=== PATIENT | male | born 1945 | race Caucasian/White ===

== ENCOUNTER 2017-10-30 08:55 | Inpatient (IN) | payer MEDICARE ==
[2017-11-20 10:54] VITALS: BMI 25.8
[2017-11-27] MEDS ORDERED: CLINDAMYCIN 900 MG in DEXTROSE 5% IN WATER 50 ML IVPB ONE ×2 (05:00)
[2017-11-27] MEDS ORDERED: HEPARIN SODIUM,PORCINE 5,000 UNIT/ML 1 ML VIAL SQ ONE (05:00)
[2017-11-27] MEDS ORDERED: GENTAMICIN 360 MG in SODIUM CHLORIDE 0.9% 100 ML IVPB ONE (05:00)
[2017-11-27] MEDS ORDERED: DEXAMETHASONE SOD PHOSPHATE 10 MG/ML 1 ML VIAL IV ONE (06:01)
[2017-11-27] MEDS ORDERED: fentaNYL (PF) 50 MCG/ML 2 ML AMP IV PRN (06:01)
[2017-11-27] MEDS ORDERED: MIDAZOLAM 2 MG/2 ML VIAL IV PRN (06:01)
[2017-11-27] MEDS ORDERED: ONDANSETRON 4 MG/2 ML VIAL IVP ONE (06:01)
[2017-11-27] MEDS ORDERED: LIDOCAINE 1% 20 ML VIAL (10MG/ML) FOR IV START INTRADERMA PRN (06:01)
[2017-11-27] MEDS ORDERED: ALVIMOPAN 12 MG CAPSULE PO ONE (07:41)
[2017-11-27] MEDS ORDERED: Antibiotics per Pharmacy 1 EACH MISC MISCELLANE PRN (07:41)
--- NOTE | 2017-11-27 07:41 | P.GSHP ---
History of Present Illness H&P Date: 11/27/17 CHIEF COMPLAINT: History of colon cancer. HISTORY OF PRESENT ILLNESS: Harman Young is a 72 years-old male who this week had blood in his stools upon a routine work up. He did have a colonoscopy by Dr. Guillaume with adenocarcinoma confirmed along the hepatic flexure. He also had a CT scan, which also confirmed diffuse adenopathy. Now he presents for sigmoid colon resection. PAST MEDICAL HISTORY: Please see list. PAST SURGICAL HISTORY: Please see list. MEDICATIONS: Please see list. ALLERGIES: Please see list. SOCIAL HISTORY: No illicit drug use FAMILY HISTORY: No reports of Crohn disease or ulcerative colitis. REVIEW OF ORGAN SYSTEMS: Additionally reports: CONSTITUTIONAL: No fevers or chills. HEENT: Denies any trouble with vision, hearing or nosebleeds. No difficulty swallowing. LYMPHATIC: The patient denies any lumps and bumps around the neck. ENDOCRINE: Denies any thyroid disorders. Denies any blood sugar glucose intolerance. RESPIRATORY: Denies pneumonia. Has asthma. CARDIOVASCULAR: Denies any chest pain, palpitations, or recent heart attacks. Has hyperlipidemia. GASTROINTESTINAL: Denies fatty food intolerance. Has blood in stools. GENITOURINARY: Denies any blood in urine or increased urinary frequency. MUSCULOSKELETAL: Denies any back pain, stiffness or joint arthritis. NEUROLOGIC: Denies any numbness or tingling along the distal extremities. No seizure disorders or headaches. PSYCHIATRIC: Denies any depression or suicidal ideation. HEMATOLOGIC: Denies any abnormal bleeding or bruising. BREASTS: Denies any breast lumps, pain or nipple discharge. SKIN: No current skin cancer. No rash. PHYSICAL EXAM: Patient is a 72-year-old male. GENERAL: Well developed and in no acute distress. Pleasant. HEENT: No sclera icterus. Extraocular movements grossly intact. Moist buccal mucosa. Head is atraumatic, normocephalic. Hears conversational speech. No nasal drainage. NECK: Supple without lymphadenopathy. No JV distention. CHEST: Non-labored respirations and equal bilateral excursions. CARDIOVASCULAR: Regular rate and rhythm. Palpable 2+ radial pulses. ABDOMEN: Soft. Non-tender. Nondistended. MUSCULOSKELETAL: No clubbing, cyanosis or edema. NEUROLOGIC: No focal or lateralizing signs. PSYCH: Appropriate affect. Alert and oriented to person, place and time. SKIN: Well perfused. Good skin turgor. STUDIES: CT of the abdomen/pelvis imaging was reviewed in detail and confirming a 3 cm lesion right at the hepatic flexure. There was no diffuse adenopathy was identified otherwise. ASSESSMENT: 1. History of adenocarcinoma 3 cm hepatic flexure. 2. Hypertensive heart disease. PLAN: 1. Benefits and risks of surgical intervention colon resection reviewed in detail. Robotic-assisted approach was also described. 2. Robotic assisted right hemicolectomy was described in detail. 3. He will need DVT prophylaxis. 4. Antibiotics prophylaxis. 5. Inpatient hospitalization of more then 2 nights was described. 6. He has completed an enhanced colon recovery program. Past Medical History Past Medical History: COPD, Hyperlipidemia, Pneumonia, Prostate Disorder Additional Past Medical History / Comment(s): emphysema, mild hiatal hernia, hx ulcers, prostate cancer, colon cancer, rt inguinal hernia History of Any Multi-Drug Resistant Organisms: None Reported Past Surgical History: Back Surgery, Orthopedic Surgery Additional Past Surgical History / Comment(s): back surgery for herniated disk, left shoulder rotator cuff, nilsa cataracts, Past Anesthesia/Blood Transfusion Reactions: No Reported Reaction Smoking Status: Former smoker - Past Family History Father Family Medical History: Cancer Mother Family Medical History: Cancer Medications and Allergies Home Medications Medication Instructions Recorded Confirmed Type Alendronate Sodium [Fosamax] 70 mg PO MO 11/20/17 11/20/17 History Aspirin [Adult Low Dose Aspirin EC] 81 mg PO DAILY 11/20/17 11/20/17 History Budesonide-Formot 160-4.5 Mcg 2 puff INHALATION BID 11/20/17 11/20/17 History [Symbicort 160-4.5 Mcg Inhaler] Calcium Carbonate [Calcium] 1,200 mg PO HS 11/20/17 11/20/17 History Lovastatin [Mevacor] 40 mg PO HS 11/20/17 11/20/17 History Multivitamins, Thera [Multivitamin 1 tab PO DAILY 11/20/17 11/20/17 History (formulary)] Tiotropium Grover [Spiriva] 1 cap INHALATION DAILY 11/20/17 11/20/17 History diphenhydrAMINE HCL [Benadryl] 25 mg PO HS 11/20/17 11/20/17 History Allergies Allergy/AdvReac Type Severity Reaction Status Date / Time cephalexin Allergy Unknown Verified 11/20/17 10:38 morphine Allergy itching Verified 11/20/17 10:38 and burning at IJ site Penicillins Allergy Unknown Verified 11/20/17 10:38
[2017-11-27] MEDS ORDERED: ACETAMINOPHEN IV (For NPO) 1,000 MG in EMPTY BAG 1 BAG IVPB ONE (07:42)
[2017-11-27] MEDS ORDERED: MIDAZOLAM 2 MG/2 ML VIAL IVP ONE (13:44)
[2017-11-27] MEDS: LACTATED RINGERS 1,000 ML IV SCH (13:49)
[2017-11-27 14:00] LABS: Glucose,Whole Blood 102 mg/dL (75-99)
[2017-11-27 14:02] LABS: Basophils % (A) 0 %; Eosinophils # (A) 0.1 k/uL (0-0.7); Eosinophils % (A) 1 %; HCT 47.2 % (39.0-53.0); HGB 15.5 gm/dL (13.0-17.5); Lymphocytes # (A) 1.2 k/uL (1.0-4.8); Lymphocytes % (A) 16 %; MCH 28.5 pg (25.0-35.0); MCHC 32.9 g/dL (31.0-37.0); MCV 86.7 fL (80.0-100.0); Mean Platelet Volume 6.4; Monocytes # (A) 0.8 k/uL (0-1.0); Monocytes % (A) 10 %; Neutrophils # (A) 5.4 k/uL (1.3-7.7); Neutrophils % (A) 70 %; Platelet Count 253 k/uL (150-450); RBC 5.45 m/uL (4.30-5.90); RDW 13.3 % (11.5-15.5); WBC 7.8 k/uL (3.8-10.6)
[2017-11-27 14:07] LABS: Albumin 4.3 g/dL (3.5-5.0); Calcium 9.4 mg/dL (8.4-10.2); Potassium 3.9 mmol/L (3.5-5.1); Total Bilirubin 0.6 mg/dL (0.2-1.3); Total Protein 7.3 g/dL (6.3-8.2)
[2017-11-27] MEDS ORDERED: ROPIVACAINE 250 MG, fentaNYL (PF) 625 MCG in SODIUM CHLORIDE 0.9% 188 ML EPIDURAL PRN (14:48)
[2017-11-27] MEDS ORDERED: NALOXONE 0.4 MG/ML 1 ML VIAL IV PRN (14:48)
[2017-11-27] MEDS ORDERED: ALBUMIN HUMAN 5% 250 ML BOTTLE IVPB ONE (15:37)
[2017-11-27] MEDS ORDERED: PROPOFOL 10 MG/ML 20 ML VIAL IV ONE (15:37)
[2017-11-27] MEDS ORDERED: GLYCOPYRROLATE 0.2 MG/ML 2 ML VIAL ONE (15:37)
[2017-11-27] MEDS ORDERED: MIDAZOLAM 2 MG/2 ML VIAL ONE (15:37)
[2017-11-27] MEDS ORDERED: LIDOCAINE 1% INJ 10MG/ML (20 ML MDV) ONE (15:37)
[2017-11-27] MEDS ORDERED: NEOSTIGMINE 1 MG/ML 10 ML VIAL ONE (15:37)
[2017-11-27] MEDS ORDERED: ROCURONIUM BROMIDE 10 MG/ML 10 ML VIAL IV ONE (15:37)
[2017-11-27] MEDS ORDERED: ePHEDrine SULFATE/0.9% NACL/PF 50 MG/5 ML SYRINGE IV ONE (15:37)
[2017-11-27] MEDS ORDERED: SUCCINYLCHOLINE CHLORIDE 100 MG/5 ML SYR IV ONE (15:37)
[2017-11-27] MEDS ORDERED: LACTATED RINGERS 1,000 ML IV ONE ×3 (16:02→18:38)
[2017-11-27] MEDS ORDERED: BUPIVACAIN-EPI 0.25%-1:200,000 30 ML VIAL SQ ONE (16:33)
[2017-11-27] MEDS ORDERED: BENZOCAINE/MENTHOL LOZENG 1 EACH LOZENGE MUCOUS MEM PRN (20:44)
[2017-11-27] MEDS ORDERED: ONDANSETRON 4 MG/2 ML VIAL IVP PRN (20:44)
[2017-11-27] MEDS ORDERED: METOCLOPRAMIDE 5 MG/ML 2 ML VIAL IVP PRN (20:44)
--- NOTE | 2017-11-27 20:44 | P.OP ---
Date of Procedure: 11/27/17 Description of Procedure: SURGEON: UZAIR DOWELL MD Preoperative Diagnosis: 1. Hepatic flexure colon cancer 2. Chronic iron deficiency anemia due to blood loss 3. Chronic obstructive pulmonary disease, emphysema 4. Hyperlipidemia 5. Osteoporosis 6. History of prostate cancer 7. Gastroesophageal reflux disease Postoperative Diagnosis: 1. Hepatic flexure colon cancer 2. Chronic iron deficiency anemia due to blood loss 3. Chronic obstructive pulmonary disease, emphysema 4. Hyperlipidemia 5. Osteoporosis 6. History of prostate cancer 7. Gastroesophageal reflux disease 8. Large right inguinal hernia, indirect, 2 cm without obstruction Procedure(s) Performed: Robot-assisted daVinci Xi laparoscopic extended right hemicolectomy Anesthesia: GETA, local, epidural Surgeon: Uzair Dowell Estimated Blood Loss (ml): 75 Pathology: other (Right colon) Condition: stable SPECIMENS REMOVED: terminal ileum, appendix, and right colon en bloc. COMPLICATIONS: None. Disposition: [facility] Operative Findings: 1. Tumor involving the hepatic flexure, 3 cm 2. Anastomosis proximal to the mid transverse colon 3. No evidence of peritoneal metastatic deposits or liver involvement 4. Incision is made along the upper abdomen with specimen extraction had right upper quadrant 5. Console time 192 minutes INDICATIONS: The patient is a 72-year-old male with personal history of malignant colorectal polyp of the hepatic flexure. Surgical intervention with colon resection was described in detail. Benefits and risks, including infection, open surgery possibility for additional surgery was discussed at length. Informed consent was obtained. All questions of the patient and family were answered. DESCRIPTION: Earlier the patient had undergone a bowel prep using the enhanced colon recovery program. An epidural was placed by anesthesia. The patient was transferred to the operating room and placed in supine position. After general anesthetic, a cardona catheter was placed. The abdomen was then prepped and draped in standard sterile fashion as Ioban was placed along the abdomen to minimize any contamination of skin floor. After a timeout protocol was performed, attention was then brought to the left upper quadrant whereby a 0 degree 5 mm laparoscopic trocar entry was performed. The abdominal cavity was entered and insufflated to 15 mmHg pressure, which he tolerated well. Diagnostic laparoscopy demonstrated no injury to bowel, viscera or mesentery. No metastatic or peritoneal deposits were identified. The liver was unremarkable. Along the right groin a large 2 cm indirect inguinal hernia without obstruction was identified. Next trochars were placed obliquely from the midline to the left upper quadrant. An robotic 8-mm trocar to the left of the midline of the lower abdomen just above the pubis. A 12 mm port was placed along the left of the umbilicus and another 8-mm port along the epigastrium. Ports were placed 8 cm apart from each other including 15-20 cm away from the target anatomy of the right pelvis. The 5-mm port was exchanged for a 12 mm robotic port. The patient was then placed in Trendelenburg position, at least 10, with the right side up 8. The robotic da Libby XI system was primed and docked from the left side of the patient. Using atraumatic graspers and vessel sealer, the robotic system was docked and primed as described. Instruments were interchanged by the machine operator assistant including scissors, needle residential driver, robotic stapler and vessel sealer. Next, attention was brought to identify the cecum. A stay suture using 0 silk was placed along the anterior serosa of the along the terminal ileum. The appendix was identified and used as a handle during the case. The terminal ileum and ascending colon mesentery was mobilized using a vessel sealer whereby the colon was marked and tagged. Using robot stapler 45 mm white load, the distal ileum was divided at the ileocecal valve. The mesentery of the ascending colon was mobilized towards the midline using a vessel sealer. Next, the dye was found along the posterior surface of the hepatic flexure and further mobilized at the mid transverse colon and prepared for resection. The colon was divided using 2 - 45 mm green load The rest of the colon mesentery was mobilized using vessel sealer including using blunt dissection. The ascending colon was mobilized from proximal to distal with the meeting point of the hepatic flexure The vascular pedicle of the ileocolic artery was controlled using vessel sealer. The mid transverse colon and distal ileum was brought in a side to side isoperistaltic anastomotic fashion after placing interrupted sutures along the proposed danny-lumen using 3-0 silk. A colotomy and enterotomy was prepared along both limbs along the antimesenteric border. The 8 mm trocar along the right upper quadrant was exchanged for a 12 mm port for stapler. Next, 45 mm blue stapler loads were fired to create the danny-lumen. The danny-lumen was reapproximated using 3-0 silk followed by 45 mm blue load for closure of the enterostomy. The mesenteric defect was oversewn using 2-0 V LOC 9 inch to prevent internal hernia. All needles were removed from the abdominal cavity. The robot was undocked. I re-scrubbed into the case. Via the 12 mm port of the left upper quadrant, the right colon was removed after widening the skin incision to 3-cm. All sponges were removed from the abdominal cavity. No contamination had occurred throughout this portion of the case. The fascial defect was oversewn using 0 Vicryl and Marty Moon. Next all pneumoperitoneum was evacuated from the abdominal cavity. The 8-mm trocar sites were reapproximated using 4-0 Monocryl in an interrupted subcuticular fashion. Local anesthetic was infiltrated to all wounds for postop analgesia. All incisions were also cleansed with diluted hydrogen peroxide. An Optifoam surgical dressing was placed over the left upper quadrant incision of the colon extraction site. Dermabond was applied to the rest of the skin incisions. The patient had tolerated the procedure well. The patient was extubated successfully. Intraoperative photos were reviewed with the patient's family who were overall pleased with the level of care. The patient was transferred to the postanesthesia care unit in stable condition.
[2017-11-27] MEDS: SYMBICORT 160-4.5 MCG INHALER INHALATION SCH (22:16)
[2017-11-27] MEDS: HEPARIN SODIUM,PORCINE 5,000 UNIT/ML 1 ML VIAL SQ SCH (22:59)
[2017-11-27] MEDS: SODIUM CHLORIDE 0.9% 1,000 ML IV SCH (23:00)
[2017-11-28] MEDS: LACTATED RINGERS 1,000 ML IV SCH (04:55)
--- NOTE | 2017-11-28 06:50 | P.PN ---
Progress Note - Text 11/28 654am 72-year-old male status post right hemicolectomy by Dr. Dowell. Patient has an epidural catheter for postop pain control and was seen this morning, epidural solution running at 8 mL an hour with a VAS of 0 at rest. Patient didn 't complain of pain on coughing and movement. I asked the nurse to increase the rate if he continues to have pain. No motor or sensory deficits.
[2017-11-28] MEDS: SYMBICORT 160-4.5 MCG INHALER INHALATION SCH ×3 (07:06→19:39)
[2017-11-28] MEDS: SODIUM CHLORIDE 0.9% 1,000 ML IV SCH ×2 (07:26→15:41)
[2017-11-28] MEDS ORDERED: IPRATROPIUM 0.5 MG/2.5 ML NEBU INHALATION SCH (08:00)
[2017-11-28 08:01] LABS: Basophils % (A) 0 %; Eosinophils % (A) 0 %; HCT 37.2 % (39.0-53.0); Lymphocytes # (A) 0.9 k/uL (1.0-4.8); Lymphocytes % (A) 9 %; MCHC 32.7 g/dL (31.0-37.0); MCV 88.7 fL (80.0-100.0); Mean Platelet Volume 6.3; Monocytes # (A) 0.9 k/uL (0-1.0); Monocytes % (A) 9 %; Neutrophils # (A) 7.5 k/uL (1.3-7.7); Neutrophils % (A) 80 %; Platelet Count 197 k/uL (150-450); RBC 4.19 m/uL (4.30-5.90); RDW 13.5 % (11.5-15.5); WBC 9.4 k/uL (3.8-10.6)
[2017-11-28 08:03] LABS: Calcium 8.5 mg/dL (8.4-10.2); Potassium 4.3 mmol/L (3.5-5.1)
[2017-11-28 08:05] LABS: HGB 12.2 gm/dL (13.0-17.5)
[2017-11-28] MEDS: HEPARIN SODIUM,PORCINE 5,000 UNIT/ML 1 ML VIAL SQ SCH ×2 (08:36→22:03)
[2017-11-28] MEDS: TAMSULOSIN 0.4 MG CAP.ER.24H PO SCH (08:36)
[2017-11-28] MEDS: PANTOPRAZOLE 40 MG/10 ML VIAL IVP SCH (08:36)
[2017-11-28] MEDS: ALVIMOPAN 12 MG CAPSULE PO SCH ×2 (08:36→22:03)
--- NOTE | 2017-11-28 08:53 | P.PN ---
<Rimma Morris M - Last Filed: 11/28/17 08:46> Subjective Progress Note Date: 11/28/17 72-year-old sitting up in bed taking a clear liquid diet. Epidural in place patient states effective for pain control denying dizziness lightheadedness nausea vomiting or chest pain shortness of breath surgical dressing site dry Robot-assisted daVinci Xi laparoscopic extended right hemicolectomy done on November 27 for a hepatic flexure colon cancer Objective - Vital Signs Vital signs: Vital Signs Temp 98.7 F 11/28/17 07:25 Pulse 79 11/28/17 07:25 Resp 16 11/28/17 07:30 BP 150/65 11/28/17 07:25 Pulse Ox 98 11/28/17 07:25 Intake & Output 11/27/17 11/28/17 11/28/17 18:59 06:59 18:59 Intake Total 3965 1000 Output Total 2225 Balance 3965 -1225 Weight 72.575 kg Intake: IV 3965 Intake, IV Titration 800 Amount Sodium Chloride 0.9% 1, 800 000 ml @ 100 mls/hr IV . Q10H [facility] Rx#:[id number] Oral 200 Output: Urine 2150 Uretheral (Cardona) 1800 Estimated Blood Loss 75 Other: Voiding Method Indwelling Catheter Indwelling Catheter - Exam Physical exam Pleasant 72-year-old male sitting up in bed taking a clear liquid diet states pain medication effective for pain control epidural in place Lungs adequate air movement bilaterally sats are 98% on 3 L Heart S1-S2 audible regular denying chest pain Abdomen indwelling Cardona catheter in place taking a clear liquid diet with no nausea no vomiting tolerating few hypoactive bowel tones surgical dressing site dry nondistended surgical tenderness appropriate states is not passing gas no stool Extremities Venodyne's on to bilateral lower extremities - Labs CBC & Chem 7: 11/28/17 06:27 11/28/17 06:21 Labs: Abnormal Lab Results - Last 24 Hours (Table) 11/27/17 11/27/17 11/28/17 Range/Units 13:40 13:58 06:21 RBC (4.30-5.90) m/uL Hgb (13.0-17.5) gm/dL Hct (39.0-53.0) % Lymphocytes # (1.0-4.8) k/uL Chloride 109 H (98-107) mmol/L Glucose 117 H (74-99) mg/dL POC Glucose (mg/dL) 102 H (75-99) mg/dL 11/28/17 Range/Units 06:27 RBC 4.19 L (4.30-5.90) m/uL Hgb 12.2 L D (13.0-17.5) gm/dL Hct 37.2 L (39.0-53.0) % Lymphocytes # 0.9 L (1.0-4.8) k/uL Chloride (98-107) mmol/L Glucose (74-99) mg/dL POC Glucose (mg/dL) (75-99) mg/dL Assessment and Plan Assessment: Impression Status post done on November 27 Robot-assisted daVinci Xi laparoscopic extended right hemicolectomy for hepatic flexure colon cancer Chronic iron deficiency anemia due to blood loss COPD with no evidence of an exacerbation History of prostate cancer A large right inguinal hernia indirect 2 cm without obstruction Plan Continue postop surgical care Epidural for pain control per anesthesia Indwelling Cardona catheter will epidural and place Pain control DVT and GI prophylaxis Continue clear liquid diet and advance as tolerated Further recommendations pending <Reyna Dowell N - Last Filed: 11/28/17 12:00> Objective - Vital Signs Vital signs: Vital Signs Temp 98.7 F 11/28/17 07:25 Pulse 72 11/28/17 11:24 Resp 16 11/28/17 07:30 BP 150/65 11/28/17 07:25 Pulse Ox 98 11/28/17 07:25 Intake & Output 11/27/17 11/28/17 11/28/17 18:59 06:59 18:59 Intake Total 3965 1000 400 Output Total 2225 Balance 3965 -1225 400 Weight 72.575 kg Intake: IV 3965 400 Sodium Chloride 0.9% 1, 400 000 ml @ 100 mls/hr IV . Q10H [facility] Rx#:[id number] Intake, IV Titration 800 Amount Sodium Chloride 0.9% 1, 800 000 ml @ 100 mls/hr IV . Q10H [facility] Rx#:[id number] Oral 200 Output: Urine 2150 Uretheral (Cardona) 1800 Estimated Blood Loss 75 Other: Voiding Method Indwelling Catheter Indwelling Catheter - Labs CBC & Chem 7: 11/28/17 06:27 09/21/18 06:21 Labs: Abnormal Lab Results - Last 24 Hours (Table) 11/27/17 11/27/17 11/28/17 Range/Units 13:40 13:58 06:21 RBC (4.30-5.90) m/uL Hgb (13.0-17.5) gm/dL Hct (39.0-53.0) % Lymphocytes # (1.0-4.8) k/uL Chloride 109 H (98-107) mmol/L Glucose 117 H (74-99) mg/dL POC Glucose (mg/dL) 102 H (75-99) mg/dL 11/28/17 Range/Units 06:27 RBC 4.19 L (4.30-5.90) m/uL Hgb 12.2 L D (13.0-17.5) gm/dL Hct 37.2 L (39.0-53.0) % Lymphocytes # 0.9 L (1.0-4.8) k/uL Chloride (98-107) mmol/L Glucose (74-99) mg/dL POC Glucose (mg/dL) (75-99) mg/dL Assessment and Plan Plan: 1. Patient reports doing much better this afternoon. 2. He is passing flatus and had a large bowel movement. 3. Can discontinue epidural and cardona 4. Start pain meds 5. Discharge home this afternoon 6. Patient reports just getting a rash at his penicillin site as an 9 year old. No systemic anaphylaxis. 7. Follow up in office in 5 days
[2017-11-28] MEDS ORDERED: IPRATROPIUM-ALBUTEROL 3 ML NEB INHALATION PRN (09:08)
[2017-11-28] MEDS ORDERED: ceFAZolin IN SWFI 2 GM/20 ML SYRINGE IVP SCH (09:30)
[2017-11-28] MEDS: IPRATROPIUM-ALBUTEROL 3 ML NEB INHALATION SCH ×4 (11:11→23:06)
[2017-11-28] MEDS: metroNIDAZOLE-NS PMX 500 MG in SALINE 1 100ML.BAG IVPB SCH ×2 (12:29→17:20)
[2017-11-28] MEDS: ceFAZolin IN SWFI 2 GM/20 ML SYRINGE IVP SCH ×2 (12:29→22:03)
[2017-11-28] MEDS: HYDROcodone/APAP 5-325MG 1 EACH TAB PO PRN ×3 (12:36→22:44)
[2017-11-28] MEDS ORDERED: TAMSULOSIN 0.4 MG CAP.ER.24H PO STA (14:32)
--- NOTE | 2017-11-28 15:52 | P.CNPUL ---
History of Present Illness Consult date: 11/28/17 Reason for consult: other Chief complaint: Hepatic flexure colon cancer, status post robotic-assisted lap hemicolectem History of present illness: This is a 72-year-old patient with history of severe advanced COPD, with an underlying FEV1 of 40% of predicted, and DLCO 39%, maintained on a combination of Spiriva and Symbicort, not oxygen dependent, who presented on 11/27/2017 for elective robotic-assisted laparoscopic right hemicolectomy for hepatic flexure colon cancer by Dr. Dowell. Patient initially had GI workup done for blood in his stools. He had a colonoscopy by Dr. Guillaume that showed adenocarcinoma lung the hepatic flexure. CAT scan of the abdomen showed diffuse adenopathy. Other medical history includes hypertension, hyperlipidemia, prostate cancer, PAD, nicotine dependence, currently in remission. Patient is not on oxygen at his baseline, he follows with Dr. Bailey in the pulmonary office for his COPD. He was seeing this patient on the surgical floor, postop day 1 post robotic assisted right hemicolectomy. Doing well, denies any shortness of breath, or chest pain. He is on room air, and his pulse ox is 92%, he is afebrile, hemodynamically stable. His abdominal surgical incisions are clean dry and intact, approximated with Dermabond. Active bowel sounds, tolerating clear liquid diet. Today's labs show WBC of 9.4, hemoglobin is 12.2, electrolytes and renal profile unremarkable. His pain is reasonably controlled. Were seen this patient in consultation for pulmonary management. Review of Systems All systems: negative Constitutional: Denies chills, Denies fever Eyes: denies blurred vision, denies pain Ears, nose, mouth and throat: Denies headache, Denies sore throat Cardiovascular: Denies chest pain, Denies shortness of breath Respiratory: Denies cough Gastrointestinal: Denies abdominal pain, Denies diarrhea, Denies nausea, Denies vomiting Musculoskeletal: Denies myalgias Integumentary: Denies pruritus, Denies rash Neurological: Denies numbness, Denies weakness Psychiatric: Denies anxiety, Denies depression Endocrine: Denies fatigue, Denies weight change Past Medical History Past Medical History: COPD, Hyperlipidemia, Pneumonia, Prostate Disorder Additional Past Medical History / Comment(s): emphysema, mild hiatal hernia, hx ulcers, prostate cancer, colon cancer, rt inguinal hernia History of Any Multi-Drug Resistant Organisms: None Reported Past Surgical History: Back Surgery, Orthopedic Surgery Additional Past Surgical History / Comment(s): back surgery for herniated disk, left shoulder rotator cuff, nilsa cataracts, Past Anesthesia/Blood Transfusion Reactions: No Reported Reaction Past Psychological History: No Psychological Hx Reported Smoking Status: Former smoker Past Alcohol Use History: Rare Additional Past Alcohol Use History / Comment(s): quit smoking 22 yrs ago, smoked for 30-35 yrs, smoked 2 PPD Past Drug Use History: None Reported - Past Family History Father Family Medical History: Cancer Mother Family Medical History: Cancer Additional Family Medical History / Comment(s): lung Cancer, Brain Cancer Sister(s) Family Medical History: Congestive Heart Failure (CHF) Medications and Allergies Home Medications Medication Instructions Recorded Confirmed Type Alendronate Sodium [Fosamax] 70 mg PO MO 11/20/17 11/27/17 History Aspirin [Adult Low Dose Aspirin EC] 81 mg PO DAILY 11/20/17 11/27/17 History Budesonide-Formot 160-4.5 Mcg 2 puff INHALATION RT-BID 11/20/17 11/27/17 History [Symbicort 160-4.5 Mcg Inhaler] Calcium Carbonate [Calcium] 1,200 mg PO HS 11/20/17 11/27/17 History Lovastatin [Mevacor] 40 mg PO HS 11/20/17 11/27/17 History Multivitamins, Thera [Multivitamin 1 tab PO DAILY 11/20/17 11/27/17 History (formulary)] Tiotropium Mather [Spiriva] 1 puff INHALATION RT-DAILY 11/20/17 11/27/17 History diphenhydrAMINE HCL [Benadryl] 25 mg PO HS 11/20/17 11/27/17 History Allergies Allergy/AdvReac Type Severity Reaction Status Date / Time cephalexin Allergy Unknown Verified 11/27/17 22:19 morphine Allergy itching Verified 11/27/17 22:19 and burning at IJ site Penicillins Allergy Unknown Verified 11/27/17 22:19 Physical Exam Vitals: Vital Signs Temp Pulse Pulse Resp BP Pulse Ox 11/28/17 15:29 83 11/28/17 14:59 92 L 11/28/17 11:24 72 11/28/17 11:13 80 11/28/17 07:30 16 11/28/17 07:25 98.7 F 79 16 150/65 98 11/28/17 07:20 74 11/28/17 07:05 78 11/27/17 23:44 79 129/80 98 11/27/17 23:29 79 136/64 98 11/27/17 23:14 77 116/64 99 11/27/17 22:59 79 125/66 98 11/27/17 22:44 79 126/70 96 11/27/17 22:29 78 133/68 96 11/27/17 22:21 98 11/27/17 21:59 81 136/69 95 11/27/17 21:55 98.0 F 95 16 125/62 95 11/27/17 21:44 81 125/62 95 Intake and Output 11/28/17 11/28/17 11/28/17 06:59 14:59 22:59 Intake Total 1000 916 Output Total 1800 1100 Balance -800 -184 Intake: IV 400 Sodium Chloride 0.9% 1, 400 000 ml @ 100 mls/hr IV . Q10H [facility] Rx#:[id number] Intake, IV Titration 800 Amount Sodium Chloride 0.9% 1, 800 000 ml @ 100 mls/hr IV . Q10H [facility] Rx#:[id number] Oral 200 516 Output: Urine 1800 1100 Uretheral (Esquivel) 1800 1100 Other: Voiding Method Indwelling Catheter GENERAL EXAM: Alert, pleasant 72-year-old white male, comfortable in no apparent distress. HEAD: Normocephalic/atraumatic. EYES: Normal reaction of pupils, equal size. Conjunctiva pink, sclera white. NOSE: Clear with pink turbinates. THROAT: No erythema or exudates. NECK: No masses, no JVD, no thyroid enlargement, no adenopathy. CHEST: No chest wall deformity. Symmetrical expansion. LUNGS: Rales in bilateral bases CVS: Regular rate and rhythm, normal S1 and S2, no gallops, no murmurs, no rubs ABDOMEN: Soft, nontender. No hepatosplenomegaly, normal bowel sounds, no guarding or rigidity. Abdominal incisions dry and intact approximated with Dermabond EXTREMITIES: No clubbing, no edema, no cyanosis, 2+ pulses and upper and lower extremities. MUSCULOSKELETAL: Muscle strength and tone normal. SPINE: No scoliosis or deformity SKIN: No rashes CENTRAL NERVOUS SYSTEM: Alert and oriented -3. No focal deficits, tone is normal in all 4 extremities. PSYCHIATRIC: Alert and oriented -3. Appropriate affect. Intact judgment and insight. Results - Laboratory Findings CBC and BMP: 11/28/17 06:27 11/28/17 06:21 Abnormal lab findings: Abnormal Labs 11/27/17 11/27/17 11/28/17 13:40 13:58 06:21 RBC Hgb Hct Lymphocytes # Chloride 109 H Glucose 117 H POC Glucose (mg/dL) 102 H 11/28/17 06:27 RBC 4.19 L Hgb 12.2 L D Hct 37.2 L Lymphocytes # 0.9 L Chloride Glucose POC Glucose (mg/dL) - Diagnostic Findings Chest x-ray: report reviewed, image reviewed Assessment and Plan Plan: #1. Adenocarcinoma along the hepatic flexure, status post robotic-assisted right hemicolectomy, postop day 1 #2. Chronic iron deficiency anemia #3. Severe COPD, with underlying FEV1 of 40%, not oxygen dependent at baseline #4. Nicotine dependence, in remission #5. Hypertension, hyperlipidemia #6. Prostate cancer #7. GERD/reflux Plan: Continue encouraging deep breathing and coughing, incentive spirometry use, continue nebulized bronchodilators, early ambulation. Pain control. Patient's COPD seems to be stable. No evidence of exacerbation. From pulmonary perspective patient could be considered for discharge home today. Follow-up with Dr. Bailey in one week I performed a history & physical examination of the patient and discussed their management with my nurse practitioner, Carly Linton. I reviewed the nurse practitioner's note and agree with the documented findings and plan of care. Lung sounds are positive for bibasilar crackles. The findings and the impression was discussed with the patient. I attest to the documentation by the nurse practitioner. Time with Patient: Greater than 30
[2017-11-28] MEDS ORDERED: CLINDAMYCIN 900 MG in DEXTROSE 5% IN WATER 50 ML IVPB SCH ×2 (16:00)
[2017-11-29] MEDS: metroNIDAZOLE-NS PMX 500 MG in SALINE 1 100ML.BAG IVPB SCH ×2 (00:22→05:30)
[2017-11-29] MEDS: SODIUM CHLORIDE 0.9% 1,000 ML IV SCH (00:22)
[2017-11-29] MEDS: IPRATROPIUM-ALBUTEROL 3 ML NEB INHALATION SCH ×3 (03:50→11:52)
[2017-11-29] MEDS: HYDROcodone/APAP 5-325MG 1 EACH TAB PO PRN ×2 (04:00→09:13)
[2017-11-29] MEDS: LACTATED RINGERS 1,000 ML IV SCH (05:21)
[2017-11-29] MEDS: ceFAZolin IN SWFI 2 GM/20 ML SYRINGE IVP SCH (05:23)
[2017-11-29 06:59] VITALS: BP 123/69; RESP 17; TEMP 98.1
[2017-11-29 07:42] LABS: Basophils % (A) 0 %; Eosinophils # (A) 0.1 k/uL (0-0.7); Eosinophils % (A) 1 %; HCT 35.2 % (39.0-53.0); HGB 11.4 gm/dL (13.0-17.5); Lymphocytes # (A) 0.9 k/uL (1.0-4.8); Lymphocytes % (A) 10 %; MCH 29.1 pg (25.0-35.0); MCHC 32.3 g/dL (31.0-37.0); MCV 90.2 fL (80.0-100.0); Mean Platelet Volume 6.4; Monocytes # (A) 0.8 k/uL (0-1.0); Monocytes % (A) 8 %; Neutrophils # (A) 6.9 k/uL (1.3-7.7); Neutrophils % (A) 78 %; Platelet Count 181 k/uL (150-450); RDW 13.6 % (11.5-15.5); WBC 8.9 k/uL (3.8-10.6)
[2017-11-29] MEDS: SYMBICORT 160-4.5 MCG INHALER INHALATION SCH (07:48)
[2017-11-29 07:51] VITALS: PULSE 80
[2017-11-29 08:10] LABS: Calcium 7.7 mg/dL (8.4-10.2); Potassium 3.8 mmol/L (3.5-5.1)
--- NOTE | 2017-11-29 08:32 | P.DS ---
Providers Date of admission: 11/27/17 12:43 Expected date of discharge: 11/29/17 Attending physician: Reyna Dowell Primary care physician: Giuseppe Bailey - Discharge Diagnosis(es) (1) Hepatic flexure mass Current Visit: Yes Status: Acute (2) S/P laparoscopic colectomy Current Visit: Yes Status: Acute (3) COPD (chronic obstructive pulmonary disease) Current Visit: Yes Status: Acute (4) History of prostate disorder Current Visit: Yes Status: Acute (5) Prostate cancer Current Visit: Yes Status: Acute (6) Colon cancer Current Visit: Yes Status: Acute (7) Iron deficiency anemia due to chronic blood loss Current Visit: Yes Status: Acute (8) Osteoporosis Current Visit: Yes Status: Acute Hospital Course: Postoperative Diagnosis: 1. Hepatic flexure colon cancer 2. Chronic iron deficiency anemia due to blood loss 3. Chronic obstructive pulmonary disease, emphysema 4. Hyperlipidemia 5. Osteoporosis 6. History of prostate cancer 7. Gastroesophageal reflux disease 8. Large right inguinal hernia, indirect, 2 cm without obstruction COURSE: The patient is a 72-year-old male with personal history of malignant colorectal polyp of the hepatic flexure. Surgical intervention with colon resection was described in detail. Benefits and risks, including infection, open surgery possibility for additional surgery was discussed at length. Informed consent was obtained. All questions of the patient and family were answered. Postprocedure, patient was passing flatus. He was tolerating diet. He had a bowel movement. Epidural was discontinued. Pain was controlled with oral pain meds. Patient was pending spontaneous voiding after epidural removal. Discharge instructions reviewed including dressing to be discontinued in the office. Follow-up in 5 days. Procedures: Procedure(s) Performed: Robot-assisted daVinci Xi laparoscopic extended right hemicolectomy Anesthesia: GETA, local, epidural Surgeon: Reyna Dowell Estimated Blood Loss (ml): 75 Pathology: other (Right colon) Condition: stable SPECIMENS REMOVED: terminal ileum, appendix, and right colon en bloc. COMPLICATIONS: None. Disposition: floor Operative Findings: 1. Tumor involving the hepatic flexure, 3 cm 2. Anastomosis proximal to the mid transverse colon 3. No evidence of peritoneal metastatic deposits or liver involvement 4. Incision is made along the upper abdomen with specimen extraction had right upper quadrant 5. Console time 192 minutes Patient Condition at Discharge: Good Plan - Discharge Summary Discharge Rx Participant: Yes New Discharge Prescriptions: New HYDROcodone/APAP 5-325MG [[place] 5-325] 2 each PO Q6HR PRN #24 tab PRN Reason: Moderate Pain Tamsulosin [Flomax] 0.4 mg PO DAILY #7 cap Continue Calcium Carbonate [Calcium] 1,200 mg PO HS Lovastatin [Mevacor] 40 mg PO HS Alendronate Sodium [Fosamax] 70 mg PO MO Tiotropium [place] [Spiriva] 1 puff INHALATION RT-DAILY Budesonide-Formot 160-4.5 Mcg [Symbicort 160-4.5 Mcg Inhaler] 2 puff INHALATION RT-BID Aspirin [Adult Low Dose Aspirin EC] 81 mg PO DAILY diphenhydrAMINE HCL [Benadryl] 25 mg PO HS Discontinued Multivitamins, Thera [Multivitamin (formulary)] 1 tab PO DAILY Discharge Medication List Alendronate Sodium [Fosamax] 70 mg PO MO 11/20/17 [History] Aspirin [Adult Low Dose Aspirin EC] 81 mg PO DAILY 11/20/17 [History] Budesonide-Formot 160-4.5 Mcg [Symbicort 160-4.5 Mcg Inhaler] 2 puff INHALATION RT-BID 11/20/17 [History] Calcium Carbonate [Calcium] 1,200 mg PO HS 11/20/17 [History] Lovastatin [Mevacor] 40 mg PO HS 11/20/17 [History] Tiotropium [place] [Spiriva] 1 puff INHALATION RT-DAILY 11/20/17 [History] diphenhydrAMINE HCL [Benadryl] 25 mg PO HS 11/20/17 [History] HYDROcodone/APAP 5-325MG [[place] 5-325] 2 each PO Q6HR PRN #24 tab 11/29/17 [Rx] Tamsulosin [Flomax] 0.4 mg PO DAILY #7 cap 11/29/17 [Rx] Follow up Appointment(s)/Referral(s): Reyna Dowell MD [STAFF PHYSICIAN] - 12/01/17 1:15 pm Patient Instructions/Handouts: Colectomy Diet (DC) Activity/Diet/Wound Care/Special Instructions: NO lifting over 4 pounds in 4 weeks. No shower. No bathtub soaks. Dressings to be removed by your doctor in the office. Please continue with protein shakes 3 times daily Discharge Disposition: HOME SELF-CARE
[2017-11-29] MEDS: TAMSULOSIN 0.4 MG CAP.ER.24H PO SCH (09:05)
[2017-11-29] MEDS: PANTOPRAZOLE 40 MG/10 ML VIAL IVP SCH (09:05)
[2017-11-29] MEDS: HEPARIN SODIUM,PORCINE 5,000 UNIT/ML 1 ML VIAL SQ SCH (09:05)
[2017-11-29] MEDS: ALVIMOPAN 12 MG CAPSULE PO SCH (09:05)
== END 2017-11-29 12:23 | disposition home or self-care (01) | DRG 331 ==
LOC: 2ORMAIN 11-27 12:43 → 3SUR 11-27 21:14
PROVIDERS: ADMIT Surgery Plastic and Reconstructive Surgery; ATTEND Surgery Plastic and Reconstructive Surgery
PROC: 8E0W8CZ Robotic Assisted Procedure of Trunk Region, Via Natural or Artificial Opening Endoscopic (ICD-10-PCS; 2017-11-27)
PROC: 0DTF4ZZ Resection of Right Large Intestine, Percutaneous Endoscopic Approach (ICD-10-PCS; principal; 2017-11-27 15:25)
DX: C18.3 Malignant neoplasm of hepatic flexure (principal); D50.0 Iron deficiency anemia secondary to blood loss (chronic); J43.9 Emphysema, unspecified; I11.9 Hypertensive heart disease without heart failure; E78.5 Hyperlipidemia, unspecified; J45.909 Unspecified asthma, uncomplicated; M81.0 Age-related osteoporosis without current pathological fracture; K44.9 Diaphragmatic hernia without obstruction or gangrene; K21.9 Gastro-esophageal reflux disease without esophagitis; R59.9 Enlarged lymph nodes, unspecified; K40.90 Unilateral inguinal hernia, without obstruction or gangrene, not specified as recurrent; Z79.82 Long term (current) use of aspirin; Z79.83 Long term (current) use of bisphosphonates; Z79.51 Long term (current) use of inhaled steroids; Z79.899 Other long term (current) drug therapy; Z85.46 Personal history of malignant neoplasm of prostate; Z87.01 Personal history of pneumonia (recurrent); Z87.11 Personal history of peptic ulcer disease; Z87.891 Personal history of nicotine dependence; Z87.19 Personal history of other diseases of the digestive system; Z98.42 Cataract extraction status, left eye; Z98.41 Cataract extraction status, right eye; Z88.1 Allergy status to other antibiotic agents; Z88.5 Allergy status to narcotic agent; Z88.0 Allergy status to penicillin; Z80.1 Family history of malignant neoplasm of trachea, bronchus and lung; Z80.8 Family history of malignant neoplasm of other organs or systems; Z82.49 Family history of ischemic heart disease and other diseases of the circulatory system
CPT/HCPCS: 80048; 80053; 85025; 86850; 86900; 86901; 88309; 94640

== ENCOUNTER → 2018-02-13 | Outpatient (CLI) | payer MEDICARE ==
--- NOTE | 2018-02-13 16:03 | US ---
EXAMINATION TYPE: US carotid duplex BILAT DATE OF EXAM: 02/13/2018 COMPARISON: NONE CLINICAL HISTORY: G45.9 Transient cerebral ischemic attack. Difficulty speaking, TIA EXAM MEASUREMENTS: RIGHT: Peak Systolic Velocity (PSV) cm/sec ----- Right CCA: 106.9 ----- Right ICA: 83.1 ----- Right ECA: 128.9 ICA/CCA ratio: 0.8 RIGHT: End Diastole cm/sec ----- Right CCA: 12.4 ----- Right ICA: 21.5 ----- Right ECA: 7.2 LEFT: Peak Systolic Velocity (PSV) cm/sec ----- Left CCA: 82.0 ----- Left ICA: 88.8 ----- Left ECA: 110.8 ICA/CCA ratio: 1.1 LEFT: End Diastole cm/sec ----- Left CCA: 0.0 ----- Left ICA: 24.1 ----- Left ECA: 0.0 VERTEBRALS (direction of flow): Right Vertebral: Antegrade Left Vertebral: Antegrade Rhythm: Normal Mild plaque bilateral bifurcations. No evidence of significant stenosis IMPRESSION: Mild degree of grayscale atheromatous plaquing with no sonographically evident hemodynam ically significant stenosis within either visualized internal or common arterial system. Criteria for Assigning % of Stenosis / Diameter reduction (Estimation based on the indirect measurements of the internal carotid artery velocities (ICA PSV). 1. Normal (no stenosis)=ICA PSV < 125 cm/s: ratio < 2.0: ICA EDV<40 cm/s. 2. Less than 50% stenosis=ICA PSV < 125 cm/s: ratio < 2.0: ICA EDV<40 cm/s. 3. 50 to 69% stenosis=ICA PSV of 125 to 230 cm/s: ration 2.0 ? 4.0: ICA EDV 40-100 cm/s. 4. Greater than 70% stenosis to near occlusion= ICA PSV > 230 cm/s: ratio > 4.0: ICA EDV > 100 cm/s. 5. Near occlusion= ICA PSV velocities may be low or undetectable: variable ratio and ICA EDV. 6. Total occlusion=unable to detect flow.
== END | disposition home or self-care (01) ==
LOC: RADUSWWP 15:22
PROVIDERS: ATTEND Internal Medicine
DX: I65.23 Occlusion and stenosis of bilateral carotid arteries (principal)
CPT/HCPCS: 93880

== ENCOUNTER → 2018-02-17 | Outpatient (CLI) | payer MEDICARE ==
--- NOTE | 2018-02-17 14:21 | CT ---
EXAMINATION TYPE: CT brain wo/w con DATE OF EXAM: 02/17/2018 COMPARISON: None INDICATION: Memory loss and confusion DLP: 2229 mGycm, Automated exposure control for dose reduction was used. CONTRAST: 100 mL Isovue-300 CT of the brain is performed utilizing 3 mm thick sections through the posterior fossa and 3 mm thick sections through the remaining calvarium. Study is performed within 24 hours of arrival to the hosp [facility]. No abnormal hyperdensity is present to suggest an acute intracranial hemorrhage. No mass lesion is evident. No acute infarcts are evident. There is mild periventricular white matter hypodensity, likely on the basis of chronic white matter ischemic changes. Ventricles and sulci are appropriate for the patient age. Paranasal sinuses and mastoid air cells within the [id number] are clear. No abnormal enhancement is evident. IMPRESSIONS: 1. Normal pre and postcontrast CT brain.
== END ==
LOC: RADCTMAIN 12:18
PROVIDERS: ATTEND Internal Medicine
DX: G45.9 Transient cerebral ischemic attack, unspecified (principal); I63.9 Cerebral infarction, unspecified; R47.9 Unspecified speech disturbances
CPT/HCPCS: 82565; 84520; 70470; 36415; Q9967

== ENCOUNTER 2018-05-14 07:53 | Day surgery (SDC) | payer MEDICARE ==
[2018-05-08 13:02] VITALS: BMI 25.0
--- NOTE | 2018-05-14 06:58 | P.GSHP ---
History of Present Illness H&P Date: 05/14/18 CHIEF COMPLAINT: Inguinal hernia, right. HISTORY OF PRESENT ILLNESS: The patient is a 72-year-old male who presents with a history of swelling and pain along the right groin. He's noted increased swelling including pain of the area. Now he presents for repair of his inguinal hernia. PAST MEDICAL HISTORY: Please see list. PAST SURGICAL HISTORY: Please see list. MEDICATIONS: Please see list. ALLERGIES: Please see list. SOCIAL HISTORY: No illicit drug use FAMILY HISTORY: No reports of Crohn disease or ulcerative colitis. REVIEW OF ORGAN SYSTEMS: CONSTITUTIONAL: No reports of fevers or chills. No reports of weight loss despite prior attempts. GI: Denies any blood in stools or constipation. PHYSICAL EXAM: VITAL SIGNS: Stable GENERAL: Well-developed pleasant male in no acute distress. HEENT: No scleral icterus. Extraocular movements grossly intact. Moist buccal mucosa. NECK: Supple without lymphadenopathy. CHEST: Unlabored respirations. Equal bilateral excursions. CARDIOVASCULAR: Regular rate and rhythm. Distal 2+ pulses. ABDOMEN: Soft, nondistended. No peritoneal signs. Palpable defect of the right groin. MUSCULOSKELETAL: No clubbing, cyanosis, or edema. ASSESSMENT: 1. Inguinal hernia, right PLAN: 1. Recommend proceeding with a robotic inguinal repair with mesh with possible bilateral approach. 2. Benefits and risks of surgical intervention was discussed including possibility of open technique. 3. DVT prophylaxis. 4. Antibiotic prophylaxis. Past Medical History Past Medical History: Cancer, COPD, Hyperlipidemia, Pneumonia, Prostate Disorder Additional Past Medical History / Comment(s): emphysema, mild hiatal hernia, hx ulcers, prostate cancer, colon cancer, rt inguinal hernia. HEPATITIS A- 1960 History of Any Multi-Drug Resistant Organisms: None Reported Past Surgical History: Back Surgery, Bowel Resection, Orthopedic Surgery Additional Past Surgical History / Comment(s): back surgery for herniated disk, left shoulder rotator cuff, nilsa cataracts, Past Anesthesia/Blood Transfusion Reactions: No Reported Reaction Smoking Status: Former smoker - Past Family History Father Family Medical History: Cancer Mother Family Medical History: Cancer Additional Family Medical History / Comment(s): lung Cancer, Brain Cancer Sister(s) Family Medical History: Congestive Heart Failure (CHF) Medications and Allergies Home Medications Medication Instructions Recorded Confirmed Type Aspirin [Adult Low Dose Aspirin EC] 81 mg PO DAILY 11/20/17 05/08/18 History Budesonide-Formot 160-4.5 Mcg 2 puff INHALATION RT-BID 11/20/17 05/08/18 History [Symbicort 160-4.5 Mcg Inhaler] Calcium Carbonate [Calcium] 1,200 mg PO HS 11/20/17 05/08/18 History Lovastatin [Mevacor] 40 mg PO HS 11/20/17 05/08/18 History Tiotropium [place] [Spiriva] 1 puff INHALATION RT-DAILY 11/20/17 05/08/18 History diphenhydrAMINE HCL [Benadryl] 25 mg PO HS 11/20/17 05/08/18 History Alendronate Sodium [Fosamax] 70 mg PO MO 05/08/18 05/08/18 History Multivitamins, Thera [Multivitamin 1 tab PO DAILY 05/08/18 05/08/18 History (formulary)] Allergies Allergy/AdvReac Type Severity Reaction Status Date / Time Penicillins Allergy Mild Unknown Verified 05/08/18 12:48 cephalexin Allergy Unknown Verified 05/08/18 12:48
[~2018-05-14 07:53] MED LIST: DEXAMETHASONE SOD PHOSPHATE 10 MG/ML 1 ML VIAL IV ONE; HEPARIN SODIUM,PORCINE 5,000 UNIT/ML 1 ML VIAL SQ ONE; LIDOCAINE 1% 20 ML VIAL (10MG/ML) FOR IV START INTRADERMA PRN; MIDAZOLAM (PF) 2 MG/2 ML VIAL IV PRN; ceFAZolin IN SWFI 2 GM/20 ML SYRINGE IVP ONE; fentaNYL (PF) 50 MCG/ML 2 ML AMP IV PRN
[2018-05-14] MEDS: LACTATED RINGERS 1,000 ML IV SCH (08:33)
[2018-05-14] MEDS ORDERED: fentaNYL (PF) 50 MCG/ML 2 ML AMP IVP ONE (08:39)
[2018-05-14] MEDS ORDERED: MIDAZOLAM 2 MG/2 ML VIAL IV ONE (08:39)
--- NOTE | 2018-05-14 09:14 | P.ONQ ---
Anesthesiology Proc Note - PNB - Peripheral Nerve Block Performed Right Transversus Abdominis Single Time Out Performed: Yes Procedure Start Time: 08:39 Indication: Acute Post-Operative Pain Specifically requested for management of pain by DrTwan: Reyna Dowell Sedation Type: Sedate with meaningful contact maintained Preparation: Sterile Prep Position: Supine Catheter: None Needle Types: Other (see comment) (Pajunk) Needle Size: 100mm (4") Needle Gauge: 21 Technique: Ultrasound Injectate: Other (see comment) (1% lidocaine/0.25% ropivacaine 30 mL) Adjunct: Epinephrine (see comment for dilution ratio) (1:200,000) Blood Aspirated: No Pain Paresthesia on Injection Noted: No Resistance on Injection: Normal Events: Uneventful and Well Tolerated
[2018-05-14] MEDS ORDERED: BUPIVACAIN-EPI 0.5%-1:200,000 30 ML VIAL SQ ONE (09:22)
[2018-05-14] MEDS ORDERED: PROPOFOL 10 MG/ML 20 ML VIAL IV ONE (09:35)
[2018-05-14] MEDS ORDERED: NEOSTIGMINE 1 MG/ML 10 ML VIAL ONE (09:35)
[2018-05-14] MEDS ORDERED: DEXAMETHASONE SOD PHOS (MDV) 100 MG/10 ML VIAL ONE (09:35)
[2018-05-14] MEDS ORDERED: ROPIVACAINE 5 MG/ML 30 ML VIAL ONE (09:35)
[2018-05-14] MEDS ORDERED: ROCURONIUM BROMIDE 10 MG/ML 10 ML VIAL IV ONE (09:35)
[2018-05-14] MEDS ORDERED: GLYCOPYRROLATE 0.2 MG/ML 2 ML VIAL ONE (09:35)
[2018-05-14] MEDS ORDERED: fentaNYL (PF) 50 MCG/ML 2 ML AMP ONE (09:35)
[2018-05-14] MEDS ORDERED: MIDAZOLAM 2 MG/2 ML VIAL ONE (09:35)
[2018-05-14] MEDS ORDERED: LIDOCAINE 1% INJ 10MG/ML (20 ML MDV) ONE (09:35)
[2018-05-14] MEDS ORDERED: ONDANSETRON 4 MG/2 ML VIAL ONE (09:35)
[2018-05-14] MEDS ORDERED: LIDOCAINE 1% INJ 10MG/ML (10 ML MDV) ONE (09:35)
[2018-05-14] MEDS ORDERED: SUCCINYLCHOLINE CHLORIDE 100 MG/5 ML SYR IV ONE (09:35)
[2018-05-14] MEDS ORDERED: ePHEDrine SULFATE/0.9% NACL/PF 50 MG/5 ML SYRINGE IV ONE (09:35)
[2018-05-14] MEDS ORDERED: SODIUM CHLORIDE 0.9% 50 ML with CLINDAMYCIN 600 MG IV ONE ×2 (09:52)
[2018-05-14] MEDS ORDERED: LACTATED RINGERS 1,000 ML IV ONE (10:22)
[2018-05-14] MEDS: HYDROmorphone 0.5 MG/0.5 ML SYRINGE IVP ONE ×4 (12:00→13:09)
[2018-05-14 12:08] VITALS: TEMP 97.9
[2018-05-14 12:24] VITALS: RESP 18
[2018-05-14] MEDS: TAMSULOSIN 0.4 MG CAP.ER.24H PO SCH ×2 (13:31→15:25)
[2018-05-14 14:44] VITALS: BP 168/70; PULSE 75
--- NOTE | 2018-05-14 15:58 | P.OP ---
Date of Procedure: 05/14/18 Description of Procedure: SURGEON: REYNA DOWELL MD PREOPERATIVE DIAGNOSES: 1. Initial right inguinal hernia. 2. Chronic iron deficiency anemia due to blood loss 3. Chronic obstructive pulmonary disease, emphysema 4. Hyperlipidemia 5. Osteoporosis 6. History of prostate cancer 7. Gastroesophageal reflux disease 8. History of hepatic flexure colon cancer, status post resection 9. History of obstructive uropathy post procedure POSTOPERATIVE DIAGNOSES: 1. Initial right inguinal hernia with incarceration, pantaloon type, 4 cm 2. Initial left inguinal hernia, direct, 3 cm 3. Chronic obstructive pulmonary disease, emphysema 4. Hyperlipidemia 5. Osteoporosis 6. History of prostate cancer 7. Gastroesophageal reflux disease 8. History of hepatic flexure colon cancer, status post resection 9. Chronic iron deficiency anemia due to blood loss 10. History of obstructive uropathy post procedure 11. Incarcerated right inguinal lipoma, 4 cm 12. Severe sigmoid diverticulosis OPERATION: 1. Robotic-assisted da Libby Xi laparoscopic repair of initial incarcerated right direct inguinal hernia with mesh, 11.[address] 2. Robotic-assisted da Libby Xi laparoscopic repair of initial incarcerated left direct inguinal hernia with mesh, 11.[address] 3. Resection of incarcerated right inguinal lipoma, 4 cm ANESTHESIA: General with local anesthetic ESTIMATED BLOOD LOSS: 5 mL. SPECIMENS: 1. Incarcerated right inguinal hernia, pantaloon 2. Left inguinal hernia sac COMPLICATIONS: None. INDICATIONS: The patient is a 72-year-old gentleman who presents with history of right inguinal hernia. Now presents for definitive surgical intervention. Laparoscopic versus open and robotic approaches were discussed. Benefits and risks including bleeding, infection, injury to the vas deferens as well as sterility and chronic groin pain were reviewed. Placement of mesh was also described. Informed consent was obtained. DESCRIPTION: In the preoperative area, the patient was marked with indelible marker along the inguinal hernia. The patient was brought to the operating room and initially laid in supine position. The abdomen had been prepped and draped in standard sterile fashion. Ioban draping was also placed. Prior to incision, a timeout protocol was confirmed with surgical team regarding patient's name including procedures to be performed and location along the right groin. Initial positioning for the robotic assisted ports were selected whereby 20 cm superior to the target anatomy, 0 degree 5 mm laparoscopic trocar entry was performed at the left upper quadrant. The abdomen was insufflated to 15 mmHg which he had tolerated well. Diagnostic laparoscopy demonstrated no injury to bowel, viscera or mesentery. No peritoneal studding was identified for history of colon cancer. A defect along the left groin without an apparent defect along the right side was found. Along the sigmoid colon, moderate large size diverticula were identified. Next, along the epigastrium, 8 mm robot trocar was placed. An 8-mm robotic tro car was placed under direct visualization at the right upper quadrant. An 8 mm port was placed at the left upper quadrant. All trocars were positioned between 10-cm apart from each other. The Impact Engine XI robot was primed, draped, prepared for docking along upper abdomen of the patient. The patient was positioned 16 steep Trendelenburg position I then went to the [employer] Engine Xi console. The cement tester assistant was at bedside for exchange of the robot arms and equipment. The left indirect inguinal hernia sac was evaginated whereby the peritoneum was scored using Endo scissors with cautery. Once completely reduced into the abdominal cavity, the peritoneal sac of the hernia was stripped. The sac was resected and then passed off for further pathological analysis. The size of the hernia defect was 3 cm with intraoperative films obtained. Using a 2-0 VLOC, the peritoneal defect of the left inguinal hernia sites was closed using a running suture separately. The defect was found to be completely closed with complete reduction of the left direct inguinal hernia were confirmed. As an onlay, an 11.[address] mesh by [employer] was initially cut in half and entered into the abdominal cavity via the 8 mm trocar. The mesh was tacked to the pelvis using 2-0 VLOC 12-inch length sutures. Next, careful attention along the right groin demonstrated a very small tract with after further inspection confirmed an actively incarcerated right inguinal hernia. Both an indirect and direct hernia was confirmed with a pantaloon type hernia. The right inguinal hernia sac was evaginated whereby the peritoneum was scored using Endo scissors with cautery. Once completely reduced into the abdominal cavity, the peritoneal sac of the hernia was stripped along a tightly incarcerated inguinal hernia involving a large 4-cm right inguinal lipoma. The lipoma and sac was resected and then passed off for further pathological analysis. The size of the hernia defect was 4 cm with intraoperative films obtained. Using a 2-0 VLOC, the peritoneal defect of the right inguinal hernia site was closed using a running suture. The defect was found to be completely closed with complete reduction of the right direct inguinal hernia was confirmed. As an onlay, an 11.[address] mesh by [employer] was initially cut in half and entered into the abdominal cavity via the 8 mm trocar. The mesh was tacked to the pelvis using 2-0 VLOC 9-inch length sutures. The robot was undocked from the patient's bedside. I then rescrubbed into the case. Insufflation was released from the abdominal cavity and all instruments were removed from the abdominal cavity. The rest of incisions were reapproximated using 4-0 Monocryl in a running subcuticular fashion. Local anesthetic was placed along the incision including for a bilateral groin block. Incisions were cleansed using dilute hydrogen peroxide. Liquid glue was applied to the skin. At the end of the procedure, the needle, sponge and instrument counts had been verified correct by the wind turbine technician. The patient had tolerated the procedure well and was taken to the postanesthesia care unit in stable condition. FINDINGS: 1. Incarcerated initial right inguinal hernia, 4 cm, direct and indirect, pantaloon type with incarcerated right inguinal lipoma 2. Left inguinal hernia, 3 cm, direct 3. Severe sigmoid diverticulosis Plan - Discharge Summary Discharge Rx Participant: Yes New Discharge Prescriptions: New Tamsulosin [Flomax] 0.4 mg PO DAILY #5 cap.er.24h Docusate [Colace] 100 mg PO DAILY #20 capsule Ibuprofen [Motrin] 600 mg PO Q8HR PRN #30 tab PRN Reason: Pain metroNIDAZOLE [Flagyl] 500 mg PO BID #10 tab HYDROcodone/APAP 5-325MG [[place] 5-325] 1 tab PO Q6HR PRN 3 Days #10 tab PRN Reason: Pain No Action Calcium Carbonate [Calcium] 1,200 mg PO HS Lovastatin [Mevacor] 40 mg PO HS Tiotropium [place] [Spiriva] 1 puff INHALATION RT-DAILY Budesonide-Formot 160-4.5 Mcg [Symbicort 160-4.5 Mcg Inhaler] 2 puff INHALATION RT-BID Aspirin [Adult Low Dose Aspirin EC] 81 mg PO DAILY diphenhydrAMINE HCL [Benadryl] 25 mg PO HS Alendronate Sodium [Fosamax] 70 mg PO MO Multivitamins, Thera [Multivitamin (formulary)] 1 tab PO DAILY Discharge Medication List Aspirin [Adult Low Dose Aspirin EC] 81 mg PO DAILY 11/20/17 [History] Budesonide-Formot 160-4.5 Mcg [Symbicort 160-4.5 Mcg Inhaler] 2 puff INHALATION RT-BID 11/20/17 [History] Calcium Carbonate [Calcium] 1,200 mg PO HS 11/20/17 [History] Lovastatin [Mevacor] 40 mg PO HS 11/20/17 [History] Tiotropium [place] [Spiriva] 1 puff INHALATION RT-DAILY 11/20/17 [History] diphenhydrAMINE HCL [Benadryl] 25 mg PO HS 11/20/17 [History] Alendronate Sodium [Fosamax] 70 mg PO MO 05/08/18 [History] Multivitamins, Thera [Multivitamin (formulary)] 1 tab PO DAILY 05/08/18 [History] Docusate [Colace] 100 mg PO DAILY #20 capsule 05/14/18 [Rx] HYDROcodone/APAP 5-325MG [[place] 5-325] 1 tab PO Q6HR PRN 3 Days #10 tab 05/14/18 [Rx] Ibuprofen [Motrin] 600 mg PO Q8HR PRN #30 tab 05/14/18 [Rx] Tamsulosin [Flomax] 0.4 mg PO DAILY #5 cap.er.24h 05/14/18 [Rx] metroNIDAZOLE [Flagyl] 500 mg PO BID #10 tab 05/14/18 [Rx] Follow up Appointment(s)/Referral(s): Reyna Dowell MD [STAFF PHYSICIAN] - 05/26/18 Patient Instructions/Handouts: *Surgery [facility] - (Anesthesia) Discharge Instructions Outpatient Surgery, Laparoscopic Herniorrhaphy (IP), Inguinal Hernia Repair (DC) Activity/Diet/Wound Care/Special Instructions: No lifting over 4 pounds in 2 weeks. May shower. No bath tub soaks. Avoid constipation. Drinks at least 6-8 glasses of water daily. Discharge Disposition: HOME SELF-CARE
== END 2018-05-14 15:44 | disposition home or self-care (01) ==
LOC: OR 07:53
PROVIDERS: ATTEND Surgery Plastic and Reconstructive Surgery
DX: K40.00 Bilateral inguinal hernia, with obstruction, without gangrene, not specified as recurrent (principal); D17.5 Benign lipomatous neoplasm of intra-abdominal organs; D50.0 Iron deficiency anemia secondary to blood loss (chronic); K57.30 Diverticulosis of large intestine without perforation or abscess without bleeding; M81.0 Age-related osteoporosis without current pathological fracture; J43.9 Emphysema, unspecified; E78.5 Hyperlipidemia, unspecified; K21.9 Gastro-esophageal reflux disease without esophagitis; Z85.038 Personal history of other malignant neoplasm of large intestine; Z85.46 Personal history of malignant neoplasm of prostate; Z79.82 Long term (current) use of aspirin; Z87.891 Personal history of nicotine dependence; Z79.899 Other long term (current) drug therapy; Z79.83 Long term (current) use of bisphosphonates; Z88.0 Allergy status to penicillin; Z88.1 Allergy status to other antibiotic agents; Z90.49 Acquired absence of other specified parts of digestive tract; Z79.51 Long term (current) use of inhaled steroids; Z88.5 Allergy status to narcotic agent
CPT/HCPCS: 49650; 64486; 88304; 88302; C1781; J2250; J1644; J2710; J2405; J2001 ×2; J3010; J1100; J2795; J0330; J2704; J1170

== ENCOUNTER → 2018-07-31 | Outpatient (CLI) | payer MEDICARE ==
--- NOTE | 2018-07-31 13:12 | MR ---
EXAMINATION TYPE: MR brain wo/w con DATE OF EXAM: 07/31/2018 COMPARISON: EXAMINATION TYPE: MR brain wo/w con DATE OF EXAM: 07/31/2018 COMPARISON: 02/17/2018 CT brain HISTORY: Aphasia CONTRAST: Performed utilizing 7 mL intravenous Gadavist gadolinium contrast. TECHNIQUE: Multiplanar, multiecho imaging on a 3.0 Emily magnet is performed through the brain. Stud y is performed within 24 hours of arrival to the hospital. The craniovertebral junction is normal. The pituitary is normal. Diffusion-weighted imaging is performed. No abnormal hyperintensity is present to suggest an acute i ntracranial infarct or acute ischemic change. There are scattered deep white matter changes present greater in the frontal lobes, present in the white bcortical and periventricular white matter of the parietal and occipital lobes. These are numerous. F ollowing contrast administration no enhancement is evident left A1 segment may be slightly hypoplasti c. Ventricles and sulci are slightly prominent for the patient age. No abnormal enhancement is evident. IMPRESSIONS: 1. Extensive periventricular and deep white matter changes, more likely related to microvascular isch emic change. Other etiologies should be considered including multiple sclerosis, vasculitis, Lyme dis ease. 2. Age-related atrophy. 3. No acute intracranial process HISTORY: Aphasia CONTRAST: Performed utilizing 7 mL intravenous Gadavist gadolinium contrast. TECHNIQUE: Multiplanar, multiecho imaging on a 3.0 Emily magnet is performed through the brain. Stud y is performed within 24 hours of arrival to the hospital. The craniovertebral junction is normal. The pituitary is normal. Diffusion-weighted imaging is performed. No abnormal hyperintensity is present to suggest an acute i ntracranial infarct or acute ischemic change. There are scattered punctate areas of hyperintensity on T2 and Inversion Recovery weighted sequences which are non-specific but can be related to microvascular ischemic changes. Ventricles and sulci are appropriate for the patient age. IMPRESSIONS: 1.
== END | disposition home or self-care (01) ==
LOC: RADMRIMAIN 11:33
PROVIDERS: ATTEND Psychiatry & Neurology Neurology
DX: I69.920 Aphasia following unspecified cerebrovascular disease (principal); G31.1 Senile degeneration of brain, not elsewhere classified
CPT/HCPCS: 70553; A9585

== ENCOUNTER → 2018-10-20 | Outpatient (CLI) | payer MEDICARE ==
--- NOTE | 2018-10-20 14:39 | CT ---
EXAMINATION TYPE: CT abdomen pelvis wo con DATE OF EXAM: 10/20/2018 COMPARISON: None HISTORY: Bulge Right groin per patient. Prior hernia repair. CT DLP: 345.7 mGycm Automated exposure control for dose reduction was used. TECHNIQUE: Helical acquisition of images was performed from the lung bases through the pelvis. FINDINGS: LUNG BASES: Pleural-based soft tissue lesion is seen measuring 0.8 cm in the medial right lower lobe. Soft tissue nodule is seen measuring 0.7 cm in the medial left lower lobe on image 21. Otherwise, vi sualized lung bases are clear. LIVER/GB: Multiple hypoattenuating ill-defined liver lesions are seen scattered throughout the liver. Largest area seen in the anterior medial right hepatic lobe measuring up to 1.0 cm. Gallbladder appe ars normal. PANCREAS: No significant abnormality is seen. SPLEEN: No significant abnormality is seen. ADRENALS: No significant abnormality is seen. KIDNEYS: No significant abnormality is seen. FREE AIR: No free air is visualized RETROPERITONEAL ADENOPATHY: None visualized REPRODUCTIVE ORGANS: No significant abnormality is seen URINARY BLADDER: Patulous bilateral inguinal canals. There is herniation of the right anterolateral bladder through the right inguinal canal. Hernia measures 4.4 x 5.3 x 5.4 cm in AP by transverse by c raniocaudad dimension. No evidence of surrounding inflammatory changes to suggest acute process. Left -sided inguinal hernia contains intraperitoneal fat and measures 2 x 3 x 3 cm. PELVIC ADENOPATHY: None visualized. OSSEOUS STRUCTURES: No significant abnormality is seen. BOWEL: Sigmoid diverticulosis. No bowel obstruction. Postsurgical changes in the region of the hepat ic flexure. IMPRESSION: BILATERAL INGUINAL HERNIAS WITH HERNIATION OF THE BLADDER THROUGH THE RIGHT SIDED HERNIA. NO EVIDENCE OF SURROUNDING INFLAMMATORY CHANGES TO CTA CHEST ACUTE PROCESS. STABLE APPEARANCE OF 7 MM SMOOTHLY MARGINATED NODULE AT THE MEDIAL ASPECT THE LEFT LOWER LOBE WHICH W DEMONSTRATED ON CT OF THE CHEST DATED 2013. ILL-DEFINED HYPOATTENUATING LIVER LESIONS MEASURING UP TO 1.0 CM. FINDINGS ARE LIKELY BASED ON HEPATI C CYSTS, BUT OTHER ETIOLOGIES ARE NOT EXCLUDED. FURTHER EVALUATION WITH ULTRASOUND OF THE ABDOMEN MAY BE OBTAINED.
== END | disposition home or self-care (01) ==
LOC: RADCTMAIN 12:23
PROVIDERS: ATTEND Surgery Plastic and Reconstructive Surgery
DX: K40.20 Bilateral inguinal hernia, without obstruction or gangrene, not specified as recurrent (principal); N32.89 Other specified disorders of bladder; Z88.0 Allergy status to penicillin; Z88.5 Allergy status to narcotic agent
CPT/HCPCS: 74176

== ENCOUNTER → 2018-11-17 | Outpatient (CLI) | payer MEDICARE ==
[2018-11-17 15:00] LABS: HCT 43.9 % (39.0-53.0); HGB 14.8 gm/dL (13.0-17.5); MCH 28.9 pg (25.0-35.0); MCHC 33.6 g/dL (31.0-37.0); MCV 86.1 fL (80.0-100.0); Mean Platelet Volume 6.3; Platelet Count 262 k/uL (150-450); RDW 13.8 % (11.5-15.5); WBC 7.8 k/uL (3.8-10.6)
== END | disposition home or self-care (01) ==
LOC: LABPAT 13:41
PROVIDERS: ATTEND Anesthesiology
DX: Z01.818 Encounter for other preprocedural examination (principal); Z01.812 Encounter for preprocedural laboratory examination; K46.9 Unspecified abdominal hernia without obstruction or gangrene
CPT/HCPCS: 36415; 85027; 93005

== ENCOUNTER 2018-11-20 12:06 | Day surgery (SDC) | payer MEDICARE ==
[2018-11-17 11:10] VITALS: BMI 23.0
--- NOTE | 2018-11-20 08:21 | P.GSHP ---
History of Present Illness H&P Date: 11/20/18 CHIEF COMPLAINT: Inguinal hernia, right, recurrent HISTORY OF PRESENT ILLNESS: The patient is a 73-year-old male who presents with a history of swelling and pain along the right groin. He had prior inguinal hernia repair. He has noted increased swelling including pain of the area. Now he presents for repair of his inguinal hernia. PAST MEDICAL HISTORY: Please see list. PAST SURGICAL HISTORY: Please see list. MEDICATIONS: Please see list. ALLERGIES: Please see list. SOCIAL HISTORY: Please see list. FAMILY HISTORY: Please see list. REVIEW OF ORGAN SYSTEMS: CONSTITUTIONAL: No reports of fevers or chills. No reports of weight loss despite prior attempts. PHYSICAL EXAM: VITAL SIGNS: Stable GENERAL: Well-developed pleasant in no acute distress. HEENT: No scleral icterus. Extraocular movements grossly intact. Moist buccal mucosa. NECK: Supple without lymphadenopathy. CHEST: Unlabored respirations. Equal bilateral excursions. CARDIOVASCULAR: Regular rate and rhythm. Distal 2+ pulses. ABDOMEN: Soft, nondistended. No peritoneal signs. Moderate tenderness right lower quadrant MUSCULOSKELETAL: No clubbing, cyanosis, or edema. ASSESSMENT: 1. Inguinal hernia, right, recurrent. PLAN: 1. Recommend proceeding robotic right inguinal repair with mesh 2. Benefits and risks of surgical intervention was discussed including possibility of open technique. 3. DVT prophylaxis. 4. Antibiotic prophylaxis. Past Medical History Past Medical History: Cancer, COPD, Hyperlipidemia, Pneumonia, Prostate Disorder Additional Past Medical History / Comment(s): emphysema, mild hiatal hernia, hx ulcers, prostate cancer, colon cancer, rt inguinal hernia. HEPATITIS A- 1960 History of Any Multi-Drug Resistant Organisms: None Reported Past Surgical History: Back Surgery, Bowel Resection, Hernia Repair, Orthopedic Surgery Additional Past Surgical History / Comment(s): back surgery for herniated disk, left shoulder rotator cuff, nilsa cataracts, colonoscopy Past Anesthesia/Blood Transfusion Reactions: No Reported Reaction Smoking Status: Former smoker - Past Family History Father Family Medical History: Cancer Mother Family Medical History: Cancer Additional Family Medical History / Comment(s): lung Cancer, Brain Cancer Sister(s) Family Medical History: Congestive Heart Failure (CHF) Medications and Allergies Home Medications Medication Instructions Recorded Confirmed Type Aspirin [Adult Low Dose Aspirin EC] 81 mg PO DAILY 11/20/17 11/17/18 History Budesonide-Formot 160-4.5 Mcg 2 puff INHALATION RT-BID 11/20/17 11/17/18 History [Symbicort 160-4.5 Mcg Inhaler] Calcium Carbonate [Calcium] 1,200 mg PO HS 11/20/17 11/17/18 History Lovastatin [Mevacor] 40 mg PO HS 11/20/17 11/17/18 History Tiotropium [place] [Spiriva] 1 puff INHALATION RT-DAILY 11/20/17 11/17/18 History diphenhydrAMINE HCL [Benadryl] 25 mg PO HS 11/20/17 11/17/18 History Alendronate Sodium [Fosamax] 70 mg PO MO 05/08/18 11/17/18 History Multivitamins, Thera [Multivitamin 1 tab PO DAILY 05/08/18 11/17/18 History (formulary)] Tamsulosin [Flomax] 0.4 mg PO DAILY #5 cap.er.24h 05/14/18 11/17/18 Rx Albuterol Nebulized [Ventolin 1 dose IN DAILY PRN 11/17/18 11/17/18 History Nebulized] Allergies Allergy/AdvReac Type Severity Reaction Status Date / Time Penicillins Allergy Mild Rash/Hives Verified 11/17/18 10:56 cephalexin Allergy Rash/Hives Verified 11/17/18 10:56 morphine Allergy Rash/Hives Verified 11/17/18 10:56
[~2018-11-20 12:06] MED LIST changes: +ACETAMINOPHEN IV (For NPO) 1,000 MG in EMPTY BAG 1 BAG IVPB ONE; +CLINDAMYCIN 900 MG in DEXTROSE 5% IN WATER 50 ML IVPB ONE; +LEVOFLOXACIN 500MG-D5W PMX 500 MG in DEXTROSE/WATER 1 100ML.BAG IVPB ONE; -LIDOCAINE 1% 20 ML VIAL (10MG/ML) FOR IV START INTRADERMA PRN; -MIDAZOLAM (PF) 2 MG/2 ML VIAL IV PRN; +ONDANSETRON 4 MG/2 ML VIAL IVP ONE; -ceFAZolin IN SWFI 2 GM/20 ML SYRINGE IVP ONE; -fentaNYL (PF) 50 MCG/ML 2 ML AMP IV PRN
[2018-11-20] MEDS: LACTATED RINGERS 1,000 ML IV SCH ×2 (13:45→13:46)
[2018-11-20] MEDS ORDERED: MIDAZOLAM (PF) 2 MG/2 ML VIAL IV ONE (14:40)
--- NOTE | 2018-11-20 15:16 | P.ANPRN ---
Procedure Note - Anesthesia - Nerve Block Performed Right Transversus Abdominis Single Time Out Performed: Yes Date of Procedure: 11/20/18 Procedure Start Time: 14:39 Procedure Stop Time: 14:49 Location of Patient Procedure: PreOp Indication: Acute Post-Operative Pain, Dx/Pain Location, Requested by Surgeon Sedation Type: Sedate with meaningful contact maintained Preparation: Sterile Prep Position: Supine Needle Types: Pajunk Needle Gauge: 21 Ultrasound used to visualize needle placement: Yes Ultrasound used to observe medication spread: Yes Injectate: Other (see comment) (30 ml 0.25% Ropivacaine) Blood Aspirated: No Pain Paresthesia on Injection Noted: No Resistance on Injection: Normal Image Stored and Saved: Yes Events: Uneventful and Well Tolerated
[2018-11-20] MEDS ORDERED: NEOSTIGMINE 1 MG/ML 10 ML VIAL ONE (16:49)
[2018-11-20] MEDS ORDERED: SUCCINYLCHOLINE CHLORIDE 100 MG/5 ML SYR IV ONE (16:49)
[2018-11-20] MEDS ORDERED: GLYCOPYRROLATE 0.2 MG/ML 2 ML VIAL ONE (16:49)
[2018-11-20] MEDS ORDERED: ROCURONIUM BROMIDE 10 MG/ML 10 ML VIAL IV ONE (16:49)
[2018-11-20] MEDS ORDERED: fentaNYL (PF) 50 MCG/ML 2 ML AMP ONE (16:49)
[2018-11-20] MEDS ORDERED: DEXAMETHASONE SOD PHOSPHATE 4 MG/ML 1 ML VIAL ONE (16:49)
[2018-11-20] MEDS ORDERED: LIDOCAINE 1% INJ 10MG/ML (20 ML MDV) ONE (16:49)
[2018-11-20] MEDS ORDERED: PROPOFOL 10 MG/ML 20 ML VIAL IV ONE (16:49)
[2018-11-20] MEDS ORDERED: ROPIVACAINE 5 MG/ML 30 ML VIAL ONE (16:49)
[2018-11-20] MEDS ORDERED: PHENYLEPHRINE-0.9% NACL SYG 1 MG/10 ML SYRINGE ONE (16:49)
[2018-11-20] MEDS ORDERED: LACTATED RINGERS 1,000 ML IV ONE (17:23)
[2018-11-20] MEDS ORDERED: BUPIVACAIN-EPI 0.25%-1:200,000 30 ML VIAL SQ ONE (17:26)
[2018-11-20] MEDS: HYDROmorphone 0.5 MG/0.5 ML SYRINGE IVP PRN ×2 (19:43→19:53)
[2018-11-20] MEDS ORDERED: ONDANSETRON 4 MG/2 ML VIAL IVP PRN (20:04)
[2018-11-20] MEDS ORDERED: NALOXONE 0.4 MG/ML 1 ML VIAL IV PRN (20:04)
[2018-11-20] MEDS ORDERED: HYDROmorphone 1 MG/ML 1 ML SYRINGE IVP PRN (20:07)
[2018-11-20] MEDS: KETOROLAC 30 MG/ML 1 ML VIAL IVP SCH (20:24)
--- NOTE | 2018-11-20 20:29 | P.OP ---
Date of Procedure: 11/20/18 Description of Procedure: SURGEON: UZAIR JEAN BAPTISTE MD PREOPERATIVE DIAGNOSES: 1. Abnormal computed tomography scan for right inguinal hernia 2. Asthma 3. Pre-existing prostatic disorder with obstructive uropathy 4. Hypertensive heart disease 5. Chronic obstructive pulmonary disease 6. Prostate cancer 7. History of postoperative urinary retention POSTOPERATIVE DIAGNOSES: 1. Bladder diverticulum, right side 2. Asthma 3. Pre-existing prostatic disorder with obstructive uropathy 4. Hypertensive heart disease 5. Chronic obstructive pulmonary disease 6. Prostate cancer 7. Right inguinal canal lipoma 8. Patulous right inguinal floor 9. History of postoperative urinary retention OPERATION: 1. Robotic-assisted da Libby Xi laparoscopic right groin exploration 2. Excision of right subfascial inguinal lipoma, 3 cm ANESTHESIA: General with local anesthetic ESTIMATED BLOOD LOSS: 5 mL. SPECIMENS REMOVED: Right inguinal lipoma COMPLICATIONS: None. FINDINGS: 1. No recurrent intra-abdominal left inguinal hernia 2. No recurrent intra-abdominal right inguinal hernia 3. Very weak and patulous right inguinal floor 4. Bladder diverticulum involving the right lateral sidewall of the bladder reduced from the right groin INDICATIONS: The patient is a 73-year-old gentleman with previous right inguinal hernia repair. He reports right groin bulge and swelling. CT of the abdomen and pelvis demonstrated recurrent right inguinal hernia involving the bladder. As a result of these findings, surgical intervention was offered. Now he presents for definitive surgical intervention. Laparoscopic versus open and robotic approaches were discussed. Benefits and risks including bleeding, infection, injury to the vas deferens as well as sterility and chronic groin pain were reviewed. Placement of mesh was also described. Informed consent was obtained. DESCRIPTION: In the preoperative area, the patient was marked with indelible marker along the inguinal hernia. The patient was brought to the operating room and initially laid in supine position. The abdomen had been prepped and draped in standard sterile fashion. [place] draping was also placed. A Esquivel catheter was placed for pre-existing postoperative obstructive uropathy. Prior to incision, a timeout protocol was confirmed with surgical team regarding patient's name including procedures to be performed and location along the right groin. Initial positioning for the robotic assisted ports were selected whereby 20 cm superior to the target anatomy, 0 degree 5 mm laparoscopic trocar entry was performed at the left upper quadrant. The abdomen was insufflated to 15 mmHg which he had tolerated well. Diagnostic laparoscopy demonstrated a indirect inguinal hernia along the right groin. Next, along the epigastrium, 8 mm robot trocar was placed. An 8-mm robotic trocar was placed under direct visualization at the right upper quadrant. An 8 mm port was placed at the left upper quadrant. All trocars were positioned between 8 to 10-cm apart from each other. The [employer] robot was primed, draped, prepared for docking along the right side of the patient. I then went to the [employer] Xi console. The environmental engineering assistant was at bedside for exchange of the robot arms and equipment. No recurrent hernia was identified along the left groin. No recurrent right inguinal hernia was identified as the mesh was present. Mild peritoneal adhesions along the lower left pelvis was sharply excised using scissors with cautery. The previous mesh repair along the right groin was developed as a flap where the mesh was taken down from the 12:00 to 6 o'clock position. The right inguinal canal was explored demonstrating large lipoma along the right groin canal and was resected. The patient was placed initially from steep Trendelenburg to reverse Trendelenburg to propagate the herniation of the bladder sidewall on the right side. Additionally, the bladder was instilled with 500 mL normal saline to also elucidate the bladder herniation. Along the medial aspect of the epigastric vessels, a bladder diverticulum was found coursing along the right lateral anterior wall. A very weak floor and inguinal canal was confirmed. The bladder diverticulum was reduced. Secondary to finding of a bladder diverticulum, this was left in situ for future evaluation and assessment by the urologist. The peritoneum including previous mesh was oversewn using 2-0 VLOC 9-inch length sutures over the right groin. No recurrent intra-abdominal hernia along the right groin was identified. The robot was undocked from the patient's bedside. I rescrubbed into the case. The bladder was drained. Insufflation was released from the abdominal cavity and all instruments were removed from the abdominal cavity. The rest of incisions were reapproximated using 4-0 Monocryl in a running subcuticular fashion. Local anesthetic was placed along the incision including for a right groin block. Incisions were cleansed using dilute hydrogen peroxide. Liquid glue was applied to the skin. At the end of the procedure, the needle, sponge and instrument counts had been verified correct by the residential appliance repair technician. The patient had tolerated the procedure well and was taken to the postanesthesia care unit in stable condition. Plan - Discharge Summary Discharge Rx Participant: Yes New Discharge Prescriptions: No Action Calcium Carbonate [Calcium] 1,200 mg PO HS Lovastatin [Mevacor] 40 mg PO HS Tiotropium [place] [Spiriva] 1 puff INHALATION RT-DAILY Budesonide-Formot 160-4.5 Mcg [Symbicort 160-4.5 Mcg Inhaler] 2 puff INHALATION RT-BID Aspirin [Adult Low Dose Aspirin EC] 81 mg PO DAILY diphenhydrAMINE HCL [Benadryl] 25 mg PO HS Alendronate Sodium [Fosamax] 70 mg PO MO Multivitamins, Thera [Multivitamin (formulary)] 1 tab PO DAILY Albuterol Nebulized [Ventolin Nebulized] 1 dose IN DAILY PRN PRN Reason: Shortness Of Breath Discharge Medication List Aspirin [Adult Low Dose Aspirin EC] 81 mg PO DAILY 11/20/17 [History] Budesonide-Formot 160-4.5 Mcg [Symbicort 160-4.5 Mcg Inhaler] 2 puff INHALATION RT-BID 11/20/17 [History] Calcium Carbonate [Calcium] 1,200 mg PO HS 11/20/17 [History] Lovastatin [Mevacor] 40 mg PO HS 11/20/17 [History] Tiotropium [place] [Spiriva] 1 puff INHALATION RT-DAILY 11/20/17 [History] diphenhydrAMINE HCL [Benadryl] 25 mg PO HS 11/20/17 [History] Alendronate Sodium [Fosamax] 70 mg PO MO 05/08/18 [History] Multivitamins, Thera [Multivitamin (formulary)] 1 tab PO DAILY 05/08/18 [History] Albuterol Nebulized [Ventolin Nebulized] 1 dose IN DAILY PRN 11/17/18 [History]
[2018-11-20] MEDS ORDERED: ATORVASTATIN 10 MG TAB PO SCH (21:00)
[2018-11-20] MEDS ORDERED: diphenhydrAMINE 25 MG CAP PO SCH (21:00)
[2018-11-20] MEDS: SODIUM CHLORIDE 0.9% 1,000 ML IV SCH (22:23)
[2018-11-20] MEDS: DOCUSATE 100 MG CAP PO SCH (22:23)
[2018-11-20] MEDS: HEPARIN SODIUM,PORCINE 5,000 UNIT/ML 1 ML VIAL SQ SCH (22:24)
[2018-11-20] MEDS: CLINDAMYCIN 600 MG in DEXTROSE 5% IN WATER 50 ML IVPB SCH ×2 (22:58)
[2018-11-21] MEDS: KETOROLAC 30 MG/ML 1 ML VIAL IVP SCH ×4 (06:21→17:33)
[2018-11-21] MEDS ORDERED: SYMBICORT 160-4.5 MCG INHALER INHALATION SCH (08:00)
[2018-11-21] MEDS: IPRATROPIUM 0.5 MG/2.5 ML NEBU INHALATION SCH ×3 (08:16→15:58)
[2018-11-21] MEDS ORDERED: TAMSULOSIN 0.4 MG CAP.ER.24H PO SCH (08:30)
[2018-11-21 08:33] LABS: Basophils % (A) 0 %; Eosinophils # (A) 0.1 k/uL (0-0.7); Eosinophils % (A) 1 %; HCT 40.4 % (39.0-53.0); HGB 13.5 gm/dL (13.0-17.5); Lymphocytes # (A) 0.8 k/uL (1.0-4.8); Lymphocytes % (A) 9 %; MCH 28.7 pg (25.0-35.0); MCHC 33.5 g/dL (31.0-37.0); MCV 85.8 fL (80.0-100.0); Mean Platelet Volume 6.5; Monocytes # (A) 0.4 k/uL (0-1.0); Monocytes % (A) 5 %; Neutrophils # (A) 7.7 k/uL (1.3-7.7); Neutrophils % (A) 85 %; Platelet Count 230 k/uL (150-450); RBC 4.71 m/uL (4.30-5.90); RDW 13.6 % (11.5-15.5)
[2018-11-21 08:37] LABS: Calcium 8.6 mg/dL (8.4-10.2); Potassium 4.3 mmol/L (3.5-5.1)
[2018-11-21] MEDS ORDERED: ASPIRIN 81 MG PO SCH (09:00)
[2018-11-21] MEDS: CLINDAMYCIN 600 MG in DEXTROSE 5% IN WATER 50 ML IVPB SCH ×2 (09:26)
[2018-11-21] MEDS: HEPARIN SODIUM,PORCINE 5,000 UNIT/ML 1 ML VIAL SQ SCH (09:27)
[2018-11-21] MEDS: DOCUSATE 100 MG CAP PO SCH (09:28)
[2018-11-21] MEDS: SODIUM CHLORIDE 0.9% 1,000 ML IV SCH (09:28)
--- NOTE | 2018-11-21 12:46 | P.PN ---
Subjective Progress Note Date: 11/21/18 CHIEF COMPLAINT: Right inguinal hernia HISTORY OF PRESENT ILLNESS: The patient is a 73-year-old male postop day 1 status post right groin exploration, 11/20/2018. Findings include bladder diverticulum of the right bladder wall. Esquivel catheter has been discontinued this morning. He confirms history of prostate and obstructive uropathy by his urologist. He reports intolerance to long-term use of Flomax beyond 1 week. He reports some shortness of breath with his COPD. His is at bedside. ROS: No reports of nausea and vomiting. No bowel movements. No fevers or chills. No new chest pain. No productive sputum PHYSICAL EXAM: VITAL SIGNS: Reviewed CONSTITUTIONAL: Well developed and in no acute distress. EYES: Conjuctivae without sclera icterus. Extraocular movements grossly intact. HEAD, EARS, NOSE, THROAT: Moist buccal mucosa. Head is atraumatic, normocephalic. Hears conversational speech. No nasal drainage. NECK: Supple. No thyroidomegaly. RESPIRATORY: Non-labored respirations and equal bilateral excursions. Pursed- lip breathing. CARDIOVASCULAR: Palpable 2+ radial pulses. Regular rate. Regular rhythm. ABDOMEN: Incisions clean dry and intact. Soft. No peritonitis. Minimal tenderness left upper quadrant. MUSCULOSKELETAL: No gross deformity of the lower extremities noted. No clubbing. No cyanosis. SKIN: Good skin turgor. Well perfused. NEUROLOGIC: Cranial nerves I through XII grossly intact. No focal or lateralizing signs. PSYCH: Appropriate affect. Alert and oriented to person, place and time. CLINCAL LABS: White blood cell count normal ASSESSMENT: 1. Urinary retention with history of prostate disorder 2. Right bladder diverticulum PLAN: 1. Continue Flomax 2. Await voiding 3. Add breathing treatments for COPD Objective - Vital Signs Vital signs: Vital Signs Temp 98.2 F 11/21/18 07:00 Pulse 74 11/21/18 11:00 Resp 14 11/21/18 08:00 BP 136/74 11/21/18 07:00 Pulse Ox 97 11/21/18 07:00 Intake & Output 11/20/18 11/21/18 11/21/18 18:59 06:59 18:59 Intake Total 2450 1050 240 Output Total 405 900 Balance 2045 1050 -660 Weight 70.307 kg Intake: IV 2450 450 Intake, IV Titration 600 Amount Sodium Chloride 0.9% 1, 600 000 ml @ 75 mls/hr IV . [id number] [facility] Rx#:[id number] Oral 240 Output: Urine 400 900 Estimated Blood Loss 5 Other: Voiding Method Indwelling Catheter Indwelling Catheter - Labs CBC & Chem 7: 11/21/18 08:05 11/21/18 08:05 Labs: Abnormal Lab Results - Last 24 Hours (Table) 11/21/18 11/21/18 Range/Units 08:05 08:05 Lymphocytes # 0.8 L (1.0-4.8) k/uL Chloride 108 H (98-107) mmol/L Glucose 136 H (74-99) mg/dL
[2018-11-21] MEDS ORDERED: TAMSULOSIN 0.4 MG CAP.ER.24H PO STA (14:58)
--- NOTE | 2018-11-21 15:01 | P.PN ---
Progress Note - Text Progress Note Date: 11/21/18 He has moderate post void residual. Discharge held. Additional flomax.
[2018-11-21] MEDS: ALBUTEROL NEBULIZED 2.5 MG/3 ML INHALATION SCH (15:58)
[2018-11-21 16:02] VITALS: BP 135/65; RESP 12; TEMP 98.5
[2018-11-21 18:02] VITALS: PULSE 90
--- NOTE | 2018-11-21 21:23 | P.PN ---
Progress Note - Text Progress Note Date: 11/21/18 Esquivel leg bag placed with Flomax prescribed. Discharge home order placed.
== END 2018-11-21 19:29 | disposition home or self-care (01) ==
LOC: OR 12:06 → 4SSUR 20:29 → OR 11-21 19:29
PROVIDERS: ATTEND Surgery Plastic and Reconstructive Surgery
DX: K40.90 Unilateral inguinal hernia, without obstruction or gangrene, not specified as recurrent (principal); K66.0 Peritoneal adhesions (postprocedural) (postinfection); D17.79 Benign lipomatous neoplasm of other sites; N32.3 Diverticulum of bladder; E78.5 Hyperlipidemia, unspecified; I11.0 Hypertensive heart disease with heart failure; I50.9 Heart failure, unspecified; J44.9 Chronic obstructive pulmonary disease, unspecified; C61 Malignant neoplasm of prostate; N13.9 Obstructive and reflux uropathy, unspecified; J45.909 Unspecified asthma, uncomplicated; Z85.038 Personal history of other malignant neoplasm of large intestine; Z87.01 Personal history of pneumonia (recurrent); Z87.891 Personal history of nicotine dependence; Z80.1 Family history of malignant neoplasm of trachea, bronchus and lung; Z80.8 Family history of malignant neoplasm of other organs or systems; Z79.82 Long term (current) use of aspirin; Z79.51 Long term (current) use of inhaled steroids; Z79.899 Other long term (current) drug therapy; Z88.1 Allergy status to other antibiotic agents; Z88.5 Allergy status to narcotic agent; Z88.0 Allergy status to penicillin
CPT/HCPCS: 94640 ×2; 88304; 80048; 85025; 49505; J1644 ×2; J1100 ×2; J2710; J2405; J2001; J3010; J1885 ×2; J2795; J2370; J0330; J2704; J1170; J2250

== ENCOUNTER 2018-11-22 17:41 | Emergency (ER) | payer MEDICARE ==
--- NOTE | 2018-11-22 18:10 | ED ---
General Adult HPI - General Chief complaint: Urogenital Stated complaint: Hematuria Time Seen by Provider: 11/22/18 17:57 Source: patient Mode of arrival: wheelchair Limitations: no limitations - History of Present Illness Initial comments: Patient is 73-year-old male with history of prostate cancer in obstructive uropathy is presenting to emergency Department with a chief complaint of blood in Esquivel catheter bag. Patient reports 2 days ago he underwent a right groin exploration by Dr. Dowell. Patient reports he was placed on Flomax and given a Esquivel catheter. Patient reports he was discharged yesterday at 1800. Patient reports the urine was yellow in color until 1 hour ago when he noticed blood in a year. The bag was emptied at 0600 today. Patient denies any fever or chills. Patient also reports shortness of breath but states that is his baseline due to his COPD. Patient denies changes in sputum production. patient denies cough. - Related Data Home Medications Medication Instructions Recorded Confirmed Aspirin [Adult Low Dose Aspirin EC] 81 mg PO DAILY 11/20/17 11/17/18 Budesonide-Formot 160-4.5 Mcg 2 puff INHALATION RT-BID 11/20/17 11/17/18 [Symbicort 160-4.5 Mcg Inhaler] Calcium Carbonate [Calcium] 1,200 mg PO HS 11/20/17 11/20/18 Lovastatin [Mevacor] 40 mg PO HS 11/20/17 11/20/18 Tiotropium [place] [Spiriva] 1 puff INHALATION RT-DAILY 11/20/17 11/17/18 diphenhydrAMINE HCL [Benadryl] 25 mg PO HS 11/20/17 11/20/18 Alendronate Sodium [Fosamax] 70 mg PO MO 05/08/18 11/20/18 Multivitamins, Thera [Multivitamin 1 tab PO DAILY 05/08/18 11/17/18 (formulary)] Albuterol Nebulized [Ventolin 1 dose IN DAILY PRN 11/17/18 11/20/18 Nebulized] Previous Rx's Medication Instructions Recorded Ibuprofen [Motrin] 600 mg PO Q8HR PRN #30 tab 11/21/18 Tamsulosin [Flomax] 0.4 mg PO DAILY #5 cap 11/21/18 Allergies Allergy/AdvReac Type Severity Reaction Status Date / Time Penicillins Allergy Mild Rash/Hives Verified 11/22/18 17:48 cephalexin Allergy Rash/Hives Verified 11/22/18 17:48 morphine Allergy Rash/Hives Verified 11/22/18 17:48 Review of Systems ROS Statement: Those systems with pertinent positive or pertinent negative responses have been documented in the HPI. ROS Other: All systems not noted in ROS Statement are negative. Past Medical History Past Medical History: Cancer, COPD, Hyperlipidemia, Pneumonia, Prostate Disorder Additional Past Medical History / Comment(s): emphysema, mild hiatal hernia, hx ulcers, prostate cancer, colon cancer, rt inguinal hernia. HEPATITIS A- 1961, aphasia History of Any Multi-Drug Resistant Organisms: None Reported Past Surgical History: Back Surgery, Bowel Resection, Hernia Repair, Orthopedic Surgery Additional Past Surgical History / Comment(s): back surgery for herniated disk, left shoulder rotator cuff, nilsa cataracts, colonoscopy Past Anesthesia/Blood Transfusion Reactions: No Reported Reaction Past Psychological History: No Psychological Hx Reported Smoking Status: Former smoker Past Alcohol Use History: Rare Past Drug Use History: None Reported - Past Family History Father Family Medical History: Cancer Mother Family Medical History: Cancer Additional Family Medical History / Comment(s): lung Cancer, Brain Cancer Sister(s) Family Medical History: Congestive Heart Failure (CHF) General Exam Limitations: no limitations General appearance: alert, in no apparent distress Head exam: Present: atraumatic, normocephalic, normal inspection Eye exam: Present: normal appearance, PERRL, EOMI Pupils: Present: normal accommodation ENT exam: Present: normal exam, normal oropharynx, mucous membranes moist, TM's normal bilaterally, normal external ear exam Neck exam: Present: normal inspection, full ROM Respiratory exam: Present: normal lung sounds bilaterally. Absent: respiratory distress, wheezes, accessory muscle use Cardiovascular Exam: Present: regular rate, normal rhythm, normal heart sounds GI/Abdominal exam: Present: soft, normal bowel sounds, other (3 incision sites for laparoscopic procedure.). Absent: tenderness, guarding exam: Present: normal inspection, other (Esquivel catheter in place. Blood and urine bag.). Absent: testicular tenderness, urethral discharge, scrotal swelling, vertical testicular lie Extremities exam: Present: normal inspection, full ROM Back exam: Present: normal inspection, full ROM Neurological exam: Present: alert, oriented X3 Psychiatric exam: Present: normal affect, normal mood Skin exam: Present: warm, intact, normal color Course Vital Signs 11/22/18 11/22/18 11/22/18 17:48 18:25 18:34 Temperature 98.1 F Pulse Rate 97 84 Respiratory 18 24 Rate Blood Pressure 170/73 O2 Sat by Pulse 95 Oximetry 11/22/18 11/22/18 11/22/18 18:43 19:06 19:39 Temperature 97.8 F Pulse Rate 87 88 Respiratory 22 Rate Blood Pressure 132/53 O2 Sat by Pulse 94 L Oximetry 11/22/18 20:37 Temperature 98 F Pulse Rate 78 Respiratory 18 Rate Blood Pressure 146/72 O2 Sat by Pulse 95 Oximetry Medical Decision Making - Medical Decision Making Patient is a 73-year-old male day 2 status post right groin exploration is presenting to emergency Department with a chief complaint of blood in the full catheter bag. Patient reports he was discharged last night with a Esquivel catheter Flomax. Patient reports yellow urine until 1 hour ago prior to ED arrival. Patient and his have noticed blood in the urine. On initial evaluation patient reports mild shortness of breath but states that is his baseline due to his COPD. On reevaluation patient reports increased work of breathing and shortness of breath. Patient was given a DuoNeb treatment. Patient is afebrile. CBC and CMP are unremarkable. UA was obtained from the catheter bag and is only indicative of gross hematuria.. I have low suspicion for a postsurgical infection. I suspect the hematuria to be atherogenic in nature from Esquivel catheter placement. Patient is going to have the catheter removed in 2 days. Strict return parameters were thoroughly discussed with patient was understanding and agreeable. Case discussed with physician. - Lab Data Result diagrams: 11/22/18 19:45 11/22/18 19:45 Lab Results 11/22/18 11/22/18 11/22/18 Range/Units 18:35 19:45 19:45 WBC 8.2 (3.8-10.6) k/uL RBC 4.45 (4.30-5.90) m/uL Hgb 13.0 (13.0-17.5) gm/dL Hct 37.9 L (39.0-53.0) % MCV 85.1 (80.0-100.0) fL MCH 29.3 (25.0-35.0) pg MCHC 34.4 (31.0-37.0) g/dL RDW 13.7 (11.5-15.5) % Plt Count 208 (150-450) k/uL Neutrophils % 72 % Lymphocytes % 16 % Monocytes % 7 % Eosinophils % 3 % Basophils % 1 % Neutrophils # 5.9 (1.3-7.7) k/uL Lymphocytes # 1.3 (1.0-4.8) k/uL Monocytes # 0.6 (0-1.0) k/uL Eosinophils # 0.2 (0-0.7) k/uL Basophils # 0.1 (0-0.2) k/uL Sodium 142 (137-145) mmol/L Potassium 3.6 (3.5-5.1) mmol/L Chloride 110 H (98-107) mmol/L Carbon Dioxide 24 (22-30) mmol/L Anion Gap 8 mmol/L BUN 13 (9-20) mg/dL Creatinine 0.98 (0.66-1.25) mg/dL Est GFR (CKD-EPI)AfAm 88 (>60 ml/min/1.73 sqM) Est GFR (CKD-EPI)NonAf 76 (>60 ml/min/1.73 sqM) Glucose 133 H (74-99) mg/dL Calcium 8.7 (8.4-10.2) mg/dL Total Bilirubin 0.3 (0.2-1.3) mg/dL AST 30 (17-59) U/L ALT 24 (21-72) U/L Alkaline Phosphatase 71 (38-126) U/L Total Protein 6.0 L (6.3-8.2) g/dL Albumin 3.6 (3.5-5.0) g/dL Urine Color Light Red Urine Appearance Clear (Clear) Urine pH 5.5 (5.0-8.0) Ur Specific [place] 1.022 (1.001-1.035) Urine Protein 1+ H (Negative) Urine Glucose (UA) Negative (Negative) Urine Ketones Negative (Negative) Urine Blood Large H (Negative) Urine Nitrite Negative (Negative) Urine Bilirubin Negative (Negative) Urine Urobilinogen <2.0 (<2.0) mg/dL Ur Leukocyte Esterase Small H (Negative) Urine RBC >182 H (0-5) /hpf Urine WBC 10 H (0-5) /hpf Urine Mucus Rare H (None) /hpf Urine Yeast (Budding) Many H (None) /hpf Disposition Clinical Impression: Hematuria Disposition: HOME SELF-CARE Condition: Stable Instructions (If sedation given, give patient instructions): Esquivel Catheter Placement and Care (ED) Additional Instructions: Please continue to reschedule appointment on Friday for full removal. Patient to emergency department if symptoms worsen. Is patient prescribed a controlled substance at d/c from ED?: No Referrals: Chantelle Tian MD [Primary Care Provider] - 1-2 days Time of Disposition: 20:28
[2018-11-22] MEDS ORDERED: IPRATROPIUM-ALBUTEROL 3 ML NEB INHALATION STA (18:24)
[2018-11-22 18:51] LABS: Appearance,Urine Clear (Clear); Bilirubin,Urine Negative (Negative); Blood,Urine Large (Negative); Budding Yeast,Urine Many /hpf; Color,Urine Light Red; Glucose,Urine (UA) Negative (Negative); Ketones,Urine Negative (Negative); Leukocyte Esterase,Urine Small (Negative); Mucus,Urine Rare /hpf; Nitrite,Urine Negative (Negative); PH, Urine 5.5 (5.0-8.0); Protein,Urine 1+ (Negative); RBC,Urine >182 /hpf (0-5); Specific Gravity,Urine 1.022 (1.001-1.035); Urobilinogen,Urine <2.0 mg/dL (<2.0)
[2018-11-22 20:03] LABS: Basophils # (A) 0.1 k/uL (0-0.2); Basophils % (A) 1 %; Eosinophils # (A) 0.2 k/uL (0-0.7); Eosinophils % (A) 3 %; HCT 37.9 % (39.0-53.0); Lymphocytes # (A) 1.3 k/uL (1.0-4.8); Lymphocytes % (A) 16 %; MCH 29.3 pg (25.0-35.0); MCHC 34.4 g/dL (31.0-37.0); MCV 85.1 fL (80.0-100.0); Mean Platelet Volume 6.5; Monocytes # (A) 0.6 k/uL (0-1.0); Monocytes % (A) 7 %; Neutrophils # (A) 5.9 k/uL (1.3-7.7); Neutrophils % (A) 72 %; Platelet Count 208 k/uL (150-450); RBC 4.45 m/uL (4.30-5.90); RDW 13.7 % (11.5-15.5); WBC 8.2 k/uL (3.8-10.6)
[2018-11-22 20:11] LABS: Albumin 3.6 g/dL (3.5-5.0); Calcium 8.7 mg/dL (8.4-10.2); Potassium 3.6 mmol/L (3.5-5.1); Total Bilirubin 0.3 mg/dL (0.2-1.3)
[2018-11-22 20:37] VITALS: BP 146/72; PULSE 78; RESP 18; TEMP 98
== END 2018-11-22 20:40 | disposition home or self-care (01) ==
LOC: EC 17:41
DX: R31.9 Hematuria, unspecified (principal); E78.5 Hyperlipidemia, unspecified; J43.9 Emphysema, unspecified; Z79.82 Long term (current) use of aspirin; Z79.51 Long term (current) use of inhaled steroids; Z79.899 Other long term (current) drug therapy; Z88.0 Allergy status to penicillin; Z88.1 Allergy status to other antibiotic agents; Z88.5 Allergy status to narcotic agent; Z87.891 Personal history of nicotine dependence
CPT/HCPCS: 36415; 51798; 80053; 81001; 85025; 94640; 99284

== ENCOUNTER → 2019-03-26 | Outpatient (CLI) | payer MEDICARE ==
[2019-03-26 12:01] LABS: Basophils % (A) 1 %; Eosinophils # (A) 0.1 k/uL (0-0.7); Eosinophils % (A) 2 %; HCT 42.7 % (39.0-53.0); HGB 14.2 gm/dL (13.0-17.5); Lymphocytes # (A) 1.4 k/uL (1.0-4.8); Lymphocytes % (A) 20 %; MCH 29.7 pg (25.0-35.0); MCHC 33.3 g/dL (31.0-37.0); MCV 89.1 fL (80.0-100.0); Mean Platelet Volume 6.9; Monocytes # (A) 0.5 k/uL (0-1.0); Monocytes % (A) 7 %; Neutrophils # (A) 4.9 k/uL (1.3-7.7); Neutrophils % (A) 69 %; Platelet Count 217 k/uL (150-450); RDW 12.8 % (11.5-15.5); WBC 7.1 k/uL (3.8-10.6)
[2019-03-26 12:17] LABS: Potassium 3.7 mmol/L (3.5-5.1)
== END | disposition home or self-care (01) ==
LOC: LABPAT 11:19
PROVIDERS: ATTEND Internal Medicine Rheumatology
DX: Z01.818 Encounter for other preprocedural examination (principal); I10 Essential (primary) hypertension
CPT/HCPCS: 36415; 80048; 85025

== ENCOUNTER 2019-04-02 09:53 | Day surgery (SDC) | payer MEDICARE ==
[2019-03-25 15:20] VITALS: BMI 25.0
[~2019-04-02 09:53] MED LIST changes: -ACETAMINOPHEN IV (For NPO) 1,000 MG in EMPTY BAG 1 BAG IVPB ONE; -CLINDAMYCIN 900 MG in DEXTROSE 5% IN WATER 50 ML IVPB ONE; -HEPARIN SODIUM,PORCINE 5,000 UNIT/ML 1 ML VIAL SQ ONE; -LEVOFLOXACIN 500MG-D5W PMX 500 MG in DEXTROSE/WATER 1 100ML.BAG IVPB ONE; +LIDOCAINE 1% 20 ML VIAL (10MG/ML) FOR IV START INTRADERMA PRN
[2019-04-02] MEDS: LACTATED RINGERS 1,000 ML IV SCH ×2 (10:50→11:02)
[2019-04-02] MEDS ORDERED: LEVOFLOXACIN 500MG-D5W PMX 500 MG in DEXTROSE/WATER 1 100ML.BAG IVPB STA (12:37)
[2019-04-02] MEDS ORDERED: SUCCINYLCHOLINE CHLORIDE 100 MG/5 ML SYR IV ONE (12:38)
[2019-04-02] MEDS ORDERED: MIDAZOLAM 2 MG/2 ML VIAL ONE (12:38)
[2019-04-02] MEDS ORDERED: GLYCOPYRROLATE 0.2 MG/ML 2 ML VIAL ONE (12:38)
[2019-04-02] MEDS ORDERED: ROCURONIUM BROMIDE 10 MG/ML 10 ML VIAL IV ONE (12:38)
[2019-04-02] MEDS ORDERED: PHENYLEPHRINE-0.9% NACL SYG 1 MG/10 ML SYRINGE ONE (12:38)
[2019-04-02] MEDS ORDERED: ePHEDrine SULFATE/0.9% NACL/PF 50 MG/5 ML SYRINGE IV ONE (12:38)
[2019-04-02] MEDS ORDERED: LIDOCAINE 1% INJ 10MG/ML (20 ML MDV) ONE (12:38)
[2019-04-02] MEDS ORDERED: PROPOFOL 10 MG/ML 20 ML VIAL IV ONE (12:38)
[2019-04-02] MEDS ORDERED: fentaNYL (PF) 50 MCG/ML 2 ML AMP ONE (12:38)
[2019-04-02] MEDS ORDERED: NEOSTIGMINE 1 MG/ML 10 ML VIAL ONE (12:38)
[2019-04-02] MEDS ORDERED: HEPARIN SODIUM,PORCINE 5,000 UNIT/ML 1 ML VIAL SQ ONE (12:44)
[2019-04-02] MEDS ORDERED: BUPIVACAINE (PF) 0.25% 30 ML VIAL SQ ONE (13:34)
--- NOTE | 2019-04-02 15:18 | P.OP ---
Date of Procedure: 04/02/19 Preoperative Diagnosis: Prostate cancer Bladder diverticulum Postoperative Diagnosis: #1 prostate cancer #2 bladder diverticulum #3 right inguinal hernia Procedure(s) Performed: Robotic radical prostatectomy Excision of bladder diverticulum Implants: None Anesthesia: GONZALEZ Surgeon: Fransisco Foreman Estimated Blood Loss (ml): 20 IV fluids (ml): 1,100 Urine output (ml): 100 Pathology: other (The prostate and seminal vesicles) Condition: stable Disposition: PACU Indications for Procedure: The patient had low risk prostate cancer and a bladder diverticulum extending into the right inguinal canal Operative Findings: There was significant inflammation on the right inguinal region. Bladder was herniating through the right inguinal hernia defect into the right inguinal c anal. Description of Procedure: Adhesions were noted along the pelvis involving the lateral aspect of the sigmoid colon and taken down sharply.A dorsal vein stitch was placed after apical dissection.The seminal vesicles were excised with a scissors.Bilateral Nerve sparing was performed. Dissection was carried out with bipolar and scissors for the posterolateral dissection.Clips were used bilaterally. The bladder neck did not require reconstruction.Anastamosis was watertight when irrigated at completion.OLU drain was not placed. This is a patient with a history of prostate cancer. The procedure of robot assisted laparoscopic radical prostatectomy was discussed with the patient including the potential risks and complications of the procedure. He elected to proceed with the operation. A nodule was not detected on digital exam under anesthesia.The patient was placed in a supine, Trendelenberg position with adequate padding of the pressure points, shoulders, back, legs and arms. He was then prepped and draped in the standard fashion. A 18F cardona catheter was placed to gravity drainage. A Veress needle was placed through a tomi-umbilical puncture and a pneumo-peritoneum created to 20mmHg during port placement which is thereafter lowered to 15mmHg. A 12mm port on the left side of the umbilicus was placed for the scope. Next,under vision a 8mm robotic ports was placed lateral to each rectus slightly below the camera port. The right assistant professor of religion right iliac fossa 12mm port and right paramedian 5mm port were placed followed by the left iliac fossa 5mm port. The robot was then docked to the 8mm robotic ports and then each robotic arm and tower was checked in relation to the patient's legs and hands to avoid inadvertent compression. The peritoneal cavity was inspected and then an inverted U-shaped incision began laterally to the left medial umbilical ligament and extended high across the midline to the right umbilical ligament. The mesh was seen bilaterally across the lower abdominal wall. Bladder was seen extending into the hernia defect on the right side. Using careful sharp and blunt dissection the bladder hernia was carefully freed from the hernial sac and delivered into the abdomen. The limbs of the "U" extended to the level of the vasa on both sides. We next developed the preperitoneal space and the space of Retzius. Cautery was used to dissected the bladder away from the prostate. After the anterior bladder neck was incised and the bladder entered the the posterior bladder neck was exposed and the ureteral orifices identified. The posterior bladder neck was then incised and dissected away from the prostate. The bladder neck was noted to be normal and did not require reconstruction. The vas and the seminal vesicles were now exposed and dissected to their insertions into the prostate and were not spared. The posterior layer of the Denonvillier'sfascia was incised to enter into the plane between prostate and perirectal fat.Each lateral pedicle was controlled withclips and cautery for hemostasis. Nerve preservation was performed as listed above. The puboprostatic ligament was incised where it inserted into the apex of the prostate and a plane between urethra and dorsal venous complex developed to expose the anterior urethral surface. The anterior wall of the urethra was transected with the scissors a few millimeters distal to the apex of the prostate. DV suture was placed. The freed specimen was then inspected and placed in an endo-catch specimen retrieval bag. The prostate was removed following the completion of the anastomosis.Internal and External Iliac lymph node packets were dissected after careful visualization of the hypogastric artery and obturator nerve. There was attention paid to hemostasis with judicious use of cautery.Two 3-0 V-Lock stitches (MVAC) tied together to form a pledget were used to complete the running continuous circumferential urethrovesical anastamosis with dual layer reconstruction. The outer layer V-Lock suture was placed initially to reapproximate Denonvillier's fascia posteriorly before placing the inner layer MVAC suture as the urethrovesical anastamosis proper. After the inner layer was tied, the anastamosis was checked for leaks before closing the outer layer anteriorly. A new 20 Upper Sor[place] Cardona catheter was introduced and inflated to 20cc. The bladder was filled with 250 cc saline, with the balloon to test the integrity of the anastomosis.No leak was identified. The specimen was removed after enlarging the umbilical port incision as required. The umbilical fascia was closed with PDS suture and closed in layers. All ports were closed with a subcuticular stitch. Sponge, instrument, and needle counts were correct at the end of the case. The patient tolerated the procedure well and was accompanied to the recovery room in stable condition
[2019-04-02] MEDS ORDERED: HYDROmorphone 1 MG/ML 1 ML SYRINGE IVP ONE (15:30)
[2019-04-02] MEDS ORDERED: LACTATED RINGERS 1,000 ML IV ONE (15:57)
[2019-04-02] MEDS: HYDROmorphone 0.5 MG/0.5 ML SYRINGE IVP PRN ×2 (16:01→16:28)
[2019-04-02] MEDS ORDERED: KETOROLAC 30 MG/ML 1 ML VIAL IVP ONE (16:10)
[2019-04-02 16:33] VITALS: RESP 16
[2019-04-02] MEDS ORDERED: HYDROmorphone 1 MG/ML 1 ML SYRINGE IVP PRN (17:14)
[2019-04-02] MEDS ORDERED: ONDANSETRON 4 MG/2 ML VIAL IVP PRN (17:14)
[2019-04-02] MEDS ORDERED: MAG HYDROX/AL HYDROX/SIMETH 30 ML CUP PO PRN (17:14)
[2019-04-02] MEDS: SYMBICORT 160-4.5 MCG INHALER INHALATION SCH (19:43)
[2019-04-02] MEDS: HEPARIN SODIUM,PORCINE 5,000 UNIT/ML 1 ML VIAL SQ SCH (19:49)
[2019-04-02] MEDS: DEXTROSE 5%-0.45% NACL 1,000 ML IV SCH (20:43)
[2019-04-02] MEDS: CLINDAMYCIN 900 MG in DEXTROSE 5% IN WATER 50 ML IVPB SCH ×2 (20:43)
[2019-04-02] MEDS: KETOROLAC 30 MG/ML 1 ML VIAL IVP PRN (20:44)
[2019-04-03] MEDS: CLINDAMYCIN 900 MG in DEXTROSE 5% IN WATER 50 ML IVPB SCH ×2 (00:27)
[2019-04-03] MEDS: HEPARIN SODIUM,PORCINE 5,000 UNIT/ML 1 ML VIAL SQ SCH ×2 (00:27→08:01)
[2019-04-03] MEDS: DEXTROSE 5%-0.45% NACL 1,000 ML IV SCH ×2 (00:28→11:02)
[2019-04-03] MEDS: KETOROLAC 30 MG/ML 1 ML VIAL IVP PRN (05:44)
[2019-04-03 09:09] VITALS: BP 144/71; TEMP 98.1
[2019-04-03] MEDS: IPRATROPIUM 0.5 MG/2.5 ML NEBU INHALATION SCH ×2 (09:09→12:36)
[2019-04-03] MEDS: SYMBICORT 160-4.5 MCG INHALER INHALATION SCH (09:09)
[2019-04-03 09:23] VITALS: PULSE 64
--- NOTE | 2019-04-03 10:35 | P.DS ---
Providers Date of admission: 04/02/2019 Expected date of discharge: 04/03/19 Attending physician: Fransisco Foreman [facility] Course: The patient is a 73-year-old male who was diagnosed with prostate cancer in 2019. He was also discovered to have a bladder diverticulum. He has reviewed treatment options with and elected to be treated with robotically- assisted laparoscopic prostatectomy and bladder diverticulectomy. He underwent procedure on 04/02/2019. He has been relatively comfortable overnight. He initially had some blood pressure elevation but this may have been in part related to pain as he is currently normotensive. He is tolerating a diet. He denies any shortness of breath and has resumed his preop inhalers. His abdominal incision is uninflamed and urine draining from his catheter is clear. Patient will be discharged today. He'll be seen back in follow-up in approximately 10 days at which time his Esquivel catheter may be able to be removed. He will resume his preop diet and medications. Procedures: Robotically-assisted laparoscopic prostatectomy and bladder diverticulectomy 04/02/2019 Patient Condition at Discharge: Good Plan - Discharge Summary Discharge Rx Participant: Yes New Discharge Prescriptions: No Action Calcium Carbonate [Calcium] 1,200 mg PO HS Lovastatin [Mevacor] 40 mg PO HS Tiotropium [place] [Spiriva] 1 puff INHALATION DAILY Budesonide-Formot 160-4.5 Mcg [Symbicort 160-4.5 Mcg Inhaler] 2 puff INHALATION BID Aspirin [Adult Low Dose Aspirin EC] 81 mg PO HS diphenhydrAMINE HCL [Benadryl] 25 mg PO HS Alendronate Sodium [Fosamax] 70 mg PO MO Multivitamins, Thera [Multivitamin (formulary)] 1 tab PO HS Albuterol Nebulized [Ventolin Nebulized] 1 dose IN DAILY PRN PRN Reason: Shortness Of Breath Discharge Medication List Aspirin [Adult Low Dose Aspirin EC] 81 mg PO HS 11/20/17 [History] Budesonide-Formot 160-4.5 Mcg [Symbicort 160-4.5 Mcg Inhaler] 2 puff INHALATION BID 11/20/17 [History] Calcium Carbonate [Calcium] 1,200 mg PO HS 11/20/17 [History] Lovastatin [Mevacor] 40 mg PO HS 11/20/17 [History] Tiotropium [place] [Spiriva] 1 puff INHALATION DAILY 11/20/17 [History] diphenhydrAMINE HCL [Benadryl] 25 mg PO HS 11/20/17 [History] Alendronate Sodium [Fosamax] 70 mg PO MO 05/08/18 [History] Multivitamins, Thera [Multivitamin (formulary)] 1 tab PO HS 05/08/18 [History] Albuterol Nebulized [Ventolin Nebulized] 1 dose IN DAILY PRN 11/17/18 [History] Patient Instructions/Handouts: Robot Assisted Laparoscopic Prostatectomy (DC)
== END 2019-04-03 12:35 | disposition home or self-care (01) ==
LOC: OR 09:53 → 4SSUR 16:35 → OR 04-03 12:35
PROVIDERS: ATTEND Urology
DX: C61 Malignant neoplasm of prostate (principal); N41.0 Acute prostatitis; N42.31 Prostatic intraepithelial neoplasia; N32.3 Diverticulum of bladder; K40.90 Unilateral inguinal hernia, without obstruction or gangrene, not specified as recurrent; I10 Essential (primary) hypertension; E78.5 Hyperlipidemia, unspecified; J44.9 Chronic obstructive pulmonary disease, unspecified; Z88.0 Allergy status to penicillin; Z88.5 Allergy status to narcotic agent; Z88.1 Allergy status to other antibiotic agents; Z79.82 Long term (current) use of aspirin; Z79.51 Long term (current) use of inhaled steroids; Z79.899 Other long term (current) drug therapy; Z98.890 Other specified postprocedural states; Z90.49 Acquired absence of other specified parts of digestive tract; Z79.83 Long term (current) use of bisphosphonates
CPT/HCPCS: 55866; 94640 ×3; 86900; 86901; 86850; 88309; J2250; J1644 ×2; J1100; J2710; J2405; J1956; J2001; J3010; J1885 ×2; J1170 ×2; J2370; J0330; J2704

== ENCOUNTER → 2019-05-18 | Outpatient (CLI) | payer MEDICARE | LOC: LABWHC1 14:03 | PROVIDERS: ATTEND Urology | DX: C61 Malignant neoplasm of prostate (principal) | CPT/HCPCS: 36415; 84153 ==

== ENCOUNTER → 2019-09-29 | Outpatient (CLI) | payer MEDICARE ==
--- NOTE | 2019-09-29 10:40 | BD ---
EXAMINATION TYPE: Axial Bone Density DATE OF EXAM: 09/29/2019 COMPARISON: 06.11.2013 DEXA bone scan. CLINICAL HISTORY: 74 YR OLD MALE.....ICD-10 CODE: M81.0 AGE RELATED OSTEOPOROSIS Height: 65.2 Weight: 156 FRAX RISK QUESTIONS: Current Tobacco Use: QUIT 25 YRS AGO RISK FACTORS HISTORY OF: Surgery to Spine HERNIATED DISC ONLY Lost more than 2 inches in height since high school: YES Frequent falls: UNSTEADY Hyperparathyroidism: NO Adrenal Insufficiency: NO MEDICATIONS: Prednisone or other steroids: YES, BOTH , SYMBICORT AND SPIRIVA, AND PREDNISONE How Lon+ YRS Osteoporosis Medications: FOSAMAX FOR 5 YRS Additional Medications: REFLUX MEDS, CHOLESTEROL MEDS, CALCIUM AND VIT D Additional History: EMPHYSEMA, CHOLESTEROL, OSTEOPOROSIS EXAM MEASUREMENTS: Bone mineral densitometry was performed using the Imagga System. Bone mineral density as measured about the Lumbar spine is: ----- L1-L4(G/cm2): 1.098 T Score Values are as follows: ----- L1: -0.3 ----- L2: -0.9 ----- L3: -0.8 ----- L4: -0.9 ----- L1-L4: -0.7 Bone mineral density has: Increased 4.6% since study of: 06.11.2013 Bone mineral density about the R hip (g/cm2): 0.736 Bone mineral density about the L hip (g/cm2): 0.811 T Score values are as follows: -----R Neck: -1.8 -----L Neck: -1.4 -----R Total: -2.2 -----L Total: -1.6 Bone mineral density has: Increased 2.0% since study of: 06.11.2013 FRAX%s: THERE IS A 13.4% CHANCE FOR A MAJOR OSTEOPOROTIC FX AND A 5.5% FOR HIP.....PROBABILITY FOR FX IN 10 YRS TIME IMPRESSION: Osteopenia remains present in the bilateral hips (T Score between -2.5 and -1). Bone density improved from prior. There remains slightly increased risk of fracture and the patient may be considered for treatment. Re-Screen 2-5 years. NOTE: T-SCORE=SD OF THE YOUNG ADULT MEAN.
== END | disposition home or self-care (01) ==
LOC: RADBDWWP 09:47
PROVIDERS: ATTEND Family Medicine
DX: M85.89 Other specified disorders of bone density and structure, multiple sites (principal)
CPT/HCPCS: 77080

== ENCOUNTER 2019-11-03 08:13 | Day surgery (SDC) | payer MEDICARE ==
--- NOTE | 2019-11-03 07:47 | P.GSHP ---
History of Present Illness H&P Date: 11/03/19 CHIEF COMPLAINT: Colon screen HISTORY OF PRESENT ILLNESS: The patient is a 74-year-old male who presents for colon screen. Lower endoscopy was offered for further evaluation and management. PAST MEDICAL HISTORY: Please see list. PAST SURGICAL HISTORY: Please see list. MEDICATIONS: Please see list. ALLERGIES: Please see list. SOCIAL HISTORY: No illicit drug use FAMILY HISTORY: No reports of Crohn disease or ulcerative colitis. REVIEW OF ORGAN SYSTEMS: CONSTITUTIONAL: No reports of fevers or chills. PHYSICAL EXAM: VITAL SIGNS: Stable GENERAL: Well-developed pleasant in no acute distress. HEENT: No scleral icterus. Extraocular movements grossly intact. Moist buccal mucosa. NECK: Supple without lymphadenopathy. CHEST: Unlabored respirations. Equal bilateral excursions. CARDIOVASCULAR: Regular rate and rhythm. Distal 2+ pulses. ABDOMEN: Soft, nontender, nondistended. MUSCULOSKELETAL: No clubbing, cyanosis, or edema. ASSESSMENT: 1. Colon screen. PLAN: 1. Recommend proceeding with a lower endoscopy Past Medical History Past Medical History: Cancer, COPD, Hyperlipidemia, Pneumonia, Prostate Disorder Additional Past Medical History / Comment(s): emphysema, small hiatal hernia, prostate cancer, colon cancer, rt inguinal hernia. HEPATITIS A- 1960, aphasia, heart murmer, hx anemia, bladder diverticulum History of Any Multi-Drug Resistant Organisms: None Reported Past Surgical History: Appendectomy, Back Surgery, Bowel Resection, Hernia Repair, Orthopedic Surgery Additional Past Surgical History / Comment(s): 04/02/19 right inquinal surgery. back surgery for herniated disk, rt shoulder rotator cuff, nilsa cataracts with lens implants, nilsa inguinal hernia, diverticulitis Past Anesthesia/Blood Transfusion Reactions: No Reported Reaction Past Psychological History: No Psychological Hx Reported Smoking Status: Former smoker Past Alcohol Use History: Rare Additional Past Alcohol Use History / Comment(s): STARTED SMOKING AT AGE 14, quit 1995, smoked 2 PPD Past Drug Use History: None Reported - Past Family History Father Family Medical History: Cancer Mother Family Medical History: Cancer Additional Family Medical History / Comment(s): lung Cancer, Brain Cancer Sister(s) Family Medical History: Congestive Heart Failure (CHF) Medications and Allergies Home Medications Medication Instructions Recorded Confirmed Type Aspirin [Adult Low Dose Aspirin EC] 81 mg PO HS 11/20/17 10/26/19 History Budesonide-Formot 160-4.5 Mcg 2 puff INHALATION BID 11/20/17 10/26/19 History [Symbicort 160-4.5 Mcg Inhaler] Calcium Carbonate [Calcium] 1,200 mg PO HS 11/20/17 10/26/19 History Lovastatin [Mevacor] 40 mg PO HS 11/20/17 10/26/19 History Tiotropium [place] [Spiriva] 1 puff INHALATION DAILY 11/20/17 10/26/19 History diphenhydrAMINE HCL [Benadryl] 25 mg PO HS 11/20/17 10/26/19 History Multivitamins, Thera [Multivitamin 1 tab PO HS 05/08/18 10/26/19 History (formulary)] Albuterol Nebulized [Ventolin 1 dose IN DAILY PRN 11/17/18 10/26/19 History Nebulized] Allergies Allergy/AdvReac Type Severity Reaction Status Date / Time Penicillins Allergy Mild Rash/Hives Verified 10/26/19 13:32 cephalexin Allergy Rash/Hives Verified 10/26/19 13:32 morphine Allergy Rash/Hives Verified 10/26/19 13:32
[~2019-11-03 08:13] MED LIST changes: -DEXAMETHASONE SOD PHOSPHATE 10 MG/ML 1 ML VIAL IV ONE; +LACTATED RINGERS 1,000 ML IV SCH; +LIDOCAINE 1% (10MG/ML) FOR IV START INTRADERMA PRN; -LIDOCAINE 1% 20 ML VIAL (10MG/ML) FOR IV START INTRADERMA PRN; -ONDANSETRON 4 MG/2 ML VIAL IVP ONE
[2019-11-03 08:44] VITALS: RESP 16; TEMP 97.9
[2019-11-03] MEDS ORDERED: PROPOFOL 10 MG/ML 20 ML VIAL IV ONE (09:13)
--- NOTE | 2019-11-03 09:38 | P.PCN ---
Date of Procedure: 11/03/19 Description of Procedure: PREOPERATIVE DIAGNOSIS: Personal history of ascending colon cancer History of right hemicolectomy POSTOPERATIVE DIAGNOSIS: Personal history of ascending colon cancer History of right hemicolectomy Tubular adenoma transverse colon Sigmoid diverticulosis Internal hemorrhoids, grade 2 OPERATION: Colonoscopy to the ileocolic anastomosis Colonoscopy with multiple hot snare polypectomies SURGEON: Reyna Dowell MD. ANESTHESIA: MAC. INDICATIONS: The patient is an 74-year-old male who presents with personal history of colon cancer status post right hemicolectomy. Last colonoscopy 2 years ago. Benefits and risks were described and informed consent was obtained. DESCRIPTION OF PROCEDURE: The patient had undergone Suprep. He had been brought into the operating room and laid in the left lateral decubitus position. After adequate intravenous sedation, the rectum was examined with 2% lidocaine jelly. The prostate fossa was unremarkable. No external hemorrhoids were encountered. The rectal tone was within normal limits. No lesions were palpated in the rectal vault. An Olympus colonoscope was advanced to the ileocolic anastomosis as he has a right hemicolectomy. The prep was fair. Moderate sigmoid diverticulosis was encountered with redundant sigmoid colon. Multiple colonic polyps were found and snare polypectomy. Retroflexion of the scope demonstrated grade 2 internal hemorrhoids without active bleeding or inflammation. The colon was desufflated. The patient had tolerated the procedure well. Withdrawal time was over 6 minutes. FINDINGS: Aronchick preparation quality scale 2 (1-5) Internal hemorrhoids, grade 2 No external hemorrhoids No arteriovenous malformations. Moderate sigmoid diverticulosis with redundant sigmoid colon Removal of 3 polyps: - Snare polypectomy 3, mid transverse colon, 53 to mm tubulovillous adenoma polyp. No focal colitis. RECOMMENDATIONS: Given severity of tubular adenomas, recommend repeat colonoscopy 2 years, 2021. Plan - Discharge Summary Discharge Rx Participant: No New Discharge Prescriptions: Continue Calcium Carbonate [Calcium] 1,200 mg PO HS Lovastatin [Mevacor] 40 mg PO HS Tiotropium [place] [Spiriva] 1 puff INHALATION DAILY Budesonide-Formot 160-4.5 Mcg [Symbicort 160-4.5 Mcg Inhaler] 2 puff INHALATION BID Aspirin [Adult Low Dose Aspirin EC] 81 mg PO HS diphenhydrAMINE HCL [Benadryl] 25 mg PO HS Multivitamins, Thera [Multivitamin (formulary)] 1 tab PO HS Albuterol Nebulized [Ventolin Nebulized] 1 dose IN DAILY PRN PRN Reason: Shortness Of Breath Discharge Medication List Aspirin [Adult Low Dose Aspirin EC] 81 mg PO HS 11/20/17 [History] Budesonide-Formot 160-4.5 Mcg [Symbicort 160-4.5 Mcg Inhaler] 2 puff INHALATION BID 11/20/17 [History] Calcium Carbonate [Calcium] 1,200 mg PO HS 11/20/17 [History] Lovastatin [Mevacor] 40 mg PO HS 11/20/17 [History] Tiotropium [place] [Spiriva] 1 puff INHALATION DAILY 11/20/17 [History] diphenhydrAMINE HCL [Benadryl] 25 mg PO HS 11/20/17 [History] Multivitamins, Thera [Multivitamin (formulary)] 1 tab PO HS 05/08/18 [History] Albuterol Nebulized [Ventolin Nebulized] 1 dose IN DAILY PRN 11/17/18 [History] Follow up Appointment(s)/Referral(s): Reyna Dowell MD [STAFF PHYSICIAN] - As Needed Patient Instructions/Handouts: Colorectal Polyps (DC), Diverticulosis Diet (GEN), Diverticulosis (GEN) Activity/Diet/Wound Care/Special Instructions: Repeat colonoscopy 2 years, 2021 Discharge Disposition: HOME SELF-CARE
[2019-11-03 09:56] VITALS: BP 167/72; PULSE 72
== END 2019-11-03 10:15 | disposition home or self-care (01) ==
LOC: OR 08:13
PROVIDERS: ATTEND Surgery Plastic and Reconstructive Surgery
DX: Z12.11 Encounter for screening for malignant neoplasm of colon (principal); D12.3 Benign neoplasm of transverse colon; Z85.038 Personal history of other malignant neoplasm of large intestine; Z90.49 Acquired absence of other specified parts of digestive tract; K57.30 Diverticulosis of large intestine without perforation or abscess without bleeding; K64.1 Second degree hemorrhoids; K44.9 Diaphragmatic hernia without obstruction or gangrene; Q43.8 Other specified congenital malformations of intestine; J44.9 Chronic obstructive pulmonary disease, unspecified; E78.5 Hyperlipidemia, unspecified; Z87.891 Personal history of nicotine dependence; Z87.01 Personal history of pneumonia (recurrent); N42.9 Disorder of prostate, unspecified; J43.9 Emphysema, unspecified; Z85.46 Personal history of malignant neoplasm of prostate; Z86.19 Personal history of other infectious and parasitic diseases; Z86.2 Personal history of diseases of the blood and blood-forming organs and certain disorders involving the immune mechanism; Z87.448 Personal history of other diseases of urinary system; Z98.42 Cataract extraction status, left eye; Z98.41 Cataract extraction status, right eye; Z96.1 Presence of intraocular lens; Z79.82 Long term (current) use of aspirin; Z79.51 Long term (current) use of inhaled steroids; Z79.899 Other long term (current) drug therapy; Z88.1 Allergy status to other antibiotic agents; Z88.5 Allergy status to narcotic agent; Z88.0 Allergy status to penicillin; Z80.1 Family history of malignant neoplasm of trachea, bronchus and lung; Z80.8 Family history of malignant neoplasm of other organs or systems; Z82.49 Family history of ischemic heart disease and other diseases of the circulatory system
CPT/HCPCS: 88305; 45385; J2704

== ENCOUNTER → 2020-09-19 | Outpatient (CLI) | payer MEDICARE ==
--- NOTE | 2020-09-19 11:02 | XR ---
EXAMINATION TYPE: XR chest 2V DATE OF EXAM: 09/19/2020 COMPARISON: Chest x-ray 11/25/2019, chest CT 05/18/2013 HISTORY: I63.9 TECHNIQUE: Frontal and lateral views of the chest are obtained. FINDINGS: There is no focal air space opacity, pleural effusion, or pneumothorax seen. The cardiac silhouette size is within normal limits. Prominent lung volumes suggest underlying COPD. There is ev entration of the right hemidiaphragm as on prior exam. Aorta is dense. The osseous structures are int act. IMPRESSION: No acute cardiopulmonary process. There is underlying emphysema.
== END | disposition home or self-care (01) ==
LOC: RADXRMAIN 10:12
PROVIDERS: ATTEND Family Medicine
DX: J43.9 Emphysema, unspecified (principal)
CPT/HCPCS: 71046

== ENCOUNTER → 2020-10-05 | Outpatient (CLI) | payer MEDICARE ==
--- NOTE | 2020-10-06 08:57 | US ---
EXAMINATION TYPE: US carotid duplex BILAT DATE OF EXAM: 10/05/2020 COMPARISON: 02/13/2018 CLINICAL HISTORY: 75-year-old male R09.89 Carotid Bruit. TECHNIQUE: Carotid duplex ultrasound examination. Indirect Doppler criteria is utilized. FINDINGS: EXAM MEASUREMENTS: RIGHT: Peak Systolic Velocity (PSV) cm/sec ----- Right CCA: 103.1 ----- Right ICA: 77.8 ----- Right ECA: 120.8 ICA/CCA ratio: 0.8 RIGHT: End Diastole cm/sec ----- Right CCA: 12.1 ----- Right ICA: 17.1 ----- Right ECA: 0.0 LEFT: Peak Systolic Velocity (PSV) cm/sec ----- Left CCA: 67.8 ----- Left ICA: 46.0 ----- Left ECA: 106.4 ICA/CCA ratio: 0.7 LEFT: End Diastole cm/sec ----- Left CCA: 9.5 ----- Left ICA: 10.4 ----- Left ECA: 6.2 VERTEBRALS (direction of flow): Right Vertebral: Antegrade Left Vertebral: Antegrade Rhythm: Normal Social Science Manager notes: The mild scattered intimal/wall thickening. No elevated velocities. No significan t stenosis. Small amount of plaque seen in bilateral bulbs. IMPRESSION: No hemodynamically significant internal carotid artery stenosis on either side. NASCET criteria was used in interpretation of this exam? Criteria for Assigning % of Stenosis / Diameter reduction (Estimation based on the indirect measurements of the internal carotid artery velocities (ICA PSV). 1. Normal (no stenosis)=ICA PSV < 125 cm/s: ratio < 2.0: ICA EDV<40 cm/s. 2. Less than 50% stenosis=ICA PSV < 125 cm/s: ratio < 2.0: ICA EDV<40 cm/s. 3. 50 to 69% stenosis=ICA PSV of 125 to 230 cm/s: ration 2.0 ? 4.0: ICA EDV 40-100 cm/s. 4. Greater than 70% stenosis to near occlusion= ICA PSV > 230 cm/s: ratio > 4.0: ICA EDV > 100 cm/s. 5. Near occlusion= ICA PSV velocities may be low or undetectable: variable ratio and ICA EDV. 6. Total occlusion=unable to detect flow.
== END | disposition home or self-care (01) ==
LOC: LABWHC1 14:26
PROVIDERS: ATTEND Family Medicine
DX: R09.89 Other specified symptoms and signs involving the circulatory and respiratory systems (principal)
CPT/HCPCS: 93880

== ENCOUNTER 2020-10-21 02:38 | Emergency (ER) | payer MEDICARE ==
--- NOTE | 2020-10-21 02:45 | ED ---
SOB HPI - General Stated Complaint: SOB Time Seen by Provider: 10/21/20 02:39 Source: RN notes reviewed, old records reviewed Mode of arrival: ambulatory Limitations: no limitations - History of Present Illness Initial Comments: This is a 75-year-old male to the ER for evaluation with history of emphysema. Patient has long history of emphysema patient presents today for shortness of breath patient has history of emphysema. Patient has persistent shortness of breath on arrival to the emergency department. Patient denies fevers, no sick contacts, denies travel history MD Complaint: shortness of breath, cough, anxiety -: hour(s) Radiation: back Severity: mild Severity scale (1-10): 3 Quality: aching Consistency: constant Improves With: nothing Worsens With: nothing Known History Of: COPD, asthma Context: recent URI, anxiety, recent illness Associated Symptoms: denies other symptoms - Related Data Home Medications Medication Instructions Recorded Confirmed Aspirin [Adult Low Dose Aspirin EC] 81 mg PO HS 11/20/17 11/03/19 Budesonide-Formot 160-4.5 Mcg 2 puff INHALATION BID 11/20/17 11/03/19 [Symbicort 160-4.5 Mcg Inhaler] Calcium Carbonate [Calcium] 1,200 mg PO HS 11/20/17 11/03/19 Lovastatin [Mevacor] 40 mg PO HS 11/20/17 11/03/19 Tiotropium [place] [Spiriva] 1 puff INHALATION DAILY 11/20/17 11/03/19 diphenhydrAMINE HCL [Benadryl] 25 mg PO HS 11/20/17 11/03/19 Multivitamins, Thera [Multivitamin 1 tab PO HS 05/08/18 11/03/19 (formulary)] Albuterol Nebulized [Ventolin 1 dose IN DAILY PRN 11/17/18 11/03/19 Nebulized] Previous Rx's Medication Instructions Recorded Albuterol Nebulized [Ventolin 2.5 mg INHALATION Q4H PRN #25 nebu 10/21/20 Nebulized] Albuterol Sulfate [Proair Hfa] 1 - 2 puff INHALATION Q4H PRN #1 10/21/20 inhaler predniSONE 50 mg PO DAILY #5 tab 10/21/20 Allergies Allergy/AdvReac Type Severity Reaction Status Date / Time Penicillins Allergy Mild Rash/Hives Verified 10/21/20 02:48 cephalexin Allergy Rash/Hives Verified 10/21/20 02:48 morphine Allergy Rash/Hives Verified 10/21/20 02:48 Review of Systems ROS Statement: Those systems with pertinent positive or pertinent negative responses have been documented in the HPI. ROS Other: All systems not noted in ROS Statement are negative. Past Medical History Past Medical History: Cancer, COPD, Hyperlipidemia, Pneumonia, Prostate Disorder Additional Past Medical History / Comment(s): emphysema, small hiatal hernia, prostate cancer, colon cancer, rt inguinal hernia. HEPATITIS A- 196, aphasia, heart murmer, hx anemia, bladder diverticulum History of Any Multi-Drug Resistant Organisms: None Reported Past Surgical History: Appendectomy, Back Surgery, Bowel Resection, Hernia Repair, Orthopedic Surgery Additional Past Surgical History / Comment(s): back surgery for herniated disk, rt shoulder rotator cuff, nilsa cataracts with lens implants, nilsa inguinal hernia, diverticulitis Past Anesthesia/Blood Transfusion Reactions: No Reported Reaction Past Psychological History: No Psychological Hx Reported Past Alcohol Use History: Rare Additional Past Alcohol Use History / Comment(s): STARTED SMOKING AT AGE 14, quit 1995, smoked 2 PPD Past Drug Use History: None Reported - Past Family History Father Family Medical History: Cancer Mother Family Medical History: Cancer Additional Family Medical History / Comment(s): lung Cancer, Brain Cancer Sister(s) Family Medical History: Congestive Heart Failure (CHF) General Exam General appearance: alert, in no apparent distress, anxious Head exam: Present: atraumatic, normocephalic, normal inspection Eye exam: Present: normal appearance, PERRL, EOMI. Absent: scleral icterus, conjunctival injection, periorbital swelling ENT exam: Present: normal exam, mucous membranes moist Neck exam: Present: normal inspection. Absent: tenderness, meningismus, lymphadenopathy Respiratory exam: Present: normal lung sounds bilaterally. Absent: respiratory distress, wheezes, rales, rhonchi, stridor Cardiovascular Exam: Present: regular rate, normal rhythm, normal heart sounds. Absent: systolic murmur, diastolic murmur, rubs, gallop, clicks GI/Abdominal exam: Present: soft, normal bowel sounds. Absent: distended, tenderness, guarding, rebound, rigid Extremities exam: Present: normal inspection, full ROM, normal capillary refill. Absent: tenderness, pedal edema, joint swelling, calf tenderness Back exam: Present: normal inspection Neurological exam: Present: alert, oriented X3, CN II-XII intact Psychiatric exam: Present: normal affect, normal mood Skin exam: Present: warm, dry, intact, normal color. Absent: rash Course Vital Signs 10/21/20 10/21/20 10/21/20 02:44 03:00 03:30 Temperature 98.1 F Pulse Rate 81 78 77 Respiratory 24 22 22 Rate Blood Pressure 185/81 149/75 162/72 O2 Sat by Pulse 98 100 99 Oximetry 10/21/20 10/21/20 10/21/20 03:57 04:00 04:07 Temperature Pulse Rate 71 71 74 Respiratory 20 Rate Blood Pressure 176/86 O2 Sat by Pulse 100 Oximetry - Reevaluation(s) Reevaluation #1: 10/21/20 03:32 Medical record is reviewed Reevaluation #2: Patient symptoms are improved here in the emergency department Patient informed of results and questions answered Patient is in no acute distress Medical Decision Making - Medical Decision Making 75 male for COPD exacerbation, patient symptoms are improved here in the ER he does feel comfortable with discharge home - Lab Data Result diagrams: 10/21/20 03:26 10/21/20 03:26 Lab Results 10/21/20 10/21/20 10/21/20 Range/Units 03:26 03:26 03:26 WBC 7.9 (3.8-10.6) k/uL RBC 5.02 (4.30-5.90) m/uL Hgb 14.8 (13.0-17.5) gm/dL Hct 45.0 (39.0-53.0) % MCV 89.6 (80.0-100.0) fL MCH 29.5 (25.0-35.0) pg MCHC 32.9 (31.0-37.0) g/dL RDW 13.9 (11.5-15.5) % Plt Count 235 (150-450) k/uL MPV 6.8 Neutrophils % 62 % Lymphocytes % 24 % Monocytes % 7 % Eosinophils % 3 % Basophils % 1 % Neutrophils # 4.9 (1.3-7.7) k/uL Lymphocytes # 1.9 (1.0-4.8) k/uL Monocytes # 0.6 (0-1.0) k/uL Eosinophils # 0.3 (0-0.7) k/uL Basophils # 0.1 (0-0.2) k/uL PT 10.2 (9.0-12.0) sec INR 0.9 (<1.2) APTT 24.7 (22.0-30.0) sec Sodium 142 (137-145) mmol/L Potassium 3.8 (3.5-5.1) mmol/L Chloride 109 H (98-107) mmol/L Carbon Dioxide 24 (22-30) mmol/L Anion Gap 9 mmol/L BUN 15 (9-20) mg/dL Creatinine 1.01 (0.66-1.25) mg/dL Est GFR (CKD-EPI)AfAm 83 (>60 ml/min/1.73 sqM) Est GFR (CKD-EPI)NonAf 72 (>60 ml/min/1.73 sqM) Glucose 106 H (74-99) mg/dL Plasma Lactic Acid Ven[place]ata (0.7-2.0) mmol/L Calcium 9.1 (8.4-10.2) mg/dL Magnesium 1.9 (1.6-2.3) mg/dL Total Bilirubin 0.5 (0.2-1.3) mg/dL AST 37 (17-59) U/L ALT 19 (4-49) U/L Alkaline Phosphatase 73 (38-126) U/L Troponin I (0.000-0.034) ng/mL NT-Pro-B Natriuret Pep pg/mL Total Protein 6.3 (6.3-8.2) g/dL Albumin 4.0 (3.5-5.0) g/dL 10/21/20 10/21/20 10/21/20 Range/Units 03:26 03:26 03:26 WBC (3.8-10.6) k/uL RBC (4.30-5.90) m/uL Hgb (13.0-17.5) gm/dL Hct (39.0-53.0) % MCV (80.0-100.0) fL MCH (25.0-35.0) pg MCHC (31.0-37.0) g/dL RDW (11.5-15.5) % Plt Count (150-450) k/uL MPV Neutrophils % % Lymphocytes % % Monocytes % % Eosinophils % % Basophils % % Neutrophils # (1.3-7.7) k/uL Lymphocytes # (1.0-4.8) k/uL Monocytes # (0-1.0) k/uL Eosinophils # (0-0.7) k/uL Basophils # (0-0.2) k/uL PT (9.0-12.0) sec INR (<1.2) APTT (22.0-30.0) sec Sodium (137-145) mmol/L Potassium (3.5-5.1) mmol/L Chloride (98-107) mmol/L Carbon Dioxide (22-30) mmol/L Anion Gap mmol/L BUN (9-20) mg/dL Creatinine (0.66-1.25) mg/dL Est GFR (CKD-EPI)AfAm (>60 ml/min/1.73 sqM) Est GFR (CKD-EPI)NonAf (>60 ml/min/1.73 sqM) Glucose (74-99) mg/dL Plasma Lactic Acid Venkata 1.2 (0.7-2.0) mmol/L Calcium (8.4-10.2) mg/dL Magnesium (1.6-2.3) mg/dL Total Bilirubin (0.2-1.3) mg/dL AST (17-59) U/L ALT (4-49) U/L Alkaline Phosphatase (38-126) U/L Troponin I <0.012 (0.000-0.034) ng/mL NT-Pro-B Natriuret Pep 40 pg/mL Total Protein (6.3-8.2) g/dL Albumin (3.5-5.0) g/dL - EKG Data -: EKG Interpreted by Me (EKG shows sinus rhythm 78 MN 148 QRS 84 QTC 47) - Radiology Data Radiology results: report reviewed (Chest x-rays negative for acute disease), image reviewed Disposition Clinical Impression: COPD (chronic obstructive pulmonary disease), Acute exacerbation of chronic obstructive pulmonary disease Disposition: HOME SELF-CARE Condition: Good Instructions (If sedation given, give patient instructions): Acute Bronchitis (ED), Chronic Bronchitis (ED) Prescriptions: predniSONE 50 mg PO DAILY #5 tab Albuterol Sulfate [Proair Hfa] 1 - 2 puff INHALATION Q4H PRN #1 inhaler PRN Reason: Shortness Of Breath Albuterol Nebulized [Ventolin Nebulized] 2.5 mg INHALATION Q4H PRN #25 nebu PRN Reason: Shortness Of Breath Is patient prescribed a controlled substance at d/c from ED?: No Referrals: Chantelle Tian MD [Primary Care Provider] - 1-2 days
[2020-10-21 02:48] VITALS: TEMP 98.1
[2020-10-21] MEDS ORDERED: IPRATROPIUM-ALBUTEROL 3 ML NEB INHALATION STA (03:23)
[2020-10-21] MEDS ORDERED: SODIUM CHLORIDE 0.9% 1,000 ML IV STA (03:23)
[2020-10-21 03:40] LABS: Basophils # (A) 0.1 k/uL (0-0.2); Basophils % (A) 1 %; Eosinophils # (A) 0.3 k/uL (0-0.7); Eosinophils % (A) 3 %; HGB 14.8 gm/dL (13.0-17.5); Lymphocytes # (A) 1.9 k/uL (1.0-4.8); Lymphocytes % (A) 24 %; MCH 29.5 pg (25.0-35.0); MCHC 32.9 g/dL (31.0-37.0); MCV 89.6 fL (80.0-100.0); Mean Platelet Volume 6.8; Monocytes # (A) 0.6 k/uL (0-1.0); Monocytes % (A) 7 %; Neutrophils # (A) 4.9 k/uL (1.3-7.7); Neutrophils % (A) 62 %; Platelet Count 235 k/uL (150-450); RBC 5.02 m/uL (4.30-5.90); RDW 13.9 % (11.5-15.5); WBC 7.9 k/uL (3.8-10.6)
[2020-10-21 03:48] LABS: INR 0.9 (<1.2); Partial Thromboplastin Time 24.7 sec (22.0-30.0); Prothrombin Time 10.2 sec (9.0-12.0)
--- NOTE | 2020-10-21 03:50 | XR ---
EXAMINATION TYPE: XR chest 2V DATE OF EXAM: 10/21/2020 COMPARISON: 09/19/2020 HISTORY: Short of breath. Difficulty breathing. TECHNIQUE: FINDINGS: There is no heart failure nor confluent pneumonic infiltrate. Costophrenic angles are clear . There are some emphysematous changes in the upper lobes. There are chest leads. Bony thorax is inta ct. IMPRESSION: COPD. No active cardiopulmonary disease. No change.
[2020-10-21 03:53] LABS: Calcium 9.1 mg/dL (8.4-10.2); Magnesium 1.9 mg/dL (1.6-2.3); Potassium 3.8 mmol/L (3.5-5.1); Total Bilirubin 0.5 mg/dL (0.2-1.3); Total Protein 6.3 g/dL (6.3-8.2)
[2020-10-21 04:07] VITALS: PULSE 74
[2020-10-21 04:16] VITALS: BP 176/86; RESP 20
[2020-10-21] MEDS ORDERED: methylPREDNISolone SOD SUCCI 125 MG/2 ML VIAL IV STA (04:26)
== END 2020-10-21 05:00 | disposition home or self-care (01) ==
LOC: EC 02:38
DX: J44.1 Chronic obstructive pulmonary disease with (acute) exacerbation (principal); E78.5 Hyperlipidemia, unspecified; Z88.5 Allergy status to narcotic agent; Z88.0 Allergy status to penicillin; Z88.1 Allergy status to other antibiotic agents; Z79.82 Long term (current) use of aspirin; Z79.51 Long term (current) use of inhaled steroids; Z79.899 Other long term (current) drug therapy
CPT/HCPCS: 36415; 94640; 93005; 83880; 80053; 83605; 83735; 84484; 85025; 85610; 85730; 71046; 99285; 96374; 96361; J2930

== ENCOUNTER 2020-11-22 02:23 | Observation (INO) | payer MEDICARE ==
[2020-11-22] MEDS ORDERED: methylPREDNISolone SOD SUCCI 125 MG/2 ML VIAL IV STA (02:33)
[2020-11-22] MEDS ORDERED: SODIUM CHLORIDE 0.9% 1,000 ML IV STA (02:33)
[2020-11-22] MEDS ORDERED: ALBUTEROL NEBULIZED 2.5 MG/3 ML INHALATION STA (02:33)
[2020-11-22] MEDS ORDERED: IPRATROPIUM 0.5 MG/2.5 ML NEBU INHALATION STA (02:33)
--- NOTE | 2020-11-22 02:33 | ED ---
SOB HPI - General Chief Complaint: Shortness of Breath Stated Complaint: WOODY Time Seen by Provider: 11/22/20 02:32 Source: patient, RN notes reviewed, old records reviewed Mode of arrival: wheelchair Limitations: no limitations - History of Present Illness MD Complaint: shortness of breath, cough -: days(s) Severity: mild Severity scale (1-10): 1 Consistency: intermittent Improves With: nothing Worsens With: exertion, movement Known History Of: COPD Context: recent URI, anxiety, recent illness Associated Symptoms: cough, sputum production Treatments Prior to Arrival: none - Related Data Home Medications Medication Instructions Recorded Confirmed Aspirin [Adult Low Dose Aspirin EC] 81 mg PO HS 11/20/17 11/03/19 Budesonide-Formot 160-4.5 Mcg 2 puff INHALATION BID 11/20/17 11/03/19 [Symbicort 160-4.5 Mcg Inhaler] Calcium Carbonate [Calcium] 1,200 mg PO HS 11/20/17 11/03/19 Lovastatin [Mevacor] 40 mg PO HS 11/20/17 11/03/19 Tiotropium [place] [Spiriva] 1 puff INHALATION DAILY 11/20/17 11/03/19 diphenhydrAMINE HCL [Benadryl] 25 mg PO HS 11/20/17 11/03/19 Multivitamins, Thera [Multivitamin 1 tab PO HS 05/08/18 11/03/19 (formulary)] Albuterol Nebulized [Ventolin 1 dose IN DAILY PRN 11/17/18 11/03/19 Nebulized] Previous Rx's Medication Instructions Recorded Albuterol Nebulized [Ventolin 2.5 mg INHALATION Q4H PRN #25 nebu 10/21/20 Nebulized] Albuterol Sulfate [Proair Hfa] 1 - 2 puff INHALATION Q4H PRN #1 10/21/20 inhaler predniSONE 50 mg PO DAILY #5 tab 10/21/20 Allergies Allergy/AdvReac Type Severity Reaction Status Date / Time Penicillins Allergy Mild Rash/Hives Verified 11/22/20 02:26 cephalexin Allergy Rash/Hives Verified 11/22/20 02:26 morphine Allergy Rash/Hives Verified 11/22/20 02:26 Review of Systems ROS Statement: Those systems with pertinent positive or pertinent negative responses have been documented in the HPI. ROS Other: All systems not noted in ROS Statement are negative. Past Medical History Past Medical History: Cancer, COPD, Hyperlipidemia, Pneumonia, Prostate Disorder Additional Past Medical History / Comment(s): emphysema, small hiatal hernia, prostate cancer, colon cancer, rt inguinal hernia. HEPATITIS A- 1961, aphasia, heart murmer, hx anemia, bladder diverticulum History of Any Multi-Drug Resistant Organisms: None Reported Past Surgical History: Appendectomy, Back Surgery, Bowel Resection, Hernia Repair, Orthopedic Surgery Additional Past Surgical History / Comment(s): back surgery for herniated disk, rt shoulder rotator cuff, nilsa cataracts with lens implants, nilsa inguinal hernia, diverticulitis Past Anesthesia/Blood Transfusion Reactions: No Reported Reaction Past Psychological History: No Psychological Hx Reported Smoking Status: Former smoker Past Alcohol Use History: Rare Past Drug Use History: None Reported - Past Family History Father Family Medical History: Cancer Mother Family Medical History: Cancer Additional Family Medical History / Comment(s): lung Cancer, Brain Cancer Sister(s) Family Medical History: Congestive Heart Failure (CHF) General Exam Limitations: no limitations General appearance: alert, in no apparent distress, anxious Head exam: Present: atraumatic, normocephalic, normal inspection Eye exam: Present: normal appearance, PERRL, EOMI. Absent: scleral icterus, conjunctival injection, periorbital swelling ENT exam: Present: normal exam, mucous membranes moist Neck exam: Present: normal inspection. Absent: tenderness, meningismus, lymphadenopathy Respiratory exam: Present: wheezes. Absent: respiratory distress, rales, rhonchi, stridor Cardiovascular Exam: Present: regular rate, normal rhythm, normal heart sounds. Absent: systolic murmur, diastolic murmur, rubs, gallop, clicks GI/Abdominal exam: Present: soft, normal bowel sounds. Absent: distended, tenderness, guarding, rebound, rigid Extremities exam: Present: normal inspection, full ROM, normal capillary refill. Absent: tenderness, pedal edema, joint swelling, calf tenderness Back exam: Present: normal inspection Neurological exam: Present: alert, oriented X3, CN II-XII intact Psychiatric exam: Present: normal affect, normal mood Skin exam: Present: warm, dry, intact, normal color. Absent: rash Course Vital Signs 09/15/21 09/15/21 09/15/21 02:24 03:08 03:15 Temperature 97.9 F Pulse Rate 78 72 Respiratory 22 18 Rate Blood Pressure 164/75 O2 Sat by Pulse 97 Oximetry 11/22/20 03:25 Temperature Pulse Rate 73 Respiratory Rate Blood Pressure O2 Sat by Pulse Oximetry Medical Decision Making - Lab Data Result diagrams: 11/22/20 02:57 11/22/20 02:57 Lab Results 11/22/20 11/22/20 11/22/20 Range/Units 02:57 02:57 02:57 WBC 7.1 (3.8-10.6) k/uL RBC 4.74 (4.30-5.90) m/uL Hgb 14.5 (13.0-17.5) gm/dL Hct 40.8 (39.0-53.0) % MCV 86.1 (80.0-100.0) fL MCH 30.5 (25.0-35.0) pg MCHC 35.4 (31.0-37.0) g/dL RDW 13.5 (11.5-15.5) % Plt Count 280 (150-450) k/uL MPV 6.8 Neutrophils % 59 % Lymphocytes % 27 % Monocytes % 8 % Eosinophils % 3 % Basophils % 1 % Neutrophils # 4.1 (1.3-7.7) k/uL Lymphocytes # 1.9 (1.0-4.8) k/uL Monocytes # 0.5 (0-1.0) k/uL Eosinophils # 0.2 (0-0.7) k/uL Basophils # 0.0 (0-0.2) k/uL PT 10.4 (9.0-12.0) sec INR 1.0 (<1.2) APTT 25.2 (22.0-30.0) sec Sodium 141 (137-145) mmol/L Potassium 3.9 (3.5-5.1) mmol/L Chloride 108 H (98-107) mmol/L Carbon Dioxide 27 (22-30) mmol/L Anion Gap 6 mmol/L BUN 12 (9-20) mg/dL Creatinine 1.14 (0.66-1.25) mg/dL Est GFR (CKD-EPI)AfAm 72 (>60 ml/min/1.73 sqM) Est GFR (CKD-EPI)NonAf 62 (>60 ml/min/1.73 sqM) Glucose 109 H (74-99) mg/dL Calcium 9.0 (8.4-10.2) mg/dL Magnesium 2.0 (1.6-2.3) mg/dL Total Bilirubin 0.7 (0.2-1.3) mg/dL AST 25 (17-59) U/L ALT 16 (4-49) U/L Alkaline Phosphatase 69 (38-126) U/L Creatine Kinase 111 (55-170) U/L Troponin I (0.000-0.034) ng/mL NT-Pro-B Natriuret Pep pg/mL Total Protein 6.3 (6.3-8.2) g/dL Albumin 3.8 (3.5-5.0) g/dL 11/22/20 11/22/20 Range/Units 02:57 02:57 WBC (3.8-10.6) k/uL RBC (4.30-5.90) m/uL Hgb (13.0-17.5) gm/dL Hct (39.0-53.0) % MCV (80.0-100.0) fL MCH (25.0-35.0) pg MCHC (31.0-37.0) g/dL RDW (11.5-15.5) % Plt Count (150-450) k/uL MPV Neutrophils % % Lymphocytes % % Monocytes % % Eosinophils % % Basophils % % Neutrophils # (1.3-7.7) k/uL Lymphocytes # (1.0-4.8) k/uL Monocytes # (0-1.0) k/uL Eosinophils # (0-0.7) k/uL Basophils # (0-0.2) k/uL PT (9.0-12.0) sec INR (<1.2) APTT (22.0-30.0) sec Sodium (137-145) mmol/L Potassium (3.5-5.1) mmol/L Chloride (98-107) mmol/L Carbon Dioxide (22-30) mmol/L Anion Gap mmol/L BUN (9-20) mg/dL Creatinine (0.66-1.25) mg/dL Est GFR (CKD-EPI)AfAm (>60 ml/min/1.73 sqM) Est GFR (CKD-EPI)NonAf (>60 ml/min/1.73 sqM) Glucose (74-99) mg/dL Calcium (8.4-10.2) mg/dL Magnesium (1.6-2.3) mg/dL Total Bilirubin (0.2-1.3) mg/dL AST (17-59) U/L ALT (4-49) U/L Alkaline Phosphatase (38-126) U/L Creatine Kinase (55-170) U/L Troponin I <0.012 (0.000-0.034) ng/mL NT-Pro-B Natriuret Pep 33 pg/mL Total Protein (6.3-8.2) g/dL Albumin (3.5-5.0) g/dL - EKG Data -: EKG Interpreted by Me (EKG is sinus rhythm 74 AR 144 QRS 78 QTc 483) Disposition Clinical Impression: Acute exacerbation of chronic obstructive pulmonary disease, COPD (chronic obstructive pulmonary disease) Disposition: ADMITTED IP TO THIS HOSP Condition: Good Is patient prescribed a controlled substance at d/c from ED?: No Referrals: Chantelle Tian MD [Primary Care Provider] - 1-2 days
[2020-11-22] MEDS ORDERED: IPRATROPIUM-ALBUTEROL 3 ML NEB INHALATION STA (02:56)
[2020-11-22 03:11] LABS: Basophils % (A) 1 %; Eosinophils # (A) 0.2 k/uL (0-0.7); Eosinophils % (A) 3 %; HCT 40.8 % (39.0-53.0); HGB 14.5 gm/dL (13.0-17.5); Lymphocytes # (A) 1.9 k/uL (1.0-4.8); Lymphocytes % (A) 27 %; MCH 30.5 pg (25.0-35.0); MCHC 35.4 g/dL (31.0-37.0); MCV 86.1 fL (80.0-100.0); Mean Platelet Volume 6.8; Monocytes # (A) 0.5 k/uL (0-1.0); Monocytes % (A) 8 %; Neutrophils # (A) 4.1 k/uL (1.3-7.7); Neutrophils % (A) 59 %; Platelet Count 280 k/uL (150-450); RBC 4.74 m/uL (4.30-5.90); RDW 13.5 % (11.5-15.5); WBC 7.1 k/uL (3.8-10.6)
[2020-11-22 03:18] LABS: Albumin 3.8 g/dL (3.5-5.0); Potassium 3.9 mmol/L (3.5-5.1); Total Bilirubin 0.7 mg/dL (0.2-1.3); Total Protein 6.3 g/dL (6.3-8.2)
--- NOTE | 2020-11-22 03:40 | XR ---
EXAMINATION TYPE: XR chest 2V DATE OF EXAM: 11/22/2020 COMPARISON: 10/21/2020 HISTORY: Short of breath TECHNIQUE: FINDINGS: There is no heart failure nor confluent pneumonic infiltrate. Costophrenic angles are clear . There are no hilar masses. There are chest leads. Bony thorax is intact. There is probably some emp hysema in the upper lobes. IMPRESSION: COPD. No active cardiopulmonary disease. No change.
[2020-11-22 03:59] LABS: Partial Thromboplastin Time 25.2 sec (22.0-30.0); Prothrombin Time 10.4 sec (9.0-12.0)
[2020-11-22] MEDS ORDERED: IPRATROPIUM-ALBUTEROL 3 ML NEB INHALATION PRN (04:29)
[2020-11-22] MEDS: methylPREDNISolone SOD SUCCI 125 MG/2 ML VIAL IV SCH ×4 (05:31→21:44)
[2020-11-22] MEDS: SODIUM CHLORIDE 0.9% 1,000 ML IV SCH ×3 (05:40→21:46)
--- NOTE | 2020-11-22 06:27 | P.HPIM ---
History of Present Illness H&P Date: 11/22/20 Chief Complaint: SOB 75 year old male with hyperlipidemia, h/o CVA with residual speech difficulties, , COPD not on home oxygen Its difficult to obtain history from this patient , as he is very slow to respond and does not really finish sentences, he seems to lose his train of thoughts, and when asking leading questions, his answers are still not reliable as he gets yes and no mixed up. patient most likely has some component of residual expressive aphasia from history of stroke. patient comes in due to sudden onset difficulty in breathing and wheezing that started suddenly at 1 AM for which he came in for evaluation . he claims that he went to bed the night before feeling completely fine. its not clear if he travelled recently, or had any sick contacts. its not clear what triggered this episode. patient otherwise denies any chest pain , fever, chill, nausea v omtiing, or abd pain . he denies any GI bleeding. patient does report coughing, again, its not clear what the duration is, and whether its productive or if there is any hemoptysis. in the ED , patient was given breathing treatments and started on COPD pathway treatment , CXR showed no acute infilterates , COVID test negative Review of Systems Pertinent positives as noted in HPI. All other systems were reviewed and are negative Past Medical History Past Medical History: Cancer, COPD, Hyperlipidemia, Pneumonia, Prostate Disorder Additional Past Medical History / Comment(s): emphysema, small hiatal hernia, prostate cancer, colon cancer, rt inguinal hernia. HEPATITIS A- 1961, aphasia, heart murmer, hx anemia, bladder diverticulum History of Any Multi-Drug Resistant Organisms: None Reported Past Surgical History: Appendectomy, Back Surgery, Bowel Resection, Hernia Repair, Orthopedic Surgery Additional Past Surgical History / Comment(s): back surgery for herniated disk, rt shoulder rotator cuff, nilsa cataracts with lens implants, nilsa inguinal hernia, diverticulitis Past Anesthesia/Blood Transfusion Reactions: No Reported Reaction Past Psychological History: No Psychological Hx Reported Smoking Status: Former smoker Past Alcohol Use History: Rare Past Drug Use History: None Reported - Past Family History Father Family Medical History: Cancer Mother Family Medical History: Cancer Additional Family Medical History / Comment(s): lung Cancer, Brain Cancer Sister(s) Family Medical History: Congestive Heart Failure (CHF) Medications and Allergies Home Medications Medication Instructions Recorded Confirmed Type Aspirin [Adult Low Dose Aspirin EC] 81 mg PO HS 11/20/17 11/03/19 History Budesonide-Formot 160-4.5 Mcg 2 puff INHALATION BID 11/20/17 11/03/19 History [Symbicort 160-4.5 Mcg Inhaler] Calcium Carbonate [Calcium] 1,200 mg PO HS 11/20/17 11/03/19 History Lovastatin [Mevacor] 40 mg PO HS 11/20/17 11/03/19 History Tiotropium [place] [Spiriva] 1 puff INHALATION DAILY 11/20/17 11/03/19 History diphenhydrAMINE HCL [Benadryl] 25 mg PO HS 11/20/17 11/03/19 History Multivitamins, Thera [Multivitamin 1 tab PO HS 05/08/18 11/03/19 History (formulary)] Albuterol Nebulized [Ventolin 1 dose IN DAILY PRN 11/17/18 11/03/19 History Nebulized] Albuterol Nebulized [Ventolin 2.5 mg INHALATION Q4H PRN #25 nebu 10/21/20 Rx Nebulized] Albuterol Sulfate [Proair Hfa] 1 - 2 puff INHALATION Q4H PRN #1 10/21/20 Rx inhaler predniSONE 50 mg PO DAILY #5 tab 10/21/20 Rx Allergies Allergy/AdvReac Type Severity Reaction Status Date / Time Penicillins Allergy Mild Rash/Hives Verified 11/22/20 02:26 cephalexin Allergy Rash/Hives Verified 11/22/20 02:26 morphine Allergy Rash/Hives Verified 11/22/20 02:26 Physical Exam Vitals: Vital Signs Temp Pulse Resp BP Pulse Ox 11/22/20 05:29 97.7 F 149 H 149/71 98 11/22/20 04:00 82 18 98 11/22/20 03:25 73 11/22/20 03:15 72 11/22/20 03:08 18 11/22/20 02:24 97.9 F 78 22 164/75 97 Intake and Output 11/21/20 11/21/20 11/22/20 14:59 22:59 06:59 Other: Weight 68.039 kg Constitutional: No acute distress, expressive aphasia, cooperative Eyes: Anicteric sclerae, moist conjunctiva, Pupils equal round reactive to light ENMT: NC/AT Oropharynx clear, no erythema, or exudates Neck: Supple, FROM, no masses, or JVD No carotid bruits No thyromegaly Lungs: good breath sounds bilaterally , no wheezing, prolonged expiratory phase Clear to percussion Normal respiratory effort, no accessory muscle use Cardiovascular: Heart regular in rate and rhythm, systolic murmur, no gallops, or rubs No peripheral edema Abdominal: Soft Nontender, no guarding, rebound or rigidity Abdomen moving with respiration Normoactive bowel sounds No hepatomegaly, No splenomegaly No palpable mass Skin: Normal temperature, tone, texture, turgor No induration No subcutaneous nodules No rash, lesions No ulcers Extremities: No digital cyanosis No clubbing Pedal pulses intact and symmetrical Radial pulses intact and symmetrical No calf tenderness Psychiatric: Alert and oriented to person, place Appropriate affect fair judgement Neuro Muscles Strength 5/5 in all 4 extremities Sensation to light touch grossly present throughout Cranial nerves II-XII grossly intact No focal sensory deficits Lymphatics: no palpable cervical or supraclavicular , or inguinal lymph nodes Results CBC & Chem 7: 11/22/20 02:57 11/22/20 02:57 Labs: Abnormal Lab Results - Last 24 Hours (Table) 11/22/20 Range/Units 02:57 Chloride 108 H (98-107) mmol/L Glucose 109 H (74-99) mg/dL Assessment and Plan Assessment: acute COPD exacerbation COIVD test negative CXR no acute infilterates systemic steroids duonebs PRN resume home inhalers supplemental oxygen as needed supportive care monitor vital signs labs reviewed , unremarkable chronic conditions h/o of stroke with residual aphasia resume statin and ASA CODE STATUS:full code DVT prophylaxis: heparin sc tid Discussed with: Patient, ER, RN Anticipated length of stay < than [address]: home A total of 60 minutes was spent on the care of this complex patient more than 50% of the time was spent in counseling and care coordination.
[2020-11-22] MEDS: SYMBICORT 160-4.5 MCG INHALER INHALATION SCH ×2 (07:46→19:47)
[2020-11-22] MEDS: ALBUTEROL NEBULIZED 2.5 MG/3 ML INHALATION SCH ×4 (07:46→19:47)
[2020-11-22] MEDS: HEPARIN SODIUM,PORCINE/PF 5,000 UNIT/0.5 ML SYRINGE SQ SCH ×3 (08:26→21:45)
[2020-11-22] MEDS ORDERED: NON FORMULARY DRUG (Tiotropium Bromide [Spiriva] 18 MCG Cap.W.Dev) INHALATION SCH (09:00)
--- NOTE | 2020-11-22 11:03 | P.PN ---
<Rigoberto Daugherty - Last Filed: 11/22/20 18:34> Subjective Progress Note Date: 11/22/20 Hospital course: Patient is a very pleasant 75-year-old male with a past medical history of hyp erlipidemia, COPD not on home oxygen dependent, and previous CVA with residual speech deficits. Patient presented the hospital with a chief complaint of shortness of breath and wheezing. Chest x-ray was completed significant for hyperinflation with COPD/emphysema in the upper lobes with no acute c ardiopulmonary process. EKG showing normal sinus rhythm at 74 bpm. Labs unremarkable. Covid 19 PCR negative. Patient admitted under our services with consultation to pulmonology. Physical exam: Patient seen and fully evaluated at bedside this morning. He appeared to be resting comfortably on room air at this time. Patient reports he is feeling slightly better since arriving in the emergency department but continues to have shortness of breath at rest. Vital Signs stable. SpO2 maintaining 97% on room air. Patient denies headache, lightheadedness, dizziness, chest pain, palpitations, abdominal pain, nausea, vomiting, or experiencing any numb ness/tingling/weakness/swelling in his extremities. Patient likely to be discharged home tomorrow morning. Vital signs reviewed and stable. General: Nontoxic, no distress and appears stated age. Derm: Skin warm and dry, normal coloration for ethnicity. Head: Atraumatic, normocephalic and symmetric. Eyes: EOMs intact, no lid lag, and anicteric sclera Mouth: no lip lesions, mucus membranes moist Cardiovascular: regular rate and rhythm with normal S1S2, no murmur, positive posterior tibial pulses bilaterally, and cap refill < 2 seconds. Lungs: Respirations even, regular, and unlabored on room air. Lungs CTA bilaterally, no rhonchi, no rales, no wheezing, and no accessory muscle usage. Abdominal: soft, nontender to palpation, no guarding, no appreciable organomegaly Ext: ROM intact. No gross muscle atrophy, no edema, no contractures Neuro: Speech clear, face symmetrical and CN II-XII grossly intact with no noted focal neuro deficits Psych: Alert and oriented to person, place, time, and situation. Appropriate and pleasant affect. Assessment and Plan of Care: Acute COPD exacerbation -COIVD test negative -CXR no acute infilterates -systemic steroids -duonebs PRN -resume home inhalers -supplemental oxygen as needed -supportive care -monitor vital signs -labs reviewed , unremarkable Chronic medical conditions H/O CVA with residual aphasia and hyperlipidemia -Resume statin and ASA CODE STATUS: Full code DVT prophylaxis: Heparin Discussed with: Patient and CLINICAL RESEARCH ANALYST Anticipated length of stay: 1-[address]: home A total of 45 minutes was spent on the care of this complex patient more than 50% of the time was spent in counseling and care coordination. Objective - Vital Signs Vital signs: Vital Signs Temp 98.6 F 11/22/20 08:30 Pulse 97 11/22/20 09:42 Resp 18 11/22/20 09:42 BP 167/80 11/22/20 09:42 Pulse Ox 97 11/22/20 09:42 Intake & Output 11/21/20 11/22/20 11/22/20 18:59 06:59 18:59 Weight 68.039 kg - Labs CBC & Chem 7: 11/22/20 02:57 11/22/20 02:57 Labs: Abnormal Lab Results - Last 24 Hours (Table) 11/22/20 Range/Units 02:57 Chloride 108 H (98-107) mmol/L Glucose 109 H (74-99) mg/dL <Emily Oliva A - Last Filed: 11/22/20 21:06> Objective - Vital Signs Vital signs: Vital Signs Temp 98.1 F 11/22/20 14:16 Pulse 84 11/22/20 20:00 Resp 16 11/22/20 14:16 BP 149/64 11/22/20 14:16 Pulse Ox 96 11/22/20 19:48 Intake & Output 11/22/20 11/22/20 11/23/20 06:59 18:59 06:59 Intake Total 318 Balance 318 Weight 68.039 kg 68.039 kg Intake: Intake, IV Titration 200 Amount Sodium Chloride 0.9% 1, 200 000 ml @ 100 mls/hr IV . Q10H [facility] Rx#:[id number] Oral 118 - Labs CBC & Chem 7: 11/22/20 02:57 11/22/20 02:57 Labs: Abnormal Lab Results - Last 24 Hours (Table) 11/22/20 Range/Units 02:57 Chloride 108 H (98-107) mmol/L Glucose 109 H (74-99) mg/dL Assessment and Plan Assessment: seen by my partner Dr. Phoenix after midnight
[2020-11-22] MEDS ORDERED: ALBUTEROL NEBULIZED 2.5 MG/3 ML INHALATION PRN (18:22)
[2020-11-22] MEDS ORDERED: NON FORMULARY DRUG (Alendronate Sodium [Fosamax] 70 MG Tablet) PO SCH (18:30)
[2020-11-22] MEDS ORDERED: CICLOPIROX 8% TOPICAL SCH (21:00)
[2020-11-22] MEDS ORDERED: MULTIVITAMINS, THERA 1 EACH TAB PO SCH (21:00)
[2020-11-22] MEDS ORDERED: CALCIUM CARBONATE 500 MG CHEWABLE PO SCH (21:00)
[2020-11-22] MEDS ORDERED: ASPIRIN 81 MG PO SCH (21:00)
[2020-11-22] MEDS ORDERED: ATORVASTATIN 10 MG TAB PO SCH (21:00)
[2020-11-22] MEDS ORDERED: diphenhydrAMINE 25 MG CAP PO SCH (21:00)
[2020-11-23] MEDS: methylPREDNISolone SOD SUCCI 125 MG/2 ML VIAL IV SCH (05:14)
[2020-11-23 07:45] VITALS: BP 164/63; RESP 19; TEMP 98
[2020-11-23] MEDS: ALBUTEROL NEBULIZED 2.5 MG/3 ML INHALATION SCH ×2 (07:53→11:11)
[2020-11-23] MEDS: SYMBICORT 160-4.5 MCG INHALER INHALATION SCH (07:54)
[2020-11-23] MEDS: HEPARIN SODIUM,PORCINE/PF 5,000 UNIT/0.5 ML SYRINGE SQ SCH (08:32)
--- NOTE | 2020-11-23 09:42 | P.DS ---
<Rigoberto Daugherty - Last Filed: 11/23/20 14:01> Providers Expected date of discharge: 11/23/20 Hospital Course: Discharge Diagnosis: Acute COPD exacerbation H/O CVA with residual aphasia Hyperlipidemia Hospital Course: Patient is a very pleasant 75-year-old male with a past medical history of hyperlipidemia, COPD not on home oxygen dependent, and previous CVA with residual speech deficits. Patient presented the hospital with a chief complaint of shortness of breath and wheezing. Chest x-ray was completed significant for hyperinflation with COPD/emphysema in the upper lobes with no acute cardiopulmo nary process. EKG showing normal sinus rhythm at 74 bpm. Labs unremarkable. Covid 19 PCR negative. Patient admitted under our services with consultation to pulmonology. Patient received supplemental oxygen, DuoNeb's, and systemic steroids. Patient maintaining oxygenation saturations greater than 94% on room air. He reports improvement in shortness of breath. Ambulatory pulse ox completed 94% on room air at rest and with ambulation. Patient is medically stable for discharge home at this time. Patient being discharged home on prednisone 40 mg daily 5 days as well as azithromycin. Patient instructed he will need to follow up outpatient with his primary care provider Dr. Tian as well as enterprise resource planner Dr. Hopkins. Physical exam: Vital signs reviewed and stable. General: Nontoxic, no distress and appears stated age. Derm: Skin warm and dry, normal coloration for ethnicity. Head: Atraumatic, normocephalic and symmetric. Eyes: EOMs intact, no lid lag, and anicteric sclera Mouth: no lip lesions, mucus membranes moist Cardiovascular: regular rate and rhythm with normal S1S2, no murmur, positive posterior tibial pulses bilaterally, and cap refill < 2 seconds. Lungs: Respirations even, regular, and unlabored on room air. Lungs CTA bilaterally, no rhonchi, no rales, no wheezing, and no accessory muscle usage. Abdominal: soft, nontender to palpation, no guarding, no appreciable organomegaly Ext: ROM intact. No gross muscle atrophy, no edema, no contractures Neuro: Speech clear, face symmetrical and CN II-XII grossly intact with no noted focal neuro deficits Psych: Alert and oriented to person, place, time, and situation. Appropriate and pleasant affect. A total of 45 minutes of time were spent preparing this complex discharge summary. Assessment: I reviewed the documentation as provided by the PACHECO above, who is the original author of this note. I agree with the documented assessment and plan, with the following changes: None Patient Condition at Discharge: Stable Plan - Discharge Summary Discharge Rx Participant: No New Discharge Prescriptions: New predniSONE [Deltasone] 40 mg PO DAILY 5 Days #10 tab Azithromycin [Zithromax Z-pack (6 tabs)] 250 mg PO DIRECTED 5 Days #6 tab Continue Calcium Carbonate [Calcium] 1,200 mg PO HS Lovastatin [Mevacor] 40 mg PO HS Tiotropium Henry [Spiriva] 1 cap INHALATION RT-DAILY Budesonide-Formot 160-4.5 Mcg [Symbicort 160-4.5 Mcg Inhaler] 2 puff INHALATION RT-BID Aspirin [Adult Low Dose Aspirin EC] 81 mg PO HS diphenhydrAMINE HCL [Benadryl] 25 mg PO HS Multivitamins, Thera [Multivitamin (formulary)] 1 tab PO HS Ciclopirox 8% Nail Lacquer 1 applic TOPICAL HS Alendronate Sodium [Fosamax] 70 mg PO Q7D Albuterol Sulfate [Proair Hfa] 1 - 2 puff INHALATION RT-Q4H PRN PRN Reason: Shortness Of Breath Albuterol Nebulized [Ventolin Nebulized] 2.5 mg INHALATION RT-QID PRN PRN Reason: Shortness Of Breath Discharge Medication List Aspirin [Adult Low Dose Aspirin EC] 81 mg PO HS 11/20/17 [History] Budesonide-Formot 160-4.5 Mcg [Symbicort 160-4.5 Mcg Inhaler] 2 puff INHALATION RT-BID 11/20/17 [History] Calcium Carbonate [Calcium] 1,200 mg PO HS 11/20/17 [History] Lovastatin [Mevacor] 40 mg PO HS 11/20/17 [History] Tiotropium Henry [Spiriva] 1 cap INHALATION RT-DAILY 11/20/17 [History] diphenhydrAMINE HCL [Benadryl] 25 mg PO HS 11/20/17 [History] Multivitamins, Thera [Multivitamin (formulary)] 1 tab PO HS 05/08/18 [History] Albuterol Nebulized [Ventolin Nebulized] 2.5 mg INHALATION RT-QID PRN 11/22/20 [History] Albuterol Sulfate [Proair Hfa] 1 - 2 puff INHALATION RT-Q4H PRN 11/22/20 [History] Alendronate Sodium [Fosamax] 70 mg PO Q7D 11/22/20 [History] Ciclopirox 8% Nail Lacquer 1 applic TOPICAL HS 11/22/20 [History] Azithromycin [Zithromax Z-pack (6 tabs)] 250 mg PO DIRECTED 5 Days #6 tab 11/23/20 [Rx] predniSONE [Deltasone] 40 mg PO DAILY 5 Days #10 tab 11/23/20 [Rx] Follow up Appointment(s)/Referral(s): Bryanna Hopkins MD [STAFF PHYSICIAN] - 12/12/20 3:30 pm Chantelle Tian MD [Primary Care Provider] - 1-2 days Patient Instructions/Handouts: COPD (Chronic Obstructive Pulmonary Disease) (GEN), Chronic Lung Disease and Infection Prevention (GEN) Discharge Disposition: HOME SELF-CARE <Karis Montaño - Last Filed: 11/23/20 15:29> Providers Date of admission: 11/22/20 04:29 Attending physician: Reji Phoenix MD Primary care physician: Chantelle Tian
[2020-11-23 11:21] VITALS: PULSE 74
== END 2020-11-23 13:07 | disposition home or self-care (01) ==
LOC: EC 02:23 → 6NMEDSUR 04:29
PROVIDERS: ADMIT Internal Medicine; ATTEND Internal Medicine
DX: J43.9 Emphysema, unspecified (principal); I69.320 Aphasia following cerebral infarction; E78.5 Hyperlipidemia, unspecified; D64.9 Anemia, unspecified; N32.3 Diverticulum of bladder; Z20.822 Contact with and (suspected) exposure to COVID-19; Z79.82 Long term (current) use of aspirin; Z79.51 Long term (current) use of inhaled steroids; Z79.899 Other long term (current) drug therapy; Z88.0 Allergy status to penicillin; Z88.1 Allergy status to other antibiotic agents; Z88.5 Allergy status to narcotic agent; Z85.038 Personal history of other malignant neoplasm of large intestine; Z85.46 Personal history of malignant neoplasm of prostate; Z87.19 Personal history of other diseases of the digestive system; Z98.42 Cataract extraction status, left eye; Z98.41 Cataract extraction status, right eye; Z96.1 Presence of intraocular lens; Z90.49 Acquired absence of other specified parts of digestive tract; Z87.01 Personal history of pneumonia (recurrent); Z86.19 Personal history of other infectious and parasitic diseases; Z98.890 Other specified postprocedural states; Z87.891 Personal history of nicotine dependence; Z82.49 Family history of ischemic heart disease and other diseases of the circulatory system; Z80.1 Family history of malignant neoplasm of trachea, bronchus and lung; Z80.8 Family history of malignant neoplasm of other organs or systems; Z71.89 Other specified counseling
CPT/HCPCS: 96376 ×2; 96361 ×2; 96372 ×3; 96374; 99285; 36415; 94640 ×4; 94760; 93005; 83880; 80053; 82550; 83735; 84484; 85025; 85610; 85730; 87635; 71046; G0378 ×2; J2930 ×2; J1644 ×2

== ENCOUNTER 2021-02-06 16:45 | Emergency (ER) | payer MEDICARE ==
[2021-02-06 16:55] VITALS: TEMP 98.2
[2021-02-06 17:24] LABS: Basophils % (A) 0 %; Eosinophils % (A) 1 %; HCT 41.4 % (39.0-53.0); HGB 14.5 gm/dL (13.0-17.5); Lymphocytes # (A) 0.7 k/uL (1.0-4.8); Lymphocytes % (A) 7 %; MCH 30.1 pg (25.0-35.0); MCHC 35.1 g/dL (31.0-37.0); MCV 85.8 fL (80.0-100.0); Monocytes # (A) 0.2 k/uL (0-1.0); Monocytes % (A) 2 %; Neutrophils # (A) 8.3 k/uL (1.3-7.7); Neutrophils % (A) 89 %; Platelet Count 316 k/uL (150-450); RBC 4.83 m/uL (4.30-5.90); RDW 12.9 % (11.5-15.5); WBC 9.3 k/uL (3.8-10.6)
[2021-02-06 17:37] LABS: Albumin 4.2 g/dL (3.5-5.0); Calcium 9.3 mg/dL (8.4-10.2); Potassium 4.5 mmol/L (3.5-5.1); Total Bilirubin 0.6 mg/dL (0.2-1.3); Total Protein 6.8 g/dL (6.3-8.2)
[2021-02-06 17:45] LABS: Partial Thromboplastin Time 23.6 sec (22.0-30.0); Prothrombin Time 10.4 sec (9.0-12.0)
--- NOTE | 2021-02-06 18:29 | XR ---
EXAMINATION TYPE: XR chest 2V DATE OF EXAM: 02/06/2021 COMPARISON: Radiograph 11/22/2020 HISTORY: Difficulty breathing TECHNIQUE: Frontal and lateral views of the chest are obtained. FINDINGS: Flattening of the diaphragms. There is no focal air space opacity, pleural effusion, or pn eumothorax seen. The cardiac silhouette size is within normal limits. The osseous structures are i ntact. IMPRESSION: No acute cardiopulmonary process.
[2021-02-06] MEDS ORDERED: IPRATROPIUM-ALBUTEROL 3 ML NEB INHALATION STA (22:13)
[2021-02-06] MEDS ORDERED: methylPREDNISolone SOD SUCCI 125 MG/2 ML VIAL IV STA (22:14)
[2021-02-06 23:01] VITALS: BP 148/83; PULSE 83
[2021-02-06 23:32] VITALS: RESP 18
--- NOTE | 2021-02-07 00:37 | ED ---
SOB HPI - General Chief Complaint: Shortness of Breath Stated Complaint: WOODY Time Seen by Provider: 02/06/21 20:09 Source: patient Mode of arrival: wheelchair Limitations: no limitations - History of Present Illness Initial Comments: 75-year-old male past medical history of COPD presents to the emergency room with reported shortness of breath. She reports that he was recently hospitalized at a hospital in [place] for his COPD and was placed on steroids. Patient took his last dose of 40 mg a day today. Reports increased work of breathing with difficulty talking due to the shortness of breath. He sees Dr. Bailey. Has been using his inhalers without improvement. Patient does have a pulse ox and he reports that he falls into the low 90s with ambulation. He denies any chest pain. No heart failure history. Denies fevers, chills or cough. Remainder of HPI is somewhat limited as the patient has a history of aphasia - Related Data Home Medications Medication Instructions Recorded Confirmed Aspirin [Adult Low Dose Aspirin EC] 81 mg PO HS 11/20/17 02/06/21 Budesonide-Formot 160-4.5 Mcg 2 puff INHALATION RT-BID 11/20/17 02/06/21 [Symbicort 160-4.5 Mcg Inhaler] Lovastatin [Mevacor] 40 mg PO HS 11/20/17 02/06/21 Tiotropium [place] [Spiriva] 1 cap INHALATION RT-DAILY 11/20/17 02/06/21 diphenhydrAMINE HCL [Benadryl] 25 mg PO HS 11/20/17 02/06/21 Multivitamins, Thera [Multivitamin 1 tab PO HS 05/08/18 02/06/21 (formulary)] Albuterol Nebulized [Ventolin 2.5 mg INHALATION RT-QID PRN 11/22/20 02/06/21 Nebulized] Calcium Carbonate/Vitamin D3 1 cap PO BID 02/06/21 02/06/21 [Calcium 600 mg-D3 10 Mcg (400 Iu)] Allergies Allergy/AdvReac Type Severity Reaction Status Date / Time Penicillins Allergy Mild Rash/Hives Verified 02/06/21 22:25 cephalexin Allergy Rash/Hives Verified 02/06/21 22:25 morphine Allergy Rash/Hives Verified 02/06/21 22:25 Review of Systems ROS Statement: Those systems with pertinent positive or pertinent negative responses have been documented in the HPI. ROS Other: All systems not noted in ROS Statement are negative. Past Medical History Past Medical History: Cancer, COPD, Hyperlipidemia, Pneumonia, Prostate Disorder Additional Past Medical History / Comment(s): emphysema, small hiatal hernia, prostate cancer, colon cancer, rt inguinal hernia. HEPATITIS A- 1961, aphasia, heart murmer, hx anemia, bladder diverticulum History of Any Multi-Drug Resistant Organisms: None Reported Past Surgical History: Appendectomy, Back Surgery, Bowel Resection, Hernia Repair, Orthopedic Surgery Additional Past Surgical History / Comment(s): back surgery for herniated disk, rt shoulder rotator cuff, nilsa cataracts with lens implants, nilsa inguinal hernia, diverticulitis Past Anesthesia/Blood Transfusion Reactions: No Reported Reaction Past Psychological History: No Psychological Hx Reported Smoking Status: Former smoker Past Alcohol Use History: Rare Past Drug Use History: None Reported - Past Family History Father Family Medical History: Cancer Mother Family Medical History: Cancer Additional Family Medical History / Comment(s): lung Cancer, Brain Cancer Sister(s) Family Medical History: Congestive Heart Failure (CHF) General Exam Limitations: no limitations General appearance: alert, in no apparent distress Head exam: Present: atraumatic, normocephalic, normal inspection Eye exam: Present: normal appearance, PERRL, EOMI. Absent: scleral icterus, conjunctival injection, periorbital swelling ENT exam: Present: normal exam, mucous membranes moist Neck exam: Present: normal inspection. Absent: tenderness, meningismus, lymphadenopathy Respiratory exam: Present: decreased breath sounds. Absent: respiratory distress, wheezes, rales, rhonchi, stridor Cardiovascular Exam: Present: normal rhythm, tachycardia, normal heart sounds. Absent: systolic murmur, diastolic murmur, rubs, gallop, clicks GI/Abdominal exam: Present: soft, normal bowel sounds. Absent: distended, tenderness, guarding, rebound, rigid Extremities exam: Present: normal inspection, full ROM, normal capillary refill. Absent: tenderness, pedal edema, joint swelling, calf tenderness Back exam: Present: normal inspection Neurological exam: Present: alert, oriented X3, CN II-XII intact Psychiatric exam: Present: normal affect, normal mood Skin exam: Present: warm, dry, intact, normal color. Absent: rash Course Vital Signs 02/06/21 02/06/21 02/06/21 16:48 22:48 22:58 Temperature 98.2 F Pulse Rate 103 H 100 83 Respiratory 20 19 Rate Blood Pressure 197/80 148/83 O2 Sat by Pulse 97 98 Oximetry 02/06/21 23:31 Temperature Pulse Rate Respiratory 18 Rate Blood Pressure O2 Sat by Pulse Oximetry Medical Decision Making - Medical Decision Making Upon arrival patient was placed in room 17. Oxygen saturation is 98%. Lab studies conducted and patient sent for chest x-ray. Laboratory studies are within normal limits. Covid not detected. Chest x-ray demonstrates no acute process. He was given a DuoNeb breathing treatment and 125 mg of Solu-Medrol. Patient is ambulatory and oxygen saturations to fall however only to 95%. Patient does have an appointment with Dr. Bailey tomorrow and patient will be discharged home and instructed to follow-up in office tomorrow. Return for any new or worsening symptoms. Patient was discharged home in stable condition - Lab Data Result diagrams: 02/06/21 17:17 02/06/21 17:17 Lab Results 02/06/21 02/06/21 02/06/21 Range/Units 17:01 17:17 17:17 WBC 9.3 (3.8-10.6) k/uL RBC 4.83 (4.30-5.90) m/uL Hgb 14.5 (13.0-17.5) gm/dL Hct 41.4 (39.0-53.0) % MCV 85.8 (80.0-100.0) fL MCH 30.1 (25.0-35.0) pg MCHC 35.1 (31.0-37.0) g/dL RDW 12.9 (11.5-15.5) % Plt Count 316 (150-450) k/uL MPV 7.0 Neutrophils % 89 % Lymphocytes % 7 % Monocytes % 2 % Eosinophils % 1 % Basophils % 0 % Neutrophils # 8.3 H (1.3-7.7) k/uL Lymphocytes # 0.7 L (1.0-4.8) k/uL Monocytes # 0.2 (0-1.0) k/uL Eosinophils # 0.0 (0-0.7) k/uL Basophils # 0.0 (0-0.2) k/uL PT 10.4 (9.0-12.0) sec INR 1.0 (<1.2) APTT 23.6 (22.0-30.0) sec Sodium (137-145) mmol/L Potassium (3.5-5.1) mmol/L Chloride (98-107) mmol/L Carbon Dioxide (22-30) mmol/L Anion Gap mmol/L BUN (9-20) mg/dL Creatinine (0.66-1.25) mg/dL Est GFR (CKD-EPI)AfAm (>60 ml/min/1.73 sqM) Est GFR (CKD-EPI)NonAf (>60 ml/min/1.73 sqM) Glucose (74-99) mg/dL Calcium (8.4-10.2) mg/dL Total Bilirubin (0.2-1.3) mg/dL AST (17-59) U/L ALT (4-49) U/L Alkaline Phosphatase (38-126) U/L Troponin I (0.000-0.034) ng/mL Total Protein (6.3-8.2) g/dL Albumin (3.5-5.0) g/dL Coronavirus (PCR) Not Detected (Not Detectd) 02/06/21 02/06/21 Range/Units 17:17 17:17 WBC (3.8-10.6) k/uL RBC (4.30-5.90) m/uL Hgb (13.0-17.5) gm/dL Hct (39.0-53.0) % MCV (80.0-100.0) fL MCH (25.0-35.0) pg MCHC (31.0-37.0) g/dL RDW (11.5-15.5) % Plt Count (150-450) k/uL MPV Neutrophils % % Lymphocytes % % Monocytes % % Eosinophils % % Basophils % % Neutrophils # (1.3-7.7) k/uL Lymphocytes # (1.0-4.8) k/uL Monocytes # (0-1.0) k/uL Eosinophils # (0-0.7) k/uL Basophils # (0-0.2) k/uL PT (9.0-12.0) sec INR (<1.2) APTT (22.0-30.0) sec Sodium 140 (137-145) mmol/L Potassium 4.5 (3.5-5.1) mmol/L Chloride 107 (98-107) mmol/L Carbon Dioxide 23 (22-30) mmol/L Anion Gap 10 mmol/L BUN 24 H (9-20) mg/dL Creatinine 1.08 (0.66-1.25) mg/dL Est GFR (CKD-EPI)AfAm 76 (>60 ml/min/1.73 sqM) Est GFR (CKD-EPI)NonAf 66 (>60 ml/min/1.73 sqM) Glucose 121 H (74-99) mg/dL Calcium 9.3 (8.4-10.2) mg/dL Total Bilirubin 0.6 (0.2-1.3) mg/dL AST 28 (17-59) U/L ALT 26 (4-49) U/L Alkaline Phosphatase 65 (38-126) U/L Troponin I <0.012 (0.000-0.034) ng/mL Total Protein 6.8 (6.3-8.2) g/dL Albumin 4.2 (3.5-5.0) g/dL Coronavirus (PCR) (Not Detectd) - EKG Data EKG Comments: EKG demonstrates a normal sinus rhythm with a ventricular rate of 93. OH interval 126. QRS 84. QTC of 472. No acute ST segment elevations or depressions Disposition Clinical Impression: COPD (chronic obstructive pulmonary disease) Disposition: HOME SELF-CARE Condition: Stable Instructions (If sedation given, give patient instructions): Emphysema (ED) Additional Instructions: Please follow up with Dr. Mcnair tomorrow. Return to the ED for any new or worsening symptoms. Is patient prescribed a controlled substance at d/c from ED?: No Referrals: Chantelle Tian MD [Primary Care Provider] - 1-2 days Time of Disposition: 00:32
== END 2021-02-07 01:09 | disposition home or self-care (01) ==
LOC: EC 16:45
DX: J44.9 Chronic obstructive pulmonary disease, unspecified (principal); E78.5 Hyperlipidemia, unspecified; Z88.0 Allergy status to penicillin; Z20.822 Contact with and (suspected) exposure to COVID-19; Z87.891 Personal history of nicotine dependence; Z88.8 Allergy status to other drugs, medicaments and biological substances; Z88.5 Allergy status to narcotic agent; Z79.82 Long term (current) use of aspirin; Z79.899 Other long term (current) drug therapy
CPT/HCPCS: 36415; 94640; 93005; 80053; 84484; 85025; 85610; 85730; 87635; 71046; 99285; 96374; J2930

== ENCOUNTER 2021-07-19 23:03 | Emergency (ER) | payer MEDICARE ==
[2021-07-20] MEDS ORDERED: SODIUM CHLORIDE 0.9% 1,000 ML BAG ONE (00:29)
[2021-07-20] MEDS ORDERED: LORazepam 2 MG/ML INJ ONE (00:29)
[2021-07-20] MEDS ORDERED: DEXAMETHASONE SOD PHOSPHATE 10 MG/ML 1 ML VIAL ONE (00:29)
[2021-07-20 07:03] LABS: Basophils % (A) 0 %; Eosinophils # (A) 0.1 k/uL (0-0.7); Eosinophils % (A) 1 %; HCT 39.8 % (39.0-53.0); HGB 12.8 gm/dL (13.0-17.5); Lymphocytes # (A) 1.4 k/uL (1.0-4.8); Lymphocytes % (A) 16 %; MCH 28.3 pg (25.0-35.0); MCHC 32.2 g/dL (31.0-37.0); Monocytes # (A) 0.6 k/uL (0-1.0); Monocytes % (A) 7 %; Neutrophils # (A) 6.4 k/uL (1.3-7.7); Neutrophils % (A) 73 %; Platelet Count 260 k/uL (150-450); RBC 4.52 m/uL (4.30-5.90); RDW 12.9 % (11.5-15.5); WBC 8.8 k/uL (3.8-10.6)
[2021-07-20 07:08] LABS: Creatine Kinase 168 U/L (55-170); Creatine Kinase MB 1.2 ng/mL (0.0-2.4); Troponin I <0.012 ng/mL (0.000-0.034)
[2021-07-20 07:13] LABS: Calcium 8.8 mg/dL (8.4-10.2); Phosphorus 2.9 mg/dL (2.5-4.5); Potassium 3.7 mmol/L (3.5-5.1); T4, Free (Free Thyroxine) 1.34 ng/dL (0.78-2.19); Total Bilirubin 0.5 mg/dL (0.2-1.3); Total Protein 6.3 g/dL (6.3-8.2)
--- NOTE | 2021-07-20 07:14 | XR ---
EXAM: XR Chest, 1 View CLINICAL HISTORY: weakness TECHNIQUE: Frontal view of the chest. COMPARISON: CXR 02/06/21 FINDINGS: Lungs: Emphysema and chronic obstructive pulmonary disease. No consolidation. Pleural space: Unremarkable. No pleural effusion or pneumothorax. Heart: Unremarkable. No cardiomegaly or pulmonary vascular congestion. Bones/joints: No acute fracture. No dislocation. IMPRESSION: No acute findings in the chest.
== END 2021-07-20 02:30 | disposition home or self-care (01) ==
LOC: EC 23:03
DX: F41.9 Anxiety disorder, unspecified (principal); J44.9 Chronic obstructive pulmonary disease, unspecified; F17.200 Nicotine dependence, unspecified, uncomplicated
CPT/HCPCS: 36415; 84439; 83880; 80053; 82550; 82553; 83735; 84100; 84443; 84484; 85025; 71045; 99285; 96374; 96375; 96361; J2060; J1100

== ENCOUNTER 2021-08-11 03:38 | Emergency (ER) | payer MEDICARE ==
[2021-08-11 03:52] VITALS: TEMP 98.1
[2021-08-11] MEDS ORDERED: IPRATROPIUM 0.5 MG/2.5 ML NEBU INHALATION STA (03:55)
[2021-08-11] MEDS ORDERED: predniSONE 20 MG TAB PO STA (03:55)
[2021-08-11 04:07] LABS: Basophils # (A) 0.1 k/uL (0-0.2); Basophils % (A) 1 %; Eosinophils # (A) 0.3 k/uL (0-0.7); Eosinophils % (A) 3 %; HCT 42.1 % (39.0-53.0); Lymphocytes # (A) 1.7 k/uL (1.0-4.8); Lymphocytes % (A) 17 %; MCH 27.2 pg (25.0-35.0); MCHC 30.9 g/dL (31.0-37.0); MCV 88.2 fL (80.0-100.0); Mean Platelet Volume 6.9; Monocytes # (A) 0.6 k/uL (0-1.0); Monocytes % (A) 6 %; Neutrophils % (A) 71 %; Platelet Count 314 k/uL (150-450); RBC 4.78 m/uL (4.30-5.90); RDW 12.7 % (11.5-15.5); WBC 9.8 k/uL (3.8-10.6)
--- NOTE | 2021-08-11 04:14 | XR ---
EXAMINATION TYPE: XR chest 2V DATE OF EXAM: 08/11/2021 COMPARISON: 07/20/2021 HISTORY: Short of breath and cough TECHNIQUE: 2 views FINDINGS: Heart and mediastinum are normal. Lungs are clear. Diaphragm is normal. Bony thorax is inta ct. There is mild pulmonary hyperinflation. There are chest leads. IMPRESSION: No active cardiopulmonary disease. Normal heart. No adverse change. Mild COPD.
[2021-08-11 04:24] LABS: INR 0.9 (<1.2); Partial Thromboplastin Time 24.4 sec (22.0-30.0); Prothrombin Time 10.3 sec (9.0-12.0)
[2021-08-11 04:35] LABS: Albumin 4.2 g/dL (3.5-5.0); Magnesium 2.1 mg/dL (1.6-2.3); Potassium 3.9 mmol/L (3.5-5.1); Total Bilirubin 0.5 mg/dL (0.2-1.3); Total Protein 6.7 g/dL (6.3-8.2)
[2021-08-11] MEDS ORDERED: ALBUTEROL NEBULIZED 2.5 MG/3 ML INHALATION STA ×2 (05:40→06:28)
[2021-08-11 07:26] VITALS: PULSE 92
--- NOTE | 2021-08-11 07:31 | ED ---
SOB HPI - General Chief Complaint: Shortness of Breath Stated Complaint: SOB Time Seen by Provider: 08/11/21 03:55 Source: patient, EMS Mode of arrival: EMS Limitations: language barrier - History of Present Illness Initial Comments: This patient is 75-year-old man with history of COPD who presents for worsening of his condition. He complains of having cough and some bilateral chest pain when he coughs. Denies thick productive sputum. No fever or chills noted. MD Complaint: shortness of breath, cough, chest pain -: days(s) Severity: moderate Quality: aching Consistency: constant Improves With: nothing Worsens With: nothing Known History Of: COPD Associated Symptoms: denies other symptoms - Related Data Home Medications Medication Instructions Recorded Confirmed Aspirin [Adult Low Dose Aspirin EC] 81 mg PO DAILY 11/20/17 08/22/21 Budesonide-Formot 160-4.5 Mcg 2 puff INHALATION RT-BID 11/20/17 08/22/21 [Symbicort 160-4.5 Mcg Inhaler] Lovastatin [Mevacor] 40 mg PO HS 11/20/17 08/22/21 Tiotropium [place] [Spiriva] 1 cap INHALATION RT-DAILY 11/20/17 08/22/21 diphenhydrAMINE HCL [Benadryl] 25 mg PO DAILY 11/20/17 08/22/21 Multivitamins, Thera [Multivitamin 1 tab PO DAILY 05/08/18 08/22/21 (formulary)] Albuterol Nebulized [Ventolin 2.5 mg INHALATION RT-QID PRN 11/22/20 08/22/21 Nebulized] Calcium Carbonate/Vitamin D3 1 cap PO BID 02/06/21 08/22/21 [Calcium 600 mg-D3 10 Mcg (400 Iu)] Donepezil [Aricept] 10 mg PO DAILY 08/17/21 08/22/21 PARoxetine [Paxil] 20 mg PO DAILY 08/17/21 08/22/21 Previous Rx's Medication Instructions Recorded hydrOXYzine HCL [Atarax] 50 mg PO TID PRN #30 tab 08/11/21 Levofloxacin [Levaquin] 750 mg PO DAILY 5 Days #5 tab 08/21/21 amLODIPine [Norvasc] 5 mg PO DAILY #30 tab 08/21/21 Allergies Allergy/AdvReac Type Severity Reaction Status Date / Time Penicillins Allergy Mild Rash/Hives Verified 08/22/21 10:05 cephalexin Allergy Rash/Hives Verified 08/22/21 10:05 morphine Allergy Rash/Hives Verified 08/22/21 10:05 Review of Systems ROS Statement: Those systems with pertinent positive or pertinent negative responses have been documented in the HPI. ROS Other: All systems not noted in ROS Statement are negative. Constitutional: Denies: fever, chills, weakness Respiratory: Reports: cough, dyspnea, wheezes. Denies: hemoptysis, stridor Cardiovascular: Reports: chest pain. Denies: palpitations, edema, syncope Gastrointestinal: Denies: abdominal pain, vomiting, diarrhea Genitourinary: Denies: dysuria, hematuria Musculoskeletal: Denies: back pain Skin: Denies: rash Neurological: Denies: headache, weakness Past Medical History Past Medical History: Cancer, COPD, Hyperlipidemia, Pneumonia, Prostate Disorder Additional Past Medical History / Comment(s): emphysema, small hiatal hernia, prostate cancer, colon cancer, rt inguinal hernia. HEPATITIS A- 1961, aphasia, heart murmer, hx anemia, bladder diverticulum History of Any Multi-Drug Resistant Organisms: None Reported Past Surgical History: Appendectomy, Back Surgery, Bowel Resection, Hernia Repair, Orthopedic Surgery Additional Past Surgical History / Comment(s): back surgery for herniated disk, rt shoulder rotator cuff, nilsa cataracts with lens implants, nilsa inguinal hernia, diverticulitis Past Anesthesia/Blood Transfusion Reactions: No Reported Reaction Past Psychological History: No Psychological Hx Reported Smoking Status: Former smoker Past Alcohol Use History: Rare Past Drug Use History: None Reported - Past Family History Father Family Medical History: Cancer Mother Family Medical History: Cancer Additional Family Medical History / Comment(s): lung Cancer, Brain Cancer Sister(s) Family Medical History: Congestive Heart Failure (CHF) General Exam Limitations: language barrier General appearance: alert, in no apparent distress Head exam: Present: atraumatic, normocephalic Eye exam: Present: normal appearance. Absent: scleral icterus, conjunctival injection Neck exam: Present: tenderness Respiratory exam: Present: respiratory distress (Mild tachypnea), wheezes. Absent: rales, rhonchi, stridor, accessory muscle use, decreased breath sounds Cardiovascular Exam: Present: regular rate, normal rhythm, normal heart sounds. Absent: systolic murmur, diastolic murmur, rubs, gallop GI/Abdominal exam: Present: soft. Absent: distended, tenderness, guarding, rebound, rigid, mass Extremities exam: Present: normal inspection, normal capillary refill. Absent: pedal edema, calf tenderness Back exam: Present: normal inspection. Absent: CVA tenderness (R), CVA tenderness (L) Neurological exam: Present: alert Skin exam: Present: warm, dry, intact, normal color. Absent: rash Course Vital Signs 08/11/21 08/11/21 08/11/21 03:43 04:09 04:18 Temperature 98.1 F Pulse Rate 74 73 74 Respiratory 24 Rate Blood Pressure 159/63 O2 Sat by Pulse 98 Oximetry 08/11/21 08/11/21 08/11/21 04:38 05:14 06:05 Temperature Pulse Rate 77 76 Respiratory 18 18 Rate Blood Pressure 167/78 O2 Sat by Pulse 98 Oximetry 08/11/21 08/11/21 08/11/21 06:16 07:09 07:15 Temperature Pulse Rate 72 72 87 Respiratory 18 Rate Blood Pressure 171/79 O2 Sat by Pulse Oximetry 08/11/21 08/11/21 07:25 08:32 Temperature Pulse Rate 92 92 Respiratory 17 Rate Blood Pressure 173/79 O2 Sat by Pulse 98 Oximetry Medical Decision Making - Medical Decision Making Patient 75-year-old man with history of COPD. The patient is feeling better following medication here and would like to go home rather than be admitted to the hospital. Discussed appropriate further care and follow-up as well as return parameters. - Lab Data Result diagrams: 08/11/21 03:57 08/11/21 03:57 Lab Results 08/11/21 08/11/21 08/11/21 Range/Units 03:57 03:57 03:57 WBC 9.8 (3.8-10.6) k/uL RBC 4.78 (4.30-5.90) m/uL Hgb 13.0 (13.0-17.5) gm/dL Hct 42.1 (39.0-53.0) % MCV 88.2 (80.0-100.0) fL MCH 27.2 (25.0-35.0) pg MCHC 30.9 L (31.0-37.0) g/dL RDW 12.7 (11.5-15.5) % Plt Count 314 (150-450) k/uL MPV 6.9 Neutrophils % 71 % Lymphocytes % 17 % Monocytes % 6 % Eosinophils % 3 % Basophils % 1 % Neutrophils # 7.0 (1.3-7.7) k/uL Lymphocytes # 1.7 (1.0-4.8) k/uL Monocytes # 0.6 (0-1.0) k/uL Eosinophils # 0.3 (0-0.7) k/uL Basophils # 0.1 (0-0.2) k/uL PT 10.3 (9.0-12.0) sec INR 0.9 (<1.2) APTT 24.4 (22.0-30.0) sec D-Dimer 0.32 (<0.60) mg/L FEU Sodium 139 (137-145) mmol/L Potassium 3.9 (3.5-5.1) mmol/L Chloride 105 (98-107) mmol/L Carbon Dioxide 27 (22-30) mmol/L Anion Gap 7 mmol/L BUN 15 (9-20) mg/dL Creatinine 1.07 (0.66-1.25) mg/dL Est GFR (CKD-EPI)AfAm 78 (>60 ml/min/1.73 sqM) Est GFR (CKD-EPI)NonAf 67 (>60 ml/min/1.73 sqM) Glucose 111 H (74-99) mg/dL Plasma Lactic Acid Ven[place] (0.7-2.0) mmol/L Calcium 9.0 (8.4-10.2) mg/dL Magnesium 2.1 (1.6-2.3) mg/dL Total Bilirubin 0.5 (0.2-1.3) mg/dL AST 32 (17-59) U/L ALT 19 (4-49) U/L Alkaline Phosphatase 75 (38-126) U/L Troponin I (0.000-0.034) ng/mL NT-Pro-B Natriuret Pep pg/mL Total Protein 6.7 (6.3-8.2) g/dL Albumin 4.2 (3.5-5.0) g/dL Coronavirus (PCR) (Not Detectd) 08/11/21 08/11/21 08/11/21 Range/Units 03:57 03:57 03:57 WBC (3.8-10.6) k/uL RBC (4.30-5.90) m/uL Hgb (13.0-17.5) gm/dL Hct (39.0-53.0) % MCV (80.0-100.0) fL MCH (25.0-35.0) pg MCHC (31.0-37.0) g/dL RDW (11.5-15.5) % Plt Count (150-450) k/uL MPV Neutrophils % % Lymphocytes % % Monocytes % % Eosinophils % % Basophils % % Neutrophils # (1.3-7.7) k/uL Lymphocytes # (1.0-4.8) k/uL Monocytes # (0-1.0) k/uL Eosinophils # (0-0.7) k/uL Basophils # (0-0.2) k/uL PT (9.0-12.0) sec INR (<1.2) APTT (22.0-30.0) sec D-Dimer (<0.60) mg/L FEU Sodium (137-145) mmol/L Potassium (3.5-5.1) mmol/L Chloride (98-107) mmol/L Carbon Dioxide (22-30) mmol/L Anion Gap mmol/L BUN (9-20) mg/dL Creatinine (0.66-1.25) mg/dL Est GFR (CKD-EPI)AfAm (>60 ml/min/1.73 sqM) Est GFR (CKD-EPI)NonAf (>60 ml/min/1.73 sqM) Glucose (74-99) mg/dL Plasma Lactic Acid Venkata 1.4 (0.7-2.0) mmol/L Calcium (8.4-10.2) mg/dL Magnesium (1.6-2.3) mg/dL Total Bilirubin (0.2-1.3) mg/dL AST (17-59) U/L ALT (4-49) U/L Alkaline Phosphatase (38-126) U/L Troponin I <0.012 (0.000-0.034) ng/mL NT-Pro-B Natriuret Pep 28 pg/mL Total Protein (6.3-8.2) g/dL Albumin (3.5-5.0) g/dL Coronavirus (PCR) (Not Detectd) 08/11/21 Range/Units 05:04 WBC (3.8-10.6) k/uL RBC (4.30-5.90) m/uL Hgb (13.0-17.5) gm/dL Hct (39.0-53.0) % MCV (80.0-100.0) fL MCH (25.0-35.0) pg MCHC (31.0-37.0) g/dL RDW (11.5-15.5) % Plt Count (150-450) k/uL MPV Neutrophils % % Lymphocytes % % Monocytes % % Eosinophils % % Basophils % % Neutrophils # (1.3-7.7) k/uL Lymphocytes # (1.0-4.8) k/uL Monocytes # (0-1.0) k/uL Eosinophils # (0-0.7) k/uL Basophils # (0-0.2) k/uL PT (9.0-12.0) sec INR (<1.2) APTT (22.0-30.0) sec D-Dimer (<0.60) mg/L FEU Sodium (137-145) mmol/L Potassium (3.5-5.1) mmol/L Chloride (98-107) mmol/L Carbon Dioxide (22-30) mmol/L Anion Gap mmol/L BUN (9-20) mg/dL Creatinine (0.66-1.25) mg/dL Est GFR (CKD-EPI)AfAm (>60 ml/min/1.73 sqM) Est GFR (CKD-EPI)NonAf (>60 ml/min/1.73 sqM) Glucose (74-99) mg/dL Plasma Lactic Acid [place] (0.7-2.0) mmol/L Calcium (8.4-10.2) mg/dL Magnesium (1.6-2.3) mg/dL Total Bilirubin (0.2-1.3) mg/dL AST (17-59) U/L ALT (4-49) U/L Alkaline Phosphatase (38-126) U/L Troponin I (0.000-0.034) ng/mL NT-Pro-B Natriuret Pep pg/mL Total Protein (6.3-8.2) g/dL Albumin (3.5-5.0) g/dL Coronavirus (PCR) Not Detected (Not Detectd) - EKG Data -: EKG Interpreted by Me EKG shows normal: sinus rhythm, axis (Normal), intervals (Normal), QRS complexes (Normal) Rate: normal (Rate 76 bpm) Interpretation: nonspecific ST-T wave changes Disposition Clinical Impression: COPD (chronic obstructive pulmonary disease) Disposition: HOME SELF-CARE Condition: Fair Instructions (If sedation given, give patient instructions): Chronic Bronchitis (ED) Is patient prescribed a controlled substance at d/c from ED?: No Referrals: Giuseppe Bailey MD [Primary Care Provider] - 1-2 days
[2021-08-11] MEDS ORDERED: LORazepam 2 MG/ML INJ IV STA (07:33)
[2021-08-11 08:50] VITALS: BP 173/79; RESP 17
== END 2021-08-11 08:33 | disposition home or self-care (01) ==
LOC: EC 03:38 → SUPCPDRO 03:38 → EC 08:33
DX: J44.1 Chronic obstructive pulmonary disease with (acute) exacerbation (principal); Z87.891 Personal history of nicotine dependence; Z20.822 Contact with and (suspected) exposure to COVID-19; E78.5 Hyperlipidemia, unspecified; Z88.0 Allergy status to penicillin; Z88.1 Allergy status to other antibiotic agents; Z88.5 Allergy status to narcotic agent
CPT/HCPCS: 36415; 94640 ×2; 93005; 85379; 83880; 80053; 83605; 83735; 84484; 85025; 85610; 85730; 87635; 71046; 99285; 96374; J2060; J7512

== ENCOUNTER 2021-08-11 18:55 | Emergency (ER) | payer MEDICARE ==
[2021-08-11 19:04] VITALS: PULSE 82; RESP 18
--- NOTE | 2021-08-11 19:29 | ED ---
General Adult HPI - General Chief complaint: Shortness of Breath Stated complaint: SOB Time Seen by Provider: 08/11/21 19:15 Source: patient, family (son), EMS, RN notes reviewed, old records reviewed Mode of arrival: EMS Limitations: no limitations, altered mental status - History of Present Illness Initial comments: 75-year-old male presents to the emergency room with his son complaining of anxiety. 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 He was seen this morning and discharged for his shortness of breath and given Ativan for his anxiety but son states that he remains anxious and is requesting patient be given a prescription for some anxiolytics. Patient does not have a primary care doctor at this time, he was seeing a PA who recently left the practice. He is now waiting to be seen by another doctor in November. He does see Dr Bailey who is his messenger copy. He does not use oxygen at home. He does live alone. This morning when seen in the ER, his labs were unremarkable EKG and chest x-ray were negative for any acute process. Patient's vital signs remain stable with oxygen saturation 98% on room air. He is afebrile. No nausea, vomiting or diarrhea or chest pain. Severity scale (1-10): 0 Associated Symptoms: cough, shortness of breath, other (anxiety) - Related Data Home Medications Medication Instructions Recorded Confirmed Aspirin [Adult Low Dose Aspirin EC] 81 mg PO HS 11/20/17 02/06/21 Budesonide-Formot 160-4.5 Mcg 2 puff INHALATION RT-BID 11/20/17 02/06/21 [Symbicort 160-4.5 Mcg Inhaler] Lovastatin [Mevacor] 40 mg PO HS 11/20/17 02/06/21 Tiotropium [place] [Spiriva] 1 cap INHALATION RT-DAILY 11/20/17 02/06/21 diphenhydrAMINE HCL [Benadryl] 25 mg PO HS 11/20/17 02/06/21 Multivitamins, Thera [Multivitamin 1 tab PO HS 05/08/18 02/06/21 (formulary)] Albuterol Nebulized [Ventolin 2.5 mg INHALATION RT-QID PRN 11/22/20 02/06/21 Nebulized] Calcium Carbonate/Vitamin D3 1 cap PO BID 02/06/21 02/06/21 [Calcium 600 mg-D3 10 Mcg (400 Iu)] Previous Rx's Medication Instructions Recorded hydrOXYzine HCL [Atarax] 50 mg PO TID PRN #30 tab 08/11/21 Allergies Allergy/AdvReac Type Severity Reaction Status Date / Time Penicillins Allergy Mild Rash/Hives Verified 08/11/21 19:04 cephalexin Allergy Rash/Hives Verified 08/11/21 19:04 morphine Allergy Rash/Hives Verified 08/11/21 19:04 Review of Systems ROS Statement: Those systems with pertinent positive or pertinent negative responses have been documented in the HPI. ROS Other: All systems not noted in ROS Statement are negative. Past Medical History Past Medical History: Cancer, COPD, Hyperlipidemia, Pneumonia, Prostate Disorder Additional Past Medical History / Comment(s): emphysema, small hiatal hernia, prostate cancer, colon cancer, rt inguinal hernia. HEPATITIS A- 1961, aphasia, heart murmer, hx anemia, bladder diverticulum History of Any Multi-Drug Resistant Organisms: None Reported Past Surgical History: Appendectomy, Back Surgery, Bowel Resection, Hernia Rep air, Orthopedic Surgery Additional Past Surgical History / Comment(s): back surgery for herniated disk, rt shoulder rotator cuff, nilsa cataracts with lens implants, nilsa inguinal hernia, diverticulitis Past Anesthesia/Blood Transfusion Reactions: No Reported Reaction Past Psychological History: No Psychological Hx Reported Smoking Status: Former smoker Past Alcohol Use History: Rare Past Drug Use History: None Reported - Past Family History Father Family Medical History: Cancer Mother Family Medical History: Cancer Additional Family Medical History / Comment(s): lung Cancer, Brain Cancer Sister(s) Family Medical History: Congestive Heart Failure (CHF) General Exam Limitations: no limitations, altered mental status General appearance: alert, in no apparent distress Head exam: Present: atraumatic Eye exam: Present: normal appearance. Absent: scleral icterus, conjunctival injection ENT exam: Present: mucous membranes moist Neck exam: Present: full ROM. Absent: tenderness, meningismus Respiratory exam: Present: decreased breath sounds. Absent: respiratory distress, wheezes, rales, rhonchi, stridor, chest wall tenderness, accessory muscle use Cardiovascular Exam: Present: regular rate, normal rhythm GI/Abdominal exam: Present: soft. Absent: distended, tenderness Extremities exam: Present: normal capillary refill. Absent: pedal edema Neurological exam: Present: alert, oriented X3 Psychiatric exam: Present: normal affect, normal mood Skin exam: Present: warm, dry, intact, normal color. Absent: cyanosis, diaphoretic, petechiae, pallor Course Vital Signs 08/11/21 08/11/21 18:56 22:00 Temperature 98.3 F 97.7 F Pulse Rate 82 82 Respiratory 18 18 Rate Blood Pressure 149/78 158/92 O2 Sat by Pulse 98 95 Oximetry Medical Decision Making - Medical Decision Making Patient returns to the emergency room with his son after being seen and discharged this morning at 0730 after evaluation for shortness of breath and anxiety. He does continue to have anxiety. His son states that he is constantly checking his oxygen and blood pressure at home with his "gadgets ". Patient denies any fevers, no nausea vomiting or diarrhea. No chest pain. He does have a persistent cough which is consistent with his chronic emphysema. Son states that if he could just get something for his anxiety he believes that he would feel better. Patient does see Dr. Bailey but does not have a primary care doctor at this time. Case was discussed with Dr. Palma. Patient was prescribed hydroxyzine for his anxiety. Son was also advised that the patient should have an outpatient cardiac echo through his primary care doctor. [facility] They were directed to return to the emergency room with any new or concerning symptoms including worsening shortness of breath or chest pain. They were agreeable to this plan of care. Disposition Clinical Impression: Anxiety, Shortness of breath Disposition: HOME SELF-CARE Condition: Good Instructions (If sedation given, give patient instructions): Anxiety (ED) Additional Instructions: Take hydroxyzine 50 mg every 8 hours as needed for any anxiety. Follow-up with your primary care doctor next week. I recommend that you have a cardiac echo ultrasound done to evaluate for any cardiac concerns that may be causing your shortness of breath. Return to the emergency room with any new or concerning symptoms including worsening difficulty in breathing or chest pain. Prescriptions: hydrOXYzine HCL [Atarax] 50 mg PO TID PRN #30 tab PRN Reason: Anxiety Is patient prescribed a controlled substance at d/c from ED?: No Referrals: Giuseppe Bailey MD [Primary Care Provider] - 1-2 days Time of Disposition: 19:45
[2021-08-11 22:03] VITALS: BP 158/92; TEMP 97.7
== END 2021-08-11 22:03 | disposition home or self-care (01) ==
LOC: EC 18:55
DX: F41.9 Anxiety disorder, unspecified (principal); R06.02 Shortness of breath; J44.9 Chronic obstructive pulmonary disease, unspecified; E78.5 Hyperlipidemia, unspecified; Z88.0 Allergy status to penicillin; Z88.1 Allergy status to other antibiotic agents; Z88.5 Allergy status to narcotic agent; Z79.82 Long term (current) use of aspirin; Z79.899 Other long term (current) drug therapy; Z79.51 Long term (current) use of inhaled steroids; Z87.891 Personal history of nicotine dependence
CPT/HCPCS: 99284

== ENCOUNTER 2021-08-17 08:58 | Emergency (ER) | payer MEDICARE ==
[2021-08-17 09:03] VITALS: RESP 18; TEMP 97.8
--- NOTE | 2021-08-17 09:32 | XR ---
EXAMINATION TYPE: XR chest 2V DATE OF EXAM: 08/17/2021 COMPARISON: 08/11/2021 HISTORY: 75-year-old male with cough TECHNIQUE: PA and lateral views FINDINGS: Heart normal size. Aorta and pulmonary vasculature within normal limits. Mild patchy left infrahilar and left basilar density. Hyperinflation. Some peribronchial cuffing on the lateral view. Some patchy posterior basilar opacity on lateral view as well. IMPRESSION: COPD with some patchy left infrahilar and left basilar densities. Early pneumonia not excluded. If th e finding persists after successful treatment, consider CT evaluation for more detailed parenchymal a ssessment.
--- NOTE | 2021-08-17 09:41 | ED ---
General Adult HPI - General Chief complaint: Weakness Stated complaint: weakness Time Seen by Provider: 08/17/21 09:03 Source: EMS Mode of arrival: EMS Limitations: language barrier - History of Present Illness Initial comments: Dictation was produced using H?[employer] dictation software. please excuse any grammatical, word or spelling errors. Chief Complaint: 75-year-old male past medical history of chronic aphasia presents to the ER for chief complaint of shortness of breath History of Present Illness: Patient 75-year-old male patient is a unreliable historian he has history of aphasia. Patient allegedly called EMS with chief complaint of shortness of breath. Patient not reliable historian. According to nurse received report from EMS he was brought in from home. History was obtained from son Ubaldo who works for [employer]. Ubaldo reports that patient lives at home by himself and is known to call EMS for shortness of breath. According to Ubaldo this is patient's fourth visit to the emergency room in the last month. States that he has been worked up multiple occasions recently showing no acute processes. He gets sent home every time. Patient is known to have anxiety and call 911 often. The ROS documented in this emergency department record has been reviewed and confirmed by me. Those systems with pertinent positive or negative responses have been documented in the HPI. All other systems are other negative and/or noncontributory. PHYSICAL EXAM: General Impression: Alert and oriented, not in acute distress HEENT: Normocephalic atraumatic, extra-ocular movements intact, pupils equal and reactive to light bilaterally, mucous membranes moist. Cardiovascular: Heart regular rate and rhythm Chest: Able to complete full sentences, no retractions, no tachypnea Abdomen: abdomen soft, non-tender, non-distended, no organomegaly Musculoskeletal: Pulses present and equal in all extremities, no peripheral edema Motor: no focal deficits noted Neurological: CN II-XII grossly intact, no focal motor or sensory deficits noted Skin: Intact with no visualized rashes Psych: Normal affect and mood ED course: 75-year-old male with history of chronic aphasia and multiple recent workups presents to the emergency department for chief complaint weakness. Vital signs upon arrival are within acceptable limits. Patient is well- appearing. Physical examination is benign. Ubaldo, patient's son states that patient sounds like he is at baseline. His son is a reliable historian that works for [employer]. He is well familiar with patient's medical history. Laboratory evaluation obtained. CBC shows mild leukocytosis of 15.0. Cardiac panel is unremarkable. Metabolic panel is negative. Urinalysis negative. 4 panel viral PCR is negative. Chest x-ray shows COPD with patchy left infrahilar and left basilar density. Early pneumonia not excluded. Patient given prescription for azithromycin. He is observed in the emergency department for approximately 3 hours. Reevaluate bedside at 12:10 PM finally stable medical condition. Patient is well-appearing and will be discharged. EKG interpretation: Ventricular rate 66, sinus rhythm, NE interval 144, Q's 91, QTc 352. No NE prolongation, no QTC prolongation, no ST or T-wave changes noted. EKG compared to 08/11/2021 showing no changes. Overall, this EKG is unremarkable - Related Data Home Medications Medication Instructions Recorded Confirmed Aspirin [Adult Low Dose Aspirin EC] 81 mg PO HS 11/20/17 02/06/21 Budesonide-Formot 160-4.5 Mcg 2 puff INHALATION RT-BID 11/20/17 02/06/21 [Symbicort 160-4.5 Mcg Inhaler] Lovastatin [Mevacor] 40 mg PO HS 11/20/17 02/06/21 Tiotropium Riparius [Spiriva] 1 cap INHALATION RT-DAILY 11/20/17 02/06/21 diphenhydrAMINE HCL [Benadryl] 25 mg PO HS 11/20/17 02/06/21 Multivitamins, Thera [Multivitamin 1 tab PO HS 05/08/18 02/06/21 (formulary)] Albuterol Nebulized [Ventolin 2.5 mg INHALATION RT-QID PRN 11/22/20 02/06/21 Nebulized] Calcium Carbonate/Vitamin D3 1 cap PO BID 02/06/21 02/06/21 [Calcium 600 mg-D3 10 Mcg (400 Iu)] Previous Rx's Medication Instructions Recorded hydrOXYzine HCL [Atarax] 50 mg PO TID PRN #30 tab 08/11/21 Doxycycline [Vibramycin] 100 mg PO BID 5 Days #10 capsule 08/17/21 Allergies Allergy/AdvReac Type Severity Reaction Status Date / Time Penicillins Allergy Mild Rash/Hives Verified 08/11/21 19:04 cephalexin Allergy Rash/Hives Verified 08/11/21 19:04 morphine Allergy Rash/Hives Verified 08/11/21 19:04 Review of Systems ROS Statement: Those systems with pertinent positive or pertinent negative responses have been documented in the HPI. ROS Other: All systems not noted in ROS Statement are negative. Past Medical History Past Medical History: Cancer, COPD, Hyperlipidemia, Pneumonia, Prostate Disorder Additional Past Medical History / Comment(s): emphysema, small hiatal hernia, prostate cancer, colon cancer, rt inguinal hernia. HEPATITIS A- 1961, aphasia, heart murmer, hx anemia, bladder diverticulum History of Any Multi-Drug Resistant Organisms: None Reported Past Surgical History: Appendectomy, Back Surgery, Bowel Resection, Hernia Repair, Orthopedic Surgery Additional Past Surgical History / Comment(s): back surgery for herniated disk, rt shoulder rotator cuff, nilsa cataracts with lens implants, nilsa inguinal hernia, diverticulitis Past Anesthesia/Blood Transfusion Reactions: No Reported Reaction Past Psychological History: No Psychological Hx Reported Smoking Status: Former smoker Past Alcohol Use History: Rare Past Drug Use History: None Reported - Past Family History Father Family Medical History: Cancer Mother Family Medical History: Cancer Additional Family Medical History / Comment(s): lung Cancer, Brain Cancer Sister(s) Family Medical History: Congestive Heart Failure (CHF) General Exam Limitations: language barrier Course Vital Signs 08/17/21 08/17/21 09:00 09:11 Temperature 97.8 F Pulse Rate 82 Pulse Rate [ 78 [employer] ] Respiratory 18 Rate Blood Pressure 176/76 O2 Sat by Pulse 97 Oximetry Medical Decision Making - Lab Data Result diagrams: 08/17/21 09:32 08/17/21 09:32 Lab Results 08/17/21 08/17/21 08/17/21 Range/Units 09:32 09:32 09:32 WBC 15.0 H (3.8-10.6) k/uL RBC 4.80 (4.30-5.90) m/uL Hgb 13.7 (13.0-17.5) gm/dL Hct 41.5 (39.0-53.0) % MCV 86.6 (80.0-100.0) fL MCH 28.6 (25.0-35.0) pg MCHC 33.0 (31.0-37.0) g/dL RDW 13.2 (11.5-15.5) % Plt Count 317 (150-450) k/uL MPV 6.7 Neutrophils % 88 % Lymphocytes % 6 % Monocytes % 4 % Eosinophils % 1 % Basophils % 0 % Neutrophils # 13.2 H (1.3-7.7) k/uL Lymphocytes # 0.8 L (1.0-4.8) k/uL Monocytes # 0.6 (0-1.0) k/uL Eosinophils # 0.1 (0-0.7) k/uL Basophils # 0.0 (0-0.2) k/uL PT 10.1 (9.0-12.0) sec INR 0.9 (<1.2) APTT 23.4 (22.0-30.0) sec Sodium 139 (137-145) mmol/L Potassium 4.2 (3.5-5.1) mmol/L Chloride 106 (98-107) mmol/L Carbon Dioxide 26 (22-30) mmol/L Anion Gap 7 mmol/L BUN 15 (9-20) mg/dL Creatinine 1.00 (0.66-1.25) mg/dL Est GFR (CKD-EPI)AfAm 84 (>60 ml/min/1.73 sqM) Est GFR (CKD-EPI)NonAf 72 (>60 ml/min/1.73 sqM) Glucose 122 H (74-99) mg/dL Calcium 8.8 (8.4-10.2) mg/dL Magnesium 2.0 (1.6-2.3) mg/dL Troponin I (0.000-0.034) ng/mL Urine Color Urine Appearance (Clear) Urine pH (5.0-8.0) Ur Specific [place] (1.001-1.035) Urine Protein (Negative) Urine Glucose (UA) (Negative) Urine Ketones (Negative) Urine Blood (Negative) Urine Nitrite (Negative) Urine Bilirubin (Negative) Urine Urobilinogen (<2.0) mg/dL Ur Leukocyte Esterase (Negative) Influenza Type A (PCR) (Not Detectd) Influenza Type B (PCR) (Not Detectd) RSV (PCR) (Not Detectd) SARS-CoV-2 (PCR) (Not Detectd) 08/17/21 08/17/21 08/17/21 Range/Units 09:32 09:35 11:15 WBC (3.8-10.6) k/uL RBC (4.30-5.90) m/uL Hgb (13.0-17.5) gm/dL Hct (39.0-53.0) % MCV (80.0-100.0) fL MCH (25.0-35.0) pg MCHC (31.0-37.0) g/dL RDW (11.5-15.5) % Plt Count (150-450) k/uL MPV Neutrophils % % Lymphocytes % % Monocytes % % Eosinophils % % Basophils % % Neutrophils # (1.3-7.7) k/uL Lymphocytes # (1.0-4.8) k/uL Monocytes # (0-1.0) k/uL Eosinophils # (0-0.7) k/uL Basophils # (0-0.2) k/uL PT (9.0-12.0) sec INR (<1.2) APTT (22.0-30.0) sec Sodium (137-145) mmol/L Potassium (3.5-5.1) mmol/L Chloride (98-107) mmol/L Carbon Dioxide (22-30) mmol/L Anion Gap mmol/L BUN (9-20) mg/dL Creatinine (0.66-1.25) mg/dL Est GFR (CKD-EPI)AfAm (>60 ml/min/1.73 sqM) Est GFR (CKD-EPI)NonAf (>60 ml/min/1.73 sqM) Glucose (74-99) mg/dL Calcium (8.4-10.2) mg/dL Magnesium (1.6-2.3) mg/dL Troponin I <0.012 (0.000-0.034) ng/mL Urine Color Yellow Urine Appearance Clear (Clear) Urine pH 6.5 (5.0-8.0) Ur Specific [place] 1.026 (1.001-1.035) Urine Protein Trace H (Negative) Urine Glucose (UA) Negative (Negative) Urine Ketones 1+ H (Negative) Urine Blood Negative (Negative) Urine Nitrite Negative (Negative) Urine Bilirubin Negative (Negative) Urine Urobilinogen 2.0 (<2.0) mg/dL Ur Leukocyte Esterase Negative (Negative) Influenza Type A (PCR) Not Detected (Not Detectd) Influenza Type B (PCR) Not Detected (Not Detectd) RSV (PCR) Not Detected (Not Detectd) SARS-CoV-2 (PCR) Not Detected (Not Detectd) Disposition Clinical Impression: Dyspnea Disposition: HOME SELF-CARE Condition: Good Instructions (If sedation given, give patient instructions): Community Acquired Pneumonia (ED) Prescriptions: Doxycycline [Vibramycin] 100 mg PO BID 5 Days #10 capsule Is patient prescribed a controlled substance at d/c from ED?: No Referrals: Giuseppe Bailey MD [Primary Care Provider] - 1-2 days Time of Disposition: 12:07
[2021-08-17 09:44] LABS: Basophils % (A) 0 %; Eosinophils # (A) 0.1 k/uL (0-0.7); Eosinophils % (A) 1 %; HCT 41.5 % (39.0-53.0); HGB 13.7 gm/dL (13.0-17.5); Lymphocytes # (A) 0.8 k/uL (1.0-4.8); Lymphocytes % (A) 6 %; MCH 28.6 pg (25.0-35.0); MCV 86.6 fL (80.0-100.0); Mean Platelet Volume 6.7; Monocytes # (A) 0.6 k/uL (0-1.0); Monocytes % (A) 4 %; Neutrophils # (A) 13.2 k/uL (1.3-7.7); Neutrophils % (A) 88 %; Platelet Count 317 k/uL (150-450); RDW 13.2 % (11.5-15.5)
[2021-08-17 09:53] LABS: INR 0.9 (<1.2); Partial Thromboplastin Time 23.4 sec (22.0-30.0); Prothrombin Time 10.1 sec (9.0-12.0)
[2021-08-17 09:58] LABS: Calcium 8.8 mg/dL (8.4-10.2); Potassium 4.2 mmol/L (3.5-5.1)
[2021-08-17 11:35] LABS: Appearance,Urine Clear (Clear); Bilirubin,Urine Negative (Negative); Blood,Urine Negative (Negative); Color,Urine Yellow; Glucose,Urine (UA) Negative (Negative); Ketones,Urine 1+ (Negative); Leukocyte Esterase,Urine Negative (Negative); Nitrite,Urine Negative (Negative); PH, Urine 6.5 (5.0-8.0); Protein,Urine Trace (Negative); Specific Gravity,Urine 1.026 (1.001-1.035)
[2021-08-17 16:37] VITALS: BP 154/86; PULSE 88
== END 2021-08-17 16:36 | disposition home or self-care (01) ==
LOC: EC 08:58
DX: R06.02 Shortness of breath (principal); E78.5 Hyperlipidemia, unspecified; F41.9 Anxiety disorder, unspecified; Z20.822 Contact with and (suspected) exposure to COVID-19; J43.9 Emphysema, unspecified; Z79.51 Long term (current) use of inhaled steroids; Z87.891 Personal history of nicotine dependence; Z88.0 Allergy status to penicillin; Z72.89 Other problems related to lifestyle; Z88.1 Allergy status to other antibiotic agents; Z88.5 Allergy status to narcotic agent
CPT/HCPCS: 36415; 71046; 80048; 81003; 83735; 84484; 85025; 85610; 85730; 87636; 93005; 99285

== ENCOUNTER 2021-08-20 01:57 | Observation (INO) | payer MEDICARE ==
[2021-08-20] MEDS ORDERED: LORazepam 1 MG TAB PO STA (02:14)
[2021-08-20] MEDS ORDERED: IPRATROPIUM-ALBUTEROL 3 ML NEB INHALATION STA (02:14)
--- NOTE | 2021-08-20 02:26 | ED ---
SOB HPI - General Chief Complaint: Shortness of Breath Stated Complaint: Difficulty Breathing, Anxiety Time Seen by Provider: 08/20/21 02:10 Source: patient, EMS, RN notes reviewed, old records reviewed Mode of arrival: EMS Limitations: language barrier (aphasia), physical limitation (aphasia) - History of Present Illness Initial Comments: This is a 75-year-old male presented today for evaluation of what he is saying is pneumonia. Patient states he suffers from pneumonia has had pneumonia multiple times in his life no as well as feels like although patient's mildly short of breath. Patient states he has consistent cough or congestion and is on antibiotics with no improvement. Patient is a poor historian secondary to aphasia MD Complaint: shortness of breath, cough, anxiety -: days(s) Radiation: back Severity: mild Severity scale (1-10): 3 Quality: dull, sharp Consistency: constant Improves With: nothing Worsens With: exertion, movement Known History Of: COPD Context: recent URI, recent illness Associated Symptoms: pain with inspiration, cough, sputum production Treatments Prior to Arrival: bronchodilator, other (abx) - Related Data Home Medications Medication Instructions Recorded Confirmed Aspirin [Adult Low Dose Aspirin EC] 81 mg PO DAILY 11/20/17 08/17/21 Budesonide-Formot 160-4.5 Mcg 2 puff INHALATION RT-BID 11/20/17 08/17/21 [Symbicort 160-4.5 Mcg Inhaler] Lovastatin [Mevacor] 40 mg PO HS 11/20/17 08/17/21 Tiotropium Balm [Spiriva] 1 cap INHALATION RT-DAILY 11/20/17 08/17/21 diphenhydrAMINE HCL [Benadryl] 25 mg PO DAILY 11/20/17 08/17/21 Multivitamins, Thera [Multivitamin 1 tab PO DAILY 05/08/18 08/17/21 (formulary)] Albuterol Nebulized [Ventolin 2.5 mg INHALATION RT-QID PRN 11/22/20 08/17/21 Nebulized] Calcium Carbonate/Vitamin D3 1 cap PO BID 02/06/21 08/17/21 [Calcium 600 mg-D3 10 Mcg (400 Iu)] Donepezil [Aricept] 10 mg PO DAILY 08/17/21 08/17/21 PARoxetine [Paxil] 20 mg PO DAILY 08/17/21 08/17/21 Previous Rx's Medication Instructions Recorded hydrOXYzine HCL [Atarax] 50 mg PO TID PRN #30 tab 08/11/21 Doxycycline [Vibramycin] 100 mg PO BID 5 Days #10 capsule 08/17/21 Allergies Allergy/AdvReac Type Severity Reaction Status Date / Time Penicillins Allergy Mild Rash/Hives Verified 08/17/21 12:19 cephalexin Allergy Rash/Hives Verified 08/17/21 12:19 morphine Allergy Rash/Hives Verified 08/17/21 12:19 Review of Systems ROS Statement: Those systems with pertinent positive or pertinent negative responses have been documented in the HPI. ROS Other: All systems not noted in ROS Statement are negative. Past Medical History Past Medical History: Cancer, COPD, Hyperlipidemia, Pneumonia, Prostate Disorder Additional Past Medical History / Comment(s): emphysema, small hiatal hernia, prostate cancer, colon cancer, rt inguinal hernia. HEPATITIS A- 1961, aphasia, heart murmer, hx anemia, bladder diverticulum History of Any Multi-Drug Resistant Organisms: None Reported Past Surgical History: Appendectomy, Back Surgery, Bowel Resection, Hernia Repa ir, Orthopedic Surgery Additional Past Surgical History / Comment(s): back surgery for herniated disk, rt shoulder rotator cuff, nilsa cataracts with lens implants, nilsa inguinal hernia, diverticulitis Past Anesthesia/Blood Transfusion Reactions: No Reported Reaction Past Psychological History: No Psychological Hx Reported Smoking Status: Former smoker Past Alcohol Use History: Rare Past Drug Use History: None Reported - Past Family History Father Family Medical History: Cancer Mother Family Medical History: Cancer Additional Family Medical History / Comment(s): lung Cancer, Brain Cancer Sister(s) Family Medical History: Congestive Heart Failure (CHF) General Exam Limitations: language barrier General appearance: alert, in no apparent distress Head exam: Present: atraumatic, normocephalic, normal inspection Eye exam: Present: normal appearance, PERRL, EOMI. Absent: scleral icterus, conjunctival injection, periorbital swelling ENT exam: Present: normal exam, mucous membranes dry Neck exam: Present: normal inspection. Absent: tenderness, meningismus, lymphadenopathy Respiratory exam: Present: wheezes, decreased breath sounds, prolonged expiratory. Absent: respiratory distress, rales, rhonchi, stridor Cardiovascular Exam: Present: regular rate, normal rhythm, normal heart sounds. Absent: systolic murmur, diastolic murmur, rubs, gallop, clicks GI/Abdominal exam: Present: soft, normal bowel sounds. Absent: distended, tenderness, guarding, rebound, rigid Extremities exam: Present: normal inspection, full ROM, normal capillary refill. Absent: tenderness, pedal edema, joint swelling, calf tenderness Back exam: Present: normal inspection Neurological exam: Present: alert, oriented X3, CN II-XII intact Psychiatric exam: Present: normal affect, normal mood Skin exam: Present: warm, dry, intact, normal color. Absent: rash Course Vital Signs 08/20/21 08/20/21 08/20/21 02:05 02:08 02:16 Temperature 98.2 F Pulse Rate 73 69 Respiratory 20 18 18 Rate Blood Pressure 174/85 144/97 O2 Sat by Pulse 97 97 96 Oximetry 08/20/21 08/20/21 08/20/21 03:08 03:20 03:32 Temperature Pulse Rate 68 68 70 Respiratory 22 Rate Blood Pressure 158/69 O2 Sat by Pulse 95 Oximetry - Reevaluation(s) Reevaluation #1: 08/20/21 03:14 Medical record is reviewed Reevaluation #2: 08/20/21 03:14 Patient is informed of results, found for worsening pneumonia Reevaluation #3: 08/20/21 03:14 Patient is in no acute distress oxygen remains normal but is improved after breathing treatment - Consultations Consultation #1: Spoke with [facility] regarding admission there agreeable Medical Decision Making - Medical Decision Making 75 male to ER for evaluation of cough and pneumonia. Patient is short of breath here in the emergency department. Chest x-rays positive for a worsening pneumonia. - Lab Data Result diagrams: 08/20/21 03:18 - EKG Data -: EKG Interpreted by Me (EKG is sinus rhythm 77 CT 146 QRS 85 QTC 350) - Radiology Data Radiology results: report reviewed (Chest x-rays positive for right lower lobe pneumonia), image reviewed Disposition Clinical Impression: Acute exacerbation of chronic obstructive pulmonary disease, Anxiety, Dyspnea, Community acquired pneumonia, Failure of outpatient treatment Disposition: ADMITTED IP TO THIS HOSP Condition: Fair Is patient prescribed a controlled substance at d/c from ED?: No Time of Disposition: 04:00
--- NOTE | 2021-08-20 02:55 | XR ---
EXAMINATION TYPE: XR chest 1V portable DATE OF EXAM: 08/20/2021 COMPARISON: 08/17/2021 HISTORY: Cough TECHNIQUE: FINDINGS: There is some mild infiltrate left lung base. The other lung root are clear. No hilar mas s. No heart failure. There are chest leads. IMPRESSION: Some mild left lower lobe pneumonia which is increased compared to recent exam. No heart failure
[2021-08-20] MEDS ORDERED: SODIUM CHLORIDE 0.9% 1,000 ML IV STA ×2 (03:02)
[2021-08-20] MEDS ORDERED: LEVOFLOXACIN 750MG-D5W PMX 750 MG in DEXTROSE/WATER 1 150ML.BAG IVPB STA (03:02)
[2021-08-20] MEDS ORDERED: PNEUMONIA PROTOCOL UTILIZED 1 EACH MISC PO PRN (03:03)
[2021-08-20] MEDS ORDERED: AZTREONAM 2 GM in SODIUM CHLORIDE 0.9% 100 ML IVPB STA (03:06)
[2021-08-20 03:46] LABS: Basophils % (A) 1 %; Eosinophils # (A) 0.1 k/uL (0-0.7); Eosinophils % (A) 2 %; HCT 39.7 % (39.0-53.0); HGB 12.7 gm/dL (13.0-17.5); Lymphocytes # (A) 1.1 k/uL (1.0-4.8); Lymphocytes % (A) 14 %; MCHC 31.9 g/dL (31.0-37.0); MCV 87.9 fL (80.0-100.0); Mean Platelet Volume 6.9; Monocytes # (A) 0.6 k/uL (0-1.0); Monocytes % (A) 8 %; Neutrophils # (A) 5.7 k/uL (1.3-7.7); Neutrophils % (A) 72 %; Platelet Count 299 k/uL (150-450); RBC 4.52 m/uL (4.30-5.90); RDW 13.3 % (11.5-15.5); WBC 7.9 k/uL (3.8-10.6)
[2021-08-20 04:49] LABS: Albumin 3.7 g/dL (3.5-5.0); Calcium 8.4 mg/dL (8.4-10.2); Magnesium 1.9 mg/dL (1.6-2.3); Potassium 4.1 mmol/L (3.5-5.1); Total Bilirubin 0.4 mg/dL (0.2-1.3); Total Protein 6.2 g/dL (6.3-8.2)
[2021-08-20] MEDS: IPRATROPIUM-ALBUTEROL 3 ML NEB INHALATION PRN ×2 (10:04→16:42)
[2021-08-20] MEDS: PARoxetine 20 MG TAB PO SCH (11:40)
--- NOTE | 2021-08-20 15:07 | P.CNPUL ---
History of Present Illness Consult date: 08/20/21 Requesting physician: Yonathan Baer Reason for consult: dyspnea Chief complaint: Difficulty breathing, anxiety History of present illness: This is a 75-year-old male patient with past medical history of COPD, and baseline FEV1 of 40%, previous episodes of pneumonia, former smoker, peripheral arterial occlusive disease, prostate cancer with surgery, colon cancer with history of hemicolectomy and primary progressive apraxia of speech. Patient follows with Dr. Bailey in the pulmonary clinic. His COPD has been stable, and patient was last seen in the office on 03/29/2021. Patient has completed his COVID-19 vaccination and received 2 shots in a booster. Patient presented to the emergency button on 08/20/2021 at 2024 in the morning for evaluation of dyspnea, anxiety, cough, chest congestion. Patient is a poor historian although he tries to communicate by writing things down, it does appear that patient had been treated with antibiotics in the form of doxycycline for his pulmonary symptoms. Chest x-ray showed mild left lower lobe pneumonia, other lung root were clear, white blood cell count was normal at 7.9, hemoglobin is 12.7, electrolytes and renal profile were unremarkable, lactic acid was 1.5, LFTs were within normal limits, troponin was less than 0.012, proBNP was 47. Room air pulse ox is 97%, breathing is nonlabored, patient is afebrile, patient was start ed on Levaquin and Azactam because he has ALLERGIES to penicillins and cephalexin. He was started on breathing treatments and was given IV hydration. He was quite comfortable on physical exam today, does not appear to be in any respiratory distress. Denies any chest discomfort, vital signs are stable, patient is on room air Review of Systems All systems: negative Constitutional: Denies chills, Denies fever Eyes: denies blurred vision, denies pain Ears, nose, mouth and throat: Denies headache, Denies sore throat Cardiovascular: Denies chest pain, Denies shortness of breath Respiratory: Reports cough with sputum, Reports dyspnea, Denies cough Gastrointestinal: Denies abdominal pain, Denies diarrhea, Denies nausea, Denies vomiting Musculoskeletal: Denies myalgias Integumentary: Denies pruritus, Denies rash Neurological: Denies numbness, Denies weakness Psychiatric: Denies anxiety, Denies depression Endocrine: Denies fatigue, Denies weight change Past Medical History Past Medical History: Cancer, COPD, Hyperlipidemia, Pneumonia, Prostate Disorder Additional Past Medical History / Comment(s): emphysema, small hiatal hernia, prostate cancer, colon cancer, rt inguinal hernia. HEPATITIS A- 1961, aphasia, heart murmer, hx anemia, bladder diverticulum History of Any Multi-Drug Resistant Organisms: None Reported Past Surgical History: Appendectomy, Back Surgery, Bowel Resection, Hernia Repair, Orthopedic Surgery Additional Past Surgical History / Comment(s): back surgery for herniated disk, rt shoulder rotator cuff, nilsa cataracts with lens implants, nilsa inguinal hernia, diverticulitis Past Anesthesia/Blood Transfusion Reactions: No Reported Reaction Smoking Status: Former smoker - Past Family History Father Family Medical History: Cancer Mother Family Medical History: Cancer Additional Family Medical History / Comment(s): lung Cancer, Brain Cancer Sister(s) Family Medical History: Congestive Heart Failure (CHF) Medications and Allergies Home Medications Medication Instructions Recorded Confirmed Type Aspirin [Adult Low Dose Aspirin EC] 81 mg PO DAILY 11/20/17 08/20/21 History Budesonide-Formot 160-4.5 Mcg 2 puff INHALATION RT-BID 11/20/17 08/20/21 History [Symbicort 160-4.5 Mcg Inhaler] Lovastatin [Mevacor] 40 mg PO HS 11/20/17 08/20/21 History Tiotropium [place] [Spiriva] 1 cap INHALATION RT-DAILY 11/20/17 08/20/21 History diphenhydrAMINE HCL [Benadryl] 25 mg PO DAILY 11/20/17 08/20/21 History Multivitamins, Thera [Multivitamin 1 tab PO DAILY 05/08/18 08/20/21 History (formulary)] Albuterol Nebulized [Ventolin 2.5 mg INHALATION RT-QID PRN 11/22/20 08/20/21 History Nebulized] Calcium Carbonate/Vitamin D3 1 cap PO BID 02/06/21 08/20/21 History [Calcium 600 mg-D3 10 Mcg (400 Iu)] hydrOXYzine HCL [Atarax] 50 mg PO TID PRN #30 tab 08/11/21 08/20/21 Rx Donepezil [Aricept] 10 mg PO DAILY 08/17/21 08/20/21 History Doxycycline [Vibramycin] 100 mg PO BID 5 Days #10 capsule 08/17/21 08/20/21 Rx PARoxetine [Paxil] 20 mg PO DAILY 08/17/21 08/20/21 History Allergies Allergy/AdvReac Type Severity Reaction Status Date / Time Penicillins Allergy Mild Rash/Hives Verified 08/20/21 07:39 cephalexin Allergy Rash/Hives Verified 08/20/21 07:39 morphine Allergy Rash/Hives Verified 08/20/21 07:39 Physical Exam Vitals: Vital Signs Temp Pulse Pulse Resp BP BP Pulse Ox 08/20/21 10:04 70 08/20/21 10:00 95 08/20/21 07:23 97.9 F 67 18 160/66 97 08/20/21 05:39 64 14 150/75 97 08/20/21 03:32 70 22 158/69 95 08/20/21 03:20 68 08/20/21 03:08 68 08/20/21 02:16 18 96 08/20/21 02:08 69 18 144/97 97 08/20/21 02:05 98.2 F 73 20 174/85 97 Intake and Output 08/19/21 08/20/21 08/20/21 22:59 06:59 14:59 Other: # Voids 1 Weight 74.843 kg 74.843 kg GENERAL EXAM: Alert, very pleasant, 75-year-old white male, poor historian, patient is able to communicate with yes and no questions, does have history of primary apraxia of speech, comfortable in no apparent distress. HEAD: Normocephalic/atraumatic. EYES: Normal reaction of pupils, equal size. Conjunctiva pink, sclera white. NOSE: Clear with pink turbinates. THROAT: No erythema or exudates. NECK: No masses, no JVD, no thyroid enlargement, no adenopathy. CHEST: No chest wall deformity. Symmetrical expansion. LUNGS: Equal air entry with no crackles, wheeze, rhonchi or dullness. CVS: Regular rate and rhythm, normal S1 and S2, no gallops, no murmurs, no rubs ABDOMEN: Soft, nontender. No hepatosplenomegaly, normal bowel sounds, no guarding or rigidity. EXTREMITIES: No clubbing, no edema, no cyanosis, 2+ pulses and upper and lower extremities. MUSCULOSKELETAL: Muscle strength and tone normal. SPINE: No scoliosis or deformity SKIN: No rashes CENTRAL NERVOUS SYSTEM: Alert and oriented -3. No focal deficits, tone is normal in all 4 extremities. PSYCHIATRIC: Alert and oriented -3. Appropriate affect. Intact judgment and insight. Results - Laboratory Findings CBC and BMP: 08/20/21 03:18 08/20/21 03:18 Abnormal lab findings: Abnormal Labs 08/20/21 08/20/21 03:18 03:18 Hgb 12.7 L Chloride 111 H Glucose 104 H Total Protein 6.2 L - Diagnostic Findings Chest x-ray: report reviewed Assessment and Plan Plan: Assessment: #1. Shortness of breath, cough and congestion, with possibility of mild left lower lobe pneumonia, community-acquired with failed outpatient treatment #2. History of advanced COPD, baseline FEV1 of 40% of predicted, not oxygen dependent at baseline #3. Former smoker #4. Primary progressive apraxia of speech, patient follows with a speech therapy on an outpatient basis #5. History of colon cancer with previous history of hemicolectomy #6. Peripheral arterial occlusive disease #7. 7 mm stable left lower lobe nodule was under surveillance for any change by Dr. Bailey on outpatient basis, had been stable and currently there is no continued need to monitor with surveillance CT scans of the chest #8. History of tobacco dependence, carries a [id number] smoking history #9. History of prostate cancer with surgery #10. History of right inguinal hernia Plan: Continue current antibiotics Sputum for culture Pro-calcitonin level Clinically patient does not appear to be in any acute distress, vital signs are stable If remains stable and improving he could probably be considered for discharge home in the next 24 hours Outpatient follow-up with Dr. Bailey in the office in 7-10 days post discharge We'll continue to follow his clinical course I have personally seen and examined the patient, performed the documentation and the assessment and plan as written. Number of minutes spent on the visit: [15] Time with Patient: Greater than 30
[2021-08-20] MEDS: HEPARIN SODIUM,PORCINE/PF 5,000 UNIT/0.5 ML SYRINGE SQ SCH ×2 (16:29→23:36)
[2021-08-20] MEDS: FAMOTIDINE 20 MG TAB PO SCH (19:57)
[2021-08-20] MEDS ORDERED: ATORVASTATIN 10 MG TAB PO SCH (21:00)
[2021-08-20] MEDS: SYMBICORT 160-4.5 MCG INHALER INHALATION SCH ×2 (21:53→21:58)
--- NOTE | 2021-08-20 23:34 | P.HPIM ---
History of Present Illness H&P Date: 08/20/21 Chief Complaint: Shortness of breath Patient is a 75-year-old male with a known history of COPD, hyperlipidemia, small hiatal hernia, prostate cancer, colon cancer and aphasic, primary progressive apraxia of speech at baseline and prior history of smoking presents to ER presents to ER with complaints of cough congestion and shortness of breath. Patient is on antibiotics above doxycycline as an outpatient. Patient is somewhat poor historian and communicates mainly with writing on paper. Patient has been afebrile on admission. Chest x-ray showed some mild left lower lobe pneumonia which is increased compared to recent exam. No heart failure. Laboratory data showed WBC 7.9 hemoglobin 12.7 platelets 299 Sodium 141 potassium 4.1 chloride 111 bicarb is 27 BUN 19 and creatinine 0.98 Liver enzymes are not elevated proBNP is 47 procalcitonin level 0.05 and PCR not detected for COVID-19. Review of Systems Constitutional: Patient denies any fever or chills . Generalized weakness. Abdomen: Patient denied any nausea or vomiting or abd. pain Cardiovascular: Patient denies any chest pain or short of breath no palpitations. Respiratory: Patient does have cough congestion and shortness of breath and exertional dyspnea. Neurologic: Patient denied any numbness or tingling headache. Musculoskeletal: Patient denies any complaints of joint swelling or deformity. Skin: Negative Complete review of systems could not be obtained from the patient. Past Medical History Past Medical History: Cancer, COPD, Hyperlipidemia, Pneumonia, Prostate Disorder Additional Past Medical History / Comment(s): emphysema, small hiatal hernia, prostate cancer, colon cancer, rt inguinal hernia. HEPATITIS A- 1961, aphasia, heart murmer, hx anemia, bladder diverticulum History of Any Multi-Drug Resistant Organisms: None Reported Past Surgical History: Appendectomy, Back Surgery, Bowel Resection, Hernia Repair, Orthopedic Surgery Additional Past Surgical History / Comment(s): back surgery for herniated disk, rt shoulder rotator cuff, nilsa cataracts with lens implants, nilsa inguinal hernia, diverticulitis Past Anesthesia/Blood Transfusion Reactions: No Reported Reaction Smoking Status: Former smoker - Past Family History Father Family Medical History: Cancer Mother Family Medical History: Cancer Additional Family Medical History / Comment(s): lung Cancer, Brain Cancer Sister(s) Family Medical History: Congestive Heart Failure (CHF) Medications and Allergies Home Medications Medication Instructions Recorded Confirmed Type Aspirin [Adult Low Dose Aspirin EC] 81 mg PO DAILY 11/20/17 08/20/21 History Budesonide-Formot 160-4.5 Mcg 2 puff INHALATION RT-BID 11/20/17 08/20/21 History [Symbicort 160-4.5 Mcg Inhaler] Lovastatin [Mevacor] 40 mg PO HS 11/20/17 08/20/21 History Tiotropium [place] [Spiriva] 1 cap INHALATION RT-DAILY 11/20/17 08/20/21 History diphenhydrAMINE HCL [Benadryl] 25 mg PO DAILY 11/20/17 08/20/21 History Multivitamins, Thera [Multivitamin 1 tab PO DAILY 05/08/18 08/20/21 History (formulary)] Albuterol Nebulized [Ventolin 2.5 mg INHALATION RT-QID PRN 11/22/20 08/20/21 History Nebulized] Calcium Carbonate/Vitamin D3 1 cap PO BID 02/06/21 08/20/21 History [Calcium 600 mg-D3 10 Mcg (400 Iu)] hydrOXYzine HCL [Atarax] 50 mg PO TID PRN #30 tab 08/11/21 08/20/21 Rx Donepezil [Aricept] 10 mg PO DAILY 08/17/21 08/20/21 History Doxycycline [Vibramycin] 100 mg PO BID 5 Days #10 capsule 08/17/21 08/20/21 Rx PARoxetine [Paxil] 20 mg PO DAILY 08/17/21 08/20/21 History Allergies Allergy/AdvReac Type Severity Reaction Status Date / Time Penicillins Allergy Mild Rash/Hives Verified 08/20/21 07:39 cephalexin Allergy Rash/Hives Verified 08/20/21 07:39 morphine Allergy Rash/Hives Verified 08/20/21 07:39 Physical Exam Vitals: Vital Signs Temp Pulse Pulse Resp BP BP Pulse Ox 08/20/21 10:04 70 08/20/21 10:00 95 08/20/21 07:23 97.9 F 67 18 160/66 97 08/20/21 05:39 64 14 150/75 97 08/20/21 03:32 70 22 158/69 95 08/20/21 03:20 68 08/20/21 03:08 68 08/20/21 02:16 18 96 08/20/21 02:08 69 18 144/97 97 08/20/21 02:05 98.2 F 73 20 174/85 97 Intake and Output 08/19/21 08/20/21 08/20/21 22:59 06:59 14:59 Other: # Voids 1 Weight 74.843 kg 74.843 kg PHYSICAL EXAMINATION: Patient is lying in the bed comfortably, no acute distress, awake alert and oriented.. HEENT: Normocephalic. Neck is supple. Pupils reactive. Nostrils clear. Oral cavity is moist. Neck reveals no JVD, carotid bruits, or thyromegaly. CHEST EXAMINATION: Trachea is central. Symmetrical expansion. Lung root clear to auscultation and percussion. CARDIAC: Normal S1, S2 with no gallops. No murmurs ABDOMEN: Soft. Bowel sounds present. Nontender. No organomegaly. No abdominal bruits. Extremities: reveal no edema. No clubbing or cyanosis Neurologically awake, alert, oriented x3. Patient is aphasic. No gross focal neurological deficit. Skin: No rash or skin lesions. Psychiatric: Coperative. Nonsuicidal Musculoskeletal: No joint swelling or deformity. Normal range of motion. Results CBC & Chem 7: 08/20/21 03:18 08/20/21 03:18 Labs: Abnormal Lab Results - Last 24 Hours (Table) 08/20/21 08/20/21 Range/Units 03:18 03:18 Hgb 12.7 L (13.0-17.5) gm/dL Chloride 111 H (98-107) mmol/L Glucose 104 H (74-99) mg/dL Total Protein 6.2 L (6.3-8.2) g/dL Microbiology - Last 24 Hours (Table) 08/20/21 03:37 Sputum Culture - Preliminary Sputum Thrombosis Risk Factor Assmnt - DVT/VTE Prophylaxis DVT/VTE Prophylaxis: Pharmacologic Prophylaxis ordered - Choose All That Apply Each Factor Represents 1 point: Serious lung disease incl. pneumonia (< 1month) Each Risk Factor Represents 3 Points: Age 75 years or older Thrombosis Risk Factor Assessment Total Risk Factor Score: 4 Thrombosis Risk Factor Assessment Level: Moderate Risk Assessment and Plan Assessment: Worsening shortness of breath, cough and congestion due to left lower lobe pneumonia. Failed outpatient antibiotic therapy. COPD not in exacerbation Primary progressive apraxia of speech Prior history of smoking History of colon cancer status post hemicolectomy History of prostate cancer status post surgery Hyperlipidemia History of bladder diverticulum Prior history of pneumonia DVT prophylaxis Heparin subcu Plan: Patient will be continued on antibiotics in the form of Levaquin. Patient was given a dose of aztreonam and Levaquin in the ER. Follow-up blood cultures and sputum cultures. Continue with duo nebs and Symbicort. Pulmonary was consulted. Continue with home medications and follow-up closely. Time with Patient: Greater than 30
[2021-08-21] MEDS ORDERED: LEVOFLOXACIN 750MG-D5W PMX 750 MG in DEXTROSE/WATER 1 150ML.BAG IVPB SCH (05:00)
[2021-08-21] MEDS: FAMOTIDINE 20 MG TAB PO SCH (07:01)
[2021-08-21] MEDS: HEPARIN SODIUM,PORCINE/PF 5,000 UNIT/0.5 ML SYRINGE SQ SCH ×2 (07:01→15:21)
[2021-08-21] MEDS: PARoxetine 20 MG TAB PO SCH (07:01)
[2021-08-21] MEDS: SYMBICORT 160-4.5 MCG INHALER INHALATION SCH (07:48)
[2021-08-21] MEDS: IPRATROPIUM-ALBUTEROL 3 ML NEB INHALATION PRN ×2 (07:48→11:37)
--- NOTE | 2021-08-21 08:15 | XR ---
EXAMINATION TYPE: XR chest 2V DATE OF EXAM: 08/21/2021 COMPARISON: X-ray dated 08/20/2021 HISTORY: Pneumonia TECHNIQUE: Frontal and lateral views of the chest are obtained. FINDINGS: Background of COPD changes. Questionable minimal atelectasis in the left lung base. Grossly unremarka ble lungs otherwise. No sizable pleural effusion or pneumothorax. No cardiomegaly. Aortic atherosclerotic calcification. N o gross aggressive bone lesion. IMPRESSION: COPD changes.
[2021-08-21] MEDS ORDERED: MULTIVITAMINS, THERA 1 EACH TAB PO SCH (09:00)
[2021-08-21] MEDS ORDERED: DONEPEZIL 10 MG TAB PO SCH (09:00)
[2021-08-21] MEDS ORDERED: ASPIRIN 81 MG PO SCH (09:00)
[2021-08-21] MEDS ORDERED: amLODIPine 5 MG TAB PO SCH (12:00)
--- NOTE | 2021-08-21 13:05 | P.PN ---
Subjective Progress Note Date: 08/21/21 Principal diagnosis: Shortness of breath, cough and congestion This is a 75-year-old male patient with past medical history of COPD, and baseline FEV1 of 40%, previous episodes of pneumonia, former smoker, peripheral arterial occlusive disease, prostate cancer with surgery, colon cancer with history of hemicolectomy and primary progressive apraxia of speech. Patient follows with Dr. Bailey in the pulmonary clinic. His COPD has been stable, and patient was last seen in the office on 03/29/2021. Patient has completed his COVID-19 vaccination and received 2 shots in a booster. Patient presented to the emergency button on 08/20/2021 at 2025 in the morning for evaluation of dyspnea, anxiety, cough, chest congestion. Patient is a poor historian although he tries to communicate by writing things down, it does appear that patient had been treated with antibiotics in the form of doxycycline for his pulmonary symptoms. Chest x-ray showed mild left lower lobe pneumonia, other lung root were clear, white blood cell count was normal at 7.9, hemoglobin is 12.7, elect rolytes and renal profile were unremarkable, lactic acid was 1.5, LFTs were within normal limits, troponin was less than 0.012, proBNP was 47. Room air pulse ox is 97%, breathing is nonlabored, patient is afebrile, patient was started on Levaquin and Azactam because he has ALLERGIES to penicillins and cephalexin. He was started on breathing treatments and was given IV hydration. He was quite comfortable on physical exam today, does not appear to be in any respiratory distress. Denies any chest discomfort, vital signs are stable, patient is on room air On 08/21/2021 patient seen in follow-up on medical surgical floor, he is resting comfortably in bed, no worsening dyspnea, no worsening cough or hypoxia, no chest pain. Appears to breathing comfortable, room air pulse ox is 97%, afebril e, patient's progastrin level came back at 0.05, patient has no evidence of leukocytosis, no fever or chills, he does have a cough, nonproductive, no phlegm production. There was questionable pneumonia on the chest x-ray in the left lower lobe, follow-up chest x-ray today showing questionable minimal atelectasis in the left lung base. The possibility of pneumonia, patient is covered with antibiotics, he is currently receiving Levaquin. Patient has received IV hydration, breathing treatments. Vital signs have been stable overnight, he denies any specific complaints. From pulmonary perspective he can be considered for discharge home Objective - Vital Signs Vital signs: Vital Signs Temp 98.9 F 08/21/21 07:47 Pulse 72 08/21/21 11:45 Resp 16 08/21/21 07:47 BP 179/74 08/21/21 07:47 Pulse Ox 97 08/21/21 07:51 FiO2 Intake & Output 08/20/21 08/21/21 08/21/21 18:59 06:59 18:59 Weight 74.843 kg Other: Voiding Method Urinal # Voids 1 1 1 - Exam GENERAL EXAM: Alert, very pleasant, 75-year-old white male, poor historian, patient is able to communicate with yes and no questions, does have history of primary apraxia of speech, comfortable in no apparent distress. HEAD: Normocephalic/atraumatic. EYES: Normal reaction of pupils, equal size. Conjunctiva pink, sclera white. NOSE: Clear with pink turbinates. THROAT: No erythema or exudates. NECK: No masses, no JVD, no thyroid enlargement, no adenopathy. CHEST: No chest wall deformity. Symmetrical expansion. LUNGS: Equal air entry with no crackles, wheeze, rhonchi or dullness. CVS: Regular rate and rhythm, normal S1 and S2, no gallops, no murmurs, no rubs ABDOMEN: Soft, nontender. No hepatosplenomegaly, normal bowel sounds, no guarding or rigidity. EXTREMITIES: No clubbing, no edema, no cyanosis, 2+ pulses and upper and lower extremities. MUSCULOSKELETAL: Muscle strength and tone normal. SPINE: No scoliosis or deformity SKIN: No rashes CENTRAL NERVOUS SYSTEM: Alert and oriented -3. No focal deficits, tone is normal in all 4 extremities. PSYCHIATRIC: Alert and oriented -3. Appropriate affect. Intact judgment and insight. - Labs CBC & Chem 7: 08/20/21 03:18 08/20/21 03:18 Labs: Microbiology - Last 24 Hours (Table) 08/20/21 03:37 Gram Stain - Preliminary Sputum Sputum Culture - Preliminary Pseudomonas spec 08/20/21 03:18 Blood Culture - Preliminary Blood No Growth after 24 hours Assessment and Plan Plan: Assessment: #1. Shortness of breath, cough and congestion, with possibility of mild left lower lobe pneumonia, community-acquired with failed outpatient treatment. Possibility of left lower lung pneumonia is doubtful based on negative pro- calcitonin level, no fever, absence of leukocytosis #2. History of advanced COPD, baseline FEV1 of 40% of predicted, not oxygen dependent at baseline #3. Former smoker #4. Primary progressive apraxia of speech, patient follows with a speech therapy on an outpatient basis #5. History of colon cancer with previous history of hemicolectomy #6. Peripheral arterial occlusive disease #7. 7 mm stable left lower lobe nodule was under surveillance for any change by Dr. Bailey on outpatient basis, had been stable and currently there is no continued need to monitor with surveillance CT scans of the chest #8. History of tobacco dependence, carries a [id number] smoking history #9. History of prostate cancer with surgery #10. History of right inguinal hernia Plan: Patient has been stable, Possibility of pneumonia seems to be less likely Vital signs have been stable, breathing comfortably Stable for discharge home from pulmonary perspective He can complete oral course of antibiotics on outpatient basis Outpatient follow-up with Dr. Bailey in the office in 7-10 days I have personally seen and examined the patient, performed the documentation and the assessment and plan as written. Number of minutes spent on the visit: [15] Time with Patient: Less than 30
[2021-08-21 14:37] VITALS: BP 179/70; PULSE 73; RESP 17; TEMP 99.1
--- NOTE | 2021-08-29 10:41 | P.DS ---
Providers Date of admission: 08/20/21 03:03 Expected date of discharge: 08/21/21 Attending physician: Finn Hernandez Consults: 08/20/21 03:03 Consult Physician Routine Consulting Provider: Giuseppe Bailey Consult Reason/Comments: known Do you want consulting provider notified?: Yes Primary care physician: Giuseppe [facility] Course: Discharge diagnosis Worsening shortness of breath, cough and congestion due to left lower lobe pneumonia. Failed outpatient antibiotic therapy. 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 Patient is on antibiotics above doxycycline as an outpatient. Patient is somewhat poor historian and communicates mainly with writing on paper. Patient has been afebrile on admission. Chest x-ray showed some mild left lower lobe pneumonia which is increased compared to recent exam. No heart failure. Laboratory data showed WBC 7.9 hemoglobin 12.7 platelets 299 Sodium 141 potassium 4.1 chloride 111 bicarb is 27 BUN 19 and creatinine 0.98 Liver enzymes are not elevated proBNP is 47 procalcitonin level 0.05 and PCR not detected for COVID-19. 08/21/2021 Patient is currently resting in the bed. Awake alert and interactive. Able to ambulate in the hallway without short of breath. No complaints of cough or sputum production. Patient has been afebrile. Procalcitonin level is not elevated. Patient will be continued on antibiotics to complete the course. Sputum culture is pending. Recommend to follow-up with pulmonary as outpatient. shortness of breath. No headache or dizziness or lightheadedness. Patient is being discharged home with antibiotics. Cleared from pulmonary standpoint. PHYSICAL EXAMINATION: Patient is lying in the bed comfortably, no acute distress, awake alert and oriented.. HEENT: Normocephalic. Neck is supple. Pupils reactive. Nostrils clear. Oral cavity is moist. Neck reveals no JVD, carotid bruits, or thyromegaly. CHEST EXAMINATION: Trachea is central. Symmetrical expansion. Lung root clear to auscultation and percussion. CARDIAC: Normal S1, S2 with no gallops. No murmurs ABDOMEN: Soft. Bowel sounds present. Nontender. No organomegaly. No abdominal bruits. Extremities: reveal no edema. No clubbing or cyanosis Neurologically awake, alert, oriented x3. Patient is aphasic. No gross focal neurological deficit. Skin: No rash or skin lesions. Psychiatric: Coperative. Nonsuicidal Musculoskeletal: No joint swelling or deformity. Normal range of motion. Vital signs: Vital Signs Temp 98.9 F 08/21/21 07:47 Pulse 72 08/21/21 11:45 Resp 16 08/21/21 07:47 BP 179/74 08/21/21 07:47 Pulse Ox 97 08/21/21 07:51 FiO2 Intake & Output 08/20/21 08/21/21 08/21/21 18:59 06:59 18:59 Weight 74.843 kg Other: Voiding Method Urinal # Voids 1 1 1 Patient Condition at Discharge: Fair Plan - Discharge Summary Discharge Rx Participant: Yes New Discharge Prescriptions: New Levofloxacin [Levaquin] 750 mg PO DAILY 5 Days #5 tab amLODIPine [Norvasc] 5 mg PO DAILY #30 tab Continue Lovastatin [Mevacor] 40 mg PO HS Tiotropium [place] [Spiriva] 1 cap INHALATION RT-DAILY Budesonide-Formot 160-4.5 Mcg [Symbicort 160-4.5 Mcg Inhaler] 2 puff INHALATION RT-BID Aspirin [Adult Low Dose Aspirin EC] 81 mg PO DAILY diphenhydrAMINE HCL [Benadryl] 25 mg PO DAILY Multivitamins, Thera [Multivitamin (formulary)] 1 tab PO DAILY Albuterol Nebulized [Ventolin Nebulized] 2.5 mg INHALATION RT-QID PRN PRN Reason: Shortness Of Breath Calcium Carbonate/Vitamin D3 [Calcium 600 mg-D3 10 Mcg (400 Iu)] 1 cap PO BID hydrOXYzine HCL [Atarax] 50 mg PO TID PRN #30 tab PRN Reason: Anxiety Donepezil [Aricept] 10 mg PO DAILY PARoxetine [Paxil] 20 mg PO DAILY Discontinued Doxycycline [Vibramycin] 100 mg PO BID 5 Days #10 capsule No Action Acetaminophen [Tylenol] 325 mg PO Q4H PRN #30 tab PRN Reason: Pain Discharge Medication List Aspirin [Adult Low Dose Aspirin EC] 81 mg PO DAILY 11/20/17 [History] Budesonide-Formot 160-4.5 Mcg [Symbicort 160-4.5 Mcg Inhaler] 2 puff INHALATION RT-BID 11/20/17 [History] Lovastatin [Mevacor] 40 mg PO HS 11/20/17 [History] Tiotropium [place] [Spiriva] 1 cap INHALATION RT-DAILY 11/20/17 [History] diphenhydrAMINE HCL [Benadryl] 25 mg PO DAILY 11/20/17 [History] Multivitamins, Thera [Multivitamin (formulary)] 1 tab PO DAILY 05/08/18 [History] Albuterol Nebulized [Ventolin Nebulized] 2.5 mg INHALATION RT-QID PRN 11/22/20 [History] Calcium Carbonate/Vitamin D3 [Calcium 600 mg-D3 10 Mcg (400 Iu)] 1 cap PO BID 02/06/21 [History] hydrOXYzine HCL [Atarax] 50 mg PO TID PRN #30 tab 08/11/21 [Rx] Donepezil [Aricept] 10 mg PO DAILY 08/17/21 [History] PARoxetine [Paxil] 20 mg PO DAILY 08/17/21 [History] Levofloxacin [Levaquin] 750 mg PO DAILY 5 Days #5 tab 08/21/21 [Rx] amLODIPine [Norvasc] 5 mg PO DAILY #30 tab 08/21/21 [Rx] Acetaminophen [Tylenol] 325 mg PO Q4H PRN #30 tab 08/27/21 [Rx] Follow up Appointment(s)/Referral(s): Giuseppe Bailey MD [Primary Care Provider] - 09/11/21 11:00 am Patient Instructions/Handouts: Pneumonia (DC) Discharge Disposition: HOME SELF-CARE
== END 2021-08-21 15:42 | disposition home or self-care (01) ==
LOC: EC 01:57 → 4SSUR 03:03 → INTOOBSV 03:03 → 4SSUR 05:29 → UNDODISIN 08-21 15:42
PROVIDERS: ADMIT Hospitalist; ATTEND Hospitalist
DX: J18.9 Pneumonia, unspecified organism (principal); E78.5 Hyperlipidemia, unspecified; J43.9 Emphysema, unspecified; B15.9 Hepatitis A without hepatic coma; F41.9 Anxiety disorder, unspecified; N32.3 Diverticulum of bladder; R48.2 Apraxia; I77.9 Disorder of arteries and arterioles, unspecified; R91.1 Solitary pulmonary nodule; Z79.899 Other long term (current) drug therapy; Z88.0 Allergy status to penicillin; Z88.1 Allergy status to other antibiotic agents; Z88.5 Allergy status to narcotic agent; Z85.46 Personal history of malignant neoplasm of prostate; Z85.038 Personal history of other malignant neoplasm of large intestine; Z87.891 Personal history of nicotine dependence; Z80.1 Family history of malignant neoplasm of trachea, bronchus and lung; Z80.8 Family history of malignant neoplasm of other organs or systems; Z82.49 Family history of ischemic heart disease and other diseases of the circulatory system
CPT/HCPCS: 96365 ×2; 96366 ×2; 96372 ×2; 96367; 99285; 36415; 94640 ×4; 93005 ×2; 83880; 80053; 80048; 83605; 83735 ×2; 84484 ×2; 85025 ×2; 85610; 85730; 81003; 87040; 87070; 87205; 87077; 87186; 84145; 87635; 87636; 71045; 71046 ×2; G0378 ×2; J1956 ×2; J1644 ×2

== ENCOUNTER 2021-08-22 08:42 | Emergency (ER) | payer MEDICARE ==
[2021-08-22 08:49] VITALS: TEMP 98
--- NOTE | 2021-08-22 09:07 | ED ---
General Adult HPI - General Chief complaint: Shortness of Breath Stated complaint: WOODY Time Seen by Provider: 08/22/21 08:45 Source: patient, EMS, RN notes reviewed, old records reviewed Mode of arrival: EMS Limitations: language barrier - History of Present Illness Initial comments: 75-year-old male presents for reevaluation of cough, dyspnea, fever. History is obtained from the patient, and paramedics. History is limited due to patient being a phasic. Patient is able to write historical details. He had recently been admitted with diagnosis of COPD and pneumonia. He states he continues to have cough and dyspnea as well as fever at home. He denies central chest pain. No lower extremity pain or swelling. - Related Data Home Medications Medication Instructions Recorded Confirmed Aspirin [Adult Low Dose Aspirin EC] 81 mg PO DAILY 11/20/17 08/20/21 Budesonide-Formot 160-4.5 Mcg 2 puff INHALATION RT-BID 11/20/17 08/20/21 [Symbicort 160-4.5 Mcg Inhaler] Lovastatin [Mevacor] 40 mg PO HS 11/20/17 08/20/21 Tiotropium [place] [Spiriva] 1 cap INHALATION RT-DAILY 11/20/17 08/20/21 diphenhydrAMINE HCL [Benadryl] 25 mg PO DAILY 11/20/17 08/20/21 Multivitamins, Thera [Multivitamin 1 tab PO DAILY 05/08/18 08/20/21 (formulary)] Albuterol Nebulized [Ventolin 2.5 mg INHALATION RT-QID PRN 11/22/20 08/20/21 Nebulized] Calcium Carbonate/Vitamin D3 1 cap PO BID 02/06/21 08/20/21 [Calcium 600 mg-D3 10 Mcg (400 Iu)] Donepezil [Aricept] 10 mg PO DAILY 08/17/21 08/20/21 PARoxetine [Paxil] 20 mg PO DAILY 08/17/21 08/20/21 Previous Rx's Medication Instructions Recorded hydrOXYzine HCL [Atarax] 50 mg PO TID PRN #30 tab 08/11/21 Levofloxacin [Levaquin] 750 mg PO DAILY 5 Days #5 tab 08/21/21 amLODIPine [Norvasc] 5 mg PO DAILY #30 tab 08/21/21 Allergies Allergy/AdvReac Type Severity Reaction Status Date / Time Penicillins Allergy Mild Rash/Hives Verified 08/20/21 07:39 cephalexin Allergy Rash/Hives Verified 08/20/21 07:39 morphine Allergy Rash/Hives Verified 08/20/21 07:39 Review of Systems ROS Statement: Those systems with pertinent positive or pertinent negative responses have been documented in the HPI. ROS Other: All systems not noted in ROS Statement are negative. Past Medical History Past Medical History: Cancer, COPD, Hyperlipidemia, Pneumonia, Prostate Disorder Additional Past Medical History / Comment(s): emphysema, small hiatal hernia, prostate cancer, colon cancer, rt inguinal hernia. HEPATITIS A- 1961, aphasia, heart murmer, hx anemia, bladder diverticulum History of Any Multi-Drug Resistant Organisms: None Reported Past Surgical History: Appendectomy, Back Surgery, Bowel Resection, Hernia Repair, Orthopedic Surgery Additional Past Surgical History / Comment(s): back surgery for herniated disk, rt shoulder rotator cuff, nilsa cataracts with lens implants, nilsa inguinal hernia, diverticulitis Past Anesthesia/Blood Transfusion Reactions: No Reported Reaction Past Psychological History: No Psychological Hx Reported Smoking Status: Former smoker - Past Family History Father Family Medical History: Cancer Mother Family Medical History: Cancer Additional Family Medical History / Comment(s): lung Cancer, Brain Cancer Sister(s) Family Medical History: Congestive Heart Failure (CHF) General Exam Limitations: no limitations General appearance: alert, in no apparent distress Head exam: Present: atraumatic, normocephalic Eye exam: Present: normal appearance, PERRL ENT exam: Present: normal exam Neck exam: Present: normal inspection. Absent: tenderness, meningismus Respiratory exam: Present: rhonchi, decreased breath sounds. Absent: respiratory distress Cardiovascular Exam: Present: regular rate, normal rhythm GI/Abdominal exam: Present: soft. Absent: distended, tenderness Extremities exam: Present: normal inspection, normal capillary refill. Absent: pedal edema, calf tenderness Neurological exam: Present: alert Psychiatric exam: Present: normal affect, normal mood Skin exam: Present: warm, dry, intact. Absent: cyanosis, diaphoretic Course Vital Signs 08/22/21 08/22/21 08:44 09:11 Temperature 98.0 F Pulse Rate 74 Respiratory 20 20 Rate Blood Pressure 122/68 O2 Sat by Pulse 100 Oximetry - Reevaluation(s) Reevaluation #1: 06/15/22 09:59 I discussed case with Dr. Hopkins who is familiar with the patient. There is no acute cardiopulmonary issue at this time. EKG Findings - EKG Comments: EKG Findings:: Sinus rhythm with PVC rate 73, UT interval 144, QRS duration 86, QTC [address] segment elevation. Medical Decision Making - Medical Decision Making I obtained additional history from the patient's son who is a unload associate teletypesetter who states that his apartment was 90+ degrees and humid. He does have air conditioning but this was not turned on. The patient is quite stable in the emergency department. No respiratory distress. He is moving good air without wheezing. He is not hypoxic requiring supplemental oxygen. He has a clear chest x-ray. He has normal laboratory testing. I discussed some of the social issues with his son and the possibility of the need for higher level of care. At this time the family would like the patient to be discharged home and will return here conditioner on and monitor closely. Return parameters discuss ed. - Lab Data Result diagrams: 08/22/21 09:05 08/22/21 09:05 Lab Results 08/22/21 08/22/21 08/22/21 Range/Units 09:05 09:05 09:05 WBC 8.0 (3.8-10.6) k/uL RBC 4.74 (4.30-5.90) m/uL Hgb 13.5 (13.0-17.5) gm/dL Hct 40.7 (39.0-53.0) % MCV 85.9 (80.0-100.0) fL MCH 28.5 (25.0-35.0) pg MCHC 33.2 (31.0-37.0) g/dL RDW 13.1 (11.5-15.5) % Plt Count 308 (150-450) k/uL MPV 6.6 Neutrophils % 78 % Lymphocytes % 11 % Monocytes % 6 % Eosinophils % 1 % Basophils % 0 % Neutrophils # 6.2 (1.3-7.7) k/uL Lymphocytes # 0.9 L (1.0-4.8) k/uL Monocytes # 0.5 (0-1.0) k/uL Eosinophils # 0.1 (0-0.7) k/uL Basophils # 0.0 (0-0.2) k/uL PT 10.8 (9.0-12.0) sec INR 1.0 (<1.2) APTT 25.9 (22.0-30.0) sec Sodium 140 (137-145) mmol/L Potassium 3.6 (3.5-5.1) mmol/L Chloride 106 (98-107) mmol/L Carbon Dioxide 25 (22-30) mmol/L Anion Gap 9 mmol/L BUN 12 (9-20) mg/dL Creatinine 0.97 (0.66-1.25) mg/dL Est GFR (CKD-EPI)AfAm 87 (>60 ml/min/1.73 sqM) Est GFR (CKD-EPI)NonAf 76 (>60 ml/min/1.73 sqM) Glucose 104 H (74-99) mg/dL Plasma Lactic Acid Venkata (0.7-2.0) mmol/L Calcium 8.6 (8.4-10.2) mg/dL Magnesium 2.0 (1.6-2.3) mg/dL Total Bilirubin 0.7 (0.2-1.3) mg/dL AST 27 (17-59) U/L ALT 19 (4-49) U/L Alkaline Phosphatase 67 (38-126) U/L Troponin I (0.000-0.034) ng/mL NT-Pro-B Natriuret Pep pg/mL Total Protein 6.2 L (6.3-8.2) g/dL Albumin 3.8 (3.5-5.0) g/dL Influenza Type A RNA (Not Detectd) Influenza Type B (PCR) (Not Detectd) 08/22/21 08/22/21 08/22/21 Range/Units 09:05 09:05 09:05 WBC (3.8-10.6) k/uL RBC (4.30-5.90) m/uL Hgb (13.0-17.5) gm/dL Hct (39.0-53.0) % MCV (80.0-100.0) fL MCH (25.0-35.0) pg MCHC (31.0-37.0) g/dL RDW (11.5-15.5) % Plt Count (150-450) k/uL MPV Neutrophils % % Lymphocytes % % Monocytes % % Eosinophils % % Basophils % % Neutrophils # (1.3-7.7) k/uL Lymphocytes # (1.0-4.8) k/uL Monocytes # (0-1.0) k/uL Eosinophils # (0-0.7) k/uL Basophils # (0-0.2) k/uL PT (9.0-12.0) sec INR (<1.2) APTT (22.0-30.0) sec Sodium (137-145) mmol/L Potassium (3.5-5.1) mmol/L Chloride (98-107) mmol/L Carbon Dioxide (22-30) mmol/L Anion Gap mmol/L BUN (9-20) mg/dL Creatinine (0.66-1.25) mg/dL Est GFR (CKD-EPI)AfAm (>60 ml/min/1.73 sqM) Est GFR (CKD-EPI)NonAf (>60 ml/min/1.73 sqM) Glucose (74-99) mg/dL Plasma Lactic Acid Venkata 1.1 (0.7-2.0) mmol/L Calcium (8.4-10.2) mg/dL Magnesium (1.6-2.3) mg/dL Total Bilirubin (0.2-1.3) mg/dL AST (17-59) U/L ALT (4-49) U/L Alkaline Phosphatase (38-126) U/L Troponin I <0.012 (0.000-0.034) ng/mL NT-Pro-B Natriuret Pep 173 pg/mL Total Protein (6.3-8.2) g/dL Albumin (3.5-5.0) g/dL Influenza Type A RNA (Not Detectd) Influenza Type B (PCR) (Not Detectd) 08/22/21 Range/Units 09:05 WBC (3.8-10.6) k/uL RBC (4.30-5.90) m/uL Hgb (13.0-17.5) gm/dL Hct (39.0-53.0) % MCV (80.0-100.0) fL MCH (25.0-35.0) pg MCHC (31.0-37.0) g/dL RDW (11.5-15.5) % Plt Count (150-450) k/uL MPV Neutrophils % % Lymphocytes % % Monocytes % % Eosinophils % % Basophils % % Neutrophils # (1.3-7.7) k/uL Lymphocytes # (1.0-4.8) k/uL Monocytes # (0-1.0) k/uL Eosinophils # (0-0.7) k/uL Basophils # (0-0.2) k/uL PT (9.0-12.0) sec INR (<1.2) APTT (22.0-30.0) sec Sodium (137-145) mmol/L Potassium (3.5-5.1) mmol/L Chloride (98-107) mmol/L Carbon Dioxide (22-30) mmol/L Anion Gap mmol/L BUN (9-20) mg/dL Creatinine (0.66-1.25) mg/dL Est GFR (CKD-EPI)AfAm (>60 ml/min/1.73 sqM) Est GFR (CKD-EPI)NonAf (>60 ml/min/1.73 sqM) Glucose (74-99) mg/dL Plasma Lactic Acid Venkata (0.7-2.0) mmol/L Calcium (8.4-10.2) mg/dL Magnesium (1.6-2.3) mg/dL Total Bilirubin (0.2-1.3) mg/dL AST (17-59) U/L ALT (4-49) U/L Alkaline Phosphatase (38-126) U/L Troponin I (0.000-0.034) ng/mL NT-Pro-B Natriuret Pep pg/mL Total Protein (6.3-8.2) g/dL Albumin (3.5-5.0) g/dL Influenza Type A RNA Not Detected (Not Detectd) Influenza Type B (PCR) Not Detected (Not Detectd) Disposition Clinical Impression: Dyspnea, COPD (chronic obstructive pulmonary disease) Disposition: HOME SELF-CARE Condition: Fair Instructions (If sedation given, give patient instructions): COPD (Chronic Obstructive Pulmonary Disease) (ED) Is patient prescribed a controlled substance at d/c from ED?: No Referrals: Giuseppe Bailey MD [Primary Care Provider] - 1-2 days Time of Disposition: 10:00
[2021-08-22 09:15] LABS: Basophils % (A) 0 %; Eosinophils # (A) 0.1 k/uL (0-0.7); Eosinophils % (A) 1 %; HCT 40.7 % (39.0-53.0); HGB 13.5 gm/dL (13.0-17.5); Lymphocytes # (A) 0.9 k/uL (1.0-4.8); Lymphocytes % (A) 11 %; MCH 28.5 pg (25.0-35.0); MCHC 33.2 g/dL (31.0-37.0); MCV 85.9 fL (80.0-100.0); Mean Platelet Volume 6.6; Monocytes # (A) 0.5 k/uL (0-1.0); Monocytes % (A) 6 %; Neutrophils # (A) 6.2 k/uL (1.3-7.7); Neutrophils % (A) 78 %; Platelet Count 308 k/uL (150-450); RBC 4.74 m/uL (4.30-5.90); RDW 13.1 % (11.5-15.5)
--- NOTE | 2021-08-22 09:21 | XR ---
EXAMINATION TYPE: XR chest 2V DATE OF EXAM: 08/22/2021 COMPARISON: Chest x-ray from yesterday HISTORY: Difficulty in breathing. TECHNIQUE: Frontal and lateral views of the chest are obtained. FINDINGS: Background chronic emphysematous change is redemonstrated. There is no suspicious focal ai r space opacity, pleural effusion, or pneumothorax seen. The cardiac silhouette size is stable and w ithin normal limits. The osseous structures are intact. IMPRESSION: Chronic emphysematous change without acute pulmonary process.
[2021-08-22 09:25] LABS: Albumin 3.8 g/dL (3.5-5.0); Calcium 8.6 mg/dL (8.4-10.2); Potassium 3.6 mmol/L (3.5-5.1); Total Bilirubin 0.7 mg/dL (0.2-1.3); Total Protein 6.2 g/dL (6.3-8.2)
[2021-08-22 09:29] LABS: Partial Thromboplastin Time 25.9 sec (22.0-30.0); Prothrombin Time 10.8 sec (9.0-12.0)
[2021-08-22 10:23] VITALS: BP 135/55; PULSE 72; RESP 18
== END 2021-08-22 10:23 | disposition home or self-care (01) ==
LOC: EC 08:42
DX: J43.9 Emphysema, unspecified (principal); E78.5 Hyperlipidemia, unspecified; Z79.82 Long term (current) use of aspirin; Z79.51 Long term (current) use of inhaled steroids; Z87.891 Personal history of nicotine dependence; Z88.0 Allergy status to penicillin; Z79.899 Other long term (current) drug therapy
CPT/HCPCS: 36415; 71046; 80053; 83605; 83735; 83880; 84484; 85025; 85610; 85730; 87502; 93005; 99285

== ENCOUNTER 2021-08-27 09:54 | Emergency (ER) | payer MEDICARE ==
--- NOTE | 2021-08-27 11:18 | XR ---
EXAMINATION TYPE: XR chest 2V DATE OF EXAM: 08/27/2021 COMPARISON: Chest x-ray 08/22/2021, CTA chest 05/18/2013 HISTORY: Cough TECHNIQUE: Frontal and lateral views of the chest are obtained. FINDINGS: There is no focal air space opacity, pleural effusion, or pneumothorax seen. The cardiac silhouette size is within normal limits. There are underlying emphysematous changes. Prominent lung v olume may be indicative of underlying COPD. There is bronchial wall thickening. The osseous structure s are intact. IMPRESSION: Correlate for bronchitis, reactive airways disease. Emphysema
--- NOTE | 2021-08-27 11:53 | ED ---
ENT HPI - General Chief complaint: ENT Stated complaint: Throat issues Time Seen by Provider: 08/27/21 10:10 Source: patient, EMS Mode of arrival: EMS - History of Present Illness Initial comments: Patient is a 75-year-old male presenting with chief complaint of sore throat. Sore throat is been present for the last 2 days. Patient has aphasia, he communicates through writing on a note pad. He also admits to a productive cough and nasal congestion. He was given antibiotics during one of his recent visits to the ER, and just finished day 5 of treatment. Patient has been to this ER 3 times in the last week, and he arrives by EMS each time. He denies any chest pain, shortness of breath, fever, chills, nausea, vomiting, abdominal pain, headache, vision or hearing changes, numbness, tingling. - Related Data Home Medications Medication Instructions Recorded Confirmed Aspirin [Adult Low Dose Aspirin EC] 81 mg PO DAILY 11/20/17 08/22/21 Budesonide-Formot 160-4.5 Mcg 2 puff INHALATION RT-BID 11/20/17 08/22/21 [Symbicort 160-4.5 Mcg Inhaler] Lovastatin [Mevacor] 40 mg PO HS 11/20/17 08/22/21 Tiotropium [place] [Spiriva] 1 cap INHALATION RT-DAILY 11/20/17 08/22/21 diphenhydrAMINE HCL [Benadryl] 25 mg PO DAILY 11/20/17 08/22/21 Multivitamins, Thera [Multivitamin 1 tab PO DAILY 05/08/18 08/22/21 (formulary)] Albuterol Nebulized [Ventolin 2.5 mg INHALATION RT-QID PRN 11/22/20 08/22/21 Nebulized] Calcium Carbonate/Vitamin D3 1 cap PO BID 02/06/21 08/22/21 [Calcium 600 mg-D3 10 Mcg (400 Iu)] Donepezil [Aricept] 10 mg PO DAILY 08/17/21 08/22/21 PARoxetine [Paxil] 20 mg PO DAILY 08/17/21 08/22/21 Previous Rx's Medication Instructions Recorded hydrOXYzine HCL [Atarax] 50 mg PO TID PRN #30 tab 08/11/21 Levofloxacin [Levaquin] 750 mg PO DAILY 5 Days #5 tab 08/21/21 amLODIPine [Norvasc] 5 mg PO DAILY #30 tab 08/21/21 Acetaminophen [Tylenol] 325 mg PO Q4H PRN #30 tab 08/27/21 Allergies Allergy/AdvReac Type Severity Reaction Status Date / Time Penicillins Allergy Mild Rash/Hives Verified 08/22/21 10:05 cephalexin Allergy Rash/Hives Verified 08/22/21 10:05 morphine Allergy Rash/Hives Verified 08/22/21 10:05 Review of Systems ROS Statement: Those systems with pertinent positive or pertinent negative responses have been documented in the HPI. ROS Other: All systems not noted in ROS Statement are negative. Past Medical History Past Medical History: Cancer, COPD, Hyperlipidemia, Pneumonia, Prostate Disorder Additional Past Medical History / Comment(s): emphysema, small hiatal hernia, prostate cancer, colon cancer, rt inguinal hernia. HEPATITIS A- 1961, aphasia, heart murmer, hx anemia, bladder diverticulum History of Any Multi-Drug Resistant Organisms: None Reported Past Surgical History: Appendectomy, Back Surgery, Bowel Resection, Hernia Repair, Orthopedic Surgery Additional Past Surgical History / Comment(s): back surgery for herniated disk, rt shoulder rotator cuff, nilsa cataracts with lens implants, nilsa inguinal hernia, diverticulitis Past Anesthesia/Blood Transfusion Reactions: No Reported Reaction Past Psychological History: No Psychological Hx Reported Smoking Status: Former smoker Past Alcohol Use History: Rare Past Drug Use History: None Reported - Past Family History Father Family Medical History: Cancer Mother Family Medical History: Cancer Additional Family Medical History / Comment(s): lung Cancer, Brain Cancer Sister(s) Family Medical History: Congestive Heart Failure (CHF) General Exam Limitations: language barrier (Aphasia, nurse confirms that this is his baseline as she has had in the patient 2 times in the last week) General appearance: alert, in no apparent distress Head exam: Present: atraumatic, normocephalic, normal inspection Eye exam: Present: normal appearance, EOMI. Absent: scleral icterus ENT exam: Present: normal exam, normal oropharynx, mucous membranes moist Neck exam: Present: normal inspection. Absent: tenderness Respiratory exam: Present: normal lung sounds bilaterally. Absent: respiratory distress, wheezes, rales, rhonchi, stridor Cardiovascular Exam: Present: regular rate, normal rhythm, normal heart sounds. Absent: systolic murmur, diastolic murmur, rubs, gallop, clicks Neurological exam: Present: alert, oriented X3, CN II-XII intact Psychiatric exam: Present: normal affect, normal mood Skin exam: Present: warm, dry, intact, normal color. Absent: rash Course Vital Signs 08/27/21 08/27/21 09:55 13:04 Temperature 98.8 F 99.2 F Pulse Rate 71 68 Respiratory 16 18 Rate Blood Pressure 148/68 148/85 O2 Sat by Pulse 97 98 Oximetry Medical Decision Making - Medical Decision Making Patient is a 75-year-old male with aphasia presenting with chief complaint of sore throat. Symptoms have been ongoing for the last 2 days. He recently finished a course of antibiotics for pneumonia. Examination is unremarkable. Patient is negative for GABHS, coronavirus, influenza. Chest x-rays negative. Nursing staff spoke with his son Ubaldo, who has an interview with 2 different nursing homes this week in order for patient to have more supervision at home, as he has called EMS several times this week. Patient will be discharged home. Follow-up with PCP. Report back to ER if any new or worsening symptoms. Discussed return parameters answered all questions. Patient was agreeable to the plan. I discussed this case with my attending Dr. Pacheco. - Lab Data Lab Results 08/27/21 08/27/21 08/27/21 Range/Units 10:41 10:41 10:41 Coronavirus (PCR) Not Detected (Not Detectd) Influenza Type A RNA Not Detected (Not Detectd) Influenza Type B (PCR) Not Detected (Not Detectd) Group A Strep Rapid Negative (Negative) Disposition Clinical Impression: Sore throat Disposition: HOME SELF-CARE Condition: Good Instructions (If sedation given, give patient instructions): Acetaminophen (By mouth), Pharyngitis (ED) Additional Instructions: Follow-up with PCP in one to 2 days. Report back to ER if any new or worsening symptoms. Take medication as prescribed. Prescriptions: Acetaminophen [Tylenol] 325 mg PO Q4H PRN #30 tab PRN Reason: Pain Is patient prescribed a controlled substance at d/c from ED?: No Referrals: Giuseppe Bailey MD [Primary Care Provider] - 1-2 days Time of Disposition: 11:53
[2021-08-27 13:05] VITALS: BP 148/85; PULSE 68; RESP 18; TEMP 99.2
== END 2021-08-27 13:04 | disposition home or self-care (01) ==
LOC: EC 09:54
DX: J02.9 Acute pharyngitis, unspecified (principal); J43.9 Emphysema, unspecified; E78.5 Hyperlipidemia, unspecified; Z87.891 Personal history of nicotine dependence; Z79.82 Long term (current) use of aspirin; Z79.51 Long term (current) use of inhaled steroids; Z79.899 Other long term (current) drug therapy; Z20.822 Contact with and (suspected) exposure to COVID-19
CPT/HCPCS: 71046; 87081; 87430; 87502; 87635; 99284

== ENCOUNTER 2021-09-03 03:40 | Emergency (ER) | payer MEDICARE ==
[2021-09-03 03:48] VITALS: TEMP 98.2
--- NOTE | 2021-09-03 06:11 | XR ---
EXAM: XR Chest, 2 Views CLINICAL HISTORY: ITS.REASON XR Reason: fever TECHNIQUE: Frontal and lateral views of the chest. COMPARISON: 08/27/21 FINDINGS: Lungs: Increasing airspace consolidation within the bilateral lower lobes. Emphysematous changes throughout the lungs, unchanged from prior. Pleural space: Unremarkable. No pneumothorax. Heart: No cardiomegaly. Mediastinum: Unremarkable. Bones/joints: Stable. IMPRESSION: Increasing airspace consolidation within the bilateral lower lobes. Correlation for acute infection and follow-up to resolution recommended.
--- NOTE | 2021-09-03 06:31 | ED ---
Fever HPI - General Chief Complaint: Fever Stated Complaint: Headache Time Seen by Provider: 09/03/21 04:02 Source: patient, EMS Mode of arrival: EMS Limitations: physical limitation (Communicating by writing) - History of Present Illness Initial Comments: This patient is 75-year-old man who presents with complaint that he is having some congestion and fever. Also having mild cough. Symptoms have been going on intermittently for quite some time. The patient denies any chest pain or dyspnea. History slightly limited as there is some expressive aphasia, patient writing notes. MD Complaint: fever, other (Congestion) -: week(s) Associated Symptoms: nasal congestion, cough - Related Data Home Medications Medication Instructions Recorded Confirmed Aspirin [Adult Low Dose Aspirin EC] 81 mg PO DAILY 11/20/17 09/03/21 Budesonide-Formot 160-4.5 Mcg 2 puff INHALATION RT-BID 11/20/17 09/03/21 [Symbicort 160-4.5 Mcg Inhaler] Lovastatin [Mevacor] 40 mg PO HS 11/20/17 09/03/21 Tiotropium [place] [Spiriva] 1 cap INHALATION RT-DAILY 11/20/17 09/03/21 diphenhydrAMINE HCL [Benadryl] 25 mg PO DAILY 11/20/17 09/03/21 Multivitamins, Thera [Multivitamin 1 tab PO DAILY 05/08/18 09/03/21 (formulary)] Albuterol Nebulized [Ventolin 2.5 mg INHALATION RT-QID PRN 11/22/20 09/03/21 Nebulized] Calcium Carbonate/Vitamin D3 1 cap PO BID 02/06/21 09/03/21 [Calcium 600 mg-D3 10 Mcg (400 Iu)] Donepezil [Aricept] 10 mg PO DAILY 08/17/21 09/03/21 PARoxetine [Paxil] 20 mg PO DAILY 08/17/21 09/03/21 ALPRAZolam [Xanax] 0.5 mg PO Q8H PRN 09/03/21 09/03/21 [place] Unknown Dose 1 puff INHALATION RT-BID 09/03/21 09/03/21 Previous Rx's Medication Instructions Recorded amLODIPine [Norvasc] 5 mg PO DAILY #30 tab 08/21/21 Acetaminophen [Tylenol] 325 mg PO Q4H PRN #30 tab 08/27/21 Allergies Allergy/AdvReac Type Severity Reaction Status Date / Time Penicillins Allergy Mild Rash/Hives Verified 09/03/21 09:58 cephalexin Allergy Rash/Hives Verified 09/03/21 09:58 morphine Allergy Rash/Hives Verified 09/03/21 09:58 Review of Systems ROS Statement: Those systems with pertinent positive or pertinent negative responses have been documented in the HPI. ROS Other: All systems not noted in ROS Statement are negative. Limitations: ROS unobtainable due to patients medical condition Constitutional: Reports: fever. Denies: weakness ENT: Reports: congestion. Denies: throat pain Respiratory: Reports: cough. Denies: dyspnea, wheezes Cardiovascular: Denies: chest pain, palpitations, edema Gastrointestinal: Denies: abdominal pain, vomiting, diarrhea Genitourinary: Denies: dysuria Skin: Denies: rash Neurological: Denies: headache Past Medical History Past Medical History: Cancer, COPD, Hyperlipidemia, Pneumonia, Prostate Disorder Additional Past Medical History / Comment(s): emphysema, small hiatal hernia, prostate cancer, colon cancer, rt inguinal hernia. HEPATITIS A- 1961, aphasia, heart murmer, hx anemia, bladder diverticulum History of Any Multi-Drug Resistant Organisms: None Reported Past Surgical History: Appendectomy, Back Surgery, Bowel Resection, Hernia Repair, Orthopedic Surgery Additional Past Surgical History / Comment(s): back surgery for herniated disk, rt shoulder rotator cuff, nilsa cataracts with lens implants, nilsa inguinal hernia, diverticulitis Past Anesthesia/Blood Transfusion Reactions: No Reported Reaction Past Psychological History: No Psychological Hx Reported Smoking Status: Former smoker Past Alcohol Use History: Rare Past Drug Use History: None Reported - Past Family History Father Family Medical History: Cancer Mother Family Medical History: Cancer Additional Family Medical History / Comment(s): lung Cancer, Brain Cancer Sister(s) Family Medical History: Congestive Heart Failure (CHF) General Exam Limitations: no limitations General appearance: alert, in no apparent distress Head exam: Present: atraumatic, normocephalic Eye exam: Present: normal appearance. Absent: scleral icterus, conjunctival injection ENT exam: Present: normal oropharynx Neck exam: Present: normal inspection, full ROM Respiratory exam: Present: normal lung sounds bilaterally. Absent: respiratory distress, wheezes, rales, rhonchi, stridor, accessory muscle use Cardiovascular Exam: Present: regular rate, normal rhythm, normal heart sounds. Absent: systolic murmur, diastolic murmur, rubs, gallop GI/Abdominal exam: Present: soft. Absent: distended, tenderness, guarding, re bound, rigid, mass Extremities exam: Present: normal inspection Back exam: Present: normal inspection. Absent: CVA tenderness (R), CVA tenderness (L) Neurological exam: Present: alert Skin exam: Present: warm, dry, intact, normal color. Absent: rash Course Vital Signs 09/03/21 09/03/21 03:46 06:32 Temperature 98.2 F Pulse Rate 82 75 Respiratory 16 18 Rate Blood Pressure 151/67 144/64 O2 Sat by Pulse 96 95 Oximetry Medical Decision Making - Lab Data Lab Results 09/03/21 09/03/21 Range/Units 04:42 04:42 Coronavirus (PCR) Not Detected (Not Detectd) Influenza Type A RNA Not Detected (Not Detectd) Influenza Type B (PCR) Not Detected (Not Detectd) Disposition Clinical Impression: Upper respiratory infection Disposition: HOME SELF-CARE Condition: Good Instructions (If sedation given, give patient instructions): Upper Respiratory Infection (ED) Is patient prescribed a controlled substance at d/c from ED?: No Referrals: Giuseppe Bailey MD [Primary Care Provider] - 1-2 days
[2021-09-03 06:33] VITALS: BP 144/64; PULSE 75; RESP 18
== END 2021-09-03 07:05 | disposition home or self-care (01) ==
LOC: EC 03:40
DX: J06.9 Acute upper respiratory infection, unspecified (principal); J44.9 Chronic obstructive pulmonary disease, unspecified; E78.5 Hyperlipidemia, unspecified; Z20.822 Contact with and (suspected) exposure to COVID-19; Z87.891 Personal history of nicotine dependence; Z88.5 Allergy status to narcotic agent; Z88.0 Allergy status to penicillin; Z88.1 Allergy status to other antibiotic agents
CPT/HCPCS: 71046; 87502; 87635

== ENCOUNTER 2021-09-03 07:43 | Observation (INO) | payer MEDICARE ==
[2021-09-03] MEDS ORDERED: IPRATROPIUM-ALBUTEROL 3 ML NEB INHALATION STA (08:37)
[2021-09-03 08:57] LABS: Basophils # (A) 0.1 k/uL (0-0.2); Basophils % (A) 0 %; Eosinophils # (A) 0.3 k/uL (0-0.7); Eosinophils % (A) 1 %; HCT 38.6 % (39.0-53.0); HGB 12.6 gm/dL (13.0-17.5); Lymphocytes # (A) 0.6 k/uL (1.0-4.8); Lymphocytes % (A) 3 %; MCH 28.4 pg (25.0-35.0); MCHC 32.6 g/dL (31.0-37.0); MCV 87.2 fL (80.0-100.0); Mean Platelet Volume 6.7; Monocytes # (A) 0.7 k/uL (0-1.0); Monocytes % (A) 4 %; Neutrophils # (A) 17.3 k/uL (1.3-7.7); Neutrophils % (A) 91 %; Platelet Count 323 k/uL (150-450); RBC 4.43 m/uL (4.30-5.90); RDW 13.1 % (11.5-15.5)
[2021-09-03 09:08] LABS: ALT 22 U/L (4-49); AST 26 U/L (17-59); African American GFR (CKD) >90 (>60 ml/min/1.73 sqM); Albumin 3.9 g/dL (3.5-5.0); Alkaline Phosphatase 74 U/L (38-126); Anion Gap 8 mmol/L; Blood Urea Nitrogen 17 mg/dL (9-20); Calcium 8.6 mg/dL (8.4-10.2); Carbon Dioxide 26 mmol/L (22-30); Chloride 106 mmol/L (98-107); Glucose 130 mg/dL (74-99); Magnesium 2.1 mg/dL (1.6-2.3); Non-African American GFR(CKD) 78 (>60 ml/min/1.73 sqM); Sodium 140 mmol/L (137-145); Total Bilirubin 0.7 mg/dL (0.2-1.3); Total Protein 6.3 g/dL (6.3-8.2)
[2021-09-03 09:11] LABS: Prothrombin Time 10.4 sec (9.0-12.0)
[2021-09-03] MEDS ORDERED: PNEUMONIA PROTOCOL UTILIZED 1 EACH MISC PO PRN (09:59)
[2021-09-03] MEDS ORDERED: LEVOFLOXACIN 750MG-D5W PMX 750 MG in DEXTROSE/WATER 1 150ML.BAG IVPB STA (10:02)
--- NOTE | 2021-09-03 10:03 | ED ---
SOB HPI - General Chief Complaint: Shortness of Breath Stated Complaint: SOB Time Seen by Provider: 09/03/21 07:55 Source: patient Mode of arrival: wheelchair Limitations: no limitations - History of Present Illness Initial Comments: 75-year-old male with past medical history of COPD presents to the emergency room with shortness of breath. Patient was seen earlier this morning for similar complaint. Chest x-ray and Covid test was performed. Patient was discharged home. Presents again for reevaluation. Continues to be short of breath and is now complaining of chest pain. No previous cardiac history. Admits to a nonproductive cough. Patient not currently on antibiotics however previously was 2 weeks ago. Patient also admitted this month for failed outpatient treatment of pneumonia. - Related Data Home Medications Medication Instructions Recorded Confirmed Aspirin [Adult Low Dose Aspirin EC] 81 mg PO DAILY 11/20/17 09/03/21 Budesonide-Formot 160-4.5 Mcg 2 puff INHALATION RT-BID 11/20/17 09/03/21 [Symbicort 160-4.5 Mcg Inhaler] Lovastatin [Mevacor] 40 mg PO HS 11/20/17 09/03/21 Tiotropium [place] [Spiriva] 1 cap INHALATION RT-DAILY 11/20/17 09/03/21 diphenhydrAMINE HCL [Benadryl] 25 mg PO DAILY 11/20/17 09/03/21 Multivitamins, Thera [Multivitamin 1 tab PO DAILY 05/08/18 09/03/21 (formulary)] Albuterol Nebulized [Ventolin 2.5 mg INHALATION RT-QID PRN 11/22/20 09/03/21 Nebulized] Calcium Carbonate/Vitamin D3 1 cap PO BID 02/06/21 09/03/21 [Calcium 600 mg-D3 10 Mcg (400 Iu)] Donepezil [Aricept] 10 mg PO DAILY 08/17/21 09/03/21 PARoxetine [Paxil] 20 mg PO DAILY 08/17/21 09/03/21 ALPRAZolam [Xanax] 0.5 mg PO Q8H PRN 09/03/21 09/03/21 [place] Unknown Dose 1 puff INHALATION RT-BID 09/03/21 09/03/21 Previous Rx's Medication Instructions Recorded amLODIPine [Norvasc] 5 mg PO DAILY #30 tab 08/21/21 Acetaminophen [Tylenol] 325 mg PO Q4H PRN #30 tab 08/27/21 Levofloxacin [Levaquin] 750 mg PO Q48H 3 Days #3 tab 09/05/21 predniSONE 10 mg PO DIRECTED #40 tab 09/05/21 Allergies Allergy/AdvReac Type Severity Reaction Status Date / Time Penicillins Allergy Mild Rash/Hives Verified 09/04/21 18:12 cephalexin Allergy Rash/Hives Verified 09/04/21 18:12 morphine Allergy Rash/Hives Verified 09/04/21 18:12 Review of Systems ROS Statement: Those systems with pertinent positive or pertinent negative responses have been documented in the HPI. ROS Other: All systems not noted in ROS Statement are negative. Past Medical History Past Medical History: Cancer, COPD, Hyperlipidemia, Pneumonia, Prostate Disorder Additional Past Medical History / Comment(s): emphysema, small hiatal hernia, prostate cancer, colon cancer, rt inguinal hernia. HEPATITIS A- 1961, aphasia, heart murmer, hx anemia, bladder diverticulum History of Any Multi-Drug Resistant Organisms: None Reported Past Surgical History: Appendectomy, Back Surgery, Bowel Resection, Hernia Repair, Orthopedic Surgery Additional Past Surgical History / Comment(s): back surgery for herniated disk, rt shoulder rotator cuff, nilsa cataracts with lens implants, nilsa inguinal hernia, diverticulitis Past Anesthesia/Blood Transfusion Reactions: No Reported Reaction Past Psychological History: No Psychological Hx Reported Smoking Status: Former smoker Past Alcohol Use History: Rare Past Drug Use History: None Reported - Past Family History Father Family Medical History: Cancer Mother Family Medical History: Cancer Additional Family Medical History / Comment(s): lung Cancer, Brain Cancer Sister(s) Family Medical History: Congestive Heart Failure (CHF) General Exam Limitations: no limitations General appearance: alert, in no apparent distress Head exam: Present: atraumatic, normocephalic, normal inspection Eye exam: Present: normal appearance, PERRL, EOMI. Absent: scleral icterus, conjunctival injection, periorbital swelling ENT exam: Present: normal exam, mucous membranes moist Neck exam: Present: normal inspection. Absent: tenderness, meningismus, lymphadenopathy Respiratory exam: Present: wheezes. Absent: respiratory distress, rales, rho nchi, stridor Cardiovascular Exam: Present: regular rate, normal rhythm, normal heart sounds. Absent: systolic murmur, diastolic murmur, rubs, gallop, clicks GI/Abdominal exam: Present: soft, normal bowel sounds. Absent: distended, tenderness, guarding, rebound, rigid Extremities exam: Present: normal inspection, full ROM, normal capillary refill. Absent: tenderness, pedal edema, joint swelling, calf tenderness Back exam: Present: normal inspection Neurological exam: Present: alert, oriented X3, CN II-XII intact Psychiatric exam: Present: normal affect, normal mood Skin exam: Present: warm, dry, intact, normal color. Absent: rash Course Vital Signs 09/03/21 09/03/21 09/03/21 07:50 07:59 08:00 Temperature 97.7 F Pulse Rate 86 86 Respiratory 16 18 18 Rate Blood Pressure 131/68 152/90 O2 Sat by Pulse 96 96 Oximetry 09/03/21 09/03/21 09/03/21 09:05 09:15 10:10 Temperature Pulse Rate 75 72 74 Respiratory 16 Rate Blood Pressure 137/62 O2 Sat by Pulse 96 Oximetry Medical Decision Making - Medical Decision Making Upon arrival patient is placed into room 15. Thorough history and physical exam was performed. The patient placed on continuous pulse ox and cardiac monitoring. Laboratory studies are obtained. I did review the patient's previous ER visit. White count is elevated at 19. Chest x-ray from earlier today had shown worsening lower lobe consolidation. As the patient was recently on antibiotics for pneumonia admitted for IV antibiotics. Spoke with the patient's son who is agreeable. Spoke with Dr. jolly who agreed to admit the patient. Patient taken to the floor in stable condition - Lab Data Result diagrams: 09/05/21 06:11 09/05/21 06:11 Lab Results 09/03/21 09/03/21 09/03/21 Range/Units 08:42 08:42 08:42 WBC 19.0 H (3.8-10.6) k/uL RBC 4.43 (4.30-5.90) m/uL Hgb 12.6 L (13.0-17.5) gm/dL Hct 38.6 L (39.0-53.0) % MCV 87.2 (80.0-100.0) fL MCH 28.4 (25.0-35.0) pg MCHC 32.6 (31.0-37.0) g/dL RDW 13.1 (11.5-15.5) % Plt Count 323 (150-450) k/uL MPV 6.7 Immature Gran % (Auto) % Absolute Nucleated RBC (0.00-0.00) X 10*3/uL Neutrophils % 91 % Lymphocytes % 3 % Monocytes % 4 % Eosinophils % 1 % Basophils % 0 % Immature Gran # (0.00-0.04) X 10*3/uL Neutrophils # 17.3 H (1.3-7.7) k/uL Lymphocytes # 0.6 L (1.0-4.8) k/uL Monocytes # 0.7 (0-1.0) k/uL Eosinophils # 0.3 (0-0.7) k/uL Basophils # 0.1 (0-0.2) k/uL NRBC/100 WBC Diff (0.0-0.0) /100 WBCS PT 10.4 (9.0-12.0) sec INR 1.0 (<1.2) APTT 24.0 (22.0-30.0) sec D-Dimer 0.34 (<0.60) mg/L FEU Sodium 140 (137-145) mmol/L Potassium 4.0 (3.5-5.1) mmol/L Chloride 106 (98-107) mmol/L Carbon Dioxide 26 (22-30) mmol/L Anion Gap 8 mmol/L BUN 17 (9-20) mg/dL Creatinine 0.94 (0.66-1.25) mg/dL Est GFR (CKD-EPI)AfAm >90 (>60 ml/min/1.73 sqM) Est GFR (CKD-EPI)NonAf 78 (>60 ml/min/1.73 sqM) BUN/Creatinine Ratio (12.00-20.00) Ratio Glucose 130 H (74-99) mg/dL Calcium 8.6 (8.4-10.2) mg/dL Magnesium 2.1 (1.6-2.3) mg/dL Total Bilirubin 0.7 (0.2-1.3) mg/dL AST 26 (17-59) U/L ALT 22 (4-49) U/L Alkaline Phosphatase 74 (38-126) U/L Troponin I (0.000-0.034) ng/mL NT-Pro-B Natriuret Pep pg/mL Total Protein 6.3 (6.3-8.2) g/dL Albumin 3.9 (3.5-5.0) g/dL Procalcitonin (0.02-0.09) ng/mL 09/03/21 09/03/21 09/03/21 Range/Units 08:42 08:42 08:42 WBC (3.8-10.6) k/uL RBC (4.30-5.90) m/uL Hgb (13.0-17.5) gm/dL Hct (39.0-53.0) % MCV (80.0-100.0) fL MCH (25.0-35.0) pg MCHC (31.0-37.0) g/dL RDW (11.5-15.5) % Plt Count (150-450) k/uL MPV Immature Gran % (Auto) % Absolute Nucleated RBC (0.00-0.00) X 10*3/uL Neutrophils % % Lymphocytes % % Monocytes % % Eosinophils % % Basophils % % Immature Gran # (0.00-0.04) X 10*3/uL Neutrophils # (1.3-7.7) k/uL Lymphocytes # (1.0-4.8) k/uL Monocytes # (0-1.0) k/uL Eosinophils # (0-0.7) k/uL Basophils # (0-0.2) k/uL NRBC/100 WBC Diff (0.0-0.0) /100 WBCS PT (9.0-12.0) sec INR (<1.2) APTT (22.0-30.0) sec D-Dimer (<0.60) mg/L FEU Sodium (137-145) mmol/L Potassium (3.5-5.1) mmol/L Chloride (98-107) mmol/L Carbon Dioxide (22-30) mmol/L Anion Gap mmol/L BUN (9-20) mg/dL Creatinine (0.66-1.25) mg/dL Est GFR (CKD-EPI)AfAm (>60 ml/min/1.73 sqM) Est GFR (CKD-EPI)NonAf (>60 ml/min/1.73 sqM) BUN/Creatinine Ratio (12.00-20.00) Ratio Glucose (74-99) mg/dL Calcium (8.4-10.2) mg/dL Magnesium (1.6-2.3) mg/dL Total Bilirubin (0.2-1.3) mg/dL AST (17-59) U/L ALT (4-49) U/L Alkaline Phosphatase (38-126) U/L Troponin I <0.012 (0.000-0.034) ng/mL NT-Pro-B Natriuret Pep 63 pg/mL Total Protein (6.3-8.2) g/dL Albumin (3.5-5.0) g/dL Procalcitonin 0.11 H (0.02-0.09) ng/mL 09/04/21 09/04/21 Range/Units 05:28 05:28 WBC 11.67 H (3.8-10.6) k/uL RBC 4.59 (4.30-5.90) m/uL Hgb 12.5 L (13.0-17.5) gm/dL Hct 39.0 L (39.0-53.0) % MCV 85.0 (80.0-100.0) fL MCH 27.2 (25.0-35.0) pg MCHC 32.1 (31.0-37.0) g/dL RDW 13.2 (11.5-15.5) % Plt Count 320 (150-450) k/uL MPV 9.1 L Immature Gran % (Auto) 0.9 % Absolute Nucleated RBC 0 (0.00-0.00) X 10*3/uL Neutrophils % 91.4 % Lymphocytes % 5.4 % Monocytes % 2.2 % Eosinophils % 0 % Basophils % 0.1 % Immature Gran # 0.11 H (0.00-0.04) X 10*3/uL Neutrophils # 10.66 H (1.3-7.7) k/uL Lymphocytes # 0.63 L (1.0-4.8) k/uL Monocytes # 0.26 (0-1.0) k/uL Eosinophils # 0 L (0-0.7) k/uL Basophils # 0.01 (0-0.2) k/uL NRBC/100 WBC Diff 0 (0.0-0.0) /100 WBCS PT (9.0-12.0) sec INR (<1.2) APTT (22.0-30.0) sec D-Dimer (<0.60) mg/L FEU Sodium 138 (137-145) mmol/L Potassium 3.8 (3.5-5.1) mmol/L Chloride 101 (98-107) mmol/L Carbon Dioxide 24.1 (22-30) mmol/L Anion Gap 12.90 mmol/L BUN 17.9 (9-20) mg/dL Creatinine 1.0 (0.66-1.25) mg/dL Est GFR (CKD-EPI)AfAm 83.8 (>60 ml/min/1.73 sqM) Est GFR (CKD-EPI)NonAf 72.3 (>60 ml/min/1.73 sqM) BUN/Creatinine Ratio 17.90 (12.00-20.00) Ratio Glucose 145 H (74-99) mg/dL Calcium 9.1 (8.4-10.2) mg/dL Magnesium (1.6-2.3) mg/dL Total Bilirubin (0.2-1.3) mg/dL AST (17-59) U/L ALT (4-49) U/L Alkaline Phosphatase (38-126) U/L Troponin I (0.000-0.034) ng/mL NT-Pro-B Natriuret Pep pg/mL Total Protein (6.3-8.2) g/dL Albumin (3.5-5.0) g/dL Procalcitonin (0.02-0.09) ng/mL - EKG Data EKG Comments: EKG demonstrates normal sinus rhythm with a rate of 78. MN interval 124. QRS 85. QTC of 355. No acute ST segment elevations or depressions Disposition Clinical Impression: Community acquired pneumonia, Failure of outpatient treatment, Leukocytosis, Chest pain Disposition: ADMITTED IP TO THIS [facility] Condition: Stable Is patient prescribed a controlled substance at d/c from ED?: No Time of Disposition: 10:04 Decision to Admit Reason: Admit from EC Decision Date: 09/03/21 Decision Time: 10:04
[2021-09-03] MEDS ORDERED: methylPREDNISolone SOD SUCCI 125 MG/2 ML VIAL IV STA (10:05)
[2021-09-03] MEDS: IPRATROPIUM-ALBUTEROL 3 ML NEB INHALATION SCH ×3 (11:39→20:57)
[2021-09-03] MEDS ORDERED: ACETAMINOPHEN TAB 325 MG TAB PO PRN (13:18)
[2021-09-03] MEDS ORDERED: ALBUTEROL NEBULIZED 2.5 MG/3 ML INHALATION PRN (13:18)
--- NOTE | 2021-09-03 15:02 | HP ---
HISTORY AND PHYSICAL DATE OF SERVICE: 09/03/2021 CHIEF COMPLAINT: Shortness of breath. HISTORY OF PRESENT ILLNESS: This 75-year-old gentleman with a past medical history of COPD, hypertension, pneumonia, history of prostate disorder being followed by Dr. Bailey in the outpatient setting has multiple hospital admissions. Patient had shortness of breath and cough and sputum. Patient was suspected of bilateral pneumonia. Patient admitted to the hospital for further evaluation and treatment. The patient was seen earlier yesterday morning and discharged. The patient came back and because of increasing symptoms, patient was admitted for evaluation treatment. Currently the patient is minimally verbal. Most of the history taken from my discussion with staff and review of chart at this time. PAST MEDICAL HISTORY: History of COPD, hyperlipidemia, pneumonia. HOME MEDICATIONS: Reviewed and include: Norvasc. Doses and rest of medication noted. ALLERGIES: Reviewed and include PENICILLIN. Family history, social history and review of systems could not be taken because of above mentioned reasons. PHYSICAL EXAMINATION: Pulse is 80. Blood pressure 134/50, respiration 18. Patient is conscious, mildly confused. HEENT: Conjunctivae normal. NECK: No JVD. CARDIOVASCULAR: S1, S2 muffled. RESPIRATION: Breath sounds diminished in the bases. Bilateral scattered rhonchi and crackles. ABDOMEN: Soft, nontender. LEGS: No edema. No swelling. NERVOUS SYSTEM: No focal deficits. SKIN: No ulcer, rash or bleeding. JOINTS: No active deforming arthropathy. LABS: WBC 19, other labs as well as noted. ASSESSMENT: 1. Chronic obstructive pulmonary disease, acute exacerbation with acute bibasilar pneumonia. 2. Hyperlipidemia. 3. History of prostate disorder. 4. History of hiatal hernia. 5. Multiple medical issues. RECOMMENDATION: This 75-year-old gentleman presented with multiple complex medical issues. We will optimize bronchodilator treatment, empiric antibiotics, IV steroids and closely follow with Pulmonary. PT/OT evaluation. Possible ECF rehab. Guarded prognosis because of multiple complex medical issues. Further recommendations to follow. MMODL / IJN: [id number] /
[2021-09-03] MEDS: PANTOPRAZOLE 40 MG TABLET PO SCH (15:39)
--- NOTE | 2021-09-03 16:17 | P.CNPUL ---
History of Present Illness Consult date: 09/03/21 Reason for consult: dyspnea, COPD History of present illness: This is a 75-year-old male patient with past medical history of COPD, and baseline FEV1 of 40%, previous episodes of pneumonia, former smoker, peripheral arterial occlusive disease, prostate cancer with surgery, colon cancer with history of hemicolectomy and primary progressive apraxia of speech. Patient follows with me in the pulmonary clinic. Patient has completed his COVID-19 vaccination and received 2 shots in a booster. the patient was recently hospitalized on 08/21/2019 2. acute COPD exacerbation, seen by our service and the patient was treated and discharged home. During his last admission, the sputum culture was positive for pseudomonas aeruginosa, and at the time of discharge, the patient was given Levaquin 750 mg to complete a 5 day course along with his routine respiratory medications.the patient came back to the emergency care yesterday because of similar complaints of increased shortness of breath. He was evaluated in emergency department. He was afebrile. The patient was hemodynamically stable. The white cell count was 19 with a hemoglobin of 12.6 and a platelet count of 323. Sodium was at 140 with a creatinine of 0.9. LFTs are within normal limits. normal renal function, normal creatinine, normal coagulation profile, COVID 19 testing was negative and the patient had a negative influenza A and B screen. Review of Systems All systems:difficult to obtain a review of system as the patient has an expressive apraxia Constitutional: Denies chills, Denies fever Eyes: denies blurred vision, denies pain Ears, nose, mouth and throat: Denies headache, Denies sore throat Cardiovascular: Denies chest pain, Denies shortness of breath Respiratory: Reports cough with sputum, Reports dyspnea, Denies cough Gastrointestinal: Denies abdominal pain, Denies diarrhea, Denies nausea, Denies vomiting Musculoskeletal: Denies myalgias Integumentary: Denies pruritus, Denies rash Neurological: Denies numbness, Denies weakness, unable to verbalize because of expressive apraxia of speech Psychiatric: Denies anxiety, Denies depression Endocrine: Denies fatigue, Denies weight change Past Medical History Past Medical History: Cancer, COPD, Hyperlipidemia, Pneumonia, Prostate Disorder Additional Past Medical History / Comment(s): emphysema, small hiatal hernia, prostate cancer, colon cancer, rt inguinal hernia. HEPATITIS A- 1961, aphasia, heart murmer, hx anemia, bladder diverticulum History of Any Multi-Drug Resistant Organisms: None Reported Past Surgical History: Appendectomy, Back Surgery, Bowel Resection, Hernia Repair, Orthopedic Surgery Additional Past Surgical History / Comment(s): back surgery for herniated disk, rt shoulder rotator cuff, nilsa cataracts with lens implants, nilsa inguinal hernia, diverticulitis Past Anesthesia/Blood Transfusion Reactions: No Reported Reaction Past Psychological History: No Psychological Hx Reported Smoking Status: Former smoker Past Alcohol Use History: Rare Past Drug Use History: None Reported - Past Family History Father Family Medical History: Cancer Mother Family Medical History: Cancer Additional Family Medical History / Comment(s): lung Cancer, Brain Cancer Sister(s) Family Medical History: Congestive Heart Failure (CHF) Medications and Allergies Home Medications Medication Instructions Recorded Confirmed Type Aspirin [Adult Low Dose Aspirin EC] 81 mg PO DAILY 11/20/17 09/03/21 History Budesonide-Formot 160-4.5 Mcg 2 puff INHALATION RT-BID 11/20/17 09/03/21 History [Symbicort 160-4.5 Mcg Inhaler] Lovastatin [Mevacor] 40 mg PO HS 11/20/17 09/03/21 History Tiotropium [place] [Spiriva] 1 cap INHALATION RT-DAILY 11/20/17 09/03/21 History diphenhydrAMINE HCL [Benadryl] 25 mg PO DAILY 11/20/17 09/03/21 History Multivitamins, Thera [Multivitamin 1 tab PO DAILY 05/08/18 09/03/21 History (formulary)] Albuterol Nebulized [Ventolin 2.5 mg INHALATION RT-QID PRN 11/22/20 09/03/21 History Nebulized] Calcium Carbonate/Vitamin D3 1 cap PO BID 02/06/21 09/03/21 History [Calcium 600 mg-D3 10 Mcg (400 Iu)] Donepezil [Aricept] 10 mg PO DAILY 08/17/21 09/03/21 History PARoxetine [Paxil] 20 mg PO DAILY 08/17/21 09/03/21 History amLODIPine [Norvasc] 5 mg PO DAILY #30 tab 08/21/21 09/03/21 Rx Acetaminophen [Tylenol] 325 mg PO Q4H PRN #30 tab 08/27/21 09/03/21 Rx ALPRAZolam [Xanax] 0.5 mg PO Q8H PRN 09/03/21 09/03/21 History W[place] Unknown Dose 1 puff INHALATION RT-BID 09/03/21 09/03/21 History Allergies Allergy/AdvReac Type Severity Reaction Status Date / Time Penicillins Allergy Mild Rash/Hives Verified 09/03/21 09:58 cephalexin Allergy Rash/Hives Verified 09/03/21 09:58 morphine Allergy Rash/Hives Verified 09/03/21 09:58 Physical Exam Vitals: Vital Signs Temp Pulse Pulse Resp BP BP Pulse Ox 09/03/21 12:37 18 09/03/21 11:57 76 09/03/21 11:43 76 95 09/03/21 11:33 98.1 F 80 18 134/65 94 L 09/03/21 10:10 74 16 137/62 96 09/03/21 09:15 72 09/03/21 09:05 75 09/03/21 08:00 18 09/03/21 07:59 86 18 152/90 96 09/03/21 07:50 97.7 F 86 16 131/68 96 FiO2 09/03/21 12:37 09/03/21 11:57 09/03/21 11:43 21 09/03/21 11:33 09/03/21 10:10 09/03/21 09:15 09/03/21 09:05 09/03/21 08:00 09/03/21 07:59 09/03/21 07:50 Intake and Output 09/02/21 09/03/21 09/03/21 22:59 06:59 14:59 Other: Voiding Method Toilet Weight 68.039 kg GENERAL EXAM: Alert, very pleasant, 75-year-old white male, poor historian, patient is able to communicate with yes and no questions, does have history of primary apraxia of speech, comfortable in no apparent distress.breathing is nonlabored and the patient is resting comfortably in bed,currently on room air oxygen HEAD: Normocephalic/atraumatic. EYES: Normal reaction of pupils, equal size. Conjunctiva pink, sclera white. NOSE: Clear with pink turbinates. THROAT: No erythema or exudates. NECK: No masses, no JVD, no thyroid enlargement, no adenopathy. CHEST: No chest wall deformity. Symmetrical expansion. LUNGS: Equal air entry with no crackles, wheeze, rhonchi or dullness. CVS: Regular rate and rhythm, normal S1 and S2, no gallops, no murmurs, no rubs ABDOMEN: Soft, nontender. No hepatosplenomegaly, normal bowel sounds, no guarding or rigidity. EXTREMITIES: No clubbing, no edema, no cyanosis, 2+ pulses and upper and lower extremities. MUSCULOSKELETAL: Muscle strength and tone normal. SPINE: No scoliosis or deformity SKIN: No rashes CENTRAL NERVOUS SYSTEM: Alert and oriented -3. No focal deficits, tone is normal in all 4 extremities.unable to communicate because of speech apraxia PSYCHIATRIC: Alert and oriented -3. Appropriate affect. Intact judgment and insight. Results - Laboratory Findings CBC and BMP: 09/03/21 08:42 09/03/21 08:42 PT/INR, D-dimer PT 10.4 sec (9.0-12.0) 09/03/21 08:42 INR 1.0 (<1.2) 09/03/21 08:42 D-Dimer 0.34 mg/L FEU (<0.60) 09/03/21 08:42 Abnormal lab findings: Abnormal Labs 09/03/21 09/03/21 08:42 08:42 WBC 19.0 H Hgb 12.6 L Hct 38.6 L Neutrophils # 17.3 H Lymphocytes # 0.6 L Glucose 130 H - Diagnostic Findings Chest x-ray: image reviewed Assessment and Plan Plan: #1. COPD exacerbation with a recent sputum culture showing pseudomonas aeruginosa treated during an earlier hospitalization on 08/20/2021. Patient completed a course of Levaquin on outpatient basis. the chest x-ray during this current admission shows increasing airspace consolidation in the lower lobes bilaterally. Not clear if this is truly a pneumonia. #2. History of advanced COPD, baseline FEV1 of 40% of predicted, not oxygen dependent at baseline #3. Former smoker #4. Primary progressive apraxia of speech, patient follows with a speech therapy on an outpatient basis #5. History of colon cancer with previous history of hemicolectomy #6. Peripheral arterial occlusive disease #7. 7 mm stable left lower lobe nodule was under surveillance for any change by Dr. Bailey on outpatient basis, had been stable and currently there is no continued need to monitor with surveillance CT scans of the chest #8. History of tobacco dependence, carries a [id number] smoking history #9. History of prostate cancer with surgery plan Put the patient on Levaquin Check pro calcitonin level Continue DuoNeb nebulized treatments around the clock Continued IV Solu-Medrol Resume all medications We'll continue to follow
[2021-09-03] MEDS: SYMBICORT 160-4.5 MCG INHALER INHALATION SCH (20:57)
[2021-09-03] MEDS: ALPRAZolam 0.5 MG TAB PO PRN (21:30)
[2021-09-03] MEDS: ATORVASTATIN 10 MG TAB PO SCH (21:30)
[2021-09-03] MEDS: CALCIUM CARB-VIT D 500 MG-5 MCG TAB PO SCH (21:30)
[2021-09-03] MEDS: HEPARIN SODIUM,PORCINE/PF 5,000 UNIT/0.5 ML SYRINGE SQ SCH (21:30)
[2021-09-03] MEDS: methylPREDNISolone SOD SUCCI 40 MG/ML 1 ML VIAL IV SCH (21:30)
[2021-09-04] MEDS: LEVOFLOXACIN 750MG-D5W PMX 750 MG in DEXTROSE/WATER 1 150ML.BAG IVPB SCH (08:23)
[2021-09-04] MEDS: HEPARIN SODIUM,PORCINE/PF 5,000 UNIT/0.5 ML SYRINGE SQ SCH ×2 (08:23→20:50)
[2021-09-04] MEDS: CALCIUM CARB-VIT D 500 MG-5 MCG TAB PO SCH ×2 (08:24→20:50)
[2021-09-04] MEDS: diphenhydrAMINE 25 MG CAP PO SCH (08:24)
[2021-09-04] MEDS: methylPREDNISolone SOD SUCCI 40 MG/ML 1 ML VIAL IV SCH ×2 (08:24→20:51)
[2021-09-04] MEDS: PANTOPRAZOLE 40 MG TABLET PO SCH (08:24)
[2021-09-04] MEDS: ASPIRIN 81 MG PO SCH (08:24)
[2021-09-04] MEDS: DONEPEZIL 10 MG TAB PO SCH (08:24)
[2021-09-04] MEDS: amLODIPine 5 MG TAB PO SCH (08:24)
[2021-09-04] MEDS: MULTIVITAMINS, THERA 1 EACH TAB PO SCH (08:24)
[2021-09-04] MEDS: PARoxetine 20 MG TAB PO SCH (08:24)
--- NOTE | 2021-09-04 08:42 | XR ---
EXAMINATION TYPE: XR chest 2V DATE OF EXAM: 09/04/2021 COMPARISON: X-ray dated 09/03/2021 HISTORY: Pneumonia TECHNIQUE: Frontal and lateral views of the chest are obtained. FINDINGS: Questionable subtle faint alveolar opacities in the right lower lung zone. Persistent COPD changes. N o sizable pleural effusion or definite pneumothorax. No gross cardiomegaly. Unchanged bony thoracic c age. IMPRESSION: As above.
[2021-09-04] MEDS: IPRATROPIUM-ALBUTEROL 3 ML NEB INHALATION SCH ×4 (09:03→19:38)
[2021-09-04] MEDS: SYMBICORT 160-4.5 MCG INHALER INHALATION SCH ×2 (09:03→19:39)
[2021-09-04 09:15] LABS: Basophils # (A) 0.01 X 10*3/uL (0.00-0.10); Basophils % (A) 0.1 %; Eosinophils # (A) 0 X 10*3/uL (0.04-0.35); Eosinophils % (A) 0 %; HGB 12.5 g/dL (13.0-17.0); Immature Grans, Automated 0.9 %; Lymphocytes # (A) 0.63 X 10*3/uL (0.90-5.00); Lymphocytes % (A) 5.4 %; MCH 27.2 pg (27.0-32.0); MCHC 32.1 g/dL (32.0-37.0); Mean Platelet Volume 9.1 fL (9.5-12.2); Monocytes # (A) 0.26 X 10*3/uL (0.20-1.00); Monocytes % (A) 2.2 %; NRBC Per 100 WBC 0 /100 WBCS (0.0-0.0); Neutrophils # (A) 10.66 X 10*3/uL (1.80-7.70); Neutrophils % (A) 91.4 %; Platelet Count 320 X 10*3/uL (140-440); RBC 4.59 X 10*6/uL (4.40-5.60); RDW 13.2 % (11.5-14.5); WBC 11.67 X 10*3/uL (4.50-10.00)
--- NOTE | 2021-09-04 12:52 | P.PN ---
Subjective Progress Note Date: 09/04/21 09/04/2021, patient is feeling better. Less short of breath. No new complaints. Responding to the current treatment of bronchodilators and steroids regarding his COPD exacerbation. Unable to express himself and communications been quite limited with the patient. Otherwise, no other significant events overnight. The patient remains on DuoNeb the regiments [id number]. The patient remains on Symbicort. The patient remains on Levaquin as an empiric antibiotic coverage and the patient is also on IV Solu Medrol 40 mg every 12 hours. Objective - Vital Signs Vital signs: Vital Signs Temp 97.8 F 09/04/21 07:00 Pulse 75 09/04/21 09:12 Resp 16 09/04/21 09:12 BP 108/58 09/04/21 07:00 Pulse Ox 96 09/04/21 07:00 FiO2 21 09/03/21 11:43 Intake & Output 09/03/21 09/04/21 09/04/21 18:59 06:59 18:59 Intake Total 236 750 120 Balance 236 750 120 Weight 68.039 kg 68.039 kg Intake: Oral 236 750 120 Other: Voiding Method Toilet Toilet Toilet # Voids 1 - Exam GENERAL EXAM: Alert, very pleasant, 75-year-old white male, poor historian, patient is able to communicate with yes and no questions, does have history of primary apraxia of speech, comfortable in no apparent distress.breathing is nonlabored and the patient is resting comfortably in bed,currently on room air oxygen HEAD: Normocephalic/atraumatic. EYES: Normal reaction of pupils, equal size. Conjunctiva pink, sclera white. NOSE: Clear with pink turbinates. THROAT: No erythema or exudates. NECK: No masses, no JVD, no thyroid enlargement, no adenopathy. CHEST: No chest wall deformity. Symmetrical expansion. LUNGS: Equal air entry with no crackles, wheeze, rhonchi or dullness. CVS: Regular rate and rhythm, normal S1 and S2, no gallops, no murmurs, no rubs ABDOMEN: Soft, nontender. No hepatosplenomegaly, normal bowel sounds, no guarding or rigidity. EXTREMITIES: No clubbing, no edema, no cyanosis, 2+ pulses and upper and lower extremities. MUSCULOSKELETAL: Muscle strength and tone normal. SPINE: No scoliosis or deformity SKIN: No rashes CENTRAL NERVOUS SYSTEM: Alert and oriented -3. No focal deficits, tone is normal in all 4 extremities.unable to communicate because of speech apraxia PSYCHIATRIC: Alert and oriented -3. Appropriate affect. Intact judgment and insight. - Labs CBC & Chem 7: 09/04/21 05:28 09/04/21 05:28 Labs: Abnormal Lab Results - Last 24 Hours (Table) 09/03/21 09/04/21 09/04/21 Range/Units 08:42 05:28 05:28 WBC 11.67 H (4.50-10.00) X 10*3/uL Hgb 12.5 L (13.0-17.0) g/dL Hct 39.0 L (39.6-50.0) % MPV 9.1 L (9.5-12.2) fL Immature Gran # 0.11 H (0.00-0.04) X 10*3/uL Neutrophils # 10.66 H (1.80-7.70) X 10*3/uL Lymphocytes # 0.63 L (0.90-5.00) X 10*3/uL Eosinophils # 0 L (0.04-0.35) X 10*3/uL Glucose 145 H (70-110) mg/dL Procalcitonin 0.11 H (0.02-0.09) ng/mL Assessment and Plan Plan: #1. COPD exacerbation with a recent sputum culture showing pseudomonas aeruginosa treated during an earlier hospitalization on 08/20/2021. Patient completed a course of Levaquin on outpatient basis. the chest x-ray during this current admission shows increasing airspace consolidation in the lower lobes bilaterally. Not clear if this is truly a pneumonia. No protocol Level Is Low When the Patient Has Some Questionable Subtle Faint Alveolar Infiltrate in the Right Lower Lobe. The Rest Is Consistent with COPD. #2. History of advanced COPD, baseline FEV1 of 40% of predicted, not oxygen dependent at baseline #3. Former smoker #4. Primary progressive apraxia of speech, patient follows with a speech therapy on an outpatient basis #5. History of colon cancer with previous history of hemicolectomy #6. Peripheral arterial occlusive disease #7. 7 mm stable left lower lobe nodule was under surveillance for any change by Dr. Bailey on outpatient basis, had been stable and currently there is no continued need to monitor with surveillance CT scans of the chest #8. History of tobacco dependence, carries a [id number] smoking history #9. History of prostate cancer with surgery plan Clinically improving Pro-calcitonin level is low at 0.11 Continue Levaquin Continue DuoNeb nebulized treatments around the clock Continued IV Solu-Medrol Resume all medications We'll continue to follow
--- NOTE | 2021-09-04 15:21 | P.PN ---
Subjective Progress Note Date: 09/04/21 This is a 75-year-old male who was recently admitted with increasing shortness of breath along with cough and sputum and suspected bilateral pneumonia and is being closely monitored. Patient was recently discharged and brought back to the hospital by family for increasing symptoms of worsening shortness of breath. Patient also with continued weakness being evaluated for possible ECF. Patient is maintained on IV steroids along with breathing inhalational treatments and antibiotics with pulmonary following closely. Patient is currently afebrile and denies chest pain or worsening shortness of breath. Patient is chronically aphasic and follows with speech in the outpatient setting. Patient also does not have his hearing aids currently and is extremely hard of hearing. Review of systems: Constitutional: No reports of fatigue, no reports of fever, or chills Cardiovascular: No reports of chest pain or palpitations Respiratory: No reports of worsening shortness of breath reports continued cough GI: No reports of nausea, no reports of of vomiting, no reports of diarrhea : No reports of dysuria or retention Neurovascular: reports of generalized weakness All medications have been reviewed PHYSICAL EXAMINATION: GENERAL: The patient is alert and oriented x3, Well developed, well nourished. Thin built. Extremely hard of hearing HEENT: Pupils are round and equally reacting to light. EOMI. no scleral icterus. No conjunctival pallor noted. Normocephalic, atraumatic. No pharyngeal erythema. No thyromegaly. CARDIOVASCULAR: S1 and S2 muffled PULMONARY: diminished breath sounds bilaterally with some scattered rhonchi and minimal expiratory wheezing noted. ABDOMEN: soft. Nontender on exam. non-distended, normoactive bowel sounds. No palpable organomegaly. MUSCULOSKELETAL: No joint swelling or deformity. EXTREMITIES: No cyanosis, clubbing, or pedal edema. NEUROLOGICAL: Gross neurological examination did not reveal any focal deficits. Diffuse weakness SKIN: No rashes. Assessment: Chronic obstructive pulmonary disease, acute exacerbation with acute bibasilar pneumonia Hyperlipidemia History of prostate disorder History of hiatal hernia Multiple medical issues GI prophylaxis DVT prophylaxis Full code Plan: Recommend to continue with current medications and management with luminary and physical therapy following. Patient is maintained on IV steroids along with continue duo nebs and inhalers and also Levaquin with pulmonary following closely. Physical therapy evaluated the patient and recommending home with home care and continued supervision and family working on taking the patient home and being placed at [facility] this Friday for long-term. WBC trending down at 11.67 hemoglobin is stable at 12.5, BMP within normal limits and pro-calcitonin was 0.11. Recommend continuing current medications and will follow-up with repeat labs in a.m. Due to multiple complex medical issues, prognosis is guarded. Possible discharge in 24 hours. The impression and plan of care has been dictated by Sada Neves, nurse practitioner as directed. MD Sola I have performed a history and examination and MDM of this patient, discussed the same with the dictator, and agree with the dictator's assessment and plan as written ,documented as a scribe. Based on total visit time, I have performed more than 50% of the visit. Any additional findings or plans will be noted. Objective - Vital Signs Vital signs: Vital Signs Temp 97.8 F 09/04/21 07:00 Pulse 75 09/04/21 09:12 Resp 16 09/04/21 09:12 BP 108/58 09/04/21 07:00 Pulse Ox 96 09/04/21 07:00 FiO2 21 09/03/21 11:43 Intake & Output 09/03/21 09/04/21 09/04/21 18:59 06:59 18:59 Intake Total 236 750 120 Balance 236 750 120 Weight 68.039 kg 68.039 kg Intake: Oral 236 750 120 Other: Voiding Method Toilet Toilet Toilet # Voids 1 - Labs CBC & Chem 7: 09/04/21 05:28 09/04/21 05:28 Labs: Abnormal Lab Results - Last 24 Hours (Table) 09/03/21 09/04/21 09/04/21 Range/Units 08:42 05:28 05:28 WBC 11.67 H (4.50-10.00) X 10*3/uL Hgb 12.5 L (13.0-17.0) g/dL Hct 39.0 L (39.6-50.0) % MPV 9.1 L (9.5-12.2) fL Immature Gran # 0.11 H (0.00-0.04) X 10*3/uL Neutrophils # 10.66 H (1.80-7.70) X 10*3/uL Lymphocytes # 0.63 L (0.90-5.00) X 10*3/uL Eosinophils # 0 L (0.04-0.35) X 10*3/uL Glucose 145 H (70-110) mg/dL Procalcitonin 0.11 H (0.02-0.09) ng/mL
[2021-09-04] MEDS: ATORVASTATIN 10 MG TAB PO SCH (20:50)
[2021-09-04] MEDS: ALPRAZolam 0.5 MG TAB PO PRN (20:51)
[2021-09-05 06:55] LABS: Basophils % (A) 0 %; Eosinophils % (A) 0 %; HCT 37.6 % (39.0-53.0); HGB 11.8 gm/dL (13.0-17.5); Lymphocytes # (A) 0.7 k/uL (1.0-4.8); Lymphocytes % (A) 5 %; MCH 27.8 pg (25.0-35.0); MCHC 31.5 g/dL (31.0-37.0); MCV 88.2 fL (80.0-100.0); Monocytes # (A) 0.5 k/uL (0-1.0); Monocytes % (A) 3 %; Neutrophils % (A) 91 %; Platelet Count 341 k/uL (150-450); RBC 4.26 m/uL (4.30-5.90); RDW 13.4 % (11.5-15.5); WBC 14.3 k/uL (3.8-10.6)
[2021-09-05 06:57] VITALS: RESP 18
[2021-09-05 07:13] LABS: African American GFR (CKD) 61 (>60 ml/min/1.73 sqM); Anion Gap 9 mmol/L; Blood Urea Nitrogen 31 mg/dL (9-20); Carbon Dioxide 25 mmol/L (22-30); Chloride 104 mmol/L (98-107); Glucose 123 mg/dL (74-99); Non-African American GFR(CKD) 53 (>60 ml/min/1.73 sqM); Potassium 4.5 mmol/L (3.5-5.1); Sodium 138 mmol/L (137-145)
[2021-09-05] MEDS: IPRATROPIUM-ALBUTEROL 3 ML NEB INHALATION SCH ×3 (07:20→15:15)
[2021-09-05] MEDS: SYMBICORT 160-4.5 MCG INHALER INHALATION SCH (07:20)
[2021-09-05] MEDS: PANTOPRAZOLE 40 MG TABLET PO SCH (09:53)
[2021-09-05] MEDS: CALCIUM CARB-VIT D 500 MG-5 MCG TAB PO SCH (09:53)
[2021-09-05] MEDS: diphenhydrAMINE 25 MG CAP PO SCH (09:53)
[2021-09-05] MEDS: PARoxetine 20 MG TAB PO SCH (09:53)
[2021-09-05] MEDS: DONEPEZIL 10 MG TAB PO SCH (09:53)
[2021-09-05] MEDS: amLODIPine 5 MG TAB PO SCH (09:54)
[2021-09-05] MEDS: methylPREDNISolone SOD SUCCI 40 MG/ML 1 ML VIAL IV SCH (09:54)
[2021-09-05] MEDS: MULTIVITAMINS, THERA 1 EACH TAB PO SCH (09:54)
[2021-09-05] MEDS: ASPIRIN 81 MG PO SCH (09:54)
[2021-09-05] MEDS: HEPARIN SODIUM,PORCINE/PF 5,000 UNIT/0.5 ML SYRINGE SQ SCH (09:55)
[2021-09-05] MEDS: LEVOFLOXACIN 750MG-D5W PMX 750 MG in DEXTROSE/WATER 1 150ML.BAG IVPB SCH (10:18)
[2021-09-05] MEDS: ALPRAZolam 0.5 MG TAB PO PRN (10:18)
--- NOTE | 2021-09-05 13:15 | P.PN ---
Subjective Progress Note Date: 09/05/21 The patient is seen today 09/05/2021 in follow-up on the regular medical floor. He is currently resting quite comfortably in bed. Awake and alert in no acute distress. Continues with expressive aphasia. Denies any worsening shortness of breath, cough or congestion. white count 14.3. Hemoglobin 11.8. Sodium 138. Potassium 4.5. BUN 31. Creatinine 1.30. Glucose 123.he is continued on Symbicort, DuoNeb inhalations, IV Solu-Medrol. Empiric antibiotics in the form of Levaquin. Objective - Vital Signs Vital signs: Vital Signs Temp 98 F 09/05/21 06:55 Pulse 88 09/05/21 11:18 Resp 18 09/05/21 06:55 BP 110/60 09/05/21 06:55 Pulse Ox 93 L 09/05/21 07:23 FiO2 21 09/05/21 07:23 Intake & Output 09/04/21 09/05/21 09/05/21 18:59 06:59 18:59 Intake Total 356 90 Output Total 0 400 Balance 356 0 -310 Intake: Oral 356 90 Output: Urine 400 Emesis 0 Other: Voiding Method Toilet Toilet # Voids 2 # Bowel Movements 1 1 - Exam GENERAL EXAM: Alert, very pleasant, 75-year-old male, poor historian, patient is able to communicate with yes and no questions, does have history of primary apraxia of speech, comfortable in no apparent distress. Breathing is nonlabored and the patient is resting comfortably in bed, currently on room air oxygen HEAD: Normocephalic/atraumatic. EYES: Normal reaction of pupils, equal size. Conjunctiva pink, sclera white. NOSE: Clear with pink turbinates. THROAT: No erythema or exudates. NECK: No masses, no JVD, no thyroid enlargement, no adenopathy. CHEST: No chest wall deformity. Symmetrical expansion. LUNGS: Equal air entry with no crackles, wheeze, rhonchi or dullness. CVS: Regular rate and rhythm, normal S1 and S2, no gallops, no murmurs, no rubs ABDOMEN: Soft, nontender. No hepatosplenomegaly, normal bowel sounds, no guarding or rigidity. EXTREMITIES: No clubbing, no edema, no cyanosis, 2+ pulses and upper and lower extremities. MUSCULOSKELETAL: Muscle strength and tone normal. SPINE: No scoliosis or deformity SKIN: No rashes CENTRAL NERVOUS SYSTEM: o focal deficits, tone is normal in all 4 extremities.unable to communicate because of speech apraxia PSYCHIATRIC: Alert and oriented -3. Appropriate affect. Intact judgment and insight. - Labs CBC & Chem 7: 09/05/21 06:11 09/05/21 06:11 Labs: Abnormal Lab Results - Last 24 Hours (Table) 09/05/21 09/05/21 Range/Units 06:11 06:11 WBC 14.3 H (3.8-10.6) k/uL RBC 4.26 L (4.30-5.90) m/uL Hgb 11.8 L (13.0-17.5) gm/dL Hct 37.6 L (39.0-53.0) % Neutrophils # 13.0 H (1.3-7.7) k/uL Lymphocytes # 0.7 L (1.0-4.8) k/uL BUN 31 H (9-20) mg/dL Creatinine 1.30 H (0.66-1.25) mg/dL Glucose 123 H (74-99) mg/dL Microbiology - Last 24 Hours (Table) 09/03/21 10:30 Blood Culture - Preliminary Blood No Growth after 48 hours 09/03/21 10:56 Blood Culture - Preliminary Blood No Growth after 48 hours Assessment and Plan Assessment: #1. COPD exacerbation with a recent sputum culture showing pseudomonas aer uginosa treated during an earlier hospitalization on 08/20/2021. Patient completed a course of Levaquin on outpatient basis. the chest x-ray during this current admission shows increasing airspace consolidation in the lower lobes bilaterally. Not clear if this is truly a pneumonia. No protocol Level Is Low When the Patient Has Some Questionable Subtle Faint Alveolar Infiltrate in the Right Lower Lobe. The Rest Is Consistent with COPD. #2. History of advanced COPD, baseline FEV1 of 40% of predicted, not oxygen dependent at baseline #3. Former smoker #4. Primary progressive apraxia of speech, patient follows with a speech therapy on an outpatient basis #5. History of colon cancer with previous history of hemicolectomy #6. Peripheral arterial occlusive disease #7. 7 mm stable left lower lobe nodule was under surveillance for any change in outpatient basis, had been stable and currently there is no continued need to monitor with surveillance CT scans of the chest #8. History of tobacco dependence, carries a [id number] smoking history #9. History of prostate cancer with surgery plan The patient was seen and evaluated Stable and on room air Cleared for discharge from the pulmonary standpoint Continue his home pulmonary medications Complete prednisone taper starting at 40 mg daily for 4 days Follow-up in the office in 1 week I have personally seen and examined the patient, performed the documentation and the assessment and plan as written. Number of minutes spent on the visit: 10 I have personally seen and examined the patient and reviewed the documentation. I performed a joint evaluation with the nurse practitioner in this evaluation was done more than 15 minutes. I fully agree with the documentation above and the plan of care.
[2021-09-05 13:54] VITALS: BP 115/67; TEMP 98.1
[2021-09-05 15:31] VITALS: PULSE 85
[2021-09-07] MEDS ORDERED: LEVOFLOXACIN 750 MG TAB PO SCH (09:00)
--- NOTE | 2021-09-07 09:48 | P.DS ---
Providers Date of admission: 09/04/21 12:53 Expected date of discharge: 09/05/21 Attending physician: Finn Hernandez Consults: 09/03/21 09:59 Consult Physician Stat Consulting Provider: Bryanna Hopkins Reason/Comments: acute respiratory insuff, cap Do you want consulting provider notified?: Yes Primary care physician: Giuseppe Bailey Hospital Course: Final diagnosis Chronic obstructive pulmonary disease, acute exacerbation with acute bibasilar pneumonia Hyperlipidemia History of prostate disorder History of hiatal hernia Multiple medical issues GI prophylaxis DVT prophylaxis Full code Discharge disposition Patient is being discharged in a stable condition with guarded prognosis to home with family and plans for possible long-term care being arranged per son. Demetra ent will follow-up with Dr. Bailey upon discharge. Patient will continue with [facility] as well. Patient will continue with a short course of oral antibiotics in the form of Levaquin for 3 days to complete the course. Patient will also continue on a prednisone taper in the outpatient setting. Total time taken is >35 minutes. Hospital course This is a 75-year-old male who was recently admitted with increasing shortness of breath along with cough and sputum and suspected bilateral pneumonia and was recently discharged and brought back to the hospital by family for worsening symptoms. Patient does have COPD and is maintained on breathing inhalational treatments and also was maintained on IV steroids and showed improvement patient will continue on oral Levaquin every 48 hours 750 mg for the next 3 doses to complete the course and also a prednisone taper on discharge. Recommend close outpatient follow-up with primary care provider and his clinical assessment manager. Patient continues with multiple medical comorbidities and per family arrangements are being made in the outpatient setting for possible assisted living facility. Patient is extremely hard of hearing and currently does not have his hearing aids in but is alert and sitting up in the chair and anxious to go home. Currently no reports of chest pain, shortness of breath, or palpitations. Patient is afebrile. No reports of nausea or vomiting and patient is tolerating diet. Patient and family will further discuss palliative care in the outpatient setting. Guarded prognosis. On exam vital signs are stable. Cardio S1, S2 are muffled. Respiratory shows diminished breath sounds at the bases with a few scattered rhonchi noted. Some mild expiratory wheezing noted. Abdomen is soft and nontender. Nervous system shows mild diffuse weakness. Please refer to medication reconciliation sheet for a list of medications. The impression and plan of care has been dictated by Sada Neves Nurse Abena cruz as directed. Dr. David MD I have performed a history and examination and MDM of this patient, discussed the same with the dictator, and agree with the dictator's assessment and plan as written ,documented as a scribe. Based on total visit time, I have performed more than 50% of the visit. Patient Condition at Discharge: Stable Plan - Discharge Summary Discharge Rx Participant: No New Discharge Prescriptions: New Levofloxacin [Levaquin] 750 mg PO Q48H 3 Days #3 tab predniSONE 10 mg PO DIRECTED #40 tab Continue Lovastatin [Mevacor] 40 mg PO HS Tiotropium [place] [Spiriva] 1 cap INHALATION RT-DAILY Budesonide-Formot 160-4.5 Mcg [Symbicort 160-4.5 Mcg Inhaler] 2 puff INHALATION RT-BID Aspirin [Adult Low Dose Aspirin EC] 81 mg PO DAILY diphenhydrAMINE HCL [Benadryl] 25 mg PO DAILY Multivitamins, Thera [Multivitamin (formulary)] 1 tab PO DAILY Albuterol Nebulized [Ventolin Nebulized] 2.5 mg INHALATION RT-QID PRN PRN Reason: Shortness Of Breath Acetaminophen [Tylenol] 325 mg PO Q4H PRN #30 tab PRN Reason: Pain Calcium Carbonate/Vitamin D3 [Calcium 600 mg-D3 10 Mcg (400 Iu)] 1 cap PO BID Donepezil [Aricept] 10 mg PO DAILY PARoxetine [Paxil] 20 mg PO DAILY amLODIPine [Norvasc] 5 mg PO DAILY #30 tab Wixella Unknown Dose 1 puff INHALATION RT-BID ALPRAZolam [Xanax] 0.5 mg PO Q8H PRN PRN Reason: Anxiety Discharge Medication List Aspirin [Adult Low Dose Aspirin EC] 81 mg PO DAILY 11/20/17 [History] Budesonide-Formot 160-4.5 Mcg [Symbicort 160-4.5 Mcg Inhaler] 2 puff INHALATION RT-BID 11/20/17 [History] Lovastatin [Mevacor] 40 mg PO HS 11/20/17 [History] Tiotropium [place] [Spiriva] 1 cap INHALATION RT-DAILY 11/20/17 [History] diphenhydrAMINE HCL [Benadryl] 25 mg PO DAILY 11/20/17 [History] Multivitamins, Thera [Multivitamin (formulary)] 1 tab PO DAILY 05/08/18 [History] Albuterol Nebulized [Ventolin Nebulized] 2.5 mg INHALATION RT-QID PRN 11/22/20 [History] Calcium Carbonate/Vitamin D3 [Calcium 600 mg-D3 10 Mcg (400 Iu)] 1 cap PO BID 02/06/21 [History] Donepezil [Aricept] 10 mg PO DAILY 08/17/21 [History] PARoxetine [Paxil] 20 mg PO DAILY 08/17/21 [History] amLODIPine [Norvasc] 5 mg PO DAILY #30 tab 08/21/21 [Rx] Acetaminophen [Tylenol] 325 mg PO Q4H PRN #30 tab 08/27/21 [Rx] ALPRAZolam [Xanax] 0.5 mg PO Q8H PRN 09/03/21 [History] Wixella Unknown Dose 1 puff INHALATION RT-BID 09/03/21 [History] Levofloxacin [Levaquin] 750 mg PO Q48H 3 Days #3 tab 09/05/21 [Rx] predniSONE 10 mg PO DIRECTED #40 tab 09/05/21 [Rx] Follow up Appointment(s)/Referral(s): Praveen Mejia [NON-STAFF] - 1-2 Days Giuseppe Bailey MD [Primary Care Provider] - 1-2 days (September 11. 11am) [facility]Clinic [REFERRING] - 1-2 Days (FridaySeptember 17. 930 am with blood work. Bring script.) Ambulatory/Diagnostic Orders: Basic Metabolic Panel [LAB.AMB] Time Frame: 3 Days, Location: None Selected Patient Instructions/Handouts: Community Acquired Pneumonia (DC) Activity/Diet/Wound Care/Special Instructions: Activity Limited until follow-up Follow-up primary care provider and clinical assessment manager as scheduled Continue taking medications as prescribed Continue with inhalers and breathing treatments Continue antibiotics for 3 doses to complete the course Continue prednisone taper Recommend repeat labs in 2-3 days Continue heart healthy diet Discharge Disposition: HOME WITH HOME HEALTH SERVICES
== END 2021-09-05 16:02 | disposition home health service (06) ==
LOC: EC 07:43 → 6NMEDSUR 10:18 → OBSVTOIN 09-04 12:53 → INTOOBSV 09-04 12:53 → UNDODISIN 09-05 16:02
PROVIDERS: ADMIT Hospitalist; ATTEND Hospitalist
DX: J44.1 Chronic obstructive pulmonary disease with (acute) exacerbation (principal); J44.0 Chronic obstructive pulmonary disease with (acute) lower respiratory infection; J18.9 Pneumonia, unspecified organism; E78.5 Hyperlipidemia, unspecified; B15.9 Hepatitis A without hepatic coma; D64.9 Anemia, unspecified; N32.3 Diverticulum of bladder; I77.9 Disorder of arteries and arterioles, unspecified; R48.2 Apraxia; R91.1 Solitary pulmonary nodule; H91.90 Unspecified hearing loss, unspecified ear; Z79.899 Other long term (current) drug therapy; Z88.0 Allergy status to penicillin; Z88.1 Allergy status to other antibiotic agents; Z88.5 Allergy status to narcotic agent; Z85.46 Personal history of malignant neoplasm of prostate; Z85.038 Personal history of other malignant neoplasm of large intestine; Z87.891 Personal history of nicotine dependence; Z80.1 Family history of malignant neoplasm of trachea, bronchus and lung; Z80.8 Family history of malignant neoplasm of other organs or systems; Z20.822 Contact with and (suspected) exposure to COVID-19
CPT/HCPCS: 96376 ×3; 96372 ×3; 96366 ×2; 96365; 96375; 99285; 36415; 94640 ×5; 94760 ×2; 93005; 97162; 97166; 85379; 83880; 80053; 80048 ×2; 83735; 84484; 85025 ×3; 85610; 85730; 87040; 87502; 84145; 87635; 71046 ×2; G0378 ×3; J2920 ×3; J2930; J1956 ×3; J1644 ×3; 99284

== ENCOUNTER 2021-11-28 13:19 | Emergency (ER) | payer MEDICARE ==
[2021-11-28] MEDS ORDERED: SODIUM CHLORIDE 0.9% 500 ML 500 ML IV STA (13:33)
--- NOTE | 2021-11-28 13:50 | ED ---
General Adult HPI - General Chief complaint: ENT Stated complaint: SOB Time Seen by Provider: 11/28/21 13:23 Source: EMS Mode of arrival: EMS - History of Present Illness Initial comments: Dictation was produced using [employer] dictation software. please excuse any grammatical, word or spelling errors. Chief Complaint: 76-year-old male presents with sore throat cough and at home positive: The test History of Present Illness: Patient is a 68-year-old male who presents emergency department for sore throat, cough and positive home Covid test today. Patient is a resident [facility] living [facility]. Patient is a poor story. He communicates via writing. Patient nods yes when asked if his symptoms have been ongoing for one day. He denies any chest pain. Chart review shows that patient has a history of aphasia. The ROS documented in this emergency department record has been reviewed and confirmed by me. Those systems with pertinent positive or negative responses have been documented in the HPI. All other systems are other negative and/or noncontributory. PHYSICAL EXAM: General Impression: Alert and oriented x3, not in acute distress HEENT: Normocephalic atraumatic, extra-ocular movements intact, pupils equal and reactive to light bilaterally, mucous membranes moist, no posterior oropharynx erythema or signs of pharyngitis Cardiovascular: Heart regular rate and rhythm Chest: Able to complete full sentences, no retractions, no tachypnea Abdomen: abdomen soft, non-tender, non-distended, no organomegaly Musculoskeletal: Pulses present and equal in all extremities, no peripheral edema Motor: no focal deficits noted Neurological: CN II-XII grossly intact, no focal motor or sensory deficits noted Skin: Intact with no visualized rashes Psych: Normal affect and mood ED course: 76-year-old male tested positive for Covid at home today. Complains of sore throat and cough. Patient is a poor historian however he appears to be well. Physical examination is benign. Patient not showing any signs of distress. Laboratory evaluation obtained CBC unremarkable. Metabolic panel within acceptable limits. 4 panel by PCR is positive for COVID-19. Strep test negative. Chest x-ray is nonacute. Patient observed in emergency department for approximately 1 hour 45 minutes. Reevaluated at bedside at 310. Vitamin stable medical condition. Patient is not hypoxic and not showing any signs of respiratory distress. Patient not a candidate for antiviral is due to drug interactions. Case was discussed with patient's son case over the phone who is aware of patients care in the ER. Patient is vaccinated. EKG interpretation: Ventricular rate 69, sinus rhythm,. Interval 141, care is 82, QTc 458. No NM prolongation, no QTC prolongation, no ST or T-wave changes noted. Overall, this EKG is unremarkable - Related Data Home Medications Medication Instructions Recorded Confirmed Aspirin [Adult Low Dose Aspirin EC] 81 mg PO DAILY 11/20/17 09/03/21 Budesonide-Formot 160-4.5 Mcg 2 puff INHALATION RT-BID 11/20/17 09/03/21 [Symbicort 160-4.5 Mcg Inhaler] Lovastatin [Mevacor] 40 mg PO HS 11/20/17 09/03/21 Tiotropium [place] [Spiriva] 1 cap INHALATION RT-DAILY 11/20/17 09/03/21 diphenhydrAMINE HCL [Benadryl] 25 mg PO DAILY 11/20/17 09/03/21 Multivitamins, Thera [Multivitamin 1 tab PO DAILY 05/08/18 09/03/21 (formulary)] Albuterol Nebulized [Ventolin 2.5 mg INHALATION RT-QID PRN 11/22/20 09/03/21 Nebulized] Calcium Carbonate/Vitamin D3 1 cap PO BID 02/06/21 09/03/21 [Calcium 600 mg-D3 10 Mcg (400 Iu)] Donepezil [Aricept] 10 mg PO DAILY 08/17/21 09/03/21 PARoxetine [Paxil] 20 mg PO DAILY 08/17/21 09/03/21 ALPRAZolam [Xanax] 0.5 mg PO Q8H PRN 09/03/21 09/03/21 Wixella Unknown Dose 1 puff INHALATION RT-BID 09/03/21 09/03/21 Previous Rx's Medication Instructions Recorded amLODIPine [Norvasc] 5 mg PO DAILY #30 tab 08/21/21 Acetaminophen [Tylenol] 325 mg PO Q4H PRN #30 tab 08/27/21 Levofloxacin [Levaquin] 750 mg PO Q48H 3 Days #3 tab 09/05/21 predniSONE 10 mg PO DIRECTED #40 tab 09/05/21 Allergies Allergy/AdvReac Type Severity Reaction Status Date / Time Penicillins Allergy Mild Rash/Hives Verified 11/28/21 13:32 cephalexin Allergy Rash/Hives Verified 11/28/21 13:32 morphine Allergy Rash/Hives Verified 11/28/21 13:32 Review of Systems ROS Statement: Those systems with pertinent positive or pertinent negative responses have been documented in the HPI. ROS Other: All systems not noted in ROS Statement are negative. Past Medical History Past Medical History: Cancer, COPD, Hyperlipidemia, Pneumonia, Prostate Disorder Additional Past Medical History / Comment(s): emphysema, small hiatal hernia, prostate cancer, colon cancer, rt inguinal hernia. HEPATITIS A- 1961, aphasia, heart murmer, hx anemia, bladder diverticulum History of Any Multi-Drug Resistant Organisms: None Reported Past Surgical History: Appendectomy, Back Surgery, Bowel Resection, Hernia Repair, Orthopedic Surgery Additional Past Surgical History / Comment(s): back surgery for herniated disk, rt shoulder rotator cuff, nilsa cataracts with lens implants, nilsa inguinal hernia, diverticulitis Past Anesthesia/Blood Transfusion Reactions: No Reported Reaction Past Psychological History: No Psychological Hx Reported Smoking Status: Former smoker Past Alcohol Use History: Rare Past Drug Use History: None Reported - Past Family History Father Family Medical History: Cancer Mother Family Medical History: Cancer Additional Family Medical History / Comment(s): lung Cancer, Brain Cancer Sister(s) Family Medical History: Congestive Heart Failure (CHF) Course Vital Signs 11/28/21 13:22 Temperature 98.5 F Pulse Rate 75 Respiratory 19 Rate Blood Pressure 139/70 O2 Sat by Pulse 96 Oximetry Medical Decision Making - Lab Data Result diagrams: 11/28/21 13:49 11/28/21 13:49 Lab Results 11/28/21 11/28/21 11/28/21 Range/Units 13:49 13:49 13:49 WBC 5.6 (3.8-10.6) k/uL RBC 4.24 L (4.30-5.90) m/uL Hgb 11.8 L (13.0-17.5) gm/dL Hct 36.8 L (39.0-53.0) % MCV 86.7 (80.0-100.0) fL MCH 27.9 (25.0-35.0) pg MCHC 32.2 (31.0-37.0) g/dL RDW 13.6 (11.5-15.5) % Plt Count 179 (150-450) k/uL MPV 7.1 Neutrophils % 73 % Lymphocytes % 10 % Monocytes % 12 % Eosinophils % 0 % Basophils % 1 % Neutrophils # 4.1 (1.3-7.7) k/uL Lymphocytes # 0.5 L (1.0-4.8) k/uL Monocytes # 0.7 (0-1.0) k/uL Eosinophils # 0.0 (0-0.7) k/uL Basophils # 0.1 (0-0.2) k/uL Hypochromasia Slight Sodium 136 L (137-145) mmol/L Potassium 4.1 (3.5-5.1) mmol/L Chloride 100 (98-107) mmol/L Carbon Dioxide 22 (22-30) mmol/L Anion Gap 14 mmol/L BUN 17 (9-20) mg/dL Creatinine 0.96 (0.66-1.25) mg/dL Est GFR (CKD-EPI)AfAm 88 (>60 ml/min/1.73 sqM) Est GFR (CKD-EPI)NonAf 76 (>60 ml/min/1.73 sqM) Glucose 107 H (74-99) mg/dL Plasma Lactic Acid Venkata 0.9 (0.7-2.0) mmol/L Calcium 8.7 (8.4-10.2) mg/dL Influenza Type A (PCR) (Not Detectd) Influenza Type B (PCR) (Not Detectd) RSV (PCR) (Not Detectd) SARS-CoV-2 (PCR) (Not Detectd) Group A Strep (PCR) (Not Detectd) 11/28/21 11/28/21 Range/Units 13:49 13:49 WBC (3.8-10.6) k/uL RBC (4.30-5.90) m/uL Hgb (13.0-17.5) gm/dL Hct (39.0-53.0) % MCV (80.0-100.0) fL MCH (25.0-35.0) pg MCHC (31.0-37.0) g/dL RDW (11.5-15.5) % Plt Count (150-450) k/uL MPV Neutrophils % % Lymphocytes % % Monocytes % % Eosinophils % % Basophils % % Neutrophils # (1.3-7.7) k/uL Lymphocytes # (1.0-4.8) k/uL Monocytes # (0-1.0) k/uL Eosinophils # (0-0.7) k/uL Basophils # (0-0.2) k/uL Hypochromasia Sodium (137-145) mmol/L Potassium (3.5-5.1) mmol/L Chloride (98-107) mmol/L Carbon Dioxide (22-30) mmol/L Anion Gap mmol/L BUN (9-20) mg/dL Creatinine (0.66-1.25) mg/dL Est GFR (CKD-EPI)AfAm (>60 ml/min/1.73 sqM) Est GFR (CKD-EPI)NonAf (>60 ml/min/1.73 sqM) Glucose (74-99) mg/dL Plasma Lactic Acid Venkata (0.7-2.0) mmol/L Calcium (8.4-10.2) mg/dL Influenza Type A (PCR) Not Detected (Not Detectd) Influenza Type B (PCR) Not Detected (Not Detectd) RSV (PCR) Not Detected (Not Detectd) SARS-CoV-2 (PCR) Detected A (Not Detectd) Group A Strep (PCR) NOT DETECTED (Not Detectd) Disposition Clinical Impression: Coronavirus infection Disposition: HOME SELF-CARE Condition: Good Instructions (If sedation given, give patient instructions): Coronavirus Disease 2019 (COVID-19) Is patient prescribed a controlled substance at d/c from ED?: No Referrals: None,Stated [Primary Care Provider] - 1-2 days Time of Disposition: 15:09
[2021-11-28 14:00] LABS: Basophils # (A) 0.1 k/uL (0-0.2); Basophils % (A) 1 %; Eosinophils % (A) 0 %; HCT 36.8 % (39.0-53.0); HGB 11.8 gm/dL (13.0-17.5); Hypochromasia Slight; Lymphocytes # (A) 0.5 k/uL (1.0-4.8); Lymphocytes % (A) 10 %; MCH 27.9 pg (25.0-35.0); MCHC 32.2 g/dL (31.0-37.0); MCV 86.7 fL (80.0-100.0); Mean Platelet Volume 7.1; Monocytes # (A) 0.7 k/uL (0-1.0); Monocytes % (A) 12 %; Neutrophils # (A) 4.1 k/uL (1.3-7.7); Neutrophils % (A) 73 %; Platelet Count 179 k/uL (150-450); RBC 4.24 m/uL (4.30-5.90); RDW 13.6 % (11.5-15.5); WBC 5.6 k/uL (3.8-10.6)
[2021-11-28 14:07] LABS: Calcium 8.7 mg/dL (8.4-10.2); Potassium 4.1 mmol/L (3.5-5.1)
[2021-11-28 16:26] VITALS: BP 164/82; PULSE 68; RESP 18; TEMP 97.7
== END 2021-11-28 16:26 | disposition home or self-care (01) ==
LOC: EC 13:19
DX: B34.2 Coronavirus infection, unspecified (principal); J44.9 Chronic obstructive pulmonary disease, unspecified; E78.5 Hyperlipidemia, unspecified; J18.9 Pneumonia, unspecified organism; N42.9 Disorder of prostate, unspecified; Z87.891 Personal history of nicotine dependence; Z88.0 Allergy status to penicillin; Z88.1 Allergy status to other antibiotic agents; Z79.899 Other long term (current) drug therapy; Z79.82 Long term (current) use of aspirin
CPT/HCPCS: 36415; 80048; 83605; 85025; 87636; 87651; 96360; 96361; 99285

== ENCOUNTER 2022-03-21 20:51 | Emergency (ER) | payer MEDICARE ==
[2022-03-21] MEDS ORDERED: ACETAMINOPHEN TAB 500 MG TAB PO STA (21:43)
[2022-03-21] MEDS ORDERED: SODIUM CHLORIDE 0.9% 1,000 ML IV STA (21:43)
[2022-03-21] MEDS ORDERED: KETOROLAC 15 MG/ML 1 ML VIAL IVP STA (21:43)
[2022-03-21] MEDS ORDERED: IPRATROPIUM-ALBUTEROL 3 ML NEB INHALATION STA (21:43)
--- NOTE | 2022-03-21 21:46 | ED ---
SOB HPI - General Chief Complaint: Shortness of Breath Stated Complaint: SOB Time Seen by Provider: 03/21/22 21:35 Source: patient, EMS, RN notes reviewed, old records reviewed, Caregiver Mode of arrival: EMS Limitations: no limitations - History of Present Illness Initial Comments: This is a 68-year-old male well-known to this ER patient is a poor story and, patient is nonverbal. Patient is able to communicate by writing. Patient coming in for shortness of breath feeling warm not feeling well. Patient's brought in by EMS to give breathing treatment he does feel improved MD Complaint: shortness of breath, cough -: hour(s) Radiation: back Severity: mild Severity scale (1-10): 4 Quality: dull Consistency: constant Improves With: nothing Worsens With: nothing Known History Of: COPD, asthma Context: recent URI, recent illness Associated Symptoms: cough Treatments Prior to Arrival: none - Related Data Home Medications Medication Instructions Recorded Confirmed Aspirin [Adult Low Dose Aspirin EC] 81 mg PO DAILY 11/20/17 09/03/21 Budesonide-Formot 160-4.5 Mcg 2 puff INHALATION RT-BID 11/20/17 09/03/21 [Symbicort 160-4.5 Mcg Inhaler] Lovastatin [Mevacor] 40 mg PO HS 11/20/17 09/03/21 Tiotropium [place] [Spiriva] 1 cap INHALATION RT-DAILY 11/20/17 09/03/21 diphenhydrAMINE HCL [Benadryl] 25 mg PO DAILY 11/20/17 09/03/21 Multivitamins, Thera [Multivitamin 1 tab PO DAILY 05/08/18 09/03/21 (formulary)] Albuterol Nebulized [Ventolin 2.5 mg INHALATION RT-QID PRN 11/22/20 09/03/21 Nebulized] Calcium Carbonate/Vitamin D3 1 cap PO BID 02/06/21 09/03/21 [Calcium 600 mg-D3 10 Mcg (400 Iu)] Donepezil [Aricept] 10 mg PO DAILY 08/17/21 09/03/21 PARoxetine [Paxil] 20 mg PO DAILY 08/17/21 09/03/21 ALPRAZolam [Xanax] 0.5 mg PO Q8H PRN 09/03/21 09/03/21 [place] Unknown Dose 1 puff INHALATION RT-BID 09/03/21 09/03/21 Previous Rx's Medication Instructions Recorded amLODIPine [Norvasc] 5 mg PO DAILY #30 tab 08/21/21 Acetaminophen [Tylenol] 325 mg PO Q4H PRN #30 tab 08/27/21 Levofloxacin [Levaquin] 750 mg PO Q48H 3 Days #3 tab 09/05/21 predniSONE 10 mg PO DIRECTED #40 tab 09/05/21 Allergies Allergy/AdvReac Type Severity Reaction Status Date / Time Penicillins Allergy Mild Rash/Hives Verified 03/21/22 20:59 cephalexin Allergy Rash/Hives Verified 03/21/22 20:59 morphine Allergy Rash/Hives Verified 03/21/22 20:59 Review of Systems ROS Statement: Those systems with pertinent positive or pertinent negative responses have been documented in the HPI. ROS Other: All systems not noted in ROS Statement are negative. Past Medical History Past Medical History: Cancer, COPD, Dementia, Hyperlipidemia, Pneumonia, Prostate Disorder Additional Past Medical History / Comment(s): emphysema, small hiatal hernia, prostate cancer, colon cancer, rt inguinal hernia. HEPATITIS A- 1961, aphasia, heart murmer, hx anemia, bladder diverticulum History of Any Multi-Drug Resistant Organisms: None Reported Past Surgical History: Appendectomy, Back Surgery, Bowel Resection, Hernia Repair, Orthopedic Surgery Additional Past Surgical History / Comment(s): back surgery for herniated disk, rt shoulder rotator cuff, nilsa cataracts with lens implants, [place] inguinal hernia, diverticulitis Past Anesthesia/Blood Transfusion Reactions: No Reported Reaction Past Psychological History: No Psychological Hx Reported Smoking Status: Former smoker Past Alcohol Use History: Rare Past Drug Use History: None Reported - Past Family History Father Family Medical History: Cancer Mother Family Medical History: Cancer Additional Family Medical History / Comment(s): lung Cancer, Brain Cancer Sister(s) Family Medical History: Congestive Heart Failure (CHF) General Exam Limitations: no limitations General appearance: alert, in no apparent distress, anxious, cachectic Head exam: Present: atraumatic, normocephalic, normal inspection Eye exam: Present: normal appearance, PERRL, EOMI. Absent: scleral icterus, conjunctival injection, periorbital swelling ENT exam: Present: normal exam, mucous membranes moist Neck exam: Present: normal inspection. Absent: tenderness, meningismus, lymphadenopathy Respiratory exam: Present: normal lung sounds bilaterally, wheezes. Absent: respiratory distress, rales, rhonchi, stridor Cardiovascular Exam: Present: regular rate, normal rhythm, normal heart sounds. Absent: systolic murmur, diastolic murmur, rubs, gallop, clicks GI/Abdominal exam: Present: soft, normal bowel sounds. Absent: distended, tenderness, guarding, rebound, rigid Extremities exam: Present: normal inspection, full ROM, normal capillary refill. Absent: tenderness, pedal edema, joint swelling, calf tenderness Back exam: Present: normal inspection Neurological exam: Present: alert, oriented X3, CN II-XII intact Psychiatric exam: Present: normal affect, normal mood Skin exam: Present: warm, dry, intact, normal color. Absent: rash Course Vital Signs 03/21/22 03/21/22 03/21/22 20:53 21:01 21:53 Temperature 98.6 F Pulse Rate 86 75 Respiratory 20 20 22 Rate Blood Pressure 144/73 143/57 O2 Sat by Pulse 99 99 Oximetry 03/21/22 03/21/22 03/21/22 22:18 22:27 23:11 Temperature Pulse Rate 75 76 79 Respiratory 18 Rate Blood Pressure 119/86 O2 Sat by Pulse 96 Oximetry - Reevaluation(s) Reevaluation #1: 03/21/22 23:58 Medical records reviewed Reevaluation #2: 03/21/22 23:59 Patient has significant improvement here in the ER Reevaluation #3: 03/21/22 23:59 Patient informed of results and questions answered Reevaluation #4: 03/21/22 23:59 Differential Dyspnea: Coronary syndrome, arrhythmia, tamponade, asthma, COPD, pulmonary embolism, pneumonia, pneumothorax, pulmonary effusion, anaphylaxis, diabetic ketoacidosis, flailed chest, pulmonary contusion, diaphragmatic rupture, anemia, neuromuscular, this is not meant to be an all-inclusive list. Reevaluation #5: 03/21/22 23:59 Was pt. sent in by a medical professional or institution? @ -no Did you speak to anyone other than the patient for history? @ -no Did you review nursing and triage notes? @ -agree Were old charts reviewed? @ -yes prior ED visits and hospitilizations Differential Diagnosis? @ -prior EKG interpreted by me (3pts min.)? @ -yes X-rays interpreted by me (1pt min.)? @ -yes CT interpreted by me (1pt min.)? @ -[none] U/S interpreted by me (1pt. min.)? @ -[none] What testing was considered but not performed? (CT, X-rays, U/S, labs)? Why? @ no What meds were considered but not given? Why? @ -[none] Did you discuss the management of the patient with other professionals? @ -no Did you reconcile home meds? @ -[none] Was smoking cessation discussed for >3mins.? @ -[none] Was critical care preformed (if so, how long)? @ -[none] Were there social determinants of health that impacted care today? How? (Homelessness, low income, unemployed, alcoholism, drug addiction, transportation, low edu. Level, literacy, decrease access to med. care, nursing home, rehab)? @ -no Was there de-escalation of care discussed even if they declined? (Discuss DNR or withdrawal of care, Hospice)? @ -no What co-morbidities impacted this encounter? (DM, HTN, Smoking, COPD, CAD, Cancer, CVA, Hep., AIDS, mental health diagnosis, sleep apnea, morbid obesity)? @ -no Was patient admitted / discharged? @ -dc Undiagnosed new problem with uncertain prognosis? @ -[none] Drug Therapy requiring intensive monitoring for toxicity (Heparin, Nitro, Insulin, Cardizem)? @ -[none] Were any procedures done? @ -[none] Diagnosis/symptom? @ -[default] Acute, or Chronic, or Acute on Chronic? @ -[default] Uncomplicated (without systemic symptoms) or Complicated (systemic symptoms)? @ -[default] Side effects of treatment? @ -[none] Exacerbation, Progression, or Severe Exacerbation] @ -[no] Poses a threat to life or bodily function? @ -[no] Medical Decision Making - Medical Decision Making 76 male to the emergency department with history of chronic COPD and bronchitis coming in for shortness of breath, patient is nonverbal poor story in no distress sitting is normal patient can be discharged home - Lab Data Result diagrams: 03/21/22 21:49 03/21/22 21:49 Lab Results 0103/21/22 03/21/22 Range/Units 21:49 21:49 21:49 WBC 8.7 (3.8-10.6) k/uL RBC 4.45 (4.30-5.90) m/uL Hgb 11.7 L (13.0-17.5) gm/dL Hct 37.2 L (39.0-53.0) % MCV 83.5 (80.0-100.0) fL MCH 26.2 (25.0-35.0) pg MCHC 31.4 (31.0-37.0) g/dL RDW 14.1 (11.5-15.5) % Plt Count 284 (150-450) k/uL MPV 7.0 Neutrophils % 72 % Lymphocytes % 14 % Monocytes % 7 % Eosinophils % 3 % Basophils % 0 % Neutrophils # 6.3 (1.3-7.7) k/uL Lymphocytes # 1.2 (1.0-4.8) k/uL Monocytes # 0.6 (0-1.0) k/uL Eosinophils # 0.3 (0-0.7) k/uL Basophils # 0.0 (0-0.2) k/uL PT 10.1 (9.0-12.0) sec INR 0.9 (<1.2) APTT 27.1 (22.0-30.0) sec Sodium (137-145) mmol/L Potassium (3.5-5.1) mmol/L Chloride (98-107) mmol/L Carbon Dioxide (22-30) mmol/L Anion Gap mmol/L BUN (9-20) mg/dL Creatinine (0.66-1.25) mg/dL Est GFR (CKD-EPI)AfAm (>60 ml/min/1.73 sqM) Est GFR (CKD-EPI)NonAf (>60 ml/min/1.73 sqM) Glucose (74-99) mg/dL Plasma Lactic Acid [place] (0.7-2.0) mmol/L Calcium (8.4-10.2) mg/dL Magnesium (1.6-2.3) mg/dL Total Bilirubin (0.2-1.3) mg/dL AST (17-59) U/L ALT (4-49) U/L Alkaline Phosphatase (38-126) U/L Troponin I (0.000-0.034) ng/mL NT-Pro-B Natriuret Pep pg/mL Total Protein (6.3-8.2) g/dL Albumin (3.5-5.0) g/dL Influenza Type A (PCR) Not Detected (Not Detectd) Influenza Type B (PCR) Not Detected (Not Detectd) RSV (PCR) Not Detected (Not Detectd) SARS-CoV-2 (PCR) Not Detected (Not Detectd) 03/21/22 03/21/22 03/21/22 Range/Units 21:49 21:49 21:49 WBC (3.8-10.6) k/uL RBC (4.30-5.90) m/uL Hgb (13.0-17.5) gm/dL Hct (39.0-53.0) % MCV (80.0-100.0) fL MCH (25.0-35.0) pg MCHC (31.0-37.0) g/dL RDW (11.5-15.5) % Plt Count (150-450) k/uL MPV Neutrophils % % Lymphocytes % % Monocytes % % Eosinophils % % Basophils % % Neutrophils # (1.3-7.7) k/uL Lymphocytes # (1.0-4.8) k/uL Monocytes # (0-1.0) k/uL Eosinophils # (0-0.7) k/uL Basophils # (0-0.2) k/uL PT (9.0-12.0) sec INR (<1.2) APTT (22.0-30.0) sec Sodium 140 (137-145) mmol/L Potassium 4.0 (3.5-5.1) mmol/L Chloride 102 (98-107) mmol/L Carbon Dioxide 29 (22-30) mmol/L Anion Gap 9 mmol/L BUN 16 (9-20) mg/dL Creatinine 1.09 (0.66-1.25) mg/dL Est GFR (CKD-EPI)AfAm 75 (>60 ml/min/1.73 sqM) Est GFR (CKD-EPI)NonAf 65 (>60 ml/min/1.73 sqM) Glucose 110 H (74-99) mg/dL Plasma Lactic Acid [place] 1.9 (0.7-2.0) mmol/L Calcium 8.8 (8.4-10.2) mg/dL Magnesium 1.9 (1.6-2.3) mg/dL Total Bilirubin 0.3 (0.2-1.3) mg/dL AST 27 (17-59) U/L ALT 20 (4-49) U/L Alkaline Phosphatase 92 (38-126) U/L Troponin I <0.012 (0.000-0.034) ng/mL NT-Pro-B Natriuret Pep pg/mL Total Protein 6.4 (6.3-8.2) g/dL Albumin 4.0 (3.5-5.0) g/dL Influenza Type A (PCR) (Not Detectd) Influenza Type B (PCR) (Not Detectd) RSV (PCR) (Not Detectd) SARS-CoV-2 (PCR) (Not Detectd) 03/21/22 Range/Units 21:49 WBC (3.8-10.6) k/uL RBC (4.30-5.90) m/uL Hgb (13.0-17.5) gm/dL Hct (39.0-53.0) % MCV (80.0-100.0) fL MCH (25.0-35.0) pg MCHC (31.0-37.0) g/dL RDW (11.5-15.5) % Plt Count (150-450) k/uL MPV Neutrophils % % Lymphocytes % % Monocytes % % Eosinophils % % Basophils % % Neutrophils # (1.3-7.7) k/uL Lymphocytes # (1.0-4.8) k/uL Monocytes # (0-1.0) k/uL Eosinophils # (0-0.7) k/uL Basophils # (0-0.2) k/uL PT (9.0-12.0) sec INR (<1.2) APTT (22.0-30.0) sec Sodium (137-145) mmol/L Potassium (3.5-5.1) mmol/L Chloride (98-107) mmol/L Carbon Dioxide (22-30) mmol/L Anion Gap mmol/L BUN (9-20) mg/dL Creatinine (0.66-1.25) mg/dL Est GFR (CKD-EPI)AfAm (>60 ml/min/1.73 sqM) Est GFR (CKD-EPI)NonAf (>60 ml/min/1.73 sqM) Glucose (74-99) mg/dL Plasma Lactic Acid [place] (0.7-2.0) mmol/L Calcium (8.4-10.2) mg/dL Magnesium (1.6-2.3) mg/dL Total Bilirubin (0.2-1.3) mg/dL AST (17-59) U/L ALT (4-49) U/L Alkaline Phosphatase (38-126) U/L Troponin I (0.000-0.034) ng/mL NT-Pro-B Natriuret Pep 39 pg/mL Total Protein (6.3-8.2) g/dL Albumin (3.5-5.0) g/dL Influenza Type A (PCR) (Not Detectd) Influenza Type B (PCR) (Not Detectd) RSV (PCR) (Not Detectd) SARS-CoV-2 (PCR) (Not Detectd) - EKG Data -: EKG Interpreted by Me (EKG is sinus 77 CT 137 QRS 86 QTc 334) - Radiology Data Radiology results: report reviewed (Chest x-rays negative for acute disease), image reviewed Disposition Clinical Impression: COPD (chronic obstructive pulmonary disease), Weakness Disposition: HOME SELF-CARE Instructions (If sedation given, give patient instructions): Chronic Bronchitis (ED) Is patient prescribed a controlled substance at d/c from ED?: No Referrals: Giuseppe Bailey MD [Primary Care Provider] - 1-2 days Time of Disposition: 00:00
[2022-03-21] MEDS ORDERED: ACETAMINOPHEN TAB 500 MG TAB PO PRN (21:59)
[2022-03-21] MEDS ORDERED: KETOROLAC 15 MG/ML 1 ML VIAL IVP PRN (22:02)
--- NOTE | 2022-03-21 22:14 | XR ---
EXAMINATION TYPE: XR chest 1V portable DATE OF EXAM: 03/21/2022 COMPARISON: 09/11/2021 HISTORY: Cough TECHNIQUE: Single view FINDINGS: There is some emphysematous changes in the upper lobes. Heart size is normal. No heart fail ure. There are no hilar masses. Costophrenic angles are clear. There is some mild coarsening of inter stitial markings. IMPRESSION: Emphysema and mild pulmonary fibrosis. No significant change compared to old exam.
[2022-03-21 22:17] LABS: Basophils % (A) 0 %; Eosinophils # (A) 0.3 k/uL (0-0.7); Eosinophils % (A) 3 %; HCT 37.2 % (39.0-53.0); HGB 11.7 gm/dL (13.0-17.5); Lymphocytes # (A) 1.2 k/uL (1.0-4.8); Lymphocytes % (A) 14 %; MCH 26.2 pg (25.0-35.0); MCHC 31.4 g/dL (31.0-37.0); MCV 83.5 fL (80.0-100.0); Monocytes # (A) 0.6 k/uL (0-1.0); Monocytes % (A) 7 %; Neutrophils # (A) 6.3 k/uL (1.3-7.7); Neutrophils % (A) 72 %; Platelet Count 284 k/uL (150-450); RBC 4.45 m/uL (4.30-5.90); RDW 14.1 % (11.5-15.5); WBC 8.7 k/uL (3.8-10.6)
[2022-03-21 22:30] LABS: INR 0.9 (<1.2); Partial Thromboplastin Time 27.1 sec (22.0-30.0); Prothrombin Time 10.1 sec (9.0-12.0)
[2022-03-21 22:37] LABS: Calcium 8.8 mg/dL (8.4-10.2); Magnesium 1.9 mg/dL (1.6-2.3); Total Bilirubin 0.3 mg/dL (0.2-1.3); Total Protein 6.4 g/dL (6.3-8.2)
[2022-03-21 23:12] VITALS: RESP 18
[2022-03-21] MEDS ORDERED: DEXAMETHASONE SOD PHOSPHATE 10 MG/ML 1 ML VIAL IVP STA (23:55)
[2022-03-22 00:29] VITALS: BP 143/66; PULSE 71; TEMP 98.7
== END 2022-03-22 00:47 | disposition home or self-care (01) ==
LOC: EC 20:51
DX: J44.9 Chronic obstructive pulmonary disease, unspecified (principal); R53.1 Weakness; E78.5 Hyperlipidemia, unspecified; Z79.52 Long term (current) use of systemic steroids; Z79.82 Long term (current) use of aspirin; Z79.51 Long term (current) use of inhaled steroids; Z79.899 Other long term (current) drug therapy; Z88.0 Allergy status to penicillin; Z88.8 Allergy status to other drugs, medicaments and biological substances; Z20.822 Contact with and (suspected) exposure to COVID-19; Z87.891 Personal history of nicotine dependence
CPT/HCPCS: 36415; 94640; 93005; 83880; 80053; 83605; 83735; 84484; 85025; 85610; 85730; 87636; 71045; 99285; 96374; 96361 ×2; J1100

== ENCOUNTER 2022-05-27 12:38 | Observation (INO) | payer MEDICARE ==
--- NOTE | 2022-05-27 13:05 | ED ---
General Adult HPI - General Chief complaint: Shortness of Breath Stated complaint: Chest Pain Time Seen by Provider: 05/27/22 12:45 Source: EMS, RN notes reviewed, old records reviewed Mode of arrival: EMS Limitations: altered mental status, physical limitation - History of Present Illness Initial comments: This is a 76-year-old male who presents emergency Department and can't himself give any history there is no family member anyone with the history comes from EMS. They stated that the patient is here because of difficulty breathing and chest pain however he determined that not sure because the patient is nonverbal and is unable to tell his is here. No further history is available this time - Related Data Home Medications Medication Instructions Recorded Confirmed Aspirin [Adult Low Dose Aspirin EC] 81 mg PO DAILY 11/20/17 09/03/21 Budesonide-Formot 160-4.5 Mcg 2 puff INHALATION RT-BID 11/20/17 09/03/21 [Symbicort 160-4.5 Mcg Inhaler] Lovastatin [Mevacor] 40 mg PO HS 11/20/17 09/03/21 Tiotropium [place] [Spiriva] 1 cap INHALATION RT-DAILY 11/20/17 09/03/21 diphenhydrAMINE HCL [Benadryl] 25 mg PO DAILY 11/20/17 09/03/21 Multivitamins, Thera [Multivitamin 1 tab PO DAILY 05/08/18 09/03/21 (formulary)] Albuterol Nebulized [Ventolin 2.5 mg INHALATION RT-QID PRN 11/22/20 09/03/21 Nebulized] Calcium Carbonate/Vitamin D3 1 cap PO BID 02/06/21 09/03/21 [Calcium 600 mg-D3 10 Mcg (400 Iu)] Donepezil [Aricept] 10 mg PO DAILY 08/17/21 09/03/21 PARoxetine [Paxil] 20 mg PO DAILY 08/17/21 09/03/21 ALPRAZolam [Xanax] 0.5 mg PO Q8H PRN 09/03/21 09/03/21 [place]ella Unknown Dose 1 puff INHALATION RT-BID 09/03/21 09/03/21 Previous Rx's Medication Instructions Recorded amLODIPine [Norvasc] 5 mg PO DAILY #30 tab 08/21/21 Acetaminophen [Tylenol] 325 mg PO Q4H PRN #30 tab 08/27/21 Levofloxacin [Levaquin] 750 mg PO Q48H 3 Days #3 tab 09/05/21 predniSONE 10 mg PO DIRECTED #40 tab 09/05/21 Allergies Allergy/AdvReac Type Severity Reaction Status Date / Time Penicillins Allergy Mild Rash/Hives Verified 05/27/22 12:46 cephalexin Allergy Rash/Hives Verified 05/27/22 12:46 morphine Allergy Rash/Hives Verified 05/27/22 12:46 Review of Systems ROS Statement: Those systems with pertinent positive or pertinent negative responses have been documented in the HPI. ROS Other: All systems not noted in ROS Statement are negative. Past Medical History Past Medical History: Cancer, COPD, Dementia, Hyperlipidemia, Pneumonia, Prostate Disorder Additional Past Medical History / Comment(s): emphysema, small hiatal hernia, prostate cancer, colon cancer, rt inguinal hernia. HEPATITIS A- 1961, aphasia, heart murmer, hx anemia, bladder diverticulum History of Any Multi-Drug Resistant Organisms: None Reported Past Surgical History: Appendectomy, Back Surgery, Bowel Resection, Hernia Repair, Orthopedic Surgery Additional Past Surgical History / Comment(s): back surgery for herniated disk, rt shoulder rotator cuff, nilsa cataracts with lens implants, nilsa inguinal hernia, diverticulitis Past Anesthesia/Blood Transfusion Reactions: No Reported Reaction Past Psychological History: No Psychological Hx Reported Smoking Status: Former smoker Past Alcohol Use History: Rare Past Drug Use History: None Reported - Past Family History Father Family Medical History: Cancer Mother Family Medical History: Cancer Additional Family Medical History / Comment(s): lung Cancer, Brain Cancer Sister(s) Family Medical History: Congestive Heart Failure (CHF) General Exam - General Exam Comments Initial Comments: GENERAL: Patient is well-developed and well-nourished. Patient is nontoxic and well- hydrated and is in no acute distress. ENT: Neck is soft and supple. No significant lymphadenopathy is noted. Oropharynx is clear. Moist mucous membranes. Neck has full range of motion without eliciting any pain. EYES: The sclera were anicteric and conjunctiva were pink and moist. Extraocular movements were intact and pupils were equal round and reactive to light. Eyelids were unremarkable. PULMONARY: Patient has poor ventilatory effort difficulty. Good lung sounds does appear to be some crackles bilaterally CARDIOVASCULAR: There is a regular rate and rhythm without any murmurs gallops or rubs. ABDOMEN: Soft and nontender with normal bowel sounds. No palpable organomegaly was noted. There is no palpable pulsatile mass. SKIN: Skin is clear with no lesions or rashes and otherwise unremarkable. NEUROLOGIC: Patient is alert and oriented oriented 1 difficult to assess if he is oriented to place and time because he is nonverbal and he does not seem to understand. Cranial nerves II through XII are grossly intact. Motor and sensory are also intact. Normal speech, volume and content. Symmetrical smile. MUSCULOSKELETAL: Normal extremities with adequate strength and full range of motion. No lower extremity swelling or edema. No calf tenderness. LYMPHATICS: No significant lymphadenopathy is noted PSYCHIATRIC: Unable to assess Limitations: physical limitation Course Vital Signs 05/27/22 05/27/22 05/27/22 12:39 12:54 12:59 Temperature 98.5 F 98.3 F Pulse Rate 85 79 Respiratory 18 18 18 Rate Blood Pressure 97/80 128/80 O2 Sat by Pulse 96 98 Oximetry Medical Decision Making - Medical Decision Making EKG is interpreted by myself shows a sinus rhythm 82 bpm AR interval 240 QRS is 85 QT interval 424 QTC is 463. Patient's EKG shows no obvious ST segment elevation. Was pt. sent in by a medical professional or institution (, PA, QUILLER MACHINE FIXER, urgent care, hospital, or retirement...) When possible be specific @ -Stays in assisted living facility and they sent her in because he stated by writing on paper that he was having chest pain Did you speak to anyone other than the patient for history (EMS, parent, family, police, friend...)? What history was obtained from this source @ -EMS gave us all of the history Did you review nursing and triage notes (agree or disagree)? Why? @ -I reviewed and agree with nursing and triage notes Were old charts reviewed (outside hosp., previous admission, EMS record, old EKG, old radiological studies, urgent care reports/EKG's, retirement records)? Report findings @ -I reviewed prior laboratory studies as well as prior radiological studies Differential Diagnosis (chest pain, altered mental status, abdominal pain women, abdominal pain men, vaginal bleeding, weakness, fever, dyspnea, syncope, headache, dizziness, GI bleed, back pain, seizure, CVA, palpatations, mental health, musculoskeletal)? @ -Differential Chest Pain: Stable Angina, Unstable Angina, STEMI, NSTEMI Aortic Dissection, Pneumothorax, Musculoskeletal, Esophageal Spasm GERD, Cholecystitis, Pancreatitis, Zoster, this is not meant to be an all-inclusive list. EKG interpreted by me (3pts min.). @ -As above X-rays interpreted by me (1pt min.). @ -Chest x-ray was interpreted by myself and it shows a left lower lobe infiltrate CT interpreted by me (1pt min.). @ -None done U/S interpreted by me (1pt. min.). @ -None done What testing was considered but not performed or refused? (CT, X-rays, U/S, labs)? Why? @ -None What meds were considered but not given or refused? Why? @ -None Did you discuss the management of the patient with other professionals (professionals i.e. , PA, QUILLER MACHINE FIXER, lab, RT, psych nurse, social media coordinator, repair welder, teacher, fire prevention officer, adult protective caseworker)? Give summary @ -I spoke with Dr. Oliva she agreed to admit the patient I admitted the patient wrote admitting orders Was smoking cessation discussed for >3mins.? @ -No Was critical care preformed (if so, how long)? @ -No Were there social determinants of health that impacted care today? How? (Homelessness, low income, unemployed, alcoholism, drug addiction, transportation, low edu. Level, literacy, decrease access to med. care, group home, rehab)? @ -No Was there de-escalation of care discussed even if they declined (Discuss DNR or withdrawal of care, Hospice)? DNR status @ -No What co-morbidities impacted this encounter? (DM, HTN, Smoking, COPD, CAD, Cancer, CVA, ARF, Chemo, Hep., AIDS, mental health diagnosis, sleep apnea, morbid obesity)? @ -None Was patient admitted / discharged? Hospital course, mention meds given and route, prescriptions, significant lab abnormalities, going to OR and other pertinent info. @ -Patient had a chest x-ray which showed a pneumonia white count was mildly elevated I started the patient on Levaquin. I spoke with Dr. Oliva she was in agreement with admitting the patient. Patient will have Levaquin continued on the floor as well as ruling out cardiac enzymes because he indicated he had chest pain. It is very difficult to communicate with the gentleman and no one is with him son can be contacted by phone Undiagnosed new problem with uncertain prognosis? @ -No Drug Therapy requiring intensive monitoring for toxicity (Heparin, Nitro, Insulin, Cardizem)? @ -No Were any procedures done? @ -No Diagnosis/symptom? @ -Pneumonia Acute, or Chronic, or Acute on Chronic? @ -Acute Uncomplicated (without systemic symptoms) or Complicated (systemic symptoms)? @ -Complicated Side effects of treatment? @ -No Exacerbation, Progression, or Severe Exacerbation? @ -No Poses a threat to life or bodily function? How? (Chest pain, [place], [place], pneumonia, PE, COPD, DKA, ARF, appy, cholecystitis, CVA, Diverticulitis, Homicidal, Suicidal, threat to staff... and all critical care pts) @ -Yes pneumonia could lead to sepsis which could lead to end organ dysfunction Diagnosis/symptom? @ -Chest pain Acute, or Chronic, or Acute on Chronic? @ -Acute Uncomplicated (without systemic symptoms) or Complicated (systemic symptoms)? @ -default Side effects of treatment? @ -none Exacerbation, Progression, or Severe Exacerbation] @ -no Poses a threat to life or bodily function? @ -no - Lab Data Result diagrams: 05/27/22 13:18 05/27/22 13:18 Lab Results 05/27/22 05/27/22 05/27/22 Range/Units 13:18 13:18 13:18 WBC 13.1 H (3.8-10.6) k/uL RBC 4.70 (4.30-5.90) m/uL Hgb 12.6 L (13.0-17.5) gm/dL Hct 38.5 L (39.0-53.0) % MCV 82.0 (80.0-100.0) fL MCH 26.7 (25.0-35.0) pg MCHC 32.6 (31.0-37.0) g/dL RDW 14.4 (11.5-15.5) % Plt Count 243 (150-450) k/uL MPV 7.0 Neutrophils % 84 % Lymphocytes % 9 % Monocytes % 5 % Eosinophils % 0 % Basophils % 0 % Neutrophils # 11.1 H (1.3-7.7) k/uL Lymphocytes # 1.1 (1.0-4.8) k/uL Monocytes # 0.7 (0-1.0) k/uL Eosinophils # 0.1 (0-0.7) k/uL Basophils # 0.0 (0-0.2) k/uL PT 10.3 (9.0-12.0) sec INR 1.0 (<1.2) APTT 26.2 (22.0-30.0) sec D-Dimer 0.37 (<0.60) mg/L FEU Sodium 138 (137-145) mmol/L Potassium 4.4 (3.5-5.1) mmol/L Chloride 104 (98-107) mmol/L Carbon Dioxide 26 (22-30) mmol/L Anion Gap 8 mmol/L BUN 16 (9-20) mg/dL Creatinine 1.02 (0.66-1.25) mg/dL Est GFR (CKD-EPI)AfAm 81 (>60 ml/min/1.73 sqM) Est GFR (CKD-EPI)NonAf 70 (>60 ml/min/1.73 sqM) Glucose 125 H (74-99) mg/dL Plasma Lactic Acid Venkata (0.7-2.0) mmol/L Calcium 8.7 (8.4-10.2) mg/dL Magnesium 2.0 (1.6-2.3) mg/dL Total Bilirubin 0.9 (0.2-1.3) mg/dL AST 40 (17-59) U/L ALT 23 (4-49) U/L Alkaline Phosphatase 72 (38-126) U/L Troponin I (0.000-0.034) ng/mL NT-Pro-B Natriuret Pep pg/mL Total Protein 7.4 (6.3-8.2) g/dL Albumin 4.3 (3.5-5.0) g/dL 05/27/22 05/27/22 05/27/22 Range/Units 13:18 13:18 13:18 WBC (3.8-10.6) k/uL RBC (4.30-5.90) m/uL Hgb (13.0-17.5) gm/dL Hct (39.0-53.0) % MCV (80.0-100.0) fL MCH (25.0-35.0) pg MCHC (31.0-37.0) g/dL RDW (11.5-15.5) % Plt Count (150-450) k/uL MPV Neutrophils % % Lymphocytes % % Monocytes % % Eosinophils % % Basophils % % Neutrophils # (1.3-7.7) k/uL Lymphocytes # (1.0-4.8) k/uL Monocytes # (0-1.0) k/uL Eosinophils # (0-0.7) k/uL Basophils # (0-0.2) k/uL PT (9.0-12.0) sec INR (<1.2) APTT (22.0-30.0) sec D-Dimer (<0.60) mg/L FEU Sodium (137-145) mmol/L Potassium (3.5-5.1) mmol/L Chloride (98-107) mmol/L Carbon Dioxide (22-30) mmol/L Anion Gap mmol/L BUN (9-20) mg/dL Creatinine (0.66-1.25) mg/dL Est GFR (CKD-EPI)AfAm (>60 ml/min/1.73 sqM) Est GFR (CKD-EPI)NonAf (>60 ml/min/1.73 sqM) Glucose (74-99) mg/dL Plasma Lactic Acid Venkata 2.1 H* (0.7-2.0) mmol/L Calcium (8.4-10.2) mg/dL Magnesium (1.6-2.3) mg/dL Total Bilirubin (0.2-1.3) mg/dL AST (17-59) U/L ALT (4-49) U/L Alkaline Phosphatase (38-126) U/L Troponin I <0.012 (0.000-0.034) ng/mL NT-Pro-B Natriuret Pep 60 pg/mL Total Protein (6.3-8.2) g/dL Albumin (3.5-5.0) g/dL Disposition Clinical Impression: Chest pain, Pneumonia Disposition: ADMITTED IP TO THIS [facility] Is patient prescribed a controlled substance at d/c from ED?: No Referrals: Giuseppe Bailey MD [STAFF PHYSICIAN] - 1-2 days Time of Disposition: 15:06
[2022-05-27 13:41] LABS: Basophils % (A) 0 %; Eosinophils # (A) 0.1 k/uL (0-0.7); Eosinophils % (A) 0 %; HCT 38.5 % (39.0-53.0); HGB 12.6 gm/dL (13.0-17.5); Lymphocytes # (A) 1.1 k/uL (1.0-4.8); Lymphocytes % (A) 9 %; MCH 26.7 pg (25.0-35.0); MCHC 32.6 g/dL (31.0-37.0); Monocytes # (A) 0.7 k/uL (0-1.0); Monocytes % (A) 5 %; Neutrophils # (A) 11.1 k/uL (1.3-7.7); Neutrophils % (A) 84 %; Platelet Count 243 k/uL (150-450); RDW 14.4 % (11.5-15.5); WBC 13.1 k/uL (3.8-10.6)
[2022-05-27 13:58] LABS: Partial Thromboplastin Time 26.2 sec (22.0-30.0); Prothrombin Time 10.3 sec (9.0-12.0)
--- NOTE | 2022-05-27 13:58 | XR ---
EXAMINATION TYPE: XR chest 2V DATE OF EXAM: 05/27/2022 COMPARISON: 03/21/2022 HISTORY: 76 year-old male shortness of breath, difficulty breathing TECHNIQUE: AP and lateral views FINDINGS: Heart normal size. Aorta and pulmonary vasculature are within normal limits. Mild patchy density medi al left lower lung. Hyperinflation. No other consolidation or pleural effusion seen. IMPRESSION: COPD with either atelectasis or developing inferior lingular pneumonia. Clinically correlate.
[2022-05-27 14:16] LABS: Albumin 4.3 g/dL (3.5-5.0); Calcium 8.7 mg/dL (8.4-10.2); Total Bilirubin 0.9 mg/dL (0.2-1.3); Total Protein 7.4 g/dL (6.3-8.2)
[2022-05-27 14:24] LABS: Potassium 4.4 mmol/L (3.5-5.1)
[2022-05-27] MEDS ORDERED: LEVOFLOXACIN 750MG-D5W PMX 750 MG in DEXTROSE/WATER 1 150ML.BAG IVPB STA (14:34)
[2022-05-27] MEDS ORDERED: PNEUMONIA PROTOCOL UTILIZED 1 EACH MISC PO PRN (15:06)
[2022-05-27] MEDS ORDERED: ALBUTEROL NEBULIZED 2.5 MG/3 ML INHALATION PRN (15:43)
[2022-05-27] MEDS ORDERED: ACETAMINOPHEN TAB 325 MG TAB PO PRN (15:43)
--- NOTE | 2022-05-27 15:47 | P.HPIM ---
History of Present Illness H&P Date: 05/27/22 Patient is a 76-year-old gentleman with aphasia who is hard of hearing with a history of prostate cancer, COPD, and colon cancer in the past. He presented to the emergency department from [facility] for chest pain. In the ER he underwent an extensive evaluation. His vital signs were within normal limits on arrival. He was found to have pneumonia with an elevated white blood cell count. Initial troponin was negative and EKG was nonischemic. Arrangements are made for observation. Patient seen and examined at bedside. 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 We communicated through writing. He communicates that he had chest pain starting this morning at 7 am this morning and it has continued intermittently. The pain is retrosternal and radiates to his right arm. He reports some chills and a possible fever. He has a chronic cough which is unchanged and he has chronic SOB from his COPD which is unchanged. He denies any lightheadedness, dizziness, nausea, vomiting, diarrhea, dysuria. Review of EMS run sheet indicates that the patient was complaining of chest pain and some shortness of breath since last night. He typically uses a walker Initially the patient does not want to stay in the hospital overnight but agrees to one might observation stay. Vital signs reviewed General: nontoxic, no distress, appears at stated age Derm: warm, dry Eyes: EOMI, no lid lag, anicteric sclera, pupils equal round reactive to light ENT: Nose and ears atraumatic, no thrush, no pharyngeal erythema Cardiovascular: S1S2 reg, no murmur, positive posterior tibial pulse bilateral, no edema, capillary refill less than 2 seconds Lungs: Coarse breath sounds bilateral, no rhonchi, no rales, no wheeze, no accessory muscle use Abdominal: soft, nontender to palpation, no guarding, no appreciable organomegaly, normal bowel sounds Ext: no gross muscle atrophy, muscle strength 5 out of 5 in all 4 extremities, no contractures Neuro: CN II-XII grossly intact, light touch intact all 4 extremities Psych: Alert, oriented to self and situation, appropriate affect Assessment: Pneumonia Lactic acidosis Chest pain COPD without acute exacerbation Chronic: Hx of prostate cancer HLD Prior [place] cancer Aphasia and [place] releated to brain tumor Dementia per son Imaging: Chest x-ray as reviewed by myself reveals infiltrate obscuring the left heart border. EKG is reviewed by myself reveals normal sinus rhythm at a rate of 82, normal access, normal intervals Data Review: Laboratory analysis reviewed. CBC remarkable for a white blood cell count of 13, basic metabolic profile remarkable for a glucose of 125, troponin less than 0.012, BNP 60, lactic acid 2.1, d-dimer 0.37 Plan: -Case was discussed with Dr. Capone and decision was made to observe the patient overnight -Patient has a history of penicillin and cephalosporin ALLERGIES therefore he was started on Levaquin 750 mg -Serial troponins, telemetry, aspirin 81 mg -Resume patient's home lovastatin, Aricept 10 mg daily, Paxil 20 mg daily, and Benadryl 25 mg at night -Start albuterol 2.5 mg 4 times daily and every 4 hours as needed for shortness of breath -Consult pulmonary as patient is well-established with their group -Sputum culture if able, legionella urine antigen -Recommend speech evaluation due to patient's chronic cough -Requires repeat basic metabolic profile and CBC in a.m. to check progress of pneumonia - Await COVID/RSV/Flu testing The patient is placed in observation with an anticipated less than 2 midnight stay for evaluation of Chest pain and pneumonia. Surrogate decision-maker: Son DVT prophylaxis: SCDs Discussed with: patient ,nursing, ed provider, case management social worker spoke with the patient's son Anticipated discharge date: in 24-[address]: return to [facility]. This dictation was prepared using [employer] voice recognition software. Though every attempt is made to correct errors during during dictation some may still exist. Past Medical History Past Medical History: Cancer, COPD, Dementia, Hyperlipidemia, Pneumonia, Prostate Disorder Additional Past Medical History / Comment(s): emphysema, small hiatal hernia, prostate cancer, colon cancer, rt inguinal hernia. HEPATITIS A- 1961, aphasia, heart murmer, hx anemia, bladder diverticulum History of Any Multi-Drug Resistant Organisms: None Reported Past Surgical History: Appendectomy, Back Surgery, Bowel Resection, Hernia Repair, Orthopedic Surgery Additional Past Surgical History / Comment(s): back surgery for herniated disk, rt shoulder rotator cuff, nilsa cataracts with lens implants, nilsa inguinal hernia, diverticulitis Past Anesthesia/Blood Transfusion Reactions: No Reported Reaction Past Psychological History: No Psychological Hx Reported Smoking Status: Former smoker Past Alcohol Use History: Rare Past Drug Use History: None Reported - Past Family History Father Family Medical History: Cancer Mother Family Medical History: Cancer Additional Family Medical History / Comment(s): lung Cancer, Brain Cancer Sister(s) Family Medical History: Congestive Heart Failure (CHF) Medications and Allergies Home Medications Medication Instructions Recorded Confirmed Type Aspirin [Adult Low Dose Aspirin EC] 81 mg PO DAILY 11/20/17 05/27/22 History Lovastatin [Mevacor] 40 mg PO HS 11/20/17 05/27/22 History diphenhydrAMINE HCL [Benadryl] 25 mg PO HS 11/20/17 05/27/22 History Albuterol Nebulized [Ventolin 2.5 mg INHALATION RT-QID 11/22/20 05/27/22 History Nebulized] Donepezil [Aricept] 10 mg PO DAILY 08/17/21 05/27/22 History PARoxetine [Paxil] 20 mg PO DAILY 08/17/21 05/27/22 History Multivitamins, Thera [Multivitamin 1 tab PO DAILY 05/27/22 05/27/22 History (formulary)] Allergies Allergy/AdvReac Type Severity Reaction Status Date / Time Penicillins Allergy Mild Rash/Hives Verified 05/27/22 15:22 cephalexin Allergy Rash/Hives Verified 05/27/22 15:22 morphine Allergy Rash/Hives Verified 05/27/22 15:22 Physical Exam Osteopathic Statement: *. No significant issues noted on an osteopathic struct ural exam other than those noted in the History and Physical/Consult. Vitals: Vital Signs Temp Pulse Resp BP Pulse Ox 05/27/22 15:06 71 18 99/60 96 05/27/22 12:59 98.3 F 79 18 128/80 98 05/27/22 12:54 18 05/27/22 12:39 98.5 F 85 18 97/80 96 Intake and Output 05/27/22 05/27/22 05/27/22 06:59 14:59 22:59 Other: Weight 63.503 kg Results CBC & Chem 7: 05/27/22 13:18 05/27/22 13:18 Labs: Abnormal Lab Results - Last 24 Hours (Table) 03/20/23 03/20/23 03/20/23 Range/Units 13:18 13:18 13:18 WBC 13.1 H (3.8-10.6) k/uL Hgb 12.6 L (13.0-17.5) gm/dL Hct 38.5 L (39.0-53.0) % Neutrophils # 11.1 H (1.3-7.7) k/uL Glucose 125 H (74-99) mg/dL Plasma Lactic Acid Venkata 2.1 H* (0.7-2.0) mmol/L
[2022-05-27] MEDS: ALBUTEROL NEBULIZED 2.5 MG/3 ML INHALATION SCH ×2 (16:36→20:12)
[2022-05-27] MEDS: ASPIRIN 81 MG PO SCH (20:44)
[2022-05-27] MEDS: ATORVASTATIN 10 MG TAB PO SCH ×2 (20:45→21:52)
[2022-05-27] MEDS ORDERED: diphenhydrAMINE 25 MG CAP PO SCH (21:00)
--- NOTE | 2022-05-28 08:07 | XR ---
EXAMINATION TYPE: XR chest 2V DATE OF EXAM: 05/28/2022 7:18 AM COMPARISON: Chest radiographs from 05/27/2022 TECHNIQUE: XR chest 2V Frontal and lateral views of the chest. CLINICAL INDICATION:Male, 76 years old with history of pneumonia; FINDINGS: Lungs/Pleura: There is flattening of the diaphragm with increased lucency of the lungs. No pleural ef fusion or pneumothorax. Decrease patchy density within the medial left lower lung. Pulmonary vascularity: Unremarkable. Heart/mediastinum: Cardiomediastinal silhouette is unremarkable. Atherosclerotic calcifications are seen in the aorta. Musculoskeletal: No acute osseous pathology. IMPRESSION: 1. Decreased patchy density within the medial left lower lung. 2. COPD changes.
[2022-05-28] MEDS: ASPIRIN 81 MG PO SCH (08:10)
[2022-05-28] MEDS ORDERED: DONEPEZIL 10 MG TAB PO SCH (09:00)
[2022-05-28] MEDS ORDERED: PARoxetine 20 MG TAB PO SCH (09:00)
[2022-05-28] MEDS: ALBUTEROL NEBULIZED 2.5 MG/3 ML INHALATION SCH ×3 (09:20→15:23)
[2022-05-28 09:34] LABS: HCT 37.6 % (39.0-53.0); HGB 11.7 gm/dL (13.0-17.5); MCHC 31.3 g/dL (31.0-37.0); Mean Platelet Volume 7.3; Platelet Count 210 k/uL (150-450); RBC 4.53 m/uL (4.30-5.90); RDW 14.5 % (11.5-15.5); WBC 8.1 k/uL (3.8-10.6)
[2022-05-28 11:59] LABS: African American GFR (CKD) 74.1 (60.0-200.0); Albumin 3.8 g/dL (3.8-4.9); Anion Gap 14.2 mmol/L (10.00-18.00); BUN/Creat Ratio 12.09 Ratio (12.00-20.00); Blood Urea Nitrogen 13.3 mg/dL (9.0-27.0); Calcium 8.6 mg/dL (8.7-10.3); Carbon Dioxide 22.8 mmol/L (20.0-27.5); Globulin 1.9 g/dL (1.6-3.3); Potassium 3.7 mmol/L (3.5-5.5); Total Bilirubin 0.4 mg/dL (0.30-1.20); Total Protein 5.7 g/dL (6.2-8.2)
--- NOTE | 2022-05-28 13:32 | P.CNPUL ---
History of Present Illness Consult date: 05/28/22 Requesting physician: Emily Oliva Reason for consult: chest pain, COPD, abnormal CXR/CT Chief complaint: Chest pain History of present illness: This is a 76-year-old male patient with past medical history of COPD, and baseline FEV1 of 40%, previous episodes of pneumonia, former smoker, peripheral arterial occlusive disease, prostate cancer with surgery, colon cancer with history of hemicolectomy and primary progressive apraxia of speech. Patient follows with in the pulmonary clinic. He presented here to the emergency room yesterday with complaints of shortness of breath and chest pain. Chest x-ray shows evidence of COPD with atelectasis in the lingular area. White count 8.1. Hemoglobin 11.7. Sodium 142. Potassium 3.7. BUN 13. Creatinine 1.1. Troponins negative 2. Influenza screen negative. RSV screen negative. COVID- 19 screen negative. He is seen today in consultation on the regular medical floor. Difficult with communication to the patient's aphasia. He is able to communicate by writing. Currently he denies any worsening shortness of breath, cough or congestion. No further chest pain. He is maintaining O2 saturations in the 90s on room air. He's been afebrile. Hemodynamically stable. He was initiated on bronchodilators. Antibiotics in the form of Levaquin. Review of Systems Unable to assess due to patient's apraxia/aphasia. Past Medical History Past Medical History: Cancer, COPD, Dementia, Hyperlipidemia, Pneumonia, Prostate Disorder Additional Past Medical History / Comment(s): emphysema, small hiatal hernia, prostate cancer, colon cancer, rt inguinal hernia. HEPATITIS A- 1961, aphasia, heart murmer, hx anemia, bladder diverticulum History of Any Multi-Drug Resistant Organisms: None Reported Past Surgical History: Appendectomy, Back Surgery, Bowel Resection, Hernia Repair, Orthopedic Surgery Additional Past Surgical History / Comment(s): back surgery for herniated disk, rt shoulder rotator cuff, nilsa cataracts with lens implants, nilsa inguinal hernia, diverticulitis Past Anesthesia/Blood Transfusion Reactions: No Reported Reaction Past Psychological History: No Psychological Hx Reported Smoking Status: Former smoker Past Alcohol Use History: Rare Past Drug Use History: None Reported - Past Family History Father Family Medical History: Cancer Mother Family Medical History: Cancer Additional Family Medical History / Comment(s): lung Cancer, Brain Cancer Sister(s) Family Medical History: Congestive Heart Failure (CHF) Medications and Allergies Home Medications Medication Instructions Recorded Confirmed Type Aspirin [Adult Low Dose Aspirin EC] 81 mg PO DAILY 11/20/17 05/27/22 History Lovastatin [Mevacor] 40 mg PO HS 11/20/17 05/27/22 History diphenhydrAMINE HCL [Benadryl] 25 mg PO HS 11/20/17 05/27/22 History Albuterol Nebulized [Ventolin 2.5 mg INHALATION RT-QID 11/22/20 05/27/22 History Nebulized] Donepezil [Aricept] 10 mg PO DAILY 08/17/21 05/27/22 History PARoxetine [Paxil] 20 mg PO DAILY 08/17/21 05/27/22 History Multivitamins, Thera [Multivitamin 1 tab PO DAILY 05/27/22 05/27/22 History (formulary)] Levofloxacin [Levaquin] 750 mg PO DAILY 3 Days #3 tab 05/28/22 Rx Allergies Allergy/AdvReac Type Severity Reaction Status Date / Time Penicillins Allergy Mild Rash/Hives Verified 05/27/22 15:22 cephalexin Allergy Rash/Hives Verified 05/27/22 15:22 morphine Allergy Rash/Hives Verified 05/27/22 15:22 Physical Exam Vitals: Vital Signs Temp Pulse Pulse Resp BP BP Pulse Ox 05/28/22 12:28 88 05/28/22 12:20 92 05/28/22 10:00 81 14 05/28/22 09:32 87 05/28/22 09:24 97 05/28/22 09:20 91 05/28/22 06:51 98.4 F 81 14 163/67 96 05/28/22 02:49 97.9 F 61 18 132/55 96 05/27/22 21:09 98.0 F 87 19 141/64 95 05/27/22 20:50 92 16 119/66 97 05/27/22 20:21 101 H 20 05/27/22 20:12 100 20 05/27/22 17:55 99.0 F 87 18 113/68 96 05/27/22 16:45 77 18 05/27/22 16:37 69 18 05/27/22 15:06 71 18 99/60 96 Intake and Output 05/27/22 05/28/22 05/28/22 22:59 06:59 14:59 Intake Total 118 Balance 118 Intake: Oral 118 Other: Voiding Method Toilet Toilet # Voids 1 1 Weight 63.503 kg GENERAL EXAM: Alert, 76-year-old male, with apraxia, on room air, comfortable in no apparent distress. HEAD: Normocephalic. EYES: Normal reaction of pupils, equal size. NOSE: Clear with pink turbinates. THROAT: No erythema or exudates. NECK: No masses, no JVD. CHEST: No chest wall deformity. LUNGS: Equal air entry with no crackles, wheeze, rhonchi or dullness. CVS: S1 and S2 normal with no audible murmur, regular rhythm. ABDOMEN: No hepatosplenomegaly, normal bowel sounds, no guarding or rigidity. SPINE: No scoliosis or deformity SKIN: No rashes CENTRAL NERVOUS SYSTEM: No focal deficits, tone is normal in all 4 extremities. EXTREMITIES: There is no peripheral edema. No clubbing, no cyanosis. Peripheral pulses are intact. Results - Laboratory Findings CBC and BMP: 05/28/22 08:58 05/28/22 04:28 PT/INR, D-dimer PT 10.3 sec (9.0-12.0) 05/27/22 13:18 INR 1.0 (<1.2) 05/27/22 13:18 D-Dimer 0.37 mg/L FEU (<0.60) 05/27/22 13:18 Abnormal lab findings: Abnormal Labs 05/27/22 05/27/22 05/27/22 13:18 13:18 13:18 WBC 13.1 H Hgb 12.6 L Hct 38.5 L Neutrophils # 11.1 H Glucose 125 H Plasma Lactic Acid Venkata 2.1 H* Calcium Total Protein 05/28/22 05/28/22 04:28 08:58 WBC Hgb 11.7 L Hct 37.6 L Neutrophils # Glucose Plasma Lactic Acid Venkata Calcium 8.6 L Total Protein 5.7 L - Diagnostic Findings Chest x-ray: image reviewed Assessment and Plan Assessment: Atypical chest pain and shortness of breath and the patient with possible early infiltrate in the lingula. Currently on Levaquin. History of pseudomonas aeruginosa pneumonia. History of advanced COPD, baseline FEV1 of 40% of predicted, not oxygen dependent at baseline Former smoker Primary progressive apraxia of speech, patient follows with a speech therapy on an outpatient basis History of colon cancer with previous history of hemicolectomy Peripheral arterial occlusive disease History of a 7 mm stable left lower lobe nodule was under surveillance History of tobacco dependence, carries a [id number] smoking history History of prostate cancer with surgery Plan: The patient was seen and evaluated Chest x-ray, labs and medications reviewed Stable for discharge from the pulmonary standpoint Could complete a course of antibiotics Follow-up in our office in 1 week I have personally seen and examined the patient, performed the documentation and the assessment and plan as written. Number of minutes spent on the visit: 20.
--- NOTE | 2022-05-28 14:42 | P.DS ---
Providers Date of admission: 05/27/22 15:08 Expected date of discharge: 05/28/22 Attending physician: Emily Oliva DO Consults: 05/27/22 15:43 Consult Physician Routine Consulting Provider: Giuseppe Bailey Consult Reason/Comments: pneumonia Do you want consulting provider notified?: Yes Primary care physician: Stated None Hospital Course: Discharge Diagnosis: Pneumonia Costochondritis Lactic acidosis COPD without acute exacerbation Hospital Course: Patient is a 76-year-old gentleman with aphasia who is hard of hearing with a history of prostate cancer, COPD, and colon cancer in the past. He presented to the emergency department from [facility] for chest pain. In the ER he underwent an extensive evaluation. His vital signs were within normal limits on arrival. He was found to have pneumonia with an elevated white blood cell count. Initial troponin was negative and EKG was nonischemic. Arrangements are made for observation. Ultimately it was consulted. Repeat x-ray shows improvement in the left-sided infiltrate. He was determined stable for discharge home with adequate outpatient follow-up. He will complete a course of Levaquin for 5 days. He'll follow up with Dr. Bailey next week. I did discuss with him and his son following with a burr machine operator should he have any recurrent chest pain. Patient seen and examined at bedside. 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 We communicated through writing. He states his chest pain is completely abated. He is breathing easier. He feels much better than yesterday. Vital signs reviewed and stable. General: nontoxic, no distress, appears at stated age Derm: warm, dry Head: atraumatic, normocephalic, symmetric Eyes: EOMI, no lid lag, anicteric sclera Mouth: no lip lesion, mucus membranes moist Cardiovascular: S1S2 reg, no murmur, positive posterior tibial pulse bilateral, Lungs: Decreased breath sounds bilateral, no rhonchi, no rales , no accessory muscle use Abdominal: soft, nontender to palpation, no guarding, no appreciable organomegaly Ext: no gross muscle atrophy, no edema, no contractures Neuro: CN II-XI grossly intact, no focal neuro deficits Psych: Alert, oriented, appropriate affect A total of 35 minutes of time were spent preparing this complex discharge summary. Patient was discharged on 05/28/22. This dictation was prepared using dragon medical voice recognition software. Though every attempt is made to correct errors during during dictation some may still exist. Plan - Discharge Summary New Discharge Prescriptions: New Levofloxacin [Levaquin] 750 mg PO DAILY 3 Days #3 tab Continue Lovastatin [Mevacor] 40 mg PO HS Aspirin [Adult Low Dose Aspirin EC] 81 mg PO DAILY diphenhydrAMINE HCL [Benadryl] 25 mg PO HS Albuterol Nebulized [Ventolin Nebulized] 2.5 mg INHALATION RT-QID Donepezil [Aricept] 10 mg PO DAILY PARoxetine [Paxil] 20 mg PO DAILY Multivitamins, Thera [Multivitamin (formulary)] 1 tab PO DAILY Discharge Medication List Aspirin [Adult Low Dose Aspirin EC] 81 mg PO DAILY 11/20/17 [History] Lovastatin [Mevacor] 40 mg PO HS 11/20/17 [History] diphenhydrAMINE HCL [Benadryl] 25 mg PO HS 11/20/17 [History] Albuterol Nebulized [Ventolin Nebulized] 2.5 mg INHALATION RT-QID 11/22/20 [History] Donepezil [Aricept] 10 mg PO DAILY 08/17/21 [History] PARoxetine [Paxil] 20 mg PO DAILY 08/17/21 [History] Multivitamins, Thera [Multivitamin (formulary)] 1 tab PO DAILY 05/27/22 [History] Levofloxacin [Levaquin] 750 mg PO DAILY 3 Days #3 tab 05/28/22 [Rx] Follow up Appointment(s)/Referral(s): Giuseppe Bailey MD [STAFF PHYSICIAN] - 06/04/22 2:45 pm Patient Instructions/Handouts: Pneumonia (DC) Activity/Diet/Wound Care/Special Instructions: Activity: As tolerated Diet: Regular Special Instructions: If you continue to have chest pain after treatment for your pneumonia. Consider following with cardiology Discharge Disposition: HOME SELF-CARE
[2022-05-28 15:59] VITALS: BP 137/63; PULSE 72; RESP 18; TEMP 98.5
[2022-05-28] MEDS ORDERED: LEVOFLOXACIN 750MG-D5W PMX 750 MG in DEXTROSE/WATER 1 150ML.BAG IVPB SCH (16:00)
== END 2022-05-28 16:40 | disposition home or self-care (01) ==
LOC: EC 12:38 → 6NMEDSUR 15:08
PROVIDERS: ADMIT Internal Medicine; ATTEND Internal Medicine
DX: J18.9 Pneumonia, unspecified organism (principal); M94.0 Chondrocostal junction syndrome [Tietze]; E87.20 Acidosis, unspecified; R91.1 Solitary pulmonary nodule; H91.90 Unspecified hearing loss, unspecified ear; R48.2 Apraxia; R41.82 Altered mental status, unspecified; R47.01 Aphasia; F03.90 Unspecified dementia, unspecified severity, without behavioral disturbance, psychotic disturbance, mood disturbance, and anxiety; Z20.822 Contact with and (suspected) exposure to COVID-19; E78.5 Hyperlipidemia, unspecified; J43.9 Emphysema, unspecified; Z87.891 Personal history of nicotine dependence; I73.9 Peripheral vascular disease, unspecified; Z85.46 Personal history of malignant neoplasm of prostate; Z85.038 Personal history of other malignant neoplasm of large intestine; Z90.79 Acquired absence of other genital organ(s); Z90.49 Acquired absence of other specified parts of digestive tract; R01.1 Cardiac murmur, unspecified; Z98.42 Cataract extraction status, left eye; Z98.41 Cataract extraction status, right eye; Z96.1 Presence of intraocular lens; Z98.890 Other specified postprocedural states; Z80.1 Family history of malignant neoplasm of trachea, bronchus and lung; Z80.8 Family history of malignant neoplasm of other organs or systems; Z82.49 Family history of ischemic heart disease and other diseases of the circulatory system; Z79.82 Long term (current) use of aspirin; Z79.51 Long term (current) use of inhaled steroids; Z79.52 Long term (current) use of systemic steroids; Z79.899 Other long term (current) drug therapy; Z88.1 Allergy status to other antibiotic agents; Z88.5 Allergy status to narcotic agent; Z88.0 Allergy status to penicillin
CPT/HCPCS: 99285; 36415; 94640 ×4; 94760; 93005; 92610; 85379; 83880; 80053 ×2; 83605; 83735; 84484 ×2; 85025; 85027; 85610; 85730; 87040; 84145; 87636; 71046 ×2; G0378 ×2; J1956 ×2

== ENCOUNTER 2022-10-03 08:26 | Emergency (ER) | payer MEDICARE ==
[2022-10-03] MEDS ORDERED: methylPREDNISolone SOD SUCCI 125 MG/2 ML VIAL IV STA (08:28)
[2022-10-03] MEDS ORDERED: IPRATROPIUM-ALBUTEROL 3 ML NEB INHALATION STA (08:28)
[2022-10-03] MEDS ORDERED: SODIUM CHLORIDE 0.9% 500 ML 500 ML IV STA ×2 (08:28→09:59)
[2022-10-03 09:02] VITALS: TEMP 99.1
[2022-10-03 09:19] LABS: Basophils % (A) 0 %; Eosinophils # (A) 0.1 k/uL (0-0.7); Eosinophils % (A) 1 %; HCT 38.4 % (39.0-53.0); HGB 12.3 gm/dL (13.0-17.5); Lymphocytes % (A) 10 %; MCH 27.7 pg (25.0-35.0); MCHC 32.1 g/dL (31.0-37.0); MCV 86.2 fL (80.0-100.0); Mean Platelet Volume 7.3; Monocytes # (A) 0.6 k/uL (0-1.0); Monocytes % (A) 6 %; Neutrophils # (A) 8.1 k/uL (1.3-7.7); Neutrophils % (A) 81 %; Platelet Count 207 k/uL (150-450); RBC 4.46 m/uL (4.30-5.90); RDW 14.2 % (11.5-15.5)
--- NOTE | 2022-10-03 09:31 | XR ---
EXAMINATION TYPE: XR chest 2V DATE OF EXAM: 10/03/2022 9:19 AM COMPARISON: Chest radiographs from 05/28/2022 TECHNIQUE: XR chest 2V Frontal and lateral views of the chest. CLINICAL INDICATION:Male, 77 years old with history of difficulty breathing; FINDINGS: Lungs/Pleura: There is flattening of the diaphragm with increased lucency of the lungs. No evidence o f pneumothorax, pleural effusion or focal consolidation. Pulmonary vascularity: Unremarkable. Heart/mediastinum: Cardiomediastinal silhouette is unremarkable. Musculoskeletal: No acute osseous pathology. IMPRESSION: 1. No acute cardiopulmonary disease process. 2. COPD changes.
--- NOTE | 2022-10-03 09:38 | ED ---
General Adult HPI - General Chief complaint: Shortness of Breath Stated complaint: sob Time Seen by Provider: 10/03/22 08:28 Source: patient, EMS, RN notes reviewed, old records reviewed Mode of arrival: EMS Limitations: language barrier - History of Present Illness Initial comments: Patient is a 77-year-old male who presents emergency Department complaining of cough. Presents from his living facility. He has dementia, COPD, aphasia that is chronic and he communicates via writing but does still have some underlying confusion. States he has been having increased mild weakness as well as a productive cough. Denies chest pain or shortness of breath. Denies abdominal pain or nausea or vomiting. Denies any swelling in the extremities. His no o ther acute complaints. No fevers. No one sick contacts. Presents for further evaluation. Communication was done via written notes on his pad of paper. - Related Data Home Medications Medication Instructions Recorded Confirmed Aspirin [Adult Low Dose Aspirin EC] 81 mg PO DAILY 11/20/17 10/03/22 Lovastatin [Mevacor] 40 mg PO HS 11/20/17 10/03/22 diphenhydrAMINE HCL [Benadryl] 25 mg PO HS 11/20/17 10/03/22 Donepezil [Aricept] 10 mg PO DAILY 08/17/21 10/03/22 PARoxetine [Paxil] 20 mg PO DAILY 08/17/21 10/03/22 Multivitamins, Thera [Multivitamin 1 tab PO DAILY 05/27/22 10/03/22 (formulary)] ALPRAZolam [Xanax] 0.5 mg PO DIRECTED PRN 10/03/22 10/03/22 Albuterol Inhaler [Ventolin Hfa 1 - 2 puff INHALATION RT-Q6H PRN 10/03/22 10/03/22 Inhaler] Budesonide/Formoterol Fumarate 2 puff INHALATION RT-BID 10/03/22 10/03/22 [Symbicort 160-4.5 Mcg Inhaler] Calcium Carbonate/Vitamin D3 1 tab PO DAILY 10/03/22 10/03/22 [Calcium 600 mg-Vit D3 5 mcg (200 unit)] Tiotropium [place] [Spiriva] 18 mcg INHALATION RT-DAILY 10/03/22 10/03/22 Previous Rx's Medication Instructions Recorded Albuterol Inhaler [Ventolin Hfa 1 puff INHALATION QID #8 gm 10/03/22 Inhaler] Doxycycline Hyclate 100 mg PO BID 7 Days #14 tab 10/03/22 predniSONE [Deltasone] 40 mg PO DAILY 5 Days #10 tab 10/03/22 Allergies Allergy/AdvReac Type Severity Reaction Status Date / Time Penicillins Allergy Mild Rash/Hives Verified 10/03/22 11:43 cephalexin Allergy Rash/Hives Verified 10/03/22 11:43 morphine Allergy Rash/Hives Verified 10/03/22 11:43 Review of Systems ROS Statement: Those systems with pertinent positive or pertinent negative responses have been documented in the HPI. Review of Systems: CONST: Denies fever EYES: Denies blurry vision ENT: Denies nasal congestion C/V: Denies Chest pain RESP: Endorses cough GI: Denies abdominal pain : Denies dysuria SKIN: Denies rash. MSK: Denies joint pain. NEURO: Denies headache ROS Other: All systems not noted in ROS Statement are negative. Past Medical History Past Medical History: Cancer, COPD, Dementia, Hyperlipidemia, Pneumonia, Prostate Disorder Additional Past Medical History / Comment(s): emphysema, small hiatal hernia, prostate cancer, colon cancer, rt inguinal hernia. HEPATITIS A- 1961, aphasia, heart murmer, hx anemia, bladder diverticulum History of Any Multi-Drug Resistant Organisms: None Reported Past Surgical History: Appendectomy, Back Surgery, Bowel Resection, Hernia Repair, Orthopedic Surgery Additional Past Surgical History / Comment(s): back surgery for herniated disk, rt shoulder rotator cuff, nilsa cataracts with lens implants, nilsa inguinal hernia, diverticulitis Past Anesthesia/Blood Transfusion Reactions: No Reported Reaction Past Psychological History: No Psychological Hx Reported Smoking Status: Former smoker Past Alcohol Use History: Rare Past Drug Use History: None Reported - Past Family History Father Family Medical History: Cancer Mother Family Medical History: Cancer Additional Family Medical History / Comment(s): lung Cancer, Brain Cancer Sister(s) Family Medical History: Congestive Heart Failure (CHF) General Exam - General Exam Comments Initial Comments: General: Appears in no acute distress. HEAD: Normal with no signs of head trauma. EYES: PERRLA, EOMI, conjunctiva normal, no discharge. ENT: Hearing grossly intact, normal oropharynx. RESPIRATORY: Patient has mild bilateral end expiratory wheezing. No respiratory distress. No hypoxia on room air. C/V: Regular rate and rhythm. S1 and S2 auscultated, no edema, peripheral pulses 2+ and intact throughout ABD: Abd is soft, nontender, nondistended EXT: Normal range of motion, no obvious deformity SKIN: No rashes or lesions observed on exposed skin. NEURO: Alert and oriented 2-3 which per EMS and according to assistants at his home is baseline for the patient. Nonverbal. No obvious acute deficits. At baseline per EMS. Limitations: language barrier Course Vital Signs 10/03/22 10/03/22 10/03/22 08:35 09:33 09:43 Temperature 99.1 F Pulse Rate 77 73 73 Respiratory 18 Rate Blood Pressure 126/74 O2 Sat by Pulse 98 Oximetry 10/03/22 10/03/22 10:08 11:11 Temperature Pulse Rate 76 75 Respiratory 15 17 Rate Blood Pressure 129/53 133/64 O2 Sat by Pulse 97 98 Oximetry Medical Decision Making - Medical Decision Making Was pt. sent in by a medical professional or institution (, PA, LABOR RELATIONS MANAGER, urgent care, hospital, or jail...) When possible be specific @ -No Did you speak to anyone other than the patient for history (EMS, parent, family, police, friend...)? What history was obtained from this source @ -No Did you review nursing and triage notes (agree or disagree)? Why? @ -I reviewed and agree with nursing and triage notes Were old charts reviewed (outside hosp., previous admission, EMS record, old EKG, old radiological studies, urgent care reports/EKG's, jail records)? Report findings @ -No old charts were reviewed Differential Diagnosis (chest pain, altered mental status, abdominal pain women, abdominal pain men, vaginal bleeding, weakness, fever, dyspnea, syncope, headache, dizziness, GI bleed, back pain, seizure, CVA, palpatations, mental health, musculoskeletal)? @ -Differential Dyspnea: Coronary syndrome, arrhythmia, tamponade, asthma, COPD, pulmonary embolism, pneumonia, pneumothorax, pulmonary effusion, anaphylaxis, diabetic ketoacidosis, flailed chest, pulmonary contusion, diaphragmatic rupture, anemia, neuromuscular, this is not meant to be an all-inclusive list. EKG interpreted by me (3pts min.). @ -As above X-rays interpreted by me (1pt min.). @ -Chest x-ray reveals no obvious acute cardiopulmonary process. CT interpreted by me (1pt min.). @ -None done U/S interpreted by me (1pt. min.). @ -None done What testing was considered but not performed or refused? (CT, X-rays, U/S, labs)? Why? @ -None What meds were considered but not given or refused? Why? @ -None Did you discuss the management of the patient with other professionals (professionals i.e. , PA, LABOR RELATIONS MANAGER, lab, RT, psych nurse, social contact worker, turret lathe machinist, teacher, humane officer, nurse case management)? Give summary @ -No Was smoking cessation discussed for >3mins.? @ -No Was critical care preformed (if so, how long)? @ -No Were there social determinants of health that impacted care today? How? (Homelessness, low income, unemployed, alcoholism, drug addiction, transportation, low edu. Level, literacy, decrease access to med. care, correction, rehab)? @ -No Was there de-escalation of care discussed even if they declined (Discuss DNR or withdrawal of care, Hospice)? DNR status @ -No What co-morbidities impacted this encounter? (DM, HTN, Smoking, COPD, CAD, Cancer, CVA, ARF, Chemo, Hep., AIDS, mental health diagnosis, sleep apnea, morbid obesity)? @ -COPD, chronic aphasia, nonverbal Was patient admitted / discharged? Hospital course, mention meds given and route, prescriptions, significant lab abnormalities, going to OR and other pertinent info. @ -Based on the patient's presentation and physical exam, he presents over concern for possible upper respiratory infection and appears. Difficult to obtain significant history but he is able to communicate via written. Does have underlying dementia. Complaining about cough, with no known sick contacts. We will obtain screening EKG as well as infectious labs. Appears to be having a mild COPD exacerbation and he will receive steroids as well as a breathing treatment. Vital signs within acceptable limits. Patient was in agreement this plan. EKG shows no signs of acute ischemia. Chest x-ray shows no obvious acute cardio pulmonary process. Patient's lavatory studies are remarkable for a mild lactic acidosis of 2.4 likely secondary to mild dehydration. Remainder the workup is unremarkable. No evidence of infection based on labs. On reevaluation, patient's wheezing is improved. I believe it is safe for him to be discharged back to his facility. Patient will receive antibiotics, prednisone, as well as an albuterol inhaler. Diagnosis is acute bronchitis as well as COPD exacerbation. Patient expressed understanding. We called this facility and updated them as well. I will provide the patient with a prescription for prednisone, albuterol, doxycy [place]. I instructed the patient to follow up with their PCP in the next 1-3 days. I provided contact information for follow up with . I explained that the patient should return to the emergency department if they experience any worsening symptoms. Strict return precautions were discussed with the patient. The patient expressed understanding of these instructions. I answered all questions that the patient had. The patient was discharged home in good condition with their prescriptions and follow up information. Undiagnosed new problem with uncertain prognosis? @ -No Drug Therapy requiring intensive monitoring for toxicity (Heparin, Nitro, Insulin, Cardizem)? @ -No Were any procedures done? @ -No Diagnosis/symptom? @ -COPD, bronchitis Acute, or Chronic, or Acute on Chronic? @ -Acute on chronic Uncomplicated (without systemic symptoms) or Complicated (systemic symptoms)? @ -Complicated Side effects of treatment? @ -No Exacerbation, Progression, or Severe Exacerbation? @ -No Poses a threat to life or bodily function? How? (Chest pain, [place], [place], pneumonia, PE, COPD, DKA, ARF, appy, cholecystitis, CVA, Diverticulitis, Homicidal, Suicidal, threat to staff... and all critical care pts) @ -No Diagnosis/symptom? @ -Mild dehydration Acute, or Chronic, or Acute on Chronic? @ -Acute Uncomplicated (without systemic symptoms) or Complicated (systemic symptoms)? @ -Uncomplicated Side effects of treatment? @ -none Exacerbation, Progression, or Severe Exacerbation] @ -no Poses a threat to life or bodily function? @ -no - Lab Data Result diagrams: 10/03/22 09:03 10/03/22 09:03 Lab Results 10/03/22 10/03/22 10/03/22 Range/Units 09:03 09:03 09:03 WBC 10.0 (3.8-10.6) k/uL RBC 4.46 (4.30-5.90) m/uL Hgb 12.3 L (13.0-17.5) gm/dL Hct 38.4 L (39.0-53.0) % MCV 86.2 (80.0-100.0) fL MCH 27.7 (25.0-35.0) pg MCHC 32.1 (31.0-37.0) g/dL RDW 14.2 (11.5-15.5) % Plt Count 207 (150-450) k/uL MPV 7.3 Neutrophils % 81 % Lymphocytes % 10 % Monocytes % 6 % Eosinophils % 1 % Basophils % 0 % Neutrophils # 8.1 H (1.3-7.7) k/uL Lymphocytes # 1.0 (1.0-4.8) k/uL Monocytes # 0.6 (0-1.0) k/uL Eosinophils # 0.1 (0-0.7) k/uL Basophils # 0.0 (0-0.2) k/uL Sodium 140 (137-145) mmol/L Potassium 3.5 (3.5-5.1) mmol/L Chloride 103 (98-107) mmol/L Carbon Dioxide 27 (22-30) mmol/L Anion Gap 10 mmol/L BUN 17 (9-20) mg/dL Creatinine 0.95 (0.66-1.25) mg/dL Est GFR (CKD-EPI)AfAm 88 (>60 ml/min/1.73 sqM) Est GFR (CKD-EPI)NonAf 76 (>60 ml/min/1.73 sqM) Glucose 153 H (74-99) mg/dL Lactic Ac Sepsis Rflx Plasma Lactic Acid [place] 2.4 H* (0.7-2.0) mmol/L Calcium 8.9 (8.4-10.2) mg/dL Magnesium 1.9 (1.6-2.3) mg/dL Total Bilirubin 0.6 (0.2-1.3) mg/dL AST 29 (17-59) U/L ALT 19 (4-49) U/L Alkaline Phosphatase 72 (38-126) U/L Total Protein 6.9 (6.3-8.2) g/dL Albumin 4.2 (3.5-5.0) g/dL Urine Color Urine Appearance (Clear) Urine pH (5.0-8.0) Ur Specific [place] (1.001-1.035) Urine Protein (Negative) Urine Glucose (UA) (Negative) Urine Ketones (Negative) Urine Blood (Negative) Urine Nitrite (Negative) Urine Bilirubin (Negative) Urine Urobilinogen (<2.0) mg/dL Ur Leukocyte Esterase (Negative) Urine RBC (0-5) /hpf Urine WBC (0-5) /hpf Ur Squamous Epith Cells (0-4) /hpf Amorphous Sediment (None) /hpf Urine Bacteria (None) /hpf Urine Mucus (None) /hpf Influenza Type A (PCR) (Not Detectd) Influenza Type B (PCR) (Not Detectd) RSV (PCR) (Not Detectd) SARS-CoV-2 (PCR) (Not Detectd) 10/03/22 10/03/22 10/03/22 Range/Units 09:48 10:08 10:10 WBC (3.8-10.6) k/uL RBC (4.30-5.90) m/uL Hgb (13.0-17.5) gm/dL Hct (39.0-53.0) % MCV (80.0-100.0) fL MCH (25.0-35.0) pg MCHC (31.0-37.0) g/dL RDW (11.5-15.5) % Plt Count (150-450) k/uL MPV Neutrophils % % Lymphocytes % % Monocytes % % Eosinophils % % Basophils % % Neutrophils # (1.3-7.7) k/uL Lymphocytes # (1.0-4.8) k/uL Monocytes # (0-1.0) k/uL Eosinophils # (0-0.7) k/uL Basophils # (0-0.2) k/uL Sodium (137-145) mmol/L Potassium (3.5-5.1) mmol/L Chloride (98-107) mmol/L Carbon Dioxide (22-30) mmol/L Anion Gap mmol/L BUN (9-20) mg/dL Creatinine (0.66-1.25) mg/dL Est GFR (CKD-EPI)AfAm (>60 ml/min/1.73 sqM) Est GFR (CKD-EPI)NonAf (>60 ml/min/1.73 sqM) Glucose (74-99) mg/dL Lactic Ac Sepsis Rflx Y Plasma Lactic Acid [place] (0.7-2.0) mmol/L Calcium (8.4-10.2) mg/dL Magnesium (1.6-2.3) mg/dL Total Bilirubin (0.2-1.3) mg/dL AST (17-59) U/L ALT (4-49) U/L Alkaline Phosphatase (38-126) U/L Total Protein (6.3-8.2) g/dL Albumin (3.5-5.0) g/dL Urine Color Yellow Urine Appearance Clear (Clear) Urine pH 5.5 (5.0-8.0) Ur Specific [place] >1.030 (1.001-1.035) Urine Protein Trace (Negative) Urine Glucose (UA) Negative (Negative) Urine Ketones 1+ (Negative) Urine Blood Negative (Negative) Urine Nitrite Negative (Negative) Urine Bilirubin Negative (Negative) Urine Urobilinogen <2.0 (<2.0) mg/dL Ur Leukocyte Esterase Moderate (Negative) Urine RBC 6 H (0-5) /hpf Urine WBC 3 (0-5) /hpf Ur Squamous Epith Cells 6 H (0-4) /hpf Amorphous Sediment Rare H (None) /hpf Urine Bacteria Occasional H (None) /hpf Urine Mucus Rare H (None) /hpf Influenza Type A (PCR) Not Detected (Not Detectd) Influenza Type B (PCR) Not Detected (Not Detectd) RSV (PCR) Not Detected (Not Detectd) SARS-CoV-2 (PCR) Not Detected (Not Detectd) - EKG Data -: EKG Interpreted by Me EKG Comments: 12-lead Electrocardiogram Interpretation Note EKG was reviewed and interpreted by myself. 12-lead ECG performed at 0841 is interpreted by me as revealing normal sinus rhythm at a rate of 78 beats per minute. [place] is normal. AR interval is 141 ms, QRS duration is 90 ms, QTc is 451 ms.. There were no ST or T wave abnormalities to suggest myocardial ischemia or injury. R wave progression across the precordium was satisfactory. By my interpretation this EKG is non-diagnostic for acute ischemia. Disposition Clinical Impression: Bronchitis, COPD (chronic obstructive pulmonary disease), Dehydration Disposition: HOME SELF-CARE Condition: Good Instructions (If sedation given, give patient instructions): Acute Bronchitis (ED), COPD (Chronic Obstructive Pulmonary Disease) (ED) Prescriptions: predniSONE [Deltasone] 40 mg PO DAILY 5 Days #10 tab Doxycycline Hyclate 100 mg PO BID 7 Days #14 tab Albuterol Inhaler [Ventolin Hfa Inhaler] 1 puff INHALATION QID #8 gm Is patient prescribed a controlled substance at d/c from ED?: No Referrals: Giuseppe Bailey MD [Primary Care Provider] - 1-2 days Time of Disposition: 11:52
[2022-10-03 09:39] LABS: Potassium 3.5 mmol/L (3.5-5.1)
[2022-10-03 09:40] LABS: ALT 19 U/L (4-49); AST 29 U/L (17-59); African American GFR (CKD) 88 (>60 ml/min/1.73 sqM); Albumin 4.2 g/dL (3.5-5.0); Alkaline Phosphatase 72 U/L (38-126); Anion Gap 10 mmol/L; Blood Urea Nitrogen 17 mg/dL (9-20); Calcium 8.9 mg/dL (8.4-10.2); Carbon Dioxide 27 mmol/L (22-30); Chloride 103 mmol/L (98-107); Glucose 153 mg/dL (74-99); Magnesium 1.9 mg/dL (1.6-2.3); Non-African American GFR(CKD) 76 (>60 ml/min/1.73 sqM); Sodium 140 mmol/L (137-145); Total Bilirubin 0.6 mg/dL (0.2-1.3); Total Protein 6.9 g/dL (6.3-8.2)
[2022-10-03 11:14] VITALS: PULSE 75
[2022-10-03 11:55] LABS: Appearance,Urine Clear (Clear); Color,Urine Yellow; Specific Gravity,Urine >1.030 (1.001-1.035)
[2022-10-03 11:56] LABS: Bilirubin,Urine Negative (Negative); Blood,Urine Negative (Negative); Glucose,Urine (UA) Negative (Negative); Ketones,Urine 1+ (Negative); Leukocyte Esterase,Urine Moderate (Negative); Nitrite,Urine Negative (Negative); PH, Urine 5.5 (5.0-8.0); Protein,Urine Trace (Negative); Urobilinogen,Urine <2.0 mg/dL (<2.0)
[2022-10-03 11:57] LABS: Amorphous Sediment,Urine Rare /hpf; Bacteria,Urine Occasional /hpf; Mucus,Urine Rare /hpf; RBC,Urine 6 /hpf (0-5); Squamous Epithelial Cell,Urine 6 /hpf (0-4); WBC,Urine 3 /hpf (0-5)
[2022-10-03] MEDS ORDERED: DOXYCYCLINE 100 MG CAP PO STA (12:07)
[2022-10-03 12:35] VITALS: BP 148/62; RESP 18
== END 2022-10-03 12:33 | disposition home or self-care (01) ==
LOC: EC 08:26
DX: J43.9 Emphysema, unspecified (principal); E86.0 Dehydration; E78.5 Hyperlipidemia, unspecified; Z79.899 Other long term (current) drug therapy; Z79.82 Long term (current) use of aspirin; Z79.51 Long term (current) use of inhaled steroids; Z20.822 Contact with and (suspected) exposure to COVID-19; Z87.891 Personal history of nicotine dependence; Z88.0 Allergy status to penicillin; Z88.5 Allergy status to narcotic agent; Z88.8 Allergy status to other drugs, medicaments and biological substances
CPT/HCPCS: 36415; 94640; 93005; 80053; 83605; 83735; 85025; 81001; 87636; 71046; 99285; 96374; 96360; J2930

== ENCOUNTER 2022-12-07 19:02 | Emergency (ER) | payer MEDICARE ==
[2022-12-07 19:34] VITALS: RESP 19; TEMP 98.9
[2022-12-07] MEDS ORDERED: IPRATROPIUM-ALBUTEROL 3 ML NEB INHALATION STA (19:48)
[2022-12-07] MEDS ORDERED: methylPREDNISolone SOD SUCCI 125 MG/2 ML VIAL IV STA (19:48)
[2022-12-07] MEDS ORDERED: SODIUM CHLORIDE 0.9% 500 ML 500 ML IV STA ×2 (19:48→22:05)
[2022-12-07 20:31] LABS: Basophils % (A) 0 %; Eosinophils # (A) 0.2 k/uL (0-0.7); Eosinophils % (A) 3 %; HCT 37.8 % (39.0-53.0); HGB 12.4 gm/dL (13.0-17.5); Lymphocytes # (A) 1.5 k/uL (1.0-4.8); Lymphocytes % (A) 20 %; MCH 28.3 pg (25.0-35.0); MCHC 32.9 g/dL (31.0-37.0); Mean Platelet Volume 7.4; Monocytes # (A) 0.5 k/uL (0-1.0); Monocytes % (A) 7 %; Neutrophils # (A) 5.2 k/uL (1.3-7.7); Neutrophils % (A) 68 %; Platelet Count 248 k/uL (150-450); RDW 13.4 % (11.5-15.5); WBC 7.5 k/uL (3.8-10.6)
[2022-12-07 20:37] LABS: Partial Thromboplastin Time 25.4 sec (22.0-30.0); Prothrombin Time 10.7 sec (9.0-12.0)
[2022-12-07 20:42] LABS: ALT 15 U/L (4-49); AST 37 U/L (17-59); African American GFR (CKD) 85 (>60 ml/min/1.73 sqM); Albumin 3.9 g/dL (3.5-5.0); Alkaline Phosphatase 70 U/L (38-126); Anion Gap 7 mmol/L; Blood Urea Nitrogen 18 mg/dL (9-20); Calcium 8.7 mg/dL (8.4-10.2); Carbon Dioxide 27 mmol/L (22-30); Chloride 105 mmol/L (98-107); Glucose 105 mg/dL (74-99); Non-African American GFR(CKD) 74 (>60 ml/min/1.73 sqM); Sodium 139 mmol/L (137-145); Total Bilirubin 0.7 mg/dL (0.2-1.3); Total Protein 6.8 g/dL (6.3-8.2)
[2022-12-07 20:46] LABS: Potassium 5.4 mmol/L (3.5-5.1)
--- NOTE | 2022-12-07 21:11 | XR ---
EXAMINATION TYPE: XR chest 2V DATE OF EXAM: 12/07/2022 COMPARISON: 10/03/2022 TECHNIQUE: PA and lateral views submitted. HISTORY: Difficulty breathing FINDINGS: The lungs are clear and there is no pneumothorax, pleural effusion, or focal pneumonia. Heart size normal and no overt failure. Osseous structures demonstrate hypertrophic and degenerative changes of the spine. Diffuse emphysematous changes. Bilateral AC joint arthropathy. Atherosclerotic change aort a. IMPRESSION: 1. No acute process. Correlate for COPD.
--- NOTE | 2022-12-08 00:16 | ED ---
General Adult HPI - General Chief complaint: Shortness of Breath Stated complaint: SOB Time Seen by Provider: 12/07/22 19:40 Source: patient, EMS, RN notes reviewed, old records reviewed Mode of arrival: EMS Limitations: language barrier - History of Present Illness Initial comments: Patient is a 77-year-old male who presents emergency department for shortness of breath. He has a history of mild dementia, aphasia and only indicates via writing. This is a history of COPD and emphysema. Presents for multiple days of dyspnea as well as a productive cough. Denies any chest pain or abdominal pain. Denies nausea or vomiting or diarrhea. No fevers. Has been around others that have been sick. Presents for further evaluation at this time. Received a DuoNeb from EMS. States he is feeling improved but would like to be evaluated. - Related Data Home Medications Medication Instructions Recorded Confirmed Aspirin [Adult Low Dose Aspirin EC] 81 mg PO DAILY 11/20/17 10/03/22 Lovastatin [Mevacor] 40 mg PO HS 11/20/17 10/03/22 diphenhydrAMINE HCL [Benadryl] 25 mg PO HS 11/20/17 10/03/22 Donepezil [Aricept] 10 mg PO DAILY 08/17/21 10/03/22 PARoxetine [Paxil] 20 mg PO DAILY 08/17/21 10/03/22 Multivitamins, Thera [Multivitamin 1 tab PO DAILY 05/27/22 10/03/22 (formulary)] ALPRAZolam [Xanax] 0.5 mg PO DIRECTED PRN 10/03/22 10/03/22 Albuterol Inhaler [Ventolin Hfa 1 - 2 puff INHALATION RT-Q6H PRN 10/03/22 10/03/22 Inhaler] Budesonide/Formoterol Fumarate 2 puff INHALATION RT-BID 10/03/22 10/03/22 [Symbicort 160-4.5 Mcg Inhaler] Calcium Carbonate/Vitamin D3 1 tab PO DAILY 10/03/22 10/03/22 [Calcium 600 mg-Vit D3 5 mcg (200 unit)] Tiotropium Rice [Spiriva] 18 mcg INHALATION RT-DAILY 10/03/22 10/03/22 Previous Rx's Medication Instructions Recorded Albuterol Inhaler [Ventolin Hfa 1 puff INHALATION QID #8 gm 10/03/22 Inhaler] Doxycycline Hyclate 100 mg PO BID 7 Days #14 tab 10/03/22 predniSONE [Deltasone] 40 mg PO DAILY 5 Days #10 tab 10/03/22 Albuterol Inhaler [Ventolin Hfa 1 puff INHALATION QID #8 gm 12/08/22 Inhaler] Doxycycline Hyclate 100 mg PO BID 7 Days #14 cap 12/08/22 predniSONE [Deltasone] 40 mg PO DAILY 5 Days #10 tab 12/08/22 Allergies Allergy/AdvReac Type Severity Reaction Status Date / Time Penicillins Allergy Mild Rash/Hives Verified 10/03/22 11:43 cephalexin Allergy Rash/Hives Verified 10/03/22 11:43 morphine Allergy Rash/Hives Verified 10/03/22 11:43 Review of Systems ROS Statement: Those systems with pertinent positive or pertinent negative responses have been documented in the HPI. Review of Systems: CONST: Denies fever EYES: Denies blurry vision ENT: Denies nasal congestion C/V: Denies Chest pain RESP: Endorses cough GI: Denies abdominal pain : Denies dysuria SKIN: Denies rash. MSK: Denies joint pain. NEURO: Denies headache ROS Other: All systems not noted in ROS Statement are negative. Past Medical History Past Medical History: Cancer, COPD, Dementia, Hyperlipidemia, Pneumonia, Prostate Disorder Additional Past Medical History / Comment(s): emphysema, small hiatal hernia, prostate cancer, colon cancer, rt inguinal hernia. HEPATITIS A- 1961, aphasia, heart murmer, hx anemia, bladder diverticulum History of Any Multi-Drug Resistant Organisms: None Reported Past Surgical History: Appendectomy, Back Surgery, Bowel Resection, Hernia Repair, Orthopedic Surgery Additional Past Surgical History / Comment(s): back surgery for herniated disk, rt shoulder rotator cuff, nilsa cataracts with lens implants, nilsa inguinal hernia, diverticulitis Past Anesthesia/Blood Transfusion Reactions: No Reported Reaction Past Psychological History: No Psychological Hx Reported Smoking Status: Former smoker Past Alcohol Use History: Rare Past Drug Use History: None Reported - Past Family History Father Family Medical History: Cancer Mother Family Medical History: Cancer Additional Family Medical History / Comment(s): lung Cancer, Brain Cancer Sister(s) Family Medical History: Congestive Heart Failure (CHF) General Exam - General Exam Comments Initial Comments: General: Appears in no acute distress. HEAD: Normal with no signs of head trauma. EYES: PERRLA, EOMI, conjunctiva normal, no discharge. ENT: Hearing grossly intact, normal oropharynx. RESPIRATORY: Bilateral mild end expiratory wheezing. No hypoxia. No increased work of breathing. C/V: Regular rate and rhythm. S1 and S2 auscultated, no edema, peripheral pulses 2+ and intact throughout ABD: Abd is soft, nontender, nondistended EXT: Normal range of motion, no obvious deformity SKIN: No rashes or lesions observed on exposed skin. NEURO: Alert and oriented 3 no obvious deficits other than the chronic aphasia. Nonverbal. Limitations: language barrier Course Vital Signs 12/07/22 12/07/22 12/07/22 19:27 22:11 22:21 Temperature 98.9 F Pulse Rate 78 72 76 Respiratory 19 Rate Blood Pressure 147/66 O2 Sat by Pulse 99 Oximetry Medical Decision Making - Medical Decision Making Was pt. sent in by a medical professional or institution (, PA, [employer], urgent care, hospital, or jail...) When possible be specific @ -No Did you speak to anyone other than the patient for history (EMS, parent, family, police, friend...)? What history was obtained from this source @ -No Did you review nursing and triage notes (agree or disagree)? Why? @ -I reviewed and agree with nursing and triage notes Were old charts reviewed (outside hosp., previous admission, EMS record, old EKG, old radiological studies, urgent care reports/EKG's, jail records)? Report findings @ -Old charts reviewed Differential Diagnosis (chest pain, altered mental status, abdominal pain women, abdominal pain men, vaginal bleeding, weakness, fever, dyspnea, syncope, headache, dizziness, GI bleed, back pain, seizure, CVA, palpatations, mental health, musculoskeletal)? @ -Differential Dyspnea: Coronary syndrome, arrhythmia, tamponade, asthma, COPD, pulmonary embolism, pneumonia, pneumothorax, pulmonary effusion, anaphylaxis, diabetic ketoacidosis, flailed chest, pulmonary contusion, diaphragmatic rupture, anemia, neuromuscular, this is not meant to be an all-inclusive list. EKG interpreted by me (3pts min.). @ -As above X-rays interpreted by me (1pt min.). @ -Chest X-ray reveals no obvious acute cardiopulmonary process. CT interpreted by me (1pt min.). @ -None done U/S interpreted by me (1pt. min.). @ -None done What testing was considered but not performed or refused? (CT, X-rays, U/S, labs)? Why? @ -None What meds were considered but not given or refused? Why? @ -None Did you discuss the management of the patient with other professionals (professionals i.e. , PA, [employer], lab, RT, psych nurse, social services coordinator, geomorphology teacher, teacher, police or patrol park officer, case packer and sealer)? Give summary @ -No Was smoking cessation discussed for >3mins.? @ -No Was critical care preformed (if so, how long)? @ -No Were there social determinants of health that impacted care today? How? (Homelessness, low income, unemployed, alcoholism, drug addiction, transportation, low edu. Level, literacy, decrease access to med. care, long term, rehab)? @ -No Was there de-escalation of care discussed even if they declined (Discuss DNR or withdrawal of care, Hospice)? DNR status @ -No What co-morbidities impacted this encounter? (DM, HTN, Smoking, COPD, CAD, Cancer, CVA, ARF, Chemo, Hep., AIDS, mental health diagnosis, sleep apnea, morbid obesity)? @ -COPD Was patient admitted / discharged? Hospital course, mention meds given and route, prescriptions, significant lab abnormalities, going to OR and other pertinent info. @ -Based on the patient's presentation and physical exam, I'm concerned for infectious etiology and COPD. He'll be given IV steroids, breathing treatment. We will obtain cardiopulmonary labs. Patient was in agreement this plan. Vital signs within acceptable limits. EKG showed no signs of acute ischemia. Chest x-ray reveals no obvious infection . Patient's labs reveal a chronic anemia, as well as a hyperkalemia 5.4 although this is hemolyzed. No obvious hyperkalemic changes on EKG. However due to the patient's debility and inability to talk I would like to obtain a repeat potassium prior to discharge. Viral soft negative. I discussed with patient he was in agreement this plan. Wheezing is improved. Initial repeat potassium hemolyzed. Second repeat potassium returned normal at 3.6. Patient be discharged home at this time. Patient was in agreement with the plan. He'll be started on antibiotics, doxycycline as well as prednisone for home. He will be given an additional albuterol inhaler. I will provide the patient with a prescription for prednisone, doxycycline albuterol. I instructed the patient to follow up with their PCP in the next 1-3 days. I explained that the patient should return to the emergency department if they experience any worsening symptoms. Strict return precautions were discussed with the patient. The patient expressed understanding of these instructions. I answered all questions that the patient had. The patient was discharged home in good condition with their prescriptions and follow up information. Undiagnosed new problem with uncertain prognosis? @ -No Drug Therapy requiring intensive monitoring for toxicity (Heparin, Nitro, Insulin, Cardizem)? @ -No Were any procedures done? @ -No Diagnosis/symptom? @ -COPD, tracheo bronchitis Acute, or Chronic, or Acute on Chronic? @ -Acute on chronic Uncomplicated (without systemic symptoms) or Complicated (systemic symptoms)? @ -Uncomplicated Side effects of treatment? @ -No Exacerbation, Progression, or Severe Exacerbation? @ -Exacerbation Poses a threat to life or bodily function? How? (Chest pain, USA, PR, pneumonia, PE, COPD, DKA, ARF, appy, cholecystitis, CVA, Diverticulitis, Homicidal, Suicidal, threat to staff... and all critical care pts) @ -No - Lab Data Result diagrams: 12/07/22 20:15 12/07/22 23:22 Lab Results 12/07/22 12/07/22 12/07/22 Range/Units 20:15 20:15 20:15 WBC 7.5 (3.8-10.6) k/uL RBC 4.40 (4.30-5.90) m/uL Hgb 12.4 L (13.0-17.5) gm/dL Hct 37.8 L (39.0-53.0) % MCV 86.0 (80.0-100.0) fL MCH 28.3 (25.0-35.0) pg MCHC 32.9 (31.0-37.0) g/dL RDW 13.4 (11.5-15.5) % Plt Count 248 (150-450) k/uL MPV 7.4 Neutrophils % 68 % Lymphocytes % 20 % Monocytes % 7 % Eosinophils % 3 % Basophils % 0 % Neutrophils # 5.2 (1.3-7.7) k/uL Lymphocytes # 1.5 (1.0-4.8) k/uL Monocytes # 0.5 (0-1.0) k/uL Eosinophils # 0.2 (0-0.7) k/uL Basophils # 0.0 (0-0.2) k/uL PT 10.7 (9.0-12.0) sec INR 1.0 (<1.2) APTT 25.4 (22.0-30.0) sec Sodium 139 (137-145) mmol/L Potassium 5.4 H (3.5-5.1) mmol/L Chloride 105 (98-107) mmol/L Carbon Dioxide 27 (22-30) mmol/L Anion Gap 7 mmol/L BUN 18 (9-20) mg/dL Creatinine 0.98 (0.66-1.25) mg/dL Est GFR (CKD-EPI)AfAm 85 (>60 ml/min/1.73 sqM) Est GFR (CKD-EPI)NonAf 74 (>60 ml/min/1.73 sqM) Glucose 105 H (74-99) mg/dL Calcium 8.7 (8.4-10.2) mg/dL Total Bilirubin 0.7 (0.2-1.3) mg/dL AST 37 (17-59) U/L ALT 15 (4-49) U/L Alkaline Phosphatase 70 (38-126) U/L Total Protein 6.8 (6.3-8.2) g/dL Albumin 3.9 (3.5-5.0) g/dL Influenza Type A (PCR) (Not Detectd) Influenza Type B (PCR) (Not Detectd) RSV (PCR) (Not Detectd) SARS-CoV-2 (PCR) (Not Detectd) 12/07/22 12/07/22 Range/Units 20:20 23:22 WBC (3.8-10.6) k/uL RBC (4.30-5.90) m/uL Hgb (13.0-17.5) gm/dL Hct (39.0-53.0) % MCV (80.0-100.0) fL MCH (25.0-35.0) pg MCHC (31.0-37.0) g/dL RDW (11.5-15.5) % Plt Count (150-450) k/uL MPV Neutrophils % % Lymphocytes % % Monocytes % % Eosinophils % % Basophils % % Neutrophils # (1.3-7.7) k/uL Lymphocytes # (1.0-4.8) k/uL Monocytes # (0-1.0) k/uL Eosinophils # (0-0.7) k/uL Basophils # (0-0.2) k/uL PT (9.0-12.0) sec INR (<1.2) APTT (22.0-30.0) sec Sodium (137-145) mmol/L Potassium 3.6 (3.5-5.1) mmol/L Chloride (98-107) mmol/L Carbon Dioxide (22-30) mmol/L Anion Gap mmol/L BUN (9-20) mg/dL Creatinine (0.66-1.25) mg/dL Est GFR (CKD-EPI)AfAm (>60 ml/min/1.73 sqM) Est GFR (CKD-EPI)NonAf (>60 ml/min/1.73 sqM) Glucose (74-99) mg/dL Calcium (8.4-10.2) mg/dL Total Bilirubin (0.2-1.3) mg/dL AST (17-59) U/L ALT (4-49) U/L Alkaline Phosphatase (38-126) U/L Total Protein (6.3-8.2) g/dL Albumin (3.5-5.0) g/dL Influenza Type A (PCR) Not Detected (Not Detectd) Influenza Type B (PCR) Not Detected (Not Detectd) RSV (PCR) Not Detected (Not Detectd) SARS-CoV-2 (PCR) Not Detected (Not Detectd) - EKG Data -: EKG Interpreted by Me EKG Comments: 12-lead Electrocardiogram Interpretation Note EKG was reviewed and interpreted by myself. 12-lead ECG performed at 2006 is interpreted by me as revealing normal sinus rhythm at a rate of 73 beats per minute. [place] is normal. NM interval is 144 ms, QRS duration is 90 ms, QTc is 354 ms.. There were no ST or T wave abnormalities to suggest myocardial ischemia or injury. R wave progression across the precordium was satisfactory. By my interpretation this EKG is non-diagnostic for acute ischemia. Disposition Clinical Impression: COPD (chronic obstructive pulmonary disease), Tracheobronchitis Disposition: HOME SELF-CARE Condition: Good Instructions (If sedation given, give patient instructions): Acute Bronchitis (ED), COPD (Chronic Obstructive Pulmonary Disease) (ED) Prescriptions: predniSONE [Deltasone] 40 mg PO DAILY 5 Days #10 tab Doxycycline Hyclate 100 mg PO BID 7 Days #14 cap Albuterol Inhaler [Ventolin Hfa Inhaler] 1 puff INHALATION QID #8 gm Is patient prescribed a controlled substance at d/c from ED?: No Referrals: Giuseppe Bailey MD [Primary Care Provider] - 1-2 days Time of Disposition: 00:05
[2022-12-08 01:09] VITALS: BP 157/73; PULSE 77
== END 2022-12-08 01:20 | disposition home or self-care (01) ==
LOC: EC 19:02
DX: J44.9 Chronic obstructive pulmonary disease, unspecified (principal); J40 Bronchitis, not specified as acute or chronic; E78.5 Hyperlipidemia, unspecified; Z87.891 Personal history of nicotine dependence; Z79.82 Long term (current) use of aspirin; Z79.899 Other long term (current) drug therapy; Z79.51 Long term (current) use of inhaled steroids; Z88.0 Allergy status to penicillin; Z88.5 Allergy status to narcotic agent; Z88.1 Allergy status to other antibiotic agents; Z20.822 Contact with and (suspected) exposure to COVID-19
CPT/HCPCS: 36415; 94640; 93005; 80053; 84132; 85025; 85610; 85730; 87636; 71046; 99285; 96374; J2930

== ENCOUNTER 2023-03-28 08:55 | Inpatient (IN) | payer MEDICARE ==
[2023-03-28] MEDS ORDERED: SODIUM CHLORIDE 0.9% 1,000 ML IV STA (09:25)
[2023-03-28 10:01] LABS: Basophils % (A) 1 %; Eosinophils # (A) 0.2 k/uL (0-0.7); Eosinophils % (A) 2 %; HCT 36.2 % (39.0-53.0); HGB 11.8 gm/dL (13.0-17.5); Lymphocytes # (A) 1.4 k/uL (1.0-4.8); Lymphocytes % (A) 15 %; MCH 27.1 pg (25.0-35.0); MCHC 32.7 g/dL (31.0-37.0); MCV 82.9 fL (80.0-100.0); Monocytes # (A) 0.8 k/uL (0-1.0); Monocytes % (A) 8 %; Neutrophils # (A) 6.6 k/uL (1.3-7.7); Neutrophils % (A) 71 %; Platelet Count 234 k/uL (150-450); RBC 4.36 m/uL (4.30-5.90); RDW 14.4 % (11.5-15.5); WBC 9.3 k/uL (3.8-10.6)
[2023-03-28 10:04] LABS: Appearance,Urine Clear (Clear); Bilirubin,Urine Negative (Negative); Blood,Urine Negative (Negative); Color,Urine Yellow; Glucose,Urine (UA) Negative (Negative); Ketones,Urine Negative (Negative); Leukocyte Esterase,Urine Negative (Negative); Nitrite,Urine Negative (Negative); Protein,Urine Trace (Negative); Specific Gravity,Urine 1.025 (1.001-1.035); Urobilinogen,Urine <2.0 mg/dL (<2.0)
[2023-03-28 10:10] LABS: Partial Thromboplastin Time 24.5 sec (22.0-30.0); Prothrombin Time 11.3 sec (10.0-12.5)
[2023-03-28 10:14] LABS: ALT 23 U/L (4-49); AST 39 U/L (17-59); African American GFR (CKD) 65 (>60 ml/min/1.73 sqM); Albumin 4.2 g/dL (3.5-5.0); Alkaline Phosphatase 82 U/L (38-126); Anion Gap 8 mmol/L; Blood Urea Nitrogen 23 mg/dL (9-20); Calcium 9.4 mg/dL (8.4-10.2); Carbon Dioxide 28 mmol/L (22-30); Chloride 105 mmol/L (98-107); Glucose 108 mg/dL (74-99); Magnesium 1.8 mg/dL (1.6-2.3); Non-African American GFR(CKD) 56 (>60 ml/min/1.73 sqM); Potassium 4.1 mmol/L (3.5-5.1); Sodium 141 mmol/L (137-145); Total Bilirubin 0.7 mg/dL (0.2-1.3); Total Protein 6.8 g/dL (6.3-8.2)
--- NOTE | 2023-03-28 10:16 | ED ---
General Adult HPI - General Chief complaint: Altered Mental Status Stated complaint: AMS Time Seen by Provider: 03/28/23 09:15 Source: patient, RN notes reviewed, old records reviewed Mode of arrival: EMS Limitations: altered mental status - History of Present Illness Initial comments: This is a 77-year-old male who presents emergency room because of altered mental status. According to staff and eventually undergo some history that the patient was 1 and would not stand anything more confused than his baseline. Accordance on the patient's been aphasic for increased year still indicated that they patient has dementia. Patient is unable to give any history and no further history is available other than he seemed more altered because no one came with the patient. - Related Data Home Medications Medication Instructions Recorded Confirmed Aspirin [Adult Low Dose Aspirin EC] 81 mg PO DAILY 11/20/17 10/03/22 Lovastatin [Mevacor] 40 mg PO HS 11/20/17 10/03/22 diphenhydrAMINE HCL [Benadryl] 25 mg PO HS 11/20/17 10/03/22 Donepezil [Aricept] 10 mg PO DAILY 08/17/21 10/03/22 PARoxetine [Paxil] 20 mg PO DAILY 08/17/21 10/03/22 Multivitamins, Thera [Multivitamin 1 tab PO DAILY 05/27/22 10/03/22 (formulary)] ALPRAZolam [Xanax] 0.5 mg PO DIRECTED PRN 10/03/22 10/03/22 Albuterol Inhaler [Ventolin Hfa 1 - 2 puff INHALATION RT-Q6H PRN 10/03/22 10/03/22 Inhaler] Budesonide/Formoterol Fumarate 2 puff INHALATION RT-BID 10/03/22 10/03/22 [Symbicort 160-4.5 Mcg Inhaler] Calcium Carbonate/Vitamin D3 1 tab PO DAILY 10/03/22 10/03/22 [Calcium 600 mg-Vit D3 5 mcg (200 unit)] Tiotropium [place] [Spiriva] 18 mcg INHALATION RT-DAILY 10/03/22 10/03/22 Previous Rx's Medication Instructions Recorded Albuterol Inhaler [Ventolin Hfa 1 puff INHALATION QID #8 gm 10/03/22 Inhaler] Doxycycline Hyclate 100 mg PO BID 7 Days #14 tab 10/03/22 predniSONE [Deltasone] 40 mg PO DAILY 5 Days #10 tab 10/03/22 Albuterol Inhaler [Ventolin Hfa 1 puff INHALATION QID #8 gm 12/08/22 Inhaler] Doxycycline Hyclate 100 mg PO BID 7 Days #14 cap 12/08/22 predniSONE [Deltasone] 40 mg PO DAILY 5 Days #10 tab 12/08/22 Allergies Allergy/AdvReac Type Severity Reaction Status Date / Time Penicillins Allergy Mild Rash/Hives Verified 10/03/22 11:43 cephalexin Allergy Rash/Hives Verified 10/03/22 11:43 morphine Allergy Rash/Hives Verified 10/03/22 11:43 Review of Systems ROS Statement: Those systems with pertinent positive or pertinent negative responses have been documented in the HPI. ROS Other: All systems not noted in ROS Statement are negative. Past Medical History Past Medical History: Cancer, COPD, Dementia, Hyperlipidemia, Pneumonia, Prostate Disorder Additional Past Medical History / Comment(s): emphysema, small hiatal hernia, prostate cancer, colon cancer, rt inguinal hernia. HEPATITIS A- 1961, aphasia, heart murmer, hx anemia, bladder diverticulum History of Any Multi-Drug Resistant Organisms: None Reported Past Surgical History: Appendectomy, Back Surgery, Bowel Resection, Hernia Repair, Orthopedic Surgery Additional Past Surgical History / Comment(s): back surgery for herniated disk, rt shoulder rotator cuff, nilsa cataracts with lens implants, nilsa inguinal hernia, diverticulitis Past Anesthesia/Blood Transfusion Reactions: No Reported Reaction Past Psychological History: No Psychological Hx Reported Smoking Status: Former smoker Past Alcohol Use History: Rare Past Drug Use History: None Reported - Past Family History Father Family Medical History: Cancer Mother Family Medical History: Cancer Additional Family Medical History / Comment(s): lung Cancer, Brain Cancer Sister(s) Family Medical History: Congestive Heart Failure (CHF) General Exam - General Exam Comments Initial Comments: GENERAL: Patient is well-developed and well-nourished. Patient is nontoxic and well- hydrated and is in no acute distress. ENT: Neck is soft and supple. No significant lymphadenopathy is noted. Oropharynx is clear. Moist mucous membranes. Neck has full range of motion without eliciting any pain. EYES: The sclera were anicteric and conjunctiva were pink and moist. Extraocular movements were intact and pupils were equal round and reactive to light. Eyelids were unremarkable. PULMONARY: Unlabored respirations. Good breath sounds bilaterally. No audible rales rhonchi or wheezing was noted. CARDIOVASCULAR: There is a regular rate and rhythm without any murmurs gallops or rubs. ABDOMEN: Soft and nontender with normal bowel sounds. Inguinal hernias bilaterally both are reducible SKIN: Skin is clear with no lesions or rashes and otherwise unremarkable. NEUROLOGIC: Patient is alert and oriented unable to assess orientation patient is not speaking which is his baseline. Cranial nerves II through XII are grossly intact. Motor and sensory are also intact. Cerebellar exam grossly intact. MUSCULOSKELETAL: Normal extremities with adequate strength and full range of motion. No lower extremity swelling or edema. No calf tenderness. LYMPHATICS: No significant lymphadenopathy is noted PSYCHIATRIC: Unable to assess Limitations: altered mental status Course Vital Signs 03/28/23 03/28/23 09:15 09:25 Temperature 98.8 F Pulse Rate 80 90 Respiratory 16 16 Rate Blood Pressure 157/78 151/63 O2 Sat by Pulse 98 97 Oximetry Medical Decision Making - Medical Decision Making EKG is interpreted by myself. EKG shows a sinus rhythm at 90 bpm TN interval 131 dresses 84 QT interval 33 QTC is 349. Patient's EKG shows no ST segment elevation or depression. Was pt. sent in by a medical professional or institution (JIMI Hu, DIGITAL SERVICE ENGINEER, urgent care, hospital, or residential...) When possible be specific @ -Patient was sent in by caregivers at the [facility] Did you speak to anyone other than the patient for history (EMS, parent, family, police, friend...)? What history was obtained from this source @ -No Did you review nursing and triage notes (agree or disagree)? Why? @ -I reviewed and agree with nursing and triage notes Were old charts reviewed (outside hosp., previous admission, EMS record, old EKG, old radiological studies, urgent care reports/EKG's, residential records)? Report findings @ -I reviewed prior charts in prior laboratory values patient Differential Diagnosis (chest pain, altered mental status, abdominal pain women, abdominal pain men, vaginal bleeding, weakness, fever, dyspnea, syncope, headache, dizziness, GI bleed, back pain, seizure, CVA, palpatations, mental health, musculoskeletal)? @ -Differential Altered Mental Status: Hypoglycemia, DKA, hypercapnia, ETOH, overdose, CO poisoning, trauma, myxedema coma, HTN encephalopathy, infection, encephalitis, psychosis, intercranial hemorrhage, hepatic encephalopathy, meningitis, CVA, this is not meant to be an all-inclusive list EKG interpreted by me (3pts min.). @ -As above X-rays interpreted by me (1pt min.). @ -Chest x-ray shows no acute abnormality CT interpreted by me (1pt min.). @ -None done U/S interpreted by me (1pt. min.). @ -None done What testing was considered but not performed or refused? (CT, X-rays, U/S, labs)? Why? @ -None What meds were considered but not given or refused? Why? @ -None Did you discuss the management of the patient with other professionals (professionals i.e. , PA, DIGITAL SERVICE ENGINEER, lab, RT, psych nurse, dialysis social worker, suspect artist, t eacher, security officer supervisor, nurse case management)? Give summary @ -I spoke with Dr. Hopkins and he stated that this patient could be admitted to the [facility]. I spoke with [facility] see Street admit the patient Was smoking cessation discussed for >3mins.? @ -No Was critical care preformed (if so, how long)? @ -No Were there social determinants of health that impacted care today? How? (Homelessness, low income, unemployed, alcoholism, drug addiction, transportation, low edu. Level, literacy, decrease access to med. care, [facility], rehab)? @ -No Was there de-escalation of care discussed even if they declined (Discuss DNR or withdrawal of care, Hospice)? DNR status @ -No What co-morbidities impacted this encounter? (DM, HTN, Smoking, COPD, CAD, Cancer, CVA, ARF, Chemo, Hep., AIDS, mental health diagnosis, sleep apnea, morbid obesity)? @ -None Was patient admitted / discharged? Hospital course, mention meds given and route, prescriptions, significant lab abnormalities, going to OR and other pertinent info. @ -Patient will be admitted for altered mental status I find no reason for the change in status I spoke with [facility] see agreed to admit the patient . Patient continues to be altered and trying to get out of bed and walk around the hallway. According to the son they found him outside walking around. Undiagnosed new problem with uncertain prognosis? @ -No Drug Therapy requiring intensive monitoring for toxicity (Heparin, Nitro, Insulin, Cardizem)? @ -No Were any procedures done? @ -No Diagnosis/symptom? @ -Altered mental status Acute, or Chronic, or Acute on Chronic? @ -Acute on chronic Uncomplicated (without systemic symptoms) or Complicated (systemic symptoms)? @ -Complicated Side effects of treatment? @ -No Exacerbation, Progression, or Severe Exacerbation? @ -No Poses a threat to life or bodily function? How? (Chest pain, USA, OR, pneumonia, PE, COPD, DKA, ARF, appy, cholecystitis, CVA, Diverticulitis, Homicidal, Suicidal, threat to staff... and all critical care pts) @ -No - Lab Data Result diagrams: 03/28/23 09:25 03/28/23 09:25 Lab Results 03/28/23 03/28/23 03/28/23 Range/Units 09:25 09:25 09:25 WBC 9.3 (3.8-10.6) k/uL RBC 4.36 (4.30-5.90) m/uL Hgb 11.8 L (13.0-17.5) gm/dL Hct 36.2 L (39.0-53.0) % MCV 82.9 (80.0-100.0) fL MCH 27.1 (25.0-35.0) pg MCHC 32.7 (31.0-37.0) g/dL RDW 14.4 (11.5-15.5) % Plt Count 234 (150-450) k/uL MPV 7.0 Neutrophils % 71 % Lymphocytes % 15 % Monocytes % 8 % Eosinophils % 2 % Basophils % 1 % Neutrophils # 6.6 (1.3-7.7) k/uL Lymphocytes # 1.4 (1.0-4.8) k/uL Monocytes # 0.8 (0-1.0) k/uL Eosinophils # 0.2 (0-0.7) k/uL Basophils # 0.0 (0-0.2) k/uL PT 11.3 (10.0-12.5) sec INR 1.0 (<1.2) APTT 24.5 (22.0-30.0) sec Sodium (137-145) mmol/L Potassium (3.5-5.1) mmol/L Chloride (98-107) mmol/L Carbon Dioxide (22-30) mmol/L Anion Gap mmol/L BUN (9-20) mg/dL Creatinine (0.66-1.25) mg/dL Est GFR (CKD-EPI)AfAm (>60 ml/min/1.73 sqM) Est GFR (CKD-EPI)NonAf (>60 ml/min/1.73 sqM) Glucose (74-99) mg/dL Plasma Lactic Acid Venkata (0.7-2.0) mmol/L Calcium (8.4-10.2) mg/dL Magnesium (1.6-2.3) mg/dL Total Bilirubin (0.2-1.3) mg/dL AST (17-59) U/L ALT (4-49) U/L Alkaline Phosphatase (38-126) U/L Troponin I (0.000-0.034) ng/mL Total Protein (6.3-8.2) g/dL Albumin (3.5-5.0) g/dL Urine Color Yellow Urine Appearance Clear (Clear) Urine pH 5.0 (5.0-8.0) Ur Specific [place] 1.025 (1.001-1.035) Urine Protein Trace H (Negative) Urine Glucose (UA) Negative (Negative) Urine Ketones Negative (Negative) Urine Blood Negative (Negative) Urine Nitrite Negative (Negative) Urine Bilirubin Negative (Negative) Urine Urobilinogen <2.0 (<2.0) mg/dL Ur Leukocyte Esterase Negative (Negative) 03/28/23 03/28/23 03/28/23 Range/Units 09:25 09:25 09:25 WBC (3.8-10.6) k/uL RBC (4.30-5.90) m/uL Hgb (13.0-17.5) gm/dL Hct (39.0-53.0) % MCV (80.0-100.0) fL MCH (25.0-35.0) pg MCHC (31.0-37.0) g/dL RDW (11.5-15.5) % Plt Count (150-450) k/uL MPV Neutrophils % % Lymphocytes % % Monocytes % % Eosinophils % % Basophils % % Neutrophils # (1.3-7.7) k/uL Lymphocytes # (1.0-4.8) k/uL Monocytes # (0-1.0) k/uL Eosinophils # (0-0.7) k/uL Basophils # (0-0.2) k/uL PT (10.0-12.5) sec INR (<1.2) APTT (22.0-30.0) sec Sodium 141 (137-145) mmol/L Potassium 4.1 (3.5-5.1) mmol/L Chloride 105 (98-107) mmol/L Carbon Dioxide 28 (22-30) mmol/L Anion Gap 8 mmol/L BUN 23 H (9-20) mg/dL Creatinine 1.22 (0.66-1.25) mg/dL Est GFR (CKD-EPI)AfAm 65 (>60 ml/min/1.73 sqM) Est GFR (CKD-EPI)NonAf 56 (>60 ml/min/1.73 sqM) Glucose 108 H (74-99) mg/dL Plasma Lactic Acid Ven[place]ata 1.3 (0.7-2.0) mmol/L Calcium 9.4 (8.4-10.2) mg/dL Magnesium 1.8 (1.6-2.3) mg/dL Total Bilirubin 0.7 (0.2-1.3) mg/dL AST 39 (17-59) U/L ALT 23 (4-49) U/L Alkaline Phosphatase 82 (38-126) U/L Troponin I <0.012 (0.000-0.034) ng/mL Total Protein 6.8 (6.3-8.2) g/dL Albumin 4.2 (3.5-5.0) g/dL Urine Color Urine Appearance (Clear) Urine pH (5.0-8.0) Ur Specific [place] (1.001-1.035) Urine Protein (Negative) Urine Glucose (UA) (Negative) Urine Ketones (Negative) Urine Blood (Negative) Urine Nitrite (Negative) Urine Bilirubin (Negative) Urine Urobilinogen (<2.0) mg/dL Ur Leukocyte Esterase (Negative) Disposition Clinical Impression: Altered mental status Disposition: ADMITTED IP TO THIS HOSP Referrals: Giuseppe Bailey MD [Primary Care Provider] - 1-2 days Time of Disposition: 10:45
--- NOTE | 2023-03-28 10:18 | XR ---
EXAMINATION TYPE: XR chest 1V DATE OF EXAM: 03/28/2023 COMPARISON: Chest x-ray December 07, 2022 HISTORY: Weakness TECHNIQUE: Single frontal view of the chest is obtained. FINDINGS: Current exam slightly suboptimal as patient's right upper extremity overlies lateral right lung base There is background of chronic emphysematous change with scattered parenchymal scarring. Th ere is no suspicious focal air space opacity, pleural effusion, or pneumothorax seen. The cardiac si lhouette size is stable and within normal limits. The osseous structures are intact. IMPRESSION: Chronic changes without acute pulmonary process.
[2023-03-28] MEDS ORDERED: SODIUM CHLORIDE 0.9% 1,000 ML IV ONE (10:45)
[2023-03-28 11:28] LABS: Amphetamine Screen,Urine Not Detected (NotDetected); Benzodiazepines Screen,Urine Not Detected (NotDetected); Cocaine Screen,Urine Not Detected (NotDetected); Methadone Screen, Urine Not Detected (NotDetected); Opiate Screen,Urine Not Detected (NotDetected); Phencyclidine Screen,Urine Not Detected (NotDetected); Tricyclic Antidepressant,Urine Not Detected (NotDetected); Urn Cannabinoid Scrn Not Detected (NotDetected)
[2023-03-28 11:29] LABS: Barbiturate Screen,Urine Not Detected (NotDetected); Oxycodone Screen, Urine Not Detected (NotDetected)
[2023-03-28 12:52] LABS: VBG PH 7.38 (7.31-7.41)
[2023-03-28] MEDS ORDERED: NALOXONE 0.4 MG/ML 1 ML VIAL IV PRN (13:10)
[2023-03-28] MEDS ORDERED: ACETAMINOPHEN TAB 325 MG TAB PO PRN (13:10)
[2023-03-28] MEDS ORDERED: ONDANSETRON 4 MG/2 ML VIAL IVP PRN (13:10)
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
[2023-03-28] MEDS: LORazepam 2 MG/ML INJ IV PRN (15:06)
[2023-03-28] MEDS: ALBUTEROL NEBULIZED 2.5 MG/3 ML INHALATION SCH ×2 (15:20→20:30)
--- NOTE | 2023-03-28 15:47 | CT ---
EXAMINATION TYPE: CT brain wo con DATE OF EXAM: 03/28/2023 HISTORY: ams worsening confusion. CT DLP: 1141.9 mGycm. Automated Exposure Control for Dose Reduction was Utilized. TECHNIQUE: CT scan of the head is performed without contrast. COMPARISON: CT brain February 17, 2018. FINDINGS: There is no acute intracranial hemorrhage or midline shift identified. There is mild-to-m oderate diffuse ventricular and sulcal prominence redemonstrated. There is mild to moderate low-atte nuation in the deep and periventricular white matter redemonstrated. Bilateral aphakia is redemonstra wilmer. The paranasal sinuses remain grossly clear. Vascular calcification of the distal internal caroti d arteries is redemonstrated. IMPRESSION: No acute intracranial hemorrhage or midline shift. There is mild to moderate diffuse ag e-related cerebral atrophy and chronic small vessel ischemic change redemonstrated. No significant c hange from prior CT.
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
[2023-03-29] MEDS: ALBUTEROL NEBULIZED 2.5 MG/3 ML INHALATION SCH ×5 (07:56→20:40)
[2023-03-29] MEDS: ENOXAPARIN 40 MG/0.4 ML SYRINGE SQ SCH (09:32)
[2023-03-29] MEDS: LORazepam 2 MG/ML INJ IV PRN (10:04)
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
[2023-03-29] MEDS: QUEtiapine 25 MG TAB PO SCH (19:55)
[2023-03-30] MEDS: ALBUTEROL NEBULIZED 2.5 MG/3 ML INHALATION SCH ×4 (08:52→19:37)
[2023-03-30 09:12] LABS: BUN/Creat Ratio 9.78 Ratio (12.00-20.00); Blood Urea Nitrogen 8.8 mg/dL (9.0-27.0); Calcium 9.1 mg/dL (8.7-10.3); Chloride 110 mmol/L (96-109); Glucose 90 mg/dL (70-110); Potassium 3.7 mmol/L (3.5-5.5); Sodium 146 mmol/L (135-145)
[2023-03-30] MEDS ORDERED: SODIUM CHLORIDE 0.9% 500 ML 500 ML IV ONE (09:18)
[2023-03-30] MEDS: ENOXAPARIN 40 MG/0.4 ML SYRINGE SQ SCH (09:19)
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
[2023-03-30] MEDS: QUEtiapine 25 MG TAB PO SCH ×2 (17:26→19:52)
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
[2023-03-31] MEDS: ALBUTEROL NEBULIZED 2.5 MG/3 ML INHALATION SCH ×4 (08:46→19:43)
[2023-03-31 09:22] LABS: BUN/Creat Ratio 11.38 Ratio (12.00-20.00); Blood Urea Nitrogen 9.1 mg/dL (9.0-27.0); Calcium 8.7 mg/dL (8.7-10.3); Carbon Dioxide 23.2 mmol/L (21.6-31.8); Chloride 110 mmol/L (96-109); Glucose 90 mg/dL (70-110); Potassium 3.4 mmol/L (3.5-5.5); Sodium 146 mmol/L (135-145)
[2023-03-31] MEDS: QUEtiapine 25 MG TAB PO SCH ×2 (09:48→20:27)
[2023-03-31] MEDS: ENOXAPARIN 40 MG/0.4 ML SYRINGE SQ SCH (09:48)
[2023-03-31] MEDS ORDERED: QUEtiapine 25 MG TAB PO PRN (15:15)
[2023-03-31] MEDS ORDERED: OLANZapine 10 MG VIAL IM PRN (15:16)
--- NOTE | 2023-03-31 15:22 | P.PN ---
Progress Note - Text Progress Note Date: 03/31/23 Interval history: Patient was seen today for psychiatric follow-up medications delirium, dementia. Patient's nurse states that patient continues to be fairly impulsive, and is nonverbal. Patient was seen at the bedside today he was laying watching TV. He has a sitter at his side. He was approached by va underwriter and va underwriter introduces himself. He was able to answer some questions by giving a thumbs up. He only followed some commands. When asked about his complaints he grabbed his pen and paper and wrote down "help me I can't talk". He did not write anything else. He acknowledged va underwriter for the first part of the conversation and then stopped. He is denying any suicidal or homicidal ideations. Denying any auditory or visual hallucinations. MENTAL STATUS EXAM: General Appearance: Patient appears to be frail elderly male, dressed in hospital gown, disheveled, unshaven, fair hygiene and grooming. Behavior: Patient appears sedated, laying in bed, difficulty maintaining wakefulness, poor eye contact. Speech: Patient is mostly nonverbal, uses pen and paper to communicate with romeo ef statements, but is not able to maintain wakefulness to communicate with me. Mood/Affect: Unable to assess Suicidality/Homicidality: Denies Perceptions: Denies Though content/process: Unable to assess Memory and concentration: Unable to assess Judgment and insight: Poor/impulsive IMPRESSIONS: Delirium, multifactorial - underlying dementia, anemia, advanced COPD, progressive apraxia Major neurocognitive disorder, probable Alzheimer's dementia with behavioral disturbance R/O Unspecified depressive disorder nicotine dependence, in remission PLAN: -At this time patient does not meet criteria for inpatient psychiatric hospitalization. -Continue 1:1 sitter for safety as patient is fairly impulsive. -Based on all available information, patient DOES NOT have decision making capacity at this time and is unable to reason through and communicate/appreciate the risks, benefits and alternatives to treatment. -Delirium precautions recommended with patient including - avoiding use of narcotics and ENGINE BOSS sedatives, limit anticholinergic medications when possible, frequent re-orientation, minimize use of restraints, open window shades during the day and close them at night, encourage wakefulness during the day. -Would recommend the following medication changes/additions: Changed Seroquel 25 mg HS scheduled + 25 mg bid for agitation/mood stabilization zyprexa IM prn for severe agitation. Would avoid benzodiazepines at this time as it Will increase patient's confusion and impulsivity. -Communicated plan to patient's nurse -at this time will only follow up if needed, if patient is ready for discharge and placement then it should continue forward. -Please contact with any questions.
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
[2023-04-01] MEDS: ALBUTEROL NEBULIZED 2.5 MG/3 ML INHALATION SCH ×5 (08:51→20:03)
[2023-04-01] MEDS: ENOXAPARIN 40 MG/0.4 ML SYRINGE SQ SCH (08:59)
[2023-04-01 10:57] LABS: Blood Urea Nitrogen 10.4 mg/dL (9.0-27.0); Calcium 8.8 mg/dL (8.7-10.3); Carbon Dioxide 25.8 mmol/L (21.6-31.8); Chloride 108 mmol/L (96-109); Glucose 99 mg/dL (70-110); Magnesium 1.8 mg/dL (1.5-2.4); Potassium 3.4 mmol/L (3.5-5.5); Sodium 144 mmol/L (135-145)
[2023-04-01] MEDS: QUEtiapine 25 MG TAB PO SCH (20:00)
[2023-04-02] MEDS ORDERED: Potassium Replacement Protocol 1 EACH MISC MISCELLANE PRN (05:14)
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
[2023-04-02 07:46] VITALS: BP 143/86; RESP 15; TEMP 98.2
[2023-04-02] MEDS: ALBUTEROL NEBULIZED 2.5 MG/3 ML INHALATION SCH (09:19)
[2023-04-02 09:31] VITALS: PULSE 84
[2023-04-02] MEDS: ENOXAPARIN 40 MG/0.4 ML SYRINGE SQ SCH (10:12)
[2023-04-02] MEDS: POTASSIUM CHLORIDE ER 20 MEQ TAB.ER PO SCH ×3 (10:12→11:35)
[2023-04-02 11:26] LABS: Blood Urea Nitrogen 12.8 mg/dL (9.0-27.0); Calcium 9.1 mg/dL (8.7-10.3); Carbon Dioxide 26.3 mmol/L (21.6-31.8); Chloride 107 mmol/L (96-109); Glucose 97 mg/dL (70-110); Potassium 3.5 mmol/L (3.5-5.5); Sodium 146 mmol/L (135-145)
[2023-04-02 11:35] VITALS: BMI 24.2
--- NOTE | 2023-04-08 06:22 | P.DS ---
Providers Date of admission: 03/30/23 12:25 Expected date of discharge: 04/02/23 Attending physician: Finn Hernandez Consults: 03/28/23 11:45 Consult Physician Urgent Consulting Provider: Ralph Blood Consult Reason/Comments: suicidal Do you want consulting provider notified?: Yes Primary care physician: Giuseppe Bailey Hospital Course: Final diagnosis Acute encephalopathy, multifactorial possibly metabolic with hypernatremia and delirium, improving advanced dementia, Alzheimer's with worsening cognition, major neurocognitive disorder Depression with suicidal behavior History of progressive apraxia History of COPD History of prostate, colon cancer Mild protein calorie malnutrition with a BMI of 24.2 GI prophylaxis DVT prophylaxis No code Discharge disposition Patient is being discharged in a stable condition with guarded prognosis to [facility] where he resides. Patient will follow-up with Dr. Bailey in the outpatient setting upon discharge. Patient is to continue with current medications as prescribed below. Total time taken is greater than 35 minutes. Hospital course This is a 77-year-old male who was recently admitted with acute encephalopathy with electrolyte abnormalities and delirium being closely monitored. Patient is with history of advanced dementia with Alzheimer's and was reportedly having depression with suicidal behavior writing " "on his papers to the staff at the [facility]. Patient is nonverbal. Patient was seen and evaluated by psychiatry and medications adjusted recommending outpatient follow-up with PCP and psychiatry. Patient's electrolytes improved and patient also with history of COPD, not in exacerbation recommending outpatient follow-up with pulmonary who is his primary care provider. Patient per [facility] required 24/7 care which is being arranged by son in the outpatient setting and looking further into [facility] that can accommodate his needs. Social work following and provided resources to [facility]. Currently no reports of chest pain, shortness of breath, or palpitations. Patient is afebrile. No reports of nausea or vomiting and patient is tolerating diet. Patient will be discharged to [facility] with 24/7 care and arrangements for [facility] in the outpatient setting available after 04/04/2023. Please refer to other consultation notes for further HPI. Patient is high risk for readmission given his age and significant comorbidities. Physical exam: Gen: This is a 77-year-old male who is awake, alert and oriented x 1-2, baseline, nonverbal, well-developed, elderly appearing HEENT: Head is atraumatic, normocephalic. Pupils equal, round. Sclerae is anicteric. NECK: Supple. No JVD. No lymphadenopathy. No thyromegaly. LUNGS: Diminished breath sounds bilaterally with some coarse rhonchi and bronchial congestion noted. No wheezes noted on exam. No intercostal retractions. HEART: Regular rate and rhythm. No murmur. ABDOMEN: Soft. Bowel sounds are present. No masses. No tenderness. EXTREMITIES: No pedal edema. No calf tenderness. NEUROLOGICAL: Patient is awake, alert and oriented x1-2 baseline. Cranial nerves 2 through 12 are grossly intact. Please refer to medication reconciliation sheet for a list of medications. The impression and plan of care has been dictated by Sada Neves, Nurse Practitioner as directed. Dr. Kim MD I have performed a history and examination and MDM of this patient, discussed the same with the dictator, and agree with the dictator's assessment and plan as written ,documented as a scribe. Based on total visit time, I have performed more than 50% of the visit. Patient Condition at Discharge: Fair Plan - Discharge Summary New Discharge Prescriptions: New QUEtiapine [SEROquel] 25 mg PO BID PRN #60 tab PRN Reason: Agitation QUEtiapine [SEROquel] 25 mg PO HS #30 tab Acetaminophen Tab [Tylenol] 650 mg PO Q6HR PRN tab PRN Reason: Mild Pain Or Fever > 100.5 Continue Albuterol Sulfate [Albuterol Sulfate Hfa] 1 puff PO RT-QID Discharge Medication List Albuterol Sulfate [Albuterol Sulfate Hfa] 1 puff PO RT-QID 03/28/23 [History] Acetaminophen Tab [Tylenol] 650 mg PO Q6HR PRN tab 04/02/23 [Rx] QUEtiapine [SEROquel] 25 mg PO BID PRN #60 tab 04/02/23 [Rx] QUEtiapine [SEROquel] 25 mg PO HS #30 tab 04/02/23 [Rx] Follow up Appointment(s)/Referral(s): Giuseppe Bailey MD [Primary Care Provider] - 1-2 days Ambulatory/Diagnostic Orders: Basic Metabolic Panel [LAB.AMB] Time Frame: 2 Days, Location: None Selected Patient Instructions/Handouts: COPD (Chronic Obstructive Pulmonary Disease) (DC), Altered Mental Status (ED) Activity/Diet/Wound Care/Special Instructions: Patient is going to [facility] with arrangements for [facility] outpatient Activity as tolerated Follow-up with primary care provider on discharge Encouraged oral intake Repeat labs in 2 to 3 days Discharge Disposition: DC/TRNS INTERMEDIATE CARE FAC
== END 2023-04-02 11:53 | DRG 56 ==
LOC: EC 08:55 → 6NMEDSUR 10:46 → OBSVTOIN 03-30 12:25
PROVIDERS: ADMIT Hospitalist; ATTEND Hospitalist
DX: G30.9 Alzheimer's disease, unspecified (principal); G93.41 Metabolic encephalopathy; E44.1 Mild protein-calorie malnutrition; F05 Delirium due to known physiological condition; E87.0 Hyperosmolality and hypernatremia; F02.818 Dementia in other diseases classified elsewhere, unspecified severity, with other behavioral disturbance; F02.83 Dementia in other diseases classified elsewhere, unspecified severity, with mood disturbance; J43.9 Emphysema, unspecified; J44.9 Chronic obstructive pulmonary disease, unspecified; I73.9 Peripheral vascular disease, unspecified; I10 Essential (primary) hypertension; D64.9 Anemia, unspecified; Z66 Do not resuscitate; R48.2 Apraxia; E78.5 Hyperlipidemia, unspecified; K44.9 Diaphragmatic hernia without obstruction or gangrene; N32.3 Diverticulum of bladder; F17.201 Nicotine dependence, unspecified, in remission; Z99.81 Dependence on supplemental oxygen; Z79.899 Other long term (current) drug therapy; Z85.46 Personal history of malignant neoplasm of prostate; Z85.038 Personal history of other malignant neoplasm of large intestine; Z68.24 Body mass index [BMI] 24.0-24.9, adult; Z86.16 Personal history of COVID-19; Z71.3 Dietary counseling and surveillance; Z88.0 Allergy status to penicillin; Z88.1 Allergy status to other antibiotic agents; Z88.5 Allergy status to narcotic agent
CPT/HCPCS: 36415; 70450; 71045; 80048; 80053; 80306; 81003; 82803; 83605; 83735; 84484; 85025; 85610; 85730; 93005; 94640; 94760; 96374; 99285

== ENCOUNTER 2023-04-03 03:19 | Emergency (ER) | payer MEDICARE ==
[2023-04-03 03:33] VITALS: TEMP 98.7
[2023-04-03 04:23] LABS: Basophils % (A) 1 %; Eosinophils # (A) 0.2 k/uL (0-0.7); Eosinophils % (A) 4 %; HCT 33.8 % (39.0-53.0); HGB 10.9 gm/dL (13.0-17.5); Hypochromasia Slight; Lymphocytes # (A) 1.4 k/uL (1.0-4.8); Lymphocytes % (A) 24 %; MCHC 32.2 g/dL (31.0-37.0); MCV 83.9 fL (80.0-100.0); Mean Platelet Volume 7.2; Monocytes # (A) 0.4 k/uL (0-1.0); Monocytes % (A) 7 %; Neutrophils # (A) 3.7 k/uL (1.3-7.7); Neutrophils % (A) 61 %; Platelet Count 223 k/uL (150-450); RBC 4.03 m/uL (4.30-5.90); RDW 15.2 % (11.5-15.5); WBC 6.1 k/uL (3.8-10.6)
--- NOTE | 2023-04-03 04:36 | ED ---
General Adult HPI - General Chief complaint: Recheck/Abnormal Lab/Rx Stated complaint: AMS Time Seen by Provider: 04/03/23 03:25 Source: EMS Mode of arrival: EMS - History of Present Illness Initial comments: 77-year-old male presents emergency department from [facility]. They state that the patient was attempting to leave his room and they were having a hard time redirecting him. Patient has apraxia and dementia. Staff decided to send the patient into the emergency room. Patient was recently hospitalized and discharged. It is reported in the patient's discharge summary that he may require higher level of care and therefore family must pursue definitive placement. Patient has no complaints at this time. No injuries. HPI is limited as the patient is nonverbal and no family is at bedside - Related Data Home Medications Medication Instructions Recorded Confirmed Albuterol Sulfate [Albuterol 1 puff PO RT-QID 03/28/23 03/28/23 Sulfate Hfa] Previous Rx's Medication Instructions Recorded Acetaminophen Tab [Tylenol] 650 mg PO Q6HR PRN tab 04/02/23 QUEtiapine [SEROquel] 25 mg PO BID PRN #60 tab 04/02/23 QUEtiapine [SEROquel] 25 mg PO HS #30 tab 04/02/23 Allergies Allergy/AdvReac Type Severity Reaction Status Date / Time Penicillins Allergy Mild Rash/Hives Verified 03/28/23 11:02 cephalexin Allergy Rash/Hives Verified 03/28/23 11:02 morphine Allergy Rash/Hives Verified 03/28/23 11:02 Review of Systems ROS Statement: Those systems with pertinent positive or pertinent negative responses have been documented in the HPI. ROS Other: All systems not noted in ROS Statement are negative. Past Medical History Past Medical History: Cancer, COPD, Dementia, Hyperlipidemia, Pneumonia, Prostate Disorder Additional Past Medical History / Comment(s): Primary progressive apraxia, emphysema, severe COPD and the patient FEV1 is in order of 24% of predicted, pulmonary nodule 7 mm in the right lower lobe, small hiatal hernia, prostate cancer, colon cancer, rt inguinal hernia. 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, hx anemia, bladder diverticulum, peripheral vascular disease History of Any Multi-Drug Resistant Organisms: None Reported Past Surgical History: Appendectomy, Back Surgery, Bowel Resection, Hernia Repair, Orthopedic Surgery Additional Past Surgical History / Comment(s): back surgery for herniated disk, rt shoulder rotator cuff, nilsa cataracts with lens implants, nilsa inguinal hernia, diverticulitis Past Anesthesia/Blood Transfusion Reactions: No Reported Reaction Past Psychological History: No Psychological Hx Reported Smoking Status: Former smoker Past Alcohol Use History: Rare Past Drug Use History: None Reported - Past Family History Father Family Medical History: Cancer Mother Family Medical History: Cancer Additional Family Medical History / Comment(s): lung Cancer, Brain Cancer Sister(s) Family Medical History: Congestive Heart Failure (CHF) General Exam General appearance: alert, in no apparent distress Head exam: Present: atraumatic, normocephalic, normal inspection Eye exam: Present: normal appearance ENT exam: Present: normal exam, mucous membranes moist Neck exam: Present: normal inspection. Absent: tenderness, meningismus, lymphadenopathy Respiratory exam: Present: normal lung sounds bilaterally. Absent: respiratory distress, wheezes, rales, rhonchi, stridor Cardiovascular Exam: Present: regular rate, normal rhythm, normal heart sounds. Absent: systolic murmur, diastolic murmur, rubs, gallop, clicks Neurological exam: Present: alert, other (Nonverbal. Patient answers questions with a thumbs up or thumbs down) Skin exam: Present: warm, dry, intact, normal color. Absent: rash Course Vital Signs 04/03/23 04/03/23 04/03/23 03:21 04:15 05:10 Temperature 98.7 F Pulse Rate 83 71 75 Respiratory 16 16 18 Rate Blood Pressure 140/66 123/57 154/65 O2 Sat by Pulse 95 97 97 Oximetry 04/03/23 07:25 Temperature 98.7 F Pulse Rate 74 Respiratory 16 Rate Blood Pressure 157/63 O2 Sat by Pulse 94 L Oximetry Medical Decision Making - Medical Decision Making Was pt. sent in by a medical professional or institution (, PA, DIE OPERATOR, urgent care, hospital, or senior care...) When possible be specific @ -Patient was sent in from [facility] Did you speak to anyone other than the patient for history (EMS, parent, family, police, friend...)? What history was obtained from this source @ -Spoke with EMS Did you review nursing and triage notes (agree or disagree)? Why? @ -I reviewed and agree with nursing and triage notes Were old charts reviewed (outside hosp., previous admission, EMS record, old EKG, old radiological studies, urgent care reports/EKG's, senior care records)? Report findings @ -I reviewed the patient's discharge summary from the Differential Diagnosis (chest pain, altered mental status, abdominal pain women, abdominal pain men, vaginal bleeding, weakness, fever, dyspnea, syncope, headache, dizziness, GI bleed, back pain, seizure, CVA, palpatations, mental health, musculoskeletal)? @ -Differential Altered Mental Status: Hypoglycemia, DKA, hypercapnia, ETOH, overdose, CO poisoning, trauma, myxedema coma, HTN encephalopathy, infection, encephalitis, psychosis, intercranial hemorrhage, hepatic encephalopathy, meningitis, CVA, this is not meant to be an all-inclusive list EKG interpreted by me (3pts min.). @ -Yes and demonstrates sinus rhythm with a rate of 77. OH interval 145. QRS 78. QTc of 337. No acute ST segment elevations or depressions X-rays interpreted by me (1pt min.). @ -Yes and demonstrates no acute findings CT interpreted by me (1pt min.). @ -None done U/S interpreted by me (1pt. min.). @ -None done What testing was considered but not performed or refused? (CT, X-rays, U/S, labs)? Why? @ -None What meds were considered but not given or refused? Why? @ -None Did you discuss the management of the patient with other professionals (professionals i.e. , PA, DIE OPERATOR, lab, RT, psych nurse, drug abuse social worker, monument mason, teacher, public health service officer, case packer)? Give summary @ -No Was smoking cessation discussed for >3mins.? @ -No Was critical care preformed (if so, how long)? @ -No Were there social determinants of health that impacted care today? How? (Homelessness, low income, unemployed, alcoholism, drug addiction, transportation, low edu. Level, literacy, decrease access to med. care, skilled nursing, rehab)? @ -No Was there de-escalation of care discussed even if they declined (Discuss DNR or withdrawal of care, Hospice)? DNR status @ -No What co-morbidities impacted this encounter? (DM, HTN, Smoking, COPD, CAD, Cancer, CVA, ARF, Chemo, Hep., AIDS, mental health diagnosis, sleep apnea, morbid obesity)? @ -Apraxia, dementia Was patient admitted / discharged? Hospital course, mention meds given and route, prescriptions, significant lab abnormalities, going to OR and other pertinent info. @ -Upon arrival patient was evaluated in trauma 3. He does answer questions fa irly well using thumbs up or thumbs down. He has no complaints. Laboratory studies are conducted. Chest x-ray is performed. We did review the patient's discharge summary from yesterday. Patient does not appear to have any change in his neurologic status from discharge. Patient will be sent back to [facility]. Instructed staff that if the patient needs higher level of care that they need to talk to family. Patient sent back in stable condition Undiagnosed new problem with uncertain prognosis? @ -No Drug Therapy requiring intensive monitoring for toxicity (Heparin, Nitro, Insulin, Cardizem)? @ -No Were any procedures done? @ -No Diagnosis/symptom? @ -Reported acute encephalopathy Acute, or Chronic, or Acute on Chronic? @ -Acute Uncomplicated (without systemic symptoms) or Complicated (systemic symptoms)? @ -Complicated Side effects of treatment? @ -No Exacerbation, Progression, or Severe Exacerbation? @ -No Poses a threat to life or bodily function? How? (Chest pain, [place], [place], pneumonia, PE, COPD, DKA, ARF, appy, cholecystitis, CVA, Diverticulitis, Homicidal, Suicidal, threat to staff... and all critical care pts) @ -No - Lab Data Result diagrams: 04/03/23 03:44 04/03/23 03:44 Lab Results 04/03/23 04/03/23 04/03/23 Range/Units 03:44 03:44 03:44 WBC 6.1 (3.8-10.6) k/uL RBC 4.03 L (4.30-5.90) m/uL Hgb 10.9 L (13.0-17.5) gm/dL Hct 33.8 L (39.0-53.0) % MCV 83.9 (80.0-100.0) fL MCH 27.0 (25.0-35.0) pg MCHC 32.2 (31.0-37.0) g/dL RDW 15.2 (11.5-15.5) % Plt Count 223 (150-450) k/uL MPV 7.2 Neutrophils % 61 % Lymphocytes % 24 % Monocytes % 7 % Eosinophils % 4 % Basophils % 1 % Neutrophils # 3.7 (1.3-7.7) k/uL Lymphocytes # 1.4 (1.0-4.8) k/uL Monocytes # 0.4 (0-1.0) k/uL Eosinophils # 0.2 (0-0.7) k/uL Basophils # 0.0 (0-0.2) k/uL Hypochromasia Slight Sodium 145 (137-145) mmol/L Potassium 3.7 (3.5-5.1) mmol/L Chloride 110 H (98-107) mmol/L Carbon Dioxide 27 (22-30) mmol/L Anion Gap 8 mmol/L BUN 19 (9-20) mg/dL Creatinine 0.91 (0.66-1.25) mg/dL Est GFR (CKD-EPI)AfAm >90 (>60 ml/min/1.73 sqM) Est GFR (CKD-EPI)NonAf 80 (>60 ml/min/1.73 sqM) Glucose 105 H (74-99) mg/dL Plasma Lactic Acid Venkata 1.0 (0.7-2.0) mmol/L Calcium 9.0 (8.4-10.2) mg/dL Total Bilirubin 0.6 (0.2-1.3) mg/dL AST 31 (17-59) U/L ALT 23 (4-49) U/L Alkaline Phosphatase 78 (38-126) U/L Total Protein 5.9 L (6.3-8.2) g/dL Albumin 3.5 (3.5-5.0) g/dL Influenza Type A (PCR) (Not Detectd) Influenza Type B (PCR) (Not Detectd) RSV (PCR) (Not Detectd) SARS-CoV-2 (PCR) (Not Detectd) 04/03/23 Range/Units 03:44 WBC (3.8-10.6) k/uL RBC (4.30-5.90) m/uL Hgb (13.0-17.5) gm/dL Hct (39.0-53.0) % MCV (80.0-100.0) fL MCH (25.0-35.0) pg MCHC (31.0-37.0) g/dL RDW (11.5-15.5) % Plt Count (150-450) k/uL MPV Neutrophils % % Lymphocytes % % Monocytes % % Eosinophils % % Basophils % % Neutrophils # (1.3-7.7) k/uL Lymphocytes # (1.0-4.8) k/uL Monocytes # (0-1.0) k/uL Eosinophils # (0-0.7) k/uL Basophils # (0-0.2) k/uL Hypochromasia Sodium (137-145) mmol/L Potassium (3.5-5.1) mmol/L Chloride (98-107) mmol/L Carbon Dioxide (22-30) mmol/L Anion Gap mmol/L BUN (9-20) mg/dL Creatinine (0.66-1.25) mg/dL Est GFR (CKD-EPI)AfAm (>60 ml/min/1.73 sqM) Est GFR (CKD-EPI)NonAf (>60 ml/min/1.73 sqM) Glucose (74-99) mg/dL Plasma Lactic Acid Venkata (0.7-2.0) mmol/L Calcium (8.4-10.2) mg/dL Total Bilirubin (0.2-1.3) mg/dL AST (17-59) U/L ALT (4-49) U/L Alkaline Phosphatase (38-126) U/L Total Protein (6.3-8.2) g/dL Albumin (3.5-5.0) g/dL Influenza Type A (PCR) Not Detected (Not Detectd) Influenza Type B (PCR) Not Detected (Not Detectd) RSV (PCR) Not Detected (Not Detectd) SARS-CoV-2 (PCR) Not Detected (Not Detectd) Disposition Clinical Impression: Altered mental status, Dementia Disposition: HOME SELF-CARE Condition: Stable Additional Instructions: Your lab tests were all normal. You are already receiving 24-hour care. If the living arrangements are not working out, your family needs to look into other placement options Is patient prescribed a controlled substance at d/c from ED?: No Referrals: Giuseppe Bailey MD [Primary Care Provider] - 1-2 days Time of Disposition: 05:34
[2023-04-03 04:45] LABS: ALT 23 U/L (4-49); AST 31 U/L (17-59); African American GFR (CKD) >90 (>60 ml/min/1.73 sqM); Albumin 3.5 g/dL (3.5-5.0); Alkaline Phosphatase 78 U/L (38-126); Anion Gap 8 mmol/L; Blood Urea Nitrogen 19 mg/dL (9-20); Carbon Dioxide 27 mmol/L (22-30); Chloride 110 mmol/L (98-107); Glucose 105 mg/dL (74-99); Non-African American GFR(CKD) 80 (>60 ml/min/1.73 sqM); Potassium 3.7 mmol/L (3.5-5.1); Sodium 145 mmol/L (137-145); Total Bilirubin 0.6 mg/dL (0.2-1.3); Total Protein 5.9 g/dL (6.3-8.2)
--- NOTE | 2023-04-03 05:15 | XR ---
EXAM: XR Chest, 2 Views CLINICAL HISTORY: ITS.REASON XR Reason: Weakness TECHNIQUE: Frontal and lateral views of the chest. COMPARISON: 03/28/2023. FINDINGS: Lungs: Diffuse changes COPD. No consolidation. Pleural space: Unremarkable. No pneumothorax. Heart: Unremarkable. No cardiomegaly. Mediastinum: Unremarkable. Normal mediastinal contour. Bones/joints: Unremarkable. No acute fracture. IMPRESSION: No acute findings in the chest.
[2023-04-03 07:29] VITALS: BP 157/63; PULSE 74; RESP 16
== END 2023-04-03 07:26 | disposition home or self-care (01) ==
LOC: EC 03:19
DX: R41.82 Altered mental status, unspecified (principal); F03.90 Unspecified dementia, unspecified severity, without behavioral disturbance, psychotic disturbance, mood disturbance, and anxiety; J44.9 Chronic obstructive pulmonary disease, unspecified; Z87.891 Personal history of nicotine dependence; Z88.0 Allergy status to penicillin; Z88.5 Allergy status to narcotic agent; Z88.8 Allergy status to other drugs, medicaments and biological substances; Z20.822 Contact with and (suspected) exposure to COVID-19
CPT/HCPCS: 36415; 71046; 80053; 83605; 85025; 87636; 93005; 99285

== ENCOUNTER 2023-08-12 07:36 | Emergency (ER) | payer MEDICARE ==
--- NOTE | 2023-08-12 08:31 | ED ---
General Adult HPI - General Chief complaint: Fall Stated complaint: Fall Time Seen by Provider: 08/12/23 07:42 Source: EMS, RN notes reviewed, Caregiver Mode of arrival: EMS Limitations: language barrier - History of Present Illness Initial comments: 77-year-old male presents emergency department via EMS from long term for evaluation of a fall patient was found on the ground unclear how he ended up on the ground he has no notable injuries patient is nonverbal unable to write information for any possible injuries. Patient has no reports of blood thinners no lacerations no hematomas noted - Related Data Home Medications Medication Instructions Recorded Confirmed Albuterol Sulfate [Albuterol 1 puff PO RT-QID 03/28/23 03/28/23 Sulfate Hfa] Previous Rx's Medication Instructions Recorded Acetaminophen Tab [Tylenol] 650 mg PO Q6HR PRN tab 04/02/23 QUEtiapine [SEROquel] 25 mg PO BID PRN #60 tab 04/02/23 QUEtiapine [SEROquel] 25 mg PO HS #30 tab 04/02/23 Allergies Allergy/AdvReac Type Severity Reaction Status Date / Time Penicillins Allergy Mild Rash/Hives Verified 08/12/23 07:48 cephalexin Allergy Rash/Hives Verified 08/12/23 07:48 morphine Allergy Rash/Hives Verified 08/12/23 07:48 Review of Systems ROS Statement: Those systems with pertinent positive or pertinent negative responses have been documented in the HPI. ROS Other: All systems not noted in ROS Statement are negative. Past Medical History Past Medical History: Cancer, COPD, Dementia, Hyperlipidemia, Pneumonia, Prostate Disorder Additional Past Medical History / Comment(s): Primary progressive apraxia, emphysema, severe COPD and the patient FEV1 is in order of 24% of predicted, pulmonary nodule 7 mm in the right lower lobe, small hiatal hernia, prostate cancer, colon cancer, rt inguinal hernia. 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, hx anemia, bladder diverticulum, peripheral vascular disease History of Any Multi-Drug Resistant Organisms: None Reported Past Surgical History: Appendectomy, Back Surgery, Bowel Resection, Hernia Repair, Orthopedic Surgery Additional Past Surgical History / Comment(s): back surgery for herniated disk, rt shoulder rotator cuff, nilsa cataracts with lens implants, nilsa inguinal hernia, diverticulitis Past Anesthesia/Blood Transfusion Reactions: No Reported Reaction Past Psychological History: No Psychological Hx Reported Smoking Status: Former smoker Past Alcohol Use History: Rare Past Drug Use History: None Reported - Past Family History Father Family Medical History: Cancer Mother Family Medical History: Cancer Additional Family Medical History / Comment(s): lung Cancer, Brain Cancer Sister(s) Family Medical History: Congestive Heart Failure (CHF) General Exam Limitations: language barrier General appearance: alert, in no apparent distress Head exam: Present: atraumatic, normocephalic, normal inspection Eye exam: Present: normal appearance, PERRL, EOMI. Absent: scleral icterus, conjunctival injection, periorbital swelling ENT exam: Present: normal exam, normal oropharynx, mucous membranes moist Neck exam: Present: normal inspection, full ROM. Absent: tenderness, meningismus, lymphadenopathy Respiratory exam: Present: normal lung sounds bilaterally. Absent: respiratory distress, wheezes, rales, rhonchi, stridor Cardiovascular Exam: Present: regular rate, normal rhythm, normal heart sounds. Absent: systolic murmur, diastolic murmur, rubs, gallop, clicks GI/Abdominal exam: Present: soft, normal bowel sounds. Absent: distended, tenderness, guarding, rebound, rigid Extremities exam: Present: normal inspection. Absent: tenderness Back exam: Present: normal inspection. Absent: tenderness Neurological exam: Present: alert Course Vital Signs 08/12/23 07:44 Temperature 98.3 F Pulse Rate 75 Respiratory 16 Rate Blood Pressure 140/80 O2 Sat by Pulse 96 Oximetry Medical Decision Making - Medical Decision Making Was pt. sent in by a medical professional or institution (, PA, GLASS LAMINATING OPERATOR, urgent care, hospital, or long term...) When possible be specific @ -jail Did you speak to anyone other than the patient for history (EMS, parent, family, police, friend...)? What history was obtained from this source @ -No Did you review nursing and triage notes (agree or disagree)? Why? @ -I reviewed and agree with nursing and triage notes Were old charts reviewed (outside hosp., previous admission, EMS record, old EKG, old radiological studies, urgent care reports/EKG's, long term records)? Report findings @ -No old charts were reviewed Differential Diagnosis (chest pain, altered mental status, abdominal pain women, abdominal pain men, vaginal bleeding, weakness, fever, dyspnea, syncope, headache, dizziness, GI bleed, back pain, seizure, CVA, palpatations, mental hea lth, musculoskeletal)? @ -Fall, head injury, pelvic fracture EKG interpreted by me (3pts min.). @ -None X-rays interpreted by me (1pt min.). @ -Chest x-ray 1 view shows chronic changes otherwise no acute process X-ray pelvis no acute fracture CT interpreted by me (1pt min.). @ -CT brain and C-spine showing no intracranial hemorrhage, mass effect no cervical fracture there are noted remote/old rib fractures U/S interpreted by me (1pt. min.). @ -None done What testing was considered but not performed or refused? (CT, X-rays, U/S, labs)? Why? @ -None What meds were considered but not given or refused? Why? @ -None Did you discuss the management of the patient with other professionals (professionals i.e. , PA, GLASS LAMINATING OPERATOR, lab, RT, psych nurse, social media director, svp programmatic tv, teacher, project officer, special education case manager)? Give summary @ -No Was smoking cessation discussed for >3mins.? @ -No Was critical care preformed (if so, how long)? @ -No Were there social determinants of health that impacted care today? How? (Homelessness, low income, unemployed, alcoholism, drug addiction, transportation, low edu. Level, literacy, decrease access to med. care, long term, rehab)? @ -No Was there de-escalation of care discussed even if they declined (Discuss DNR or withdrawal of care, Hospice)? DNR status @ -No What co-morbidities impacted this encounter? (DM, HTN, Smoking, COPD, CAD, Cancer, CVA, ARF, Chemo, Hep., AIDS, mental health diagnosis, sleep apnea, morbid obesity)? @ -None Was patient admitted / discharged? Hospital course, mention meds given and route, prescriptions, significant lab abnormalities, going to OR and other pertinent info. @ -Discharged back to long term patient has no obvious injury has no tenderness upon palpation of the back extremities chest abdomen and imaging reviewed showed old rib fractures. Undiagnosed new problem with uncertain prognosis? @ -No Drug Therapy requiring intensive monitoring for toxicity (Heparin, Nitro, Insulin, Cardizem)? @ -No Were any procedures done? @ -No Diagnosis/symptom? @ -Fall Acute, or Chronic, or Acute on Chronic? @ -Acute Uncomplicated (without systemic symptoms) or Complicated (systemic symptoms)? @ -Uncomplicated Side effects of treatment? @ -No Exacerbation, Progression, or Severe Exacerbation? @ -No Poses a threat to life or bodily function? How? (Chest pain, [place], [place], pneumonia, PE, COPD, DKA, ARF, appy, cholecystitis, CVA, Diverticulitis, Homicidal, Suicidal, threat to staff... and all critical care pts) @ -No Disposition Clinical Impression: Fall Disposition: HOME SELF-CARE Condition: Stable Instructions (If sedation given, give patient instructions): Fall Prevention (ED) Additional Instructions: Please return to the Emergency Department if symptoms worsen or any other concerns. Is patient prescribed a controlled substance at d/c from ED?: No Referrals: Giuseppe Bailey MD [Primary Care Provider] - 1-2 days Time of Disposition: 10:06
--- NOTE | 2023-08-12 09:05 | XR ---
EXAMINATION TYPE: XR chest 1V DATE OF EXAM: 08/12/2023 8:45 AM CLINICAL INDICATION:Male, 77 years old with history of pain,fall; [facility] COMPARISON: Chest radiographs from 04/03/2023 TECHNIQUE: XR chest 1V Frontal view of the chest. FINDINGS: Lungs/Pleura: There is no evidence of pleural effusion, focal consolidation, or pneumothorax. Pulmonary vascularity: Unremarkable. Heart/mediastinum: Cardiomediastinal silhouette is unremarkable. Musculoskeletal: No acute osseous pathology. IMPRESSION: 1. No acute cardiopulmonary disease process. 2. COPD changes.
--- NOTE | 2023-08-12 09:06 | XR ---
EXAMINATION TYPE: XR pelvis AP view DATE OF EXAM: 08/12/2023 8:45 AM CLINICAL INDICATION:Male, 77 years old with history of pain,fall; COMPARISON: None TECHNIQUE: The pelvis was examined in a single projection. FINDINGS: There is no evidence of fracture or dislocation. There is no soft tissue abnormality. No a bnormal calcifications are present. Multilevel degenerative changes of the lower spine. The hips appear intact. Osteophyte formation of the superior acetabulum bilaterally with mild joint space narrowing. IMPRESSION: No acute osseous pathology. Mild degeneration changes of the hips.
--- NOTE | 2023-08-12 09:10 | CT ---
EXAMINATION TYPE: CT brain cspine wo con CT DLP: 1290.5 mGycm, Automated exposure control for dose reduction was used. DATE OF EXAM: 08/12/2023 8:53 AM COMPARISON: 03/28/2023 CLINICAL INDICATION:Male, 77 years old with history of fall,pain; Fall TECHNIQUE: Brain: Multiple axial CT images of the brain were obtained without IV contrast. Cspine: Axial CT images from the skull base to the inferior aspect of T2 we obtained without intraven ous contrast. Coronal and sagittal reformatted images were also reviewed. . FINDINGS: Brain: Extra-axial spaces: No abnormal extra-axial fluid collections. Ventricular system: Dilatation in proportion to cerebral atrophy. Cerebral parenchyma: Cerebral atrophy. No acute intraparenchymal hemorrhage or mass effect. The floers -white junction is well differentiated. Scattered hypoattenuating areas are seen within the white mat ter. Cerebellum: Unremarkable. Mass effect: No evidence of midline shift. Intracranial vasculature: unremarkable Soft tissues: Normal. Calvarium/osseous structures: No depressed skull fracture. Paranasal sinuses and mastoid air cells: Clear. Visualized orbits: Orbital contents are intact. Cervical spine: Fracture: No spinal fracture. Remote appearing left upper rib fractures. Involving left ribs 2, 3, 4, 5. Right rib 6. Osseous structures: Multilevel degenerative disc disease changes with endplate spurring and disc oste ophyte complex's. Is a sclerotic focus compatible with bone island in the T4 vertebrae. Vertebral alignment: Within normal limits. Spinal canal/Neural Foramina: No evidence of significant spinal canal narrowing. No evidence for sign ificant neural foraminal stenosis. Neck soft tissues: Prevertebral soft tissues are within normal limits. Other: The airway is patent. Severe centrilobular emphysema changes in the lung apices. Apical scarri ng on the right. IMPRESSION: 1. No acute intracranial process. 2. Nonspecific white matter changes, likely secondary to chronic small vessel ischemic disease. 3. No evidence of cervical spine fracture. 4. Mild multilevel degenerative disc disease. 5. Remote appearing left upper rib fractures. Involving left ribs 2, 3, 4, 5 and right rib 6. 6. Severe emphysema.
[2023-08-12 10:53] VITALS: BP 141/99; PULSE 67; RESP 18; TEMP 97.7
== END 2023-08-12 10:53 | disposition home or self-care (01) ==
LOC: EC 07:36
DX: Z91.81 History of falling (principal); Z04.3 Encounter for examination and observation following other accident; Z88.0 Allergy status to penicillin; Z88.1 Allergy status to other antibiotic agents; Z88.5 Allergy status to narcotic agent; Z87.891 Personal history of nicotine dependence
CPT/HCPCS: 70450; 71045; 72125; 72170; 99284

== ENCOUNTER 2023-08-24 10:51 | Emergency (ER) | payer MEDICARE ==
[2023-08-24 11:03] VITALS: BP 171/78; PULSE 78; RESP 16; TEMP 97.6
--- NOTE | 2023-08-24 11:08 | ED ---
Fall HPI - General Chief Complaint: Fall Stated Complaint: Fall Time Seen by Provider: 08/24/23 10:53 Source: EMS, RN notes reviewed Mode of arrival: ambulatory Limitations: no limitations - History of Present Illness Initial Comments: This is a 77-year-old male who presents to the emergency department for a fall. Patient lives at an assisted living facility and staff heard a noise and found him on the ground in his room. He had been trying to get out of bed using his walker, when he lost his balance and fell, hitting his head. He is not supposed to try to get around on his own, as he typically falls in the process. They believe that he may have hit his head on the molding on the wall. There was no loss of consciousness. Patient is not taking any blood thinners. He is alert and oriented x 1 at baseline and staff reports he is acting like himself. MD Complaint: fall - Related Data Home Medications Medication Instructions Recorded Confirmed Albuterol Sulfate [Albuterol 1 puff PO RT-QID 03/28/23 03/28/23 Sulfate Hfa] Previous Rx's Medication Instructions Recorded Acetaminophen Tab [Tylenol] 650 mg PO Q6HR PRN tab 04/02/23 QUEtiapine [SEROquel] 25 mg PO BID PRN #60 tab 04/02/23 QUEtiapine [SEROquel] 25 mg PO HS #30 tab 04/02/23 Allergies Allergy/AdvReac Type Severity Reaction Status Date / Time Penicillins Allergy Mild Rash/Hives Verified 08/24/23 11:00 cephalexin Allergy Rash/Hives Verified 08/24/23 11:00 morphine Allergy Rash/Hives Verified 08/24/23 11:00 Review of Systems ROS Statement: Those systems with pertinent positive or pertinent negative responses have been documented in the HPI. ROS Other: All systems not noted in ROS Statement are negative. Past Medical History Past Medical History: Cancer, COPD, Dementia, Hyperlipidemia, Pneumonia, Prostate Disorder Additional Past Medical History / Comment(s): Primary progressive apraxia, e mphysema, severe COPD and the patient FEV1 is in order of 24% of predicted, pulmonary nodule 7 mm in the right lower lobe, small hiatal hernia, prostate cancer, colon cancer, rt inguinal hernia. 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, hx anemia, bladder diverticulum, peripheral vascular disease History of Any Multi-Drug Resistant Organisms: None Reported Past Surgical History: Appendectomy, Back Surgery, Bowel Resection, Hernia Repair, Orthopedic Surgery Additional Past Surgical History / Comment(s): back surgery for herniated disk, rt shoulder rotator cuff, nilsa cataracts with lens implants, nilsa inguinal hernia, diverticulitis Past Anesthesia/Blood Transfusion Reactions: No Reported Reaction Past Psychological History: No Psychological Hx Reported Smoking Status: Former smoker Past Alcohol Use History: Rare Past Drug Use History: None Reported - Past Family History Father Family Medical History: Cancer Mother Family Medical History: Cancer Additional Family Medical History / Comment(s): lung Cancer, Brain Cancer Sister(s) Family Medical History: Congestive Heart Failure (CHF) General Exam General appearance: alert, in no apparent distress Head exam: Present: other (Hematoma to the left side of the forehead with a superficial laceration lateral to the left eyebrow. No active bleeding.) Eye exam: Present: normal appearance, PERRL, EOMI. Absent: scleral icterus, conjunctival injection, periorbital swelling Respiratory exam: Present: normal lung sounds bilaterally. Absent: respiratory distress, wheezes, rales, rhonchi, stridor Cardiovascular Exam: Present: regular rate, normal rhythm, normal heart sounds. Absent: systolic murmur, diastolic murmur, rubs, gallop, clicks GI/Abdominal exam: Present: soft Neurological exam: Present: alert Skin exam: Present: warm, dry, intact, normal color. Absent: rash Course Vital Signs 08/24/23 11:00 Temperature 97.6 F Pulse Rate 78 Respiratory 16 Rate Blood Pressure 171/78 O2 Sat by Pulse 93 L Oximetry Medical Decision Making - Medical Decision Making This is a 77 year old male who presents to the emergency department for a fall. Was pt. sent in by a medical professional or institution? @ -No Did you speak to anyone other than the patient for history? @ -EMS provided all of the history. Did you review nursing and triage notes? @ -Yes, and I agree, it is accurate with regards to the patient's symptoms. Were old charts reviewed? @ -No Differential Diagnosis? @ -Differential Diagnosis Head Injury: Contusion, hematoma, intracranial hemorrhage, skull fracture, whiplash, concussion, this is not meant to be an all-inclusive list. EKG interpreted by me (3pts min.)? @ -Not obtained X-rays interpreted by me (1pt min.)? @ -Chest x-ray obtained, my interpretation identifies no localized consolidations or infiltrates. X-ray of the pelvis obtained. My interpretation identifies no acute fractures. CT interpreted by me (1pt min.)? @ -CT scan of the brain and C-spine obtained. My interpretation identifies a C7 fracture and no evidence of an acute intracranial hemorrhage. CT scan of the facial bones obtained as well. My interpretation identifies no acute facial fractures. U/S interpreted by me (1pt. min.)? @ -Not obtained What testing was considered but not performed? (CT, X-rays, U/S, labs)? Why? @ -None What meds were considered but not given? Why? @ -None Did you discuss the management of the patient with other professionals? @ -Yes, Dr. Renteria, orthopedics. He spoke with Dr. Mcpherson, who advised an [place] hard c-collar which will need to be on 24 hours a day aside from bathing and follow-up with Dr. Mcpherson in the office this week. Did you reconcile home meds? @ -No Was smoking cessation discussed for >3mins.? @ -No Was critical care preformed (if so, how long)? @ -No Were there social determinants of health that impacted care today? How? (Homelessness, low income, unemployed, alcoholism, drug addiction, transportation, low edu. Level, literacy, decrease access to med. care, intermediate, rehab)? @ -No Was there de-escalation of care discussed even if they declined? (Discuss DNR or withdrawal of care, Hospice)? @ -No What co-morbidities impacted this encounter? (DM, HTN, Smoking, COPD, CAD, Cancer, CVA, Hep., AIDS, mental health diagnosis, sleep apnea, morbid obesity)? @ -Dementia Was patient admitted / discharged? @ -Discharged. CT scan of the brain/C-spine and facial bones obtained revealing an acute fracture through the right lateral facet of C7. X-ray of the chest and pelvis revealed no acute injuries. Case discussed with on-call orthopedics, Dr. Renteria. He spoke with Dr. Mcpherson, who advised a hard [place] collar, which the patient will need to have on essentially 24 hours a day aside from bathing and he will follow-up with Dr. Mcpherson in the office this upcoming week. [place] collar was applied to the patient per orthopedic recommendations. I called the patient's snf and spoke with staff regarding cervical collar instructions. Given that the patient already receives [id number] care at a snf, is not in any severe pain, and is otherwise at his baseline mentation, patient is able to be discharged home. Patient discharged back to snf via EMS in stable condition with c-collar in place. Undiagnosed new problem with uncertain prognosis? @ -None Drug Therapy requiring intensive monitoring for toxicity (Heparin, Nitro, Insulin, Cardizem)? @ -None Were any procedures done? @ -None Diagnosis/symptom? @ -Fall, C7 fracture Acute, or Chronic, or Acute on Chronic? @ -Acute Uncomplicated (without systemic symptoms) or Complicated (systemic symptoms)? @ -Uncomplicated Side effects of treatment? @ -None Exacerbation, Progression, or Severe Exacerbation] @ -Not applicable Poses a threat to life or bodily function? @ -Can potentially lead to paralysis or limitation of function Return precautions reviewed in depth, the patient is instructed to return to the emergency department with any new, worsening, or concerning symptoms. [facility] staff verbalized understanding. This case was discussed in detail with the attending ED physician, Dr. Pacheco. Presentation, findings, and treatment plan discussed in detail as well. - Radiology Data Radiology results: report reviewed, image reviewed Disposition Clinical Impression: Fall, C7 cervical fracture Disposition: HOME SELF-CARE Instructions (If sedation given, give patient instructions): Fall Prevention for Older Adults (ED), Cervical Fracture (ED) Additional Instructions: Return to the emergency department with any new, worsening, or concerning symptoms. He will need to wear the [place] hard collar 24 hours a day except for bathing. Contact the orthopedic office listed below. Dr. Mcpherson will plan on seeing him in the office this upcoming week. Is patient prescribed a controlled substance at d/c from ED?: No Referrals: None,Stated [Primary Care Provider] - 1-2 days Mendel Mcpherson DO [Doctor of Osteopathic Medicine] - 1-2 days Time of Disposition: 12:44
--- NOTE | 2023-08-24 11:55 | CT ---
EXAMINATION TYPE: CT brain cspine wo con, CT facial bones wo con CT DLP: 1101.8 mGycm, Automated exposure control for dose reduction was used. DATE OF EXAM: 08/24/2023 11:26 AM COMPARISON: 08/12/2023. CLINICAL INDICATION:Male, 77 years old with history of Fall, head injury; fall/ ams (accession [id number]), fall/ams (accession [id number]) TECHNIQUE: Brain: Multiple axial CT images of the brain were obtained without IV contrast. Cspine: Axial CT images from the skull base to the inferior aspect of T2 we obtained without intraven ous contrast. Coronal and sagittal reformatted images were also reviewed. Facial: Axial imaging max of facial structures with sagittal coronal reformats. FINDINGS: Brain: Extra-axial spaces: No abnormal extra-axial fluid collections. Ventricular system: Dilatation in proportion to cerebral atrophy. Cerebral parenchyma: Cerebral atrophy. No acute intraparenchymal hemorrhage or mass effect. The flores -white junction is well differentiated. Scattered hypoattenuating areas are seen within the white mat ter. Cerebellum: Unremarkable. Mass effect: No evidence of midline shift. Intracranial vasculature: Atherosclerotic calcifications of the intracranial vessels. Soft tissues: Normal. Calvarium/osseous structures: No depressed skull fracture. Paranasal sinuses and mastoid air cells: Clear. Visualized orbits: Bilateral aphakia. Cervical spine: Fracture: Acute fracture through the right lateral facet of C7 series 301 image 78 and series 202 olga ge 26. There is minimal displacement. Remote appearing left posterior rib fractures 2 through 4. Osseous structures: Multilevel degenerative disc disease changes with endplate spurring and disc oste ophyte complex's. Vertebral alignment: Within normal limits. Spinal canal/Neural Foramina: Disc osteophyte complexes at C5-C6 with at least mild spinal canal sten osis. Facet joint uncovertebral joint arthropathy scattered throughout the cervical spine with varyin g degrees of neural foraminal stenosis. Neck soft tissues: Prevertebral soft tissues are within normal limits. Other: The airway is patent. The lung apices are clear. Facial:There is no evidence of fracture, subluxation, dislocation, or significant soft tissue swellin g. Bilateral aphakia.The temporal-mandibular joints appear symmetric. The visualized portion of the p aranasal sinuses appear clear. IMPRESSION: 1. Acute fracture through the right lateral facet of C7 series 301 image 78 and series 202 image 26. New from 08/12/2023 2. No acute intracranial process. 3. No no facial fracture identified. 4. Mild multilevel degenerative disc disease.
--- NOTE | 2023-08-24 11:59 | XR ---
EXAMINATION TYPE: XR chest 2V DATE OF EXAM: 08/24/2023 11:31 AM CLINICAL INDICATION:Male, 77 years old with history of Fall; [facility] COMPARISON: Chest radiographs from 08/12/2023 TECHNIQUE: XR chest 2V Frontal and lateral views of the chest. FINDINGS: Lungs/Pleura: There is no evidence of pleural effusion, focal consolidation, or pneumothorax. Pulmonary vascularity: Unremarkable. Heart/mediastinum: Cardiomediastinal silhouette is unremarkable. Musculoskeletal: No acute osseous pathology. Posterior left rib fracture seen on CT are less well yue reciated. IMPRESSION: 1. No acute cardiopulmonary disease process. 2. COPD changes. 3. Posterior left rib fracture seen on CT are not as well appreciated.
--- NOTE | 2023-08-24 12:00 | XR ---
EXAMINATION TYPE: XR pelvis AP view DATE OF EXAM: 08/24/2023 11:31 AM CLINICAL INDICATION:Male, 77 years old with history of Fall; COMPARISON: None TECHNIQUE: The pelvis was examined in a single projection. FINDINGS: There is no evidence of fracture or dislocation. There is no soft tissue abnormality. No a bnormal calcifications are present. The spine appears intact. The hips appear intact. Osteophyte form ation of the superior acetabulum bilaterally with mild joint space narrowing. IMPRESSION: No acute osseous pathology. Mild degeneration changes of the hip.
== END 2023-08-24 14:19 | disposition home or self-care (01) ==
LOC: SUPCPDRO 10:51 → EC 10:51
DX: S12.600A Unspecified displaced fracture of seventh cervical vertebra, initial encounter for closed fracture (principal); S22.32XA Fracture of one rib, left side, initial encounter for closed fracture; F03.90 Unspecified dementia, unspecified severity, without behavioral disturbance, psychotic disturbance, mood disturbance, and anxiety; Z87.891 Personal history of nicotine dependence; Z88.0 Allergy status to penicillin; Z88.5 Allergy status to narcotic agent; Z88.8 Allergy status to other drugs, medicaments and biological substances; W06.XXXA Fall from bed, initial encounter
CPT/HCPCS: 70450; 70486; 71046; 72125; 72170; 99284

== ENCOUNTER 2023-09-06 00:11 | Emergency (ER) | payer MEDICARE ==
[2023-09-06 00:18] VITALS: RESP 18; TEMP 98
--- NOTE | 2023-09-06 00:44 | ED ---
Fall HPI - General Chief Complaint: Fall Stated Complaint: Fall Time Seen by Provider: 09/06/23 00:28 Source: EMS Mode of arrival: EMS Limitations: physical limitation (Reportedly nonverbal) - History of Present Illness MD Complaint: fall -: unknown Fall From: standing When Fall Occurred: unsure Fall Witnessed: no Place Fall Occurred: home Loss of Consciousness: unsure Prolonged Down Time?: unclear - Related Data Home Medications Medication Instructions Recorded Confirmed Albuterol Nebulized [Ventolin 2.5 mg INHALATION RT-QID 09/10/23 09/10/23 Nebulized] Donepezil [Aricept] 10 mg PO HS@199909/10/23 09/10/23 Lovastatin [Mevacor] 40 mg PO HS@199909/10/23 09/10/23 QUEtiapine [SEROquel] 50 mg PO BID@0800,199909/10/23 09/10/23 Allergies Allergy/AdvReac Type Severity Reaction Status Date / Time Penicillins Allergy Mild Rash/Hives Verified 09/10/23 14:55 cephalexin Allergy Rash/Hives Verified 09/10/23 14:55 morphine Allergy Rash/Hives Verified 09/10/23 14:55 Review of Systems ROS Statement: Those systems with pertinent positive or pertinent negative responses have been documented in the HPI. ROS Other: All systems not noted in ROS Statement are negative. Limitations: ROS unobtainable due to patients medical condition Past Medical History Past Medical History: Cancer, COPD, Dementia, Hyperlipidemia, Pneumonia, Prostate Disorder Additional Past Medical History / Comment(s): Primary progressive apraxia, emphysema, severe COPD and the patient FEV1 is in order of 24% of predicted, pulmonary nodule 7 mm in the right lower lobe, small hiatal hernia, prostate cancer, colon cancer, rt inguinal hernia. 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, hx anemia, bladder diverticulum, peripheral vascular disease History of Any Multi-Drug Resistant Organisms: None Reported Past Surgical History: Appendectomy, Back Surgery, Bowel Resection, Hernia Repair, Orthopedic Surgery Additional Past Surgical History / Comment(s): back surgery for herniated disk, rt shoulder rotator cuff, nilsa cataracts with lens implants, nilsa inguinal hernia, diverticulitis Past Anesthesia/Blood Transfusion Reactions: No Reported Reaction Past Psychological History: No Psychological Hx Reported Smoking Status: Former smoker Past Alcohol Use History: Rare Past Drug Use History: None Reported - Past Family History Father Family Medical History: Cancer Mother Family Medical History: Cancer Additional Family Medical History / Comment(s): lung Cancer, Brain Cancer Sister(s) Family Medical History: Congestive Heart Failure (CHF) General Exam General appearance: alert, in no apparent distress Head exam: Present: normocephalic Eye exam: Present: normal appearance, PERRL, EOMI. Absent: scleral icterus, conjunctival injection, nystagmus Neck exam: Present: other (Is in cervical collar) Respiratory exam: Present: normal lung sounds bilaterally. Absent: respiratory distress, wheezes, rales, rhonchi, stridor, chest wall tenderness, accessory muscle use Cardiovascular Exam: Present: regular rate, normal rhythm, normal heart sounds. Absent: systolic murmur, diastolic murmur, rubs, gallop GI/Abdominal exam: Present: soft. Absent: distended, tenderness, guarding Extremities exam: Present: normal inspection, normal capillary refill. Absent: pedal edema, calf tenderness Back exam: Present: normal inspection Neurological exam: Present: alert. Absent: motor sensory deficit Skin exam: Present: warm, dry, intact, other (Has multiple contusions of different ages as well as abrasions in different states of healing) Course Vital Signs 09/06/23 09/06/23 09/06/23 00:12 01:30 02:23 Temperature 98.0 F Pulse Rate 67 68 74 Respiratory 18 18 18 Rate Blood Pressure 176/103 130/78 120/59 O2 Sat by Pulse 97 95 95 Oximetry Medical Decision Making - Medical Decision Making The patient had CT scan of the brain and cervical spine that I interpreted as negative for acute intracranial hemorrhage or skull fracture. Was pt. sent in by a medical professional or institution (, PA, ANIMAL LABORATORY TECHNICIAN, urgent care, hospital, or halfway...) When possible be specific @ -[No] Did you speak to anyone other than the patient for history (EMS, parent, family, police, friend...)? What history was obtained from this source @ -[EMS contributed to history Did you review nursing and triage notes (agree or disagree)? Why? @ -[I reviewed and agree with nursing and triage notes] Were old charts reviewed (outside hosp., previous admission, EMS record, old EKG, old radiological studies, urgent care reports/EKG's, halfway records)? Report findings @ -[No old charts were reviewed] Differential Diagnosis (chest pain, altered mental status, abdominal pain women, abdominal pain men, vaginal bleeding, weakness, fever, dyspnea, syncope, headache, dizziness, GI bleed, back pain, seizure, CVA, palpatations, mental health, musculoskeletal)? @ -[Differential Musculoskeletal Muscular strain, contusion, ligament sprain, fracture, arthritis, septic arthritis, bursitis, cellulitis, muscle spasm, nerve compression, DVT, arterial occlusion, herpes zoster, electrolyte abnormality, tumor.... This is not meant to be in all inclusive list EKG interpreted by me (3pts min.). @ -[As above] X-rays interpreted by me (1pt min.). @ -[None done] CT interpreted by me (1pt min.). @ -[I interpreted as above U/S interpreted by me (1pt. min.). @ -[None done] What testing was considered but not performed or refused? (CT, X-rays, U/S, labs)? Why? @ -[None] What meds were considered but not given or refused? Why? @ -[None] Did you discuss the management of the patient with other professionals (professionals i.e. , PA, ANIMAL LABORATORY TECHNICIAN, lab, RT, psych nurse, social services technician, livestock producer, teacher, juvenile officer, watch case polisher)? Give summary @ -[No] Was smoking cessation discussed for >3mins.? @ -[No] Was critical care preformed (if so, how long)? @ -[No] Were there social determinants of health that impacted care today? How? (Homelessness, low income, unemployed, alcoholism, drug addiction, transportation, low edu. Level, literacy, decrease access to med. care, senior care, rehab)? @ -[No] Was there de-escalation of care discussed even if they declined (Discuss DNR or withdrawal of care, Hospice)? DNR status @ -[No] What co-morbidities impacted this encounter? (DM, HTN, Smoking, COPD, CAD, Cancer, CVA, ARF, Chemo, Hep., AIDS, mental health diagnosis, sleep apnea, morbid obesity)? @ -[None] Was patient admitted / discharged? Hospital course, mention meds given and route, prescriptions, significant lab abnormalities, going to OR and other pertinent info. @ -[Patient is 77-year-old man sent from long-term care facility to have evaluation after fall. There is not appear to be any new injury and patient appears stable for transfer back to his care facility. Undiagnosed new problem with uncertain prognosis? @ -[No] Drug Therapy requiring intensive monitoring for toxicity (Heparin, Nitro, Insulin, Cardizem)? @ -[No] Were any procedures done? @ -[No] Diagnosis/symptom? @ -[C7 cervical fracture, subacute Clavicle fracture, subacute Acute, or Chronic, or Acute on Chronic? @ -[Subacute Uncomplicated (without systemic symptoms) or Complicated (systemic symptoms)? @ -[Uncomplicated Side effects of treatment? @ -[No] Exacerbation, Progression, or Severe Exacerbation? @ -[No] Poses a threat to life or bodily function? How? (Chest pain, [place], [place], pneumonia, PE, COPD, DKA, ARF, appy, cholecystitis, CVA, Diverticulitis, Homicidal, Suicidal, threat to staff... and all critical care pts) @ -[No] Disposition Clinical Impression: C7 cervical fracture, Clavicle fracture Disposition: HOME SELF-CARE Condition: Fair Instructions (If sedation given, give patient instructions): Clavicle Fracture (DC), Fall Prevention for Older Adults (ED), Cervical Fracture (ED) Is patient prescribed a controlled substance at d/c from ED?: No Referrals: Tomy Weldon DO [Primary Care Provider] - 1-2 days
[2023-09-06] MEDS: LORazepam 2 MG/ML INJ IV STA (00:51)
--- NOTE | 2023-09-06 01:09 | CT ---
EXAMINATION TYPE: CT brain cspine wo con DATE OF EXAM: 09/06/2023 COMPARISON: Prior trauma CT August 24, 2023 HISTORY: Patient is here for an unwitnessed fall. Patient fell from standing. No thinners, unknown L OC. Patient lives in an assisted living. C7 fx from CT brain/c spine done on 08/24/23 CT DLP: 1311.8 mGycm. Automated Exposure Control for Dose Reduction was Utilized. TECHNIQUE: CT scan of the head and cervical spine are performed without contrast. FINDINGS: There is no acute intracranial hemorrhage or midline shift. Moderate ventricular and sulc al prominence is redemonstrated. Mild/moderate low attenuation in the deep and periventricular white matter is redemonstrated. The calvarium is intact. Nasal septum remains deviated to left of midline. The globes are intact and the visualized sinuses are clear. Cervical spine is visualized in its entirety from C1 through upper thoracic levels and redemonstrates slight scoliotic curvature without evidence of acute fracture or dislocation. Prevertebral soft tis alek appears within normal limits. The C1-C2 articulation is within normal limits on the coronal imag es. Severe atlantodental interval narrowing is redemonstrated on sagittal images. Vertebral body hei ghts are maintained. Moderate disc space narrowing at C5-C6 level is redemonstrated. Lung apices show emphysematous change and some scattered parenchymal scarring without pneumothorax. Displaced left cl avicular fracture is redemonstrated likely subacute in age. Some interval healing of the lateral lowe r cervical fracture at C7 level axial image 74 is noted. IMPRESSION: 1. There is no new acute fracture or dislocation evident in the cervical spine. 2. No acute intracranial hemorrhage or midline shift is seen.
[2023-09-06 02:29] VITALS: BP 120/59; PULSE 74
== END 2023-09-06 02:25 | disposition home or self-care (01) ==
LOC: EC 00:11
DX: S12.600A Unspecified displaced fracture of seventh cervical vertebra, initial encounter for closed fracture (principal); Z87.891 Personal history of nicotine dependence; Z88.0 Allergy status to penicillin; W18.30XA Fall on same level, unspecified, initial encounter
CPT/HCPCS: 72125; 70450; 99284; 96374; J2060

== ENCOUNTER 2023-09-10 14:02 | Emergency (ER) | payer MEDICARE ==
--- NOTE | 2023-09-10 14:32 | ED ---
General Adult HPI - General Chief complaint: Shortness of Breath Stated complaint: WOODY, Weakness Time Seen by Provider: 09/10/23 14:10 Source: patient, RN notes reviewed, old records reviewed Mode of arrival: EMS Limitations: no limitations - History of Present Illness Initial comments: This is a 77-year-old male who presents to the emergency department from an assisted living facility he normally is alert and oriented x 1 however today he is not responding at all he will swallow anything and he is breathing about 40 times a minute. Patient is a DNR. But we are currently unable to get any information as to how aggressive to be with treatment for this patient. Patient is unable to give any history no family is with the patient - Related Data Home Medications Medication Instructions Recorded Confirmed Albuterol Nebulized [Ventolin 2.5 mg INHALATION RT-QID 09/10/23 09/10/23 Nebulized] Donepezil [Aricept] 10 mg PO HS@199909/10/23 09/10/23 Lovastatin [Mevacor] 40 mg PO HS@199909/10/23 09/10/23 QUEtiapine [SEROquel] 50 mg PO BID@08,199909/10/23 09/10/23 Allergies Allergy/AdvReac Type Severity Reaction Status Date / Time Penicillins Allergy Mild Rash/Hives Verified 09/10/23 14:55 cephalexin Allergy Rash/Hives Verified 09/10/23 14:55 morphine Allergy Rash/Hives Verified 09/10/23 14:55 Review of Systems ROS Statement: Those systems with pertinent positive or pertinent negative responses have been documented in the HPI. ROS Other: All systems not noted in ROS Statement are negative. Past Medical History Past Medical History: Cancer, COPD, Dementia, Hyperlipidemia, Pneumonia, Prostate Disorder Additional Past Medical History / Comment(s): Primary progressive apraxia, emphysema, severe COPD and the patient FEV1 is in order of 24% of predicted, pulmonary nodule 7 mm in the right lower lobe, small hiatal hernia, prostate cancer, colon cancer, rt inguinal hernia. 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, hx anemia, bladder diverticulum, peripheral vascular disease History of Any Multi-Drug Resistant Organisms: None Reported Past Surgical History: Appendectomy, Back Surgery, Bowel Resection, Hernia Repair, Orthopedic Surgery Additional Past Surgical History / Comment(s): back surgery for herniated disk, rt shoulder rotator cuff, nilsa cataracts with lens implants, nilsa inguinal hernia, diverticulitis Past Anesthesia/Blood Transfusion Reactions: No Reported Reaction Past Psychological History: No Psychological Hx Reported Smoking Status: Former smoker Past Alcohol Use History: Rare Past Drug Use History: None Reported - Past Family History Father Family Medical History: Cancer Mother Family Medical History: Cancer Additional Family Medical History / Comment(s): lung Cancer, Brain Cancer Sister(s) Family Medical History: Congestive Heart Failure (CHF) General Exam - General Exam Comments Initial Comments: GENERAL: Patient is cachectic. Patient is breathing about 40 times a minute and is un responsive ENT: Neck is soft and supple. No significant lymphadenopathy is noted. Oropharynx is clear. Moist mucous membranes. Neck has full range of motion without eliciting any pain. EYES: The sclera were anicteric and conjunctiva were pink and moist. Extraocular movements were intact and pupils were equal round and reactive to light. Eyelids were unremarkable. PULMONARY: Is breathing about 40 times a minute CARDIOVASCULAR: Tachycardic at about 120 beats a minute ABDOMEN: Soft and nontender with normal bowel sounds. SKIN: Skin is clear with no lesions or rashes and otherwise unremarkable. NEUROLOGIC: Patient is alert and deafly not oriented. Will not follow any commands a further examination cannot be done at this time MUSCULOSKELETAL: Is cachectic LYMPHATICS: No significant lymphadenopathy is noted PSYCHIATRIC: Unable to evaluate Limitations: no limitations Course Vital Signs 09/10/23 09/10/23 09/10/23 14:07 14:12 15:14 Temperature 98.7 F Pulse Rate 120 H 116 H Respiratory 50 H 50 H 50 H Rate Blood Pressure 85/52 75/45 O2 Sat by Pulse 88 L 91 L Oximetry 09/10/23 15:20 Temperature Pulse Rate Respiratory 50 H Rate Blood Pressure O2 Sat by Pulse Oximetry Medical Decision Making - Medical Decision Making EKG is interpreted by myself. EKG shows sinus tachycardia at a rate of 118 bpm parables 100 QRS 77 QT interval is 419 QTc is 489. Was pt. sent in by a medical professional or institution (, PA, FLOOR MOLDER, urgent care, hospital, or fdc...) When possible be specific @ -No Did you speak to anyone other than the patient for history (EMS, parent, family, police, friend...)? What history was obtained from this source @ -No Did you review nursing and triage notes (agree or disagree)? Why? @ -I reviewed and agree with nursing and triage notes Were old charts reviewed (outside hosp., previous admission, EMS record, old EKG, old radiological studies, urgent care reports/EKG's, fdc records)? Report findings @ -No old charts were reviewed Differential Diagnosis? @ -Differential Altered Mental Status: Hypoglycemia, DKA, hypercapnia, ETOH, overdose, CO poisoning, trauma, myxedema coma, HTN encephalopathy, infection, encephalitis, psychosis, intercranial h emorrhage, hepatic encephalopathy, meningitis, CVA, this is not meant to be an all-inclusive list EKG interpreted by me (3pts min.). @ -As above X-rays interpreted by me (1pt min.). @ -None done CT interpreted by me (1pt min.). @ -None done U/S interpreted by me (1pt. min.). @ -None done What testing was considered but not performed or refused? (CT, X-rays, U/S, labs)? Why? @ -None What meds were considered but not given or refused? Why? @ -None Did you discuss the management of the patient with other professionals (professionals i.e. , PA, FLOOR MOLDER, lab, RT, psych nurse, social insurance adviser, environmental service aide, teacher, annual giving officer, case management specialist)? Give summary @ -No Was smoking cessation discussed for >3mins.? @ -No Was critical care preformed (if so, how long)? @ -No Were there social determinants of health that impacted care today? How? (Homelessness, low income, unemployed, alcoholism, drug addiction, transportation, low edu. Level, literacy, decrease access to med. care, long-term, rehab)? @ -No Was there de-escalation of care discussed even if they declined (Discuss DNR or withdrawal of care, Hospice)? DNR status @ -No What co-morbidities impacted this encounter? (DM, HTN, Smoking, COPD, CAD, Canc er, CVA, ARF, Chemo, Hep., AIDS, mental health diagnosis, sleep apnea, morbid obesity)? @ -None Was patient admitted / discharged? Hospital course, mention meds given and route, prescriptions, significant lab abnormalities, going to OR and other pertinent info. @ -Patient's son arrived shortly after the patient was brought in. Son went in and see the father and indicated to me that he wanted no intervention no treatment for his father and wanted him to go into hospice. We set up hospice care and patient will be transferred back to his facility which has a hospice waiting. Undiagnosed new problem with uncertain prognosis? @ -No Drug Therapy requiring intensive monitoring for toxicity (Heparin, Nitro, Insulin, Cardizem)? @ -No Were any procedures done? @ -No Diagnosis/symptom? @ -Hospice Acute, or Chronic, or Acute on Chronic? @ -Acute Uncomplicated (without systemic symptoms) or Complicated (systemic symptoms)? @ -Default Side effects of treatment? @ -No Exacerbation, Progression, or Severe Exacerbation? @ -No Poses a threat to life or bodily function? How? (Chest pain, [place], NV, pneumonia, PE, COPD, DKA, ARF, appy, cholecystitis, CVA, Diverticulitis, Homicidal, Suicidal, threat to staff... and all critical care pts) @ -No - Lab Data Result diagrams: 09/10/23 14:28 09/10/23 14:28 Lab Results 09/10/23 09/10/23 09/10/23 Range/Units 14:28 14:28 14:28 WBC 9.5 (3.8-10.6) k/uL RBC 4.22 L (4.30-5.90) m/uL Hgb 12.9 L (13.0-17.5) gm/dL Hct 41.1 (39.0-53.0) % MCV 97.4 (80.0-100.0) fL MCH 30.6 (25.0-35.0) pg MCHC 31.5 (31.0-37.0) g/dL RDW 14.6 (11.5-15.5) % Plt Count 306 (150-450) k/uL MPV 8.6 PT 12.2 (10.0-12.5) sec INR 1.1 (<1.2) APTT 24.5 (22.0-30.0) sec Sample Site ABG pH (7.35-7.45) ABG pCO2 (35-45) mmHg ABG pO2 (83-108) mmHg ABG HCO3 (21-25) mmol/L ABG Total CO2 (19-24) mmol/L ABG O2 Saturation (94-97) % ABG Base Excess mmol/L Jose Test FiO2 % Sodium (137-145) mmol/L Potassium (3.5-5.1) mmol/L Chloride (98-107) mmol/L Carbon Dioxide (22-30) mmol/L Anion Gap mmol/L BUN (9-20) mg/dL Creatinine (0.66-1.25) mg/dL Est GFR (CKD-EPI)AfAm (>60 ml/min/1.73 sqM) Est GFR (CKD-EPI)NonAf (>60 ml/min/1.73 sqM) Glucose (74-99) mg/dL POC Glucose (mg/dL) (70-110) mg/dL POC Glu Forming Fixer ID Calcium (8.4-10.2) mg/dL Total Bilirubin (0.2-1.3) mg/dL AST (17-59) U/L ALT (4-49) U/L Alkaline Phosphatase (38-126) U/L Ammonia (<30) umol/L Troponin I (0.000-0.034) ng/mL Total Protein (6.3-8.2) g/dL Albumin (3.5-5.0) g/dL Urine Color Yellow Urine Appearance Cloudy (Clear) Urine pH 6.0 (5.0-8.0) Ur Specific [place] 1.012 (1.001-1.035) Urine Protein 1+ H (Negative) Urine Glucose (UA) Negative (Negative) Urine Ketones 1+ H (Negative) Urine Blood Large H (Negative) Urine Nitrite Negative (Negative) Urine Bilirubin Negative (Negative) Urine Urobilinogen 3.0 (<2.0) mg/dL Ur Leukocyte Esterase Negative (Negative) Urine RBC 47 H (0-5) /hpf Urine WBC 62 H (0-5) /hpf Urine Bacteria Rare H (None) /hpf Urine Mucus Rare H (None) /hpf Urine Opiates Screen Not Detected (NotDetected) Ur Oxycodone Screen Not Detected (NotDetected) Urine Methadone Screen Not Detected (NotDetected) Ur Barbiturates Screen Not Detected (NotDetected) U Tricyclic Antidepress Detected H (NotDetected) Ur Phencyclidine Scrn Not Detected (NotDetected) Ur Amphetamines Screen Not Detected (NotDetected) U Methamphetamines Scrn Not Detected (NotDetected) U Benzodiazepines Scrn Not Detected (NotDetected) Urine Cocaine Screen Not Detected (NotDetected) U Marijuana (THC) Screen Not Detected (NotDetected) 09/10/23 09/10/23 09/10/23 Range/Units 14:28 14:28 14:28 WBC (3.8-10.6) k/uL RBC (4.30-5.90) m/uL Hgb (13.0-17.5) gm/dL Hct (39.0-53.0) % MCV (80.0-100.0) fL MCH (25.0-35.0) pg MCHC (31.0-37.0) g/dL RDW (11.5-15.5) % Plt Count (150-450) k/uL MPV PT (10.0-12.5) sec INR (<1.2) APTT (22.0-30.0) sec Sample Site ABG pH (7.35-7.45) ABG pCO2 (35-45) mmHg ABG pO2 (83-108) mmHg ABG HCO3 (21-25) mmol/L ABG Total CO2 (19-24) mmol/L ABG O2 Saturation (94-97) % ABG Base Excess mmol/L Jose Test FiO2 % Sodium 145 (137-145) mmol/L Potassium 4.3 (3.5-5.1) mmol/L Chloride 109 H (98-107) mmol/L Carbon Dioxide 23 (22-30) mmol/L Anion Gap 13 mmol/L BUN 62 H (9-20) mg/dL Creatinine 2.16 H (0.66-1.25) mg/dL Est GFR (CKD-EPI)AfAm 32 (>60 ml/min/1.73 sqM) Est GFR (CKD-EPI)NonAf 28 (>60 ml/min/1.73 sqM) Glucose 101 H (74-99) mg/dL POC Glucose (mg/dL) (70-110) mg/dL POC Glu Forming Fixer ID Calcium 8.6 (8.4-10.2) mg/dL Total Bilirubin 2.1 H (0.2-1.3) mg/dL AST 55 (17-59) U/L ALT 23 (4-49) U/L Alkaline Phosphatase 123 (38-126) U/L Ammonia <9 (<30) umol/L Troponin I 0.039 H* (0.000-0.034) ng/mL Total Protein 5.9 L (6.3-8.2) g/dL Albumin 3.1 L (3.5-5.0) g/dL Urine Color Urine Appearance (Clear) Urine pH (5.0-8.0) Ur Specific [place] (1.001-1.035) Urine Protein (Negative) Urine Glucose (UA) (Negative) Urine Ketones (Negative) Urine Blood (Negative) Urine Nitrite (Negative) Urine Bilirubin (Negative) Urine Urobilinogen (<2.0) mg/dL Ur Leukocyte Esterase (Negative) Urine RBC (0-5) /hpf Urine WBC (0-5) /hpf Urine Bacteria (None) /hpf Urine Mucus (None) /hpf Urine Opiates Screen (NotDetected) Ur Oxycodone Screen (NotDetected) Urine Methadone Screen (NotDetected) Ur Barbiturates Screen (NotDetected) U Tricyclic Antidepress (NotDetected) Ur Phencyclidine Scrn (NotDetected) Ur Amphetamines Screen (NotDetected) U Methamphetamines Scrn (NotDetected) U Benzodiazepines Scrn (NotDetected) Urine Cocaine Screen (NotDetected) U Marijuana (THC) Screen (NotDetected) 09/10/23 09/10/23 Range/Units 14:28 14:40 WBC (3.8-10.6) k/uL RBC (4.30-5.90) m/uL Hgb (13.0-17.5) gm/dL Hct (39.0-53.0) % MCV (80.0-100.0) fL MCH (25.0-35.0) pg MCHC (31.0-37.0) g/dL RDW (11.5-15.5) % Plt Count (150-450) k/uL MPV PT (10.0-12.5) sec INR (<1.2) APTT (22.0-30.0) sec Sample Site lrad ABG pH 7.42 (7.35-7.45) ABG pCO2 34 L (35-45) mmHg ABG pO2 53 L* (83-108) mmHg ABG HCO3 22 (21-25) mmol/L ABG Total CO2 23 (19-24) mmol/L ABG O2 Saturation 83.5 L (94-97) % ABG Base Excess -1.8 mmol/L Jose Test Yes FiO2 44 % Sodium (137-145) mmol/L Potassium (3.5-5.1) mmol/L Chloride (98-107) mmol/L Carbon Dioxide (22-30) mmol/L Anion Gap mmol/L BUN (9-20) mg/dL Creatinine (0.66-1.25) mg/dL Est GFR (CKD-EPI)AfAm (>60 ml/min/1.73 sqM) Est GFR (CKD-EPI)NonAf (>60 ml/min/1.73 sqM) Glucose (74-99) mg/dL POC Glucose (mg/dL) 109 (70-110) mg/dL POC Glu Forming Fixer ID Adiel García Calcium (8.4-10.2) mg/dL Total Bilirubin (0.2-1.3) mg/dL AST (17-59) U/L ALT (4-49) U/L Alkaline Phosphatase (38-126) U/L Ammonia (<30) umol/L Troponin I (0.000-0.034) ng/mL Total Protein (6.3-8.2) g/dL Albumin (3.5-5.0) g/dL Urine Color Urine Appearance (Clear) Urine pH (5.0-8.0) Ur Specific [place] (1.001-1.035) Urine Protein (Negative) Urine Glucose (UA) (Negative) Urine Ketones (Negative) Urine Blood (Negative) Urine Nitrite (Negative) Urine Bilirubin (Negative) Urine Urobilinogen (<2.0) mg/dL Ur Leukocyte Esterase (Negative) Urine RBC (0-5) /hpf Urine WBC (0-5) /hpf Urine Bacteria (None) /hpf Urine Mucus (None) /hpf Urine Opiates Screen (NotDetected) Ur Oxycodone Screen (NotDetected) Urine Methadone Screen (NotDetected) Ur Barbiturates Screen (NotDetected) U Tricyclic Antidepress (NotDetected) Ur Phencyclidine Scrn (NotDetected) Ur Amphetamines Screen (NotDetected) U Methamphetamines Scrn (NotDetected) U Benzodiazepines Scrn (NotDetected) Urine Cocaine Screen (NotDetected) U Marijuana (THC) Screen (NotDetected) Disposition Clinical Impression: Hospice care Disposition: HOME SELF-CARE Is patient prescribed a controlled substance at d/c from ED?: No Referrals: Tomy Weldon DO [Primary Care Provider] - 1-2 days Time of Disposition: 16:30
[2023-09-10 14:34] LABS: Glucose,Whole Blood 109 mg/dL (70-110)
[2023-09-10] MEDS: SODIUM CHLORIDE 0.9% 1,000 ML IV ONE ×2 (14:37→14:51)
[2023-09-10 14:43] LABS: ABG Base Excess -1.8 mmol/L; ABG HCO3 22 mmol/L (21-25); ABG Oxygen Saturation 83.5 % (94-97); ABG PCO2 34 mmHg (35-45); ABG PH 7.42 (7.35-7.45); ABG TCO2 23 mmol/L (19-24); Allen Test Performed? Yes
[2023-09-10 14:47] LABS: ABG PO2 53 mmHg (83-108)
[2023-09-10] MEDS: LEVOFLOXACIN 750MG-D5W PMX 750 MG in DEXTROSE/WATER 1 150ML.BAG IVPB STA (14:54)
[2023-09-10 15:16] LABS: ALT 23 U/L (4-49); AST 55 U/L (17-59); African American GFR (CKD) 32 (>60 ml/min/1.73 sqM); Albumin 3.1 g/dL (3.5-5.0); Alkaline Phosphatase 123 U/L (38-126); Anion Gap 13 mmol/L; Blood Urea Nitrogen 62 mg/dL (9-20); Calcium 8.6 mg/dL (8.4-10.2); Carbon Dioxide 23 mmol/L (22-30); Chloride 109 mmol/L (98-107); Glucose 101 mg/dL (74-99); Non-African American GFR(CKD) 28 (>60 ml/min/1.73 sqM); Potassium 4.3 mmol/L (3.5-5.1); Sodium 145 mmol/L (137-145); Total Bilirubin 2.1 mg/dL (0.2-1.3); Total Protein 5.9 g/dL (6.3-8.2)
[2023-09-10] MEDS: NALOXONE 0.4 MG/ML 1 ML VIAL IVP STA (15:20)
[2023-09-10 15:21] LABS: Basophils % (A) 0 %; Eosinophils # (A) 0.1 k/uL (0-0.7); Eosinophils % (A) 1 %; HCT 41.1 % (39.0-53.0); HGB 12.9 gm/dL (13.0-17.5); Lymphocytes # (A) 0.4 k/uL (1.0-4.8); Lymphocytes % (A) 4 %; MCH 30.6 pg (25.0-35.0); MCHC 31.5 g/dL (31.0-37.0); MCV 97.4 fL (80.0-100.0); Mean Platelet Volume 8.6; Monocytes # (A) 0.6 k/uL (0-1.0); Monocytes % (A) 7 %; Neutrophils # (A) 8.2 k/uL (1.3-7.7); Neutrophils % (A) 87 %; Platelet Count 306 k/uL (150-450); RBC 4.22 m/uL (4.30-5.90); RDW 14.6 % (11.5-15.5); WBC 9.5 k/uL (3.8-10.6)
[2023-09-10 15:34] LABS: INR 1.1 (<1.2); Partial Thromboplastin Time 24.5 sec (22.0-30.0); Prothrombin Time 12.2 sec (10.0-12.5)
[2023-09-10 15:44] LABS: Appearance,Urine Cloudy (Clear); Bacteria,Urine Rare /hpf; Bilirubin,Urine Negative (Negative); Blood,Urine Large (Negative); Color,Urine Yellow; Glucose,Urine (UA) Negative (Negative); Ketones,Urine 1+ (Negative); Leukocyte Esterase,Urine Negative (Negative); Mucus,Urine Rare /hpf; Nitrite,Urine Negative (Negative); Protein,Urine 1+ (Negative); RBC,Urine 47 /hpf (0-5); Specific Gravity,Urine 1.012 (1.001-1.035); WBC,Urine 62 /hpf (0-5)
[2023-09-10 15:50] LABS: Amphetamine Screen,Urine Not Detected (NotDetected); Barbiturate Screen,Urine Not Detected (NotDetected); Benzodiazepines Screen,Urine Not Detected (NotDetected); Cocaine Screen,Urine Not Detected (NotDetected); Methadone Screen, Urine Not Detected (NotDetected); Opiate Screen,Urine Not Detected (NotDetected); Oxycodone Screen, Urine Not Detected (NotDetected); Phencyclidine Screen,Urine Not Detected (NotDetected); Tricyclic Antidepressant,Urine Detected (NotDetected); Urn Cannabinoid Scrn Not Detected (NotDetected)
--- NOTE | 2023-09-10 15:57 | XR ---
EXAMINATION TYPE: XR chest 1V DATE OF EXAM: 09/10/2023 3:38 PM CLINICAL INDICATION:Male, 77 years old with history of altered mental status; [facility] COMPARISON: 08/24/2023 TECHNIQUE: XR chest 1V Frontal view of the chest. FINDINGS: Lungs/Pleura: Right upper and midlung airspace opacities There is flattening of the diaphragm with in creased lucency of the lungs. No evidence of pneumothorax, pleural effusion or left focal consolidati on. Pulmonary vascularity: Unremarkable. Heart/mediastinum: Cardiomediastinal silhouette is unremarkable. Musculoskeletal: No acute osseous pathology. IMPRESSION: 1. Right upper and mid lung consolidation concerning for pneumonia. This is new from prior. 2. COPD
[2023-09-10] MEDS: MORPHINE SULFATE 2 MG/ML SYRINGE IVP STA (16:09)
[2023-09-10 17:50] VITALS: BP 75/55; PULSE 112; RESP 26; TEMP 98.8
== END 2023-09-10 17:50 | disposition home or self-care (01) ==
LOC: EC 14:02
DX: Z51.5 Encounter for palliative care (principal); Z88.0 Allergy status to penicillin; Z88.1 Allergy status to other antibiotic agents; Z88.5 Allergy status to narcotic agent; Z87.891 Personal history of nicotine dependence
CPT/HCPCS: 36415; 36600; 93005; 80053; 82140; 82805; 84484; 85025; 85610; 85730; 81001; 80306; 71045; 99285; 96365; 96375 ×2; J2310; J2270; J1956